=== PATIENT | female | born 1975 | race Caucasian/White ===

== ENCOUNTER → 2016-10-05 | Outpatient (REF) | payer BC ==
[~2016-10-05] MED LIST: ACIP20TA5 PO; CELE-19 PO; ETOD400T PO; FENO160T10 PO; FISH5CAP PO; FLON1SPR; LEVO112T25 PO; PREG50CA PO; TYLE500T78 PO
[2016-10-05 19:51] LABS: VITAMIN B12 LEVEL 564 PG/ML
[2016-10-05 19:52] LABS: FOLATE 17.6 NG/ML
[2016-10-05 19:57] LABS: MEAN CORPUSCULAR HEMOGLOBIN 31.2 pg (27.0-33.0); MEAN CORPUSCULAR HGB CONC 33.7 g/dl (32.0-36.5); MEAN CORPUSCULAR VOLUME 92.7 fl (80.0-96.0); RED CELL DISTRIBUTION WIDTH 13.9 % (11.5-14.5); WHITE BLOOD COUNT 10.4 K/mm3 (4.0-10.0)
[2016-10-05 20:11] LABS: ALBUMIN 3.7 GM/DL (3.2-5.2); ALBUMIN/GLOBULIN RATIO 1.03 (1.00-1.93); ALKALINE PHOSPHATASE 83 U/L (45-117); ALT/SGPT 31 U/L (12-78); ANION GAP 6 MEQ/L (8-16); AST/SGOT 19 U/L (15-37); BILIRUBIN,TOTAL 0.4 MG/DL (0.2-1.0); BLOOD UREA NITROGEN 14 MG/DL (7-18); CALCIUM LEVEL 9.7 MG/DL (8.5-10.1); CARBON DIOXIDE LEVEL 31 MEQ/L (21-32); CHLORIDE LEVEL 101 MEQ/L (98-107); CHOLESTEROL LEVEL 256 MG/DL (<200); CREATININE FOR GFR 1.07 MG/DL (0.55-1.02); GLOMERULAR FILTRATION RATE 59.9 (>58); GLUCOSE, FASTING 103 MG/DL (70-105); POTASSIUM SERUM 4.7 MEQ/L (3.5-5.1); SODIUM LEVEL 138 MEQ/L (136-145); TOTAL PROTEIN 7.3 GM/DL (6.4-8.2); TRIGLYCERIDES LEVEL 409 MG/DL (<150)
== END ==
LOC: M SFHCADAM 16:43
PROVIDERS: ATTEND Nurse Practitioner Family
DX: E03.9 Hypothyroidism, unspecified (principal); N18.3 Chronic kidney disease, stage 3 (moderate); E78.2 Mixed hyperlipidemia; E88.81 Metabolic syndrome and other insulin resistance; K21.9 Gastro-esophageal reflux disease without esophagitis

== ENCOUNTER → 2016-10-17 | Outpatient (CLI) | payer BC ==
--- NOTE | 2016-10-17 16:11 | REP ---
Clinical: Dyspnea. Acute bronchitis . Comparison: 12/02/2009. Technique: PA and lateral. Findings: The mediastinum and cardiac silhouette are normal. The lung fragoso are clear and without acute consolidation, effusion, or pneumothorax. The skeletal structures are intact and normal. Impression: 1. No acute cardiopulmonary process. Signed by Leandro Martínez MD 10/17/2016 04:03 P
[2016-10-17 19:37] LABS: BASO # 0.1 K/mm3 (0.0-0.2); BASO % 0.8 % (0.0-1.0); EOS # 0.3 K/mm3 (0.0-0.50); EOS % 2.5 % (0.0-3.0); LARGE UNSTAINED CELL # 0.3 K/mm3 (0.0-0.4); LARGE UNSTAINED CELL % 2.2 % (0.0-4.0); LYMPH # 4.9 K/mm3 (1.5-4.5); LYMPH % 38.6 % (24.0-44.0); MEAN CORPUSCULAR HEMOGLOBIN 31.1 pg (27.0-33.0); MEAN CORPUSCULAR HGB CONC 32.9 g/dl (32.0-36.5); MEAN CORPUSCULAR VOLUME 94.7 fl (80.0-96.0); MONO # 0.6 K/mm3 (0.0-0.8); MONO % 4.8 % (0.0-5.0); NEUTROPHILS # 6.1 K/mm3 (1.8-7.7); NEUTROPHILS % 51.1 % (36.0-66.0); PLATELET COUNT, AUTOMATED 282 k/mm3 (150-450); RED CELL DISTRIBUTION WIDTH 13.9 % (11.5-14.5)
== END ==
LOC: M ADAMS 15:46
PROVIDERS: ATTEND Physician Assistant Medical
DX: J20.9 Acute bronchitis, unspecified (principal)

== ENCOUNTER → 2016-11-22 | Outpatient (REF) | payer BC ==
[2016-11-22 20:29] LABS: FREE T4 1.09 NG/DL (0.76-1.46)
== END ==
LOC: M SFHCADAM 11:44
PROVIDERS: ATTEND Physician Assistant
DX: E03.9 Hypothyroidism, unspecified (principal)

== ENCOUNTER 2016-12-06 11:16 | Emergency (ER) | payer BC ==
[~2016-12-06] VITALS: Ht 175.3 cm; Wt 125.6 kg
[~2016-12-06 11:16] MED LIST changes: +MOTR200T44 PO; +MULTTAB24 PO; +RABE1TAB PO
[2016-12-06] MEDS ORDERED: KETOROLAC 60 MG/2 ML VIAL (J1885) IM ONE (13:15)
[2016-12-06] MEDS ORDERED: METHOCARBAMOL 500 MG TAB PO ONE (13:15)
[2016-12-06] MEDS ORDERED: PERC5TAB6 PO (13:22)
[2016-12-06] MEDS ORDERED: ROBA500T PO (13:22)
[2016-12-06 13:40] VITALS: BP 137/70
== END 2016-12-06 13:44 | disposition home or self-care (01) ==
LOC: M ED 13:02
DX: M54.41 Lumbago with sciatica, right side (principal); S39.012A Strain of muscle, fascia and tendon of lower back, initial encounter; X50.3XXA Overexertion from repetitive movements, initial encounter; Y92.019 Unspecified place in single-family (private) house as the place of occurrence of the external cause; Y93.E5 Activity, floor mopping and cleaning; Y99.8 Other external cause status; E11.9 Type 2 diabetes mellitus without complications; F17.200 Nicotine dependence, unspecified, uncomplicated; Z90.79 Acquired absence of other genital organ(s); Z79.899 Other long term (current) drug therapy; Z88.1 Allergy status to other antibiotic agents; Z88.8 Allergy status to other drugs, medicaments and biological substances
CPT/HCPCS: 96372; 99282; J1885

== ENCOUNTER → 2016-12-08 | Outpatient (REF) | payer BC ==
[~2016-12-08] MED LIST changes: +PERC5TAB6 PO; +ROBA500T PO
[2016-12-08 19:11] LABS: ALBUMIN 3.3 GM/DL (3.2-5.2); ALBUMIN/GLOBULIN RATIO 0.87 (1.00-1.93); ALKALINE PHOSPHATASE 102 U/L (45-117); ALT/SGPT 54 U/L (12-78); ANION GAP 4 MEQ/L (8-16); AST/SGOT 32 U/L (15-37); BILIRUBIN,TOTAL 0.5 MG/DL (0.2-1.0); BLOOD UREA NITROGEN 16 MG/DL (7-18); CALCIUM LEVEL 8.5 MG/DL (8.5-10.1); CARBON DIOXIDE LEVEL 30 MEQ/L (21-32); CHLORIDE LEVEL 98 MEQ/L (98-107); CREATININE FOR GFR 1.01 MG/DL (0.55-1.02); GLOMERULAR FILTRATION RATE > 60.0 (>58); GLUCOSE, FASTING 314 MG/DL (70-105); POTASSIUM SERUM 4.6 MEQ/L (3.5-5.1); SODIUM LEVEL 132 MEQ/L (136-145); TOTAL PROTEIN 7.1 GM/DL (6.4-8.2)
== END ==
LOC: M SFHCADAM 13:56
PROVIDERS: ATTEND Physician Assistant
DX: N18.3 Chronic kidney disease, stage 3 (moderate) (principal)

== ENCOUNTER → 2017-01-05 | Outpatient (REF) | payer BC | LOC: M SFHCPLAZ 09:40 | PROVIDERS: ATTEND Family Medicine | DX: D23.62 Other benign neoplasm of skin of left upper limb, including shoulder (principal) ==

== ENCOUNTER → 2017-02-06 | Outpatient (REF) | payer BC ==
[~2017-02-06] MED LIST changes: +ACIP1TAB PO; -ACIP20TA5 PO; -CELE-19 PO; +CELE1CAP4 PO; +PERC5TAB12 PO; -PERC5TAB6 PO
[2017-02-06 20:42] LABS: ALBUMIN 3.5 GM/DL (3.2-5.2); ALKALINE PHOSPHATASE 134 U/L (45-117); ALT/SGPT 47 U/L (12-78); ANION GAP 6 MEQ/L (8-16); AST/SGOT 18 U/L (15-37); BILIRUBIN,TOTAL 0.3 MG/DL (0.2-1.0); BLOOD UREA NITROGEN 19 MG/DL (7-18); CARBON DIOXIDE LEVEL 28 MEQ/L (21-32); CHLORIDE LEVEL 98 MEQ/L (98-107); CHOLESTEROL LEVEL 269 MG/DL (<200); CREATININE FOR GFR 0.96 MG/DL (0.55-1.02); FREE T4 1.29 NG/DL (0.76-1.46); GLOMERULAR FILTRATION RATE > 60.0 (>58); POTASSIUM SERUM 4.6 MEQ/L (3.5-5.1); SODIUM LEVEL 132 MEQ/L (136-145); TOTAL PROTEIN 7.4 GM/DL (6.4-8.2); TRIGLYCERIDES LEVEL 1737 MG/DL (<150)
[2017-02-06 20:44] LABS: GLUCOSE, FASTING 416 MG/DL (70-105)
== END ==
LOC: M SFHCADAM 15:16
PROVIDERS: ATTEND Physician Assistant
DX: E78.2 Mixed hyperlipidemia (principal); E11.9 Type 2 diabetes mellitus without complications; R61 Generalized hyperhidrosis

== ENCOUNTER → 2017-02-06 | Outpatient (CLI) | payer BC ==
--- NOTE | 2017-02-06 23:31 | ECWPNPC ---
PATIENT NAME: ENRICO WINTERS : 1975 GENDER: FEMALE VISIT DATE: 02/06/2017 DISCHARGE DATE: 02/06/17 1433 VISIT LOCKED DATE TIME: PHYSICIAN: TAMY LYNN RESOURCE: TAMY LYNN REASON FOR APPOINTMENT 1. BACK PAIN HISTORY OF PRESENT ILLNESS HISTORY OF PRESENT ILLNESS: HERE FOR F/U AND MANAGEMENT OF CHRONIC LOW BACK AND RIGHT LEG PAIN.LAST VISIT HERE WAS ONE YEAR AGO.RIGHT LEG PAIN BEGAN AFTER A TRIP TO GYM IN .SHE WAS DOING GOOD WITHOUT NEED FOR PAIN MEDICATION UNTIL AFTER A TRIP TO GYM AND POSSIBLY OVERDOING.PAIN WAS BEARABLE USING OXYCODONE 5/325 2 TAB 3-4 X DAY PRESCRIBED BY ORTHO THAT BEGAN IN NOVEMBER.REPORTED IMPROVED SLEEP AND ABILITY TO TOLERATE ACTIVITIES.STATES THEY CUT HER OXYCODONE IN HALF A WEEK AGO FOR NO REASON PER PATIENT.THEY TOLD HER SHE NEEDED SURGERY AND PATIENT IS TRYING TO AVOID SURGERY AT ALL COST.RATING PAIN VAS 8/10.PAIN IS SO INTENSE THAT SHE HAS FALLEN DUE TO RIGHT LEG GIVING OUT.TODAY SHE IS CRYING INTERMITTENTLY DURING VISIT.ACCOMPANIED IN EXAM ROOM WITH HER FRIEND WHO STATES SHE HAS KNOWN HER MANY YEARS AND HAS NEVER SEEN HER IN SO MUCH PAIN.SHE IS UNABLE TO SLEEP DUE TO PAIN.DENIES RECENT FEVER,ILLNESS OR WEIGHT LOSS.DENIES BOWEL OR BLADDER INCONTINENCE. PAIN THE PATIENT DESCRIBES THE PAIN... FALL RISK SCREENING: SCREENING :NO FALLS IN THE PAST YEAR CURRENT MEDICATIONS TAKING WOMENS DAILY FORMULA - TABLET ORALLY TAKING LEVOTHYROXINE SODIUM 137 MCG TABLET 1 TABLET ON AN EMPTY STOMACH IN THE MORNING ORALLY ONCE A DAY TAKING FLONASE 50 MCG/ACT SUSPENSION 1 PUFF IN EACH NOSTRIL NASALLY ONCE A DAY NEEDED TAKING CLOBETASOL PROPIONATE 0.05 % CREAM 1 APPLICATION TO AFFECTED AREA EXTERNALLY TWICE A DAY TO RASH ON ELBOWS FOR 3 WEEKS OFF FOR 1 WEEK TAKING PHYSICAL THERAPY EVALUATE AND TREAT PHYSICAL THERAPY DIRECTED DX: RIGHT SCIATICA 1-3X/WEEK TAKING PERCOCET 5-325 MG TABLET 1 TABLET NEEDED ORALLY EVERY 6 HRS, NOTES: MMD 4PER DAY TAKING IBUPROFEN 800MG TABLET TAKE 1 TABLET THREE TIMES A DAY TAKING TIZANIDINE HCL 4 MG TABLET 1 TABLET NEEDED ORALLY THREE TIMES A DAY TAKING CHANTIX STARTING MONTH BETHANY 0.5 MG X 11 & 1 MG X 42 TABLET DIRECTED ORALLY DIRECTED TAKING CHANTIX CONTINUING MONTH BETHANY 1 MG TABLET 1 TABLET ORALLY TWICE A DAY TAKING RABEPRAZOLE SODIUM 20 MG TABLET DELAYED RELEASE 1 TABLET ORALLY DAILY NOT-TAKING CYCLOBENZAPRINE HCL 10 MG TABLET 1 TABLET NEEDED ORALLY THREE TIMES A DAY NOT-TAKING DOVONEX 0.005 % CREAM 1 APPLICATION TO AFFECTED AREA EXTERNALLY TWICE A DAY NOT-TAKING SKELAXIN 800 MG TABLET 1 TABLET ORALLY THREE TIMES A DAY NEEDED NOT-TAKING TRAMADOL HCL 50 MG TABLET 1 TABLET NEEDED ORALLY EVERY 6 HRS NEEDED FOR PAIN MEDICATION LIST REVIEWED AND RECONCILED WITH THE PATIENT PAST MEDICAL HISTORY HYPERLIPIDEMIA ESOPHAGEAL REFLUX - EGD 02/01 DR HERNANDEZ DEPRESSION TYPE 2 DM LUMBAR DISC DISEASE/POST LAMINECTOMY SYNDROME - PREVIOUSLY MANAGED BY PAIN CLINIC MYOFASCIAL PAIN SYNDROME - PREVIOUSLY MANAGED BY PAIN CLINIC HIDRADENITIS - EVAL BY DR HEBERT IN PAST METABOLIC SYNDROME (WAS ON METFORMIN IN PAST, PT D/C DUE TO LOW BS) GOITER- HYPOTHYROID HYPERLIPIDEMIA ANEMIA OBESITY SMOKER 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 CONSTITUTIONAL: ANY CHANGE IN YOUR MEDICAL CONDITION? NO . CHILLS NO . FEVER NO . INFECTION: DO YOU HAVE NEW INFECTIONS? NO . DO YOU HAVE HISTORY OF MRSA? NO . MUSCULOSKELETAL: ANY NEW PATTERNS OF PAIN OR NUMBNESS? YES, SCIATIC PAIN ON THE RIGHT . GASTROENTEROLOGY: ANY NEW CHANGE IN BOWEL CONTROL? NO . GENITOURINARY: ANY NEW CHANGE IN BLADDER CONTROL? NO . IS THERE A CHANCE YOU COULD BE ? NO . HEMATOLOGY/LYMPH: DO YOU TAKE ANY BLOOD THINNERS? (FOR EXAMPLE- COUMADIN, PLAVIX, AGGRENOX, PLATEL, PRADAXA, OR XARELTO) NO . WHEN WAS YOUR LAST DOSE? DATE: TIME: . NEUROLOGY: HAVE YOU FALLEN IN THE PAST 6 MONTHS? YES, MUSCLE SPASMS CAUSE LOSS OF BALANCE . ANY NEW EXTREMITY NUMBNESS OR WEAKNESS? NO . CARDIOLOGY: DO YOU HAVE A PACEMAKER OR DEFIBRILLATOR? NO . RESPIRATORY: HAVE YOU BEEN SICK IN THE PAST WEEK? NO . FEVER NO . FLU LIKE SYMPTOMS? NO . COUGH NO . INTEGUMENTARY: DO YOU HAVE ANY RASHES OR OPEN SORES? YES . ALLERGIC/IMMUNO: ARE YOU ALLERGIC TO SHELLFISH OR IV DYE? NO . ANY NEW ALLERGIES? NO . PSYCHIATRIC: DO YOU HAVE THOUGHTS OF HURTING YOURSELF OR SOMEONE ELSE? NO . ARE YOU ABUSED, NEGLECTED, OR IN AN UNSAFE ENVIRONMENT? NO . ENDOCRINOLOGY: ARE YOU DIABETIC? YES . OTHER: DO YOU NEED ANY PRESCRIPTIONS? YES . IF YES, PLEASE LIST: OXYCODONE . ANY NEW PROBLEMS WITH YOUR MEDICATIONS?. WHEN DID YOU LAST EAT? ____ . WHEN DID YOU LAST DRINK? ____ . WHAT DID YOU LAST DRINK? ____ . NAME OF PERSON DRIVING YOU HOME? ____ . DO YOU HAVE ANY OTHER QUESTIONS OR CONCERNS YES . VITAL SIGNS WT 257.2 LBS, HT 69 IN, BMI 37.98 INDEX, BP 136/70 MM HG, HR 91 /MIN, RR 20 /MIN, TEMP 98.0 F, OXYGEN SAT % 94%, NA INITIALS SC 13:27, REVIEWED BY: SARAH. EXAMINATION GENERAL EXAMINATION: GENERAL APPEARANCE:UNCOMFORTABLE, TEARFUL. PSYCHGOOD EYE CONTACT, DEPRESSED. NECK:TRACHEA MIDLINE. NO CERVICAL OR SUPRACLAVICULAR LYMPHADENOPATHY NOTED. LUNGS:LUNG PATINO ARE CLEAR TO AUSCULTATION BILATERALLY. GOOD MOVEMENT OF AIR. HEART:S1, S2 IN A REGULAR RATE AND RHYTHM. NO SIGNIFICANT MURMURS, RUBS OR GALLOPS NOTED. LUMBAR SPINE/LOWER BACK: INSPECTION:WELL HEALED SURGICAL INCISION MIDLINE. PALPATION:VERTEBRAL SPINE TENDERNESS, PARASPINAL TENDERNESS, NO SI JOINT TENDERNESS BILATERAL R>L. MOTOR SYSTEM:5/5 BLE. SENSORY EXAM:NORMAL BILATERAL LE. GAIT:SLOW TO RISE FROM SEATED POSITION.WALK IS ANTALGIC. DIAGNOSTIC DATA-MRI L/S [id number]. ASSESSMENTS SACROILIAC INFLAMMATION - M46.1 (PRIMARY) POST LAMINECTOMY SYNDROME - M96.1 CHRONIC PRESCRIPTION OPIATE USE - Z79.891 TREATMENT SACROILIAC INFLAMMATION STOP PERCOCET TABLET, 5-325 MG, 1 TABLET NEEDED, ORALLY, EVERY 6 HRS, NOTES: MMD 4PER DAY START OXYCODONE-ACETAMINOPHEN TABLET, 10-325 MG, 1, ORALLY, EVERY 6 HRS PRN MDD4, 30 DAY(S), 120, REFILLS 0 START SOMA TABLET, 350 MG, 1 TABLET NEEDED, ORALLY, BID MDD2, 30 DAY(S), 60, REFILLS 0 START AMITRIPTYLINE HCL TABLET, 50 MG, 2, ORALLY, BEFORE BEDTIME, 30 DAY(S), 60, REFILLS 1 PREVENTIVE MEDICINE PAIN CLINIC TEACHING: MEDICATIONS TEACHING DONE FOR OXYCODONE/ACETAMINOPHEN, SOMA AND AMITRIPTYLINE. PATIENT VERBALIZES UNDERSTANDING. ADDITIONAL TEACHING MATERIAL GIVEN FOR AMITRIPTYLINE SINCE THIS IS A NEW MEDICATION FOR HER.. PROCEDURE CODES FA211 ESTABILISHED PATIENT [facility] CHARGE DISPOSITION & COMMUNICATION FOLLOW UP 4 WEEKS ELECTRONICALLY SIGNED BY KENYA RAYMOND ON 02/06/2017 AT 03:31 PM EDT DISCLAIMER : THIS IS A VISIT SUMMARY EXTRACTED FROM THE [employer] CHART. IT IS NOT A COPY OF THE [employer] PROGRESS NOTE. CALEB
== END ==
LOC: M PAIN 13:20
PROVIDERS: ATTEND Nurse Practitioner Family
DX: M96.1 Postlaminectomy syndrome, not elsewhere classified (principal); M46.1 Sacroiliitis, not elsewhere classified; E78.2 Mixed hyperlipidemia; K21.9 Gastro-esophageal reflux disease without esophagitis; F32.9 Major depressive disorder, single episode, unspecified; E11.9 Type 2 diabetes mellitus without complications; E03.9 Hypothyroidism, unspecified; E66.9 Obesity, unspecified; Z68.37 Body mass index [BMI] 37.0-37.9, adult; G47.30 Sleep apnea, unspecified; R21 Rash and other nonspecific skin eruption; Z88.8 Allergy status to other drugs, medicaments and biological substances; Z88.3 Allergy status to other anti-infective agents; Z79.1 Long term (current) use of non-steroidal anti-inflammatories (NSAID); Z79.899 Other long term (current) drug therapy

== ENCOUNTER → 2017-03-29 | Outpatient (REF) | payer BC ==
[2017-03-29 14:35] LABS: ALBUMIN 3.4 GM/DL (3.2-5.2); ALBUMIN/GLOBULIN RATIO 0.89 (1.00-1.93); ALKALINE PHOSPHATASE 98 U/L (45-117); ALT/SGPT 29 U/L (12-78); ANION GAP 8 MEQ/L (8-16); AST/SGOT 15 U/L (15-37); BILIRUBIN,TOTAL 0.3 MG/DL (0.2-1.0); BLOOD UREA NITROGEN 16 MG/DL (7-18); CALCIUM LEVEL 9.3 MG/DL (8.5-10.1); CARBON DIOXIDE LEVEL 27 MEQ/L (21-32); CHLORIDE LEVEL 102 MEQ/L (98-107); CHOLESTEROL LEVEL 240 MG/DL (<200); CREATININE FOR GFR 0.87 MG/DL (0.55-1.02); GLOMERULAR FILTRATION RATE > 60.0 (>58); GLUCOSE, FASTING 92 MG/DL (70-105); POTASSIUM SERUM 4.9 MEQ/L (3.5-5.1); SODIUM LEVEL 137 MEQ/L (136-145); TOTAL PROTEIN 7.2 GM/DL (6.4-8.2); TRIGLYCERIDES LEVEL 340 MG/DL (<150)
== END ==
LOC: M SFHCADAM 11:44
PROVIDERS: ATTEND Physician Assistant
DX: E11.65 Type 2 diabetes mellitus with hyperglycemia (principal); E78.1 Pure hyperglyceridemia

== ENCOUNTER → 2017-04-05 | Outpatient (CLI) | payer BC ==
--- NOTE | 2017-04-17 01:51 | ECWPNPC ---
PATIENT NAME: ENRICO WINTERS : 1975 GENDER: FEMALE VISIT DATE: 04/05/2017 DISCHARGE DATE: 04/05/17 1351 VISIT LOCKED DATE TIME: PHYSICIAN: TAMY LYNN RESOURCE: TAMY LYNN REASON FOR APPOINTMENT 1. MEDS HISTORY OF PRESENT ILLNESS HISTORY OF PRESENT ILLNESS: HERE FOR F/U AND MANAGEMENT OF PERSISTENT RIGHT LOW BACK PAIN.PAIN IS MUCH BETTR.RATING PAIN VAS 1/10.PAIN IS INTERMITTENT AND MAINLY IN BUTTOCK BLESSING,RIGHT SIDE.UAING PAIN MEDICATION SPARINGLY FOR SEVERE PAIN WITH GOOD EFFECT.DOING HOME EXCERSISE PROGRAM. PAIN THE PATIENT DESCRIBES THE PAIN... FALL RISK SCREENING: SCREENING :NO FALLS IN THE PAST YEAR CURRENT MEDICATIONS TAKING WOMENS DAILY FORMULA - TABLET ORALLY TAKING LEVOTHYROXINE SODIUM 137 MCG TABLET 1 TABLET ON AN EMPTY STOMACH IN THE MORNING ORALLY ONCE A DAY TAKING FLONASE 50 MCG/ACT SUSPENSION 1 PUFF IN EACH NOSTRIL NASALLY ONCE A DAY NEEDED TAKING CLOBETASOL PROPIONATE 0.05 % CREAM 1 APPLICATION TO AFFECTED AREA EXTERNALLY TWICE A DAY TO RASH ON ELBOWS FOR 3 WEEKS OFF FOR 1 WEEK TAKING PHYSICAL THERAPY EVALUATE AND TREAT PHYSICAL THERAPY DIRECTED DX: RIGHT SCIATICA 1-3X/WEEK TAKING IBUPROFEN 800MG TABLET TAKE 1 TABLET THREE TIMES A DAY TAKING RABEPRAZOLE SODIUM 20 MG TABLET DELAYED RELEASE 1 TABLET ORALLY DAILY TAKING AMITRIPTYLINE HCL 50 MG TABLET 2 ORALLY BEFORE BEDTIME TAKING PEN NEEDLES 31G X 6 MM MISCELLANEOUS DIRECTED SUBCUTANEOUSLY DAILY DX: E11.65 TAKING GLUCOMETER DIRECTED ORALLY DX E11.65 TWICE A DAY TAKING ONE TOUCH ULTRA BLUE STRIPS DIRECTED DX E11.65 TWICE A DAY AND NEEDED TAKING LANCETS - MISCELLANEOUS DIRECTED DX: E11.65 DAILY TAKING OXYCODONE-ACETAMINOPHEN 10-325 MG TABLET 1 ORALLY EVERY 6 HRS PRN MDD4 TAKING ASPIRIN ADULT LOW DOSE 81 MG TABLET DELAYED RELEASE 1 TABLET ORALLY ONCE A DAY TAKING METFORMIN HCL 1000 MG TABLET 1 TABLET WITH MEALS ORALLY TWICE A DAY TAKING LANTUS SOLOSTAR 100 UNIT/ML SOLUTION PEN-INJECTOR 92 UNITS SUBCUTANEOUS AT BEDTIME DX: E11.65 NOT-TAKING METFORMIN HCL 500 MG TABLET 2 TABLET WITH MEALS ORALLY TWICE A DAY NOT-TAKING SOMA 350 MG TABLET 1 TABLET NEEDED ORALLY BID MDD2 NOT-TAKING CHANTIX STARTING MONTH BETHANY 0.5 MG X 11 & 1 MG X 42 TABLET DIRECTED ORALLY DIRECTED NOT-TAKING CHANTIX CONTINUING MONTH BETHANY 1 MG TABLET 1 TABLET ORALLY TWICE A DAY MEDICATION LIST REVIEWED AND RECONCILED WITH THE PATIENT PAST MEDICAL HISTORY HYPERLIPIDEMIA ESOPHAGEAL REFLUX - EGD 02/[address] HERNANDEZ DEPRESSION TYPE 2 DM LUMBAR DISC DISEASE/POST LAMINECTOMY SYNDROME - PREVIOUSLY MANAGED BY PAIN CLINIC MYOFASCIAL PAIN SYNDROME - PREVIOUSLY MANAGED BY PAIN CLINIC HIDRADENITIS - EVAL BY DR HEBERT IN PAST METABOLIC SYNDROME (WAS ON METFORMIN IN PAST, PT D/C DUE TO LOW BS) GOITER- HYPOTHYROID HYPERLIPIDEMIA ANEMIA OBESITY SMOKER 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 CONSTITUTIONAL: ANY CHANGE IN YOUR MEDICAL CONDITION? YES, NOW DIABETIC . CHILLS NO . FEVER NO . INFECTION: DO YOU HAVE NEW INFECTIONS? NO . DO YOU HAVE HISTORY OF MRSA? NO . MUSCULOSKELETAL: ANY NEW PATTERNS OF PAIN OR NUMBNESS? YES, GETTING BETTER, JUST STAYING IN THE BUTT AND NOT GOLING DOWN THE LEG . GASTROENTEROLOGY: ANY NEW CHANGE IN BOWEL CONTROL? NO . GENITOURINARY: ANY NEW CHANGE IN BLADDER CONTROL? NO . IS THERE A CHANCE YOU COULD BE ? NO . HEMATOLOGY/LYMPH: DO YOU TAKE ANY BLOOD THINNERS? (FOR EXAMPLE- COUMADIN, PLAVIX, AGGRENOX, PLATEL, PRADAXA, OR XARELTO) NO . WHEN WAS YOUR LAST DOSE? DATE: TIME: . NEUROLOGY: HAVE YOU FALLEN IN THE PAST 6 MONTHS? NO . ANY NEW EXTREMITY NUMBNESS OR WEAKNESS? NO . CARDIOLOGY: DO YOU HAVE A PACEMAKER OR DEFIBRILLATOR? NO . RESPIRATORY: HAVE YOU BEEN SICK IN THE PAST WEEK? NO . FEVER NO . FLU LIKE SYMPTOMS? NO . COUGH NO . INTEGUMENTARY: DO YOU HAVE ANY RASHES OR OPEN SORES? NO . ALLERGIC/IMMUNO: ARE YOU ALLERGIC TO SHELLFISH OR IV DYE? NO . ANY NEW ALLERGIES? NO . PSYCHIATRIC: DO YOU HAVE THOUGHTS OF HURTING YOURSELF OR SOMEONE ELSE? NO . ARE YOU ABUSED, NEGLECTED, OR IN AN UNSAFE ENVIRONMENT? NO . ENDOCRINOLOGY: ARE YOU DIABETIC? YES . OTHER: DO YOU NEED ANY PRESCRIPTIONS? YES . IF YES, PLEASE LIST: OXYCODONE . ANY NEW PROBLEMS WITH YOUR MEDICATIONS? NO . WHEN DID YOU LAST EAT? ____ . WHEN DID YOU LAST DRINK? ____ . WHAT DID YOU LAST DRINK? ____ . NAME OF PERSON DRIVING YOU HOME? ____ . DO YOU HAVE ANY OTHER QUESTIONS OR CONCERNS NO . VITAL SIGNS WT 258 LBS, HT 69 IN, BMI 38.10 INDEX, BP 123/80 MM HG, HR 87 /MIN, RR 20 /MIN, TEMP 97 F, REVIEWED BY: NL. EXAMINATION GENERAL EXAMINATION: GENERAL APPEARANCE:COMFORTABLE. LUNGS:LUNG PATINO ARE CLEAR TO AUSCULTATION BILATERALLY. GOOD MOVEMENT OF AIR. HEART:S1, S2 IN A REGULAR RATE AND RHYTHM. NO SIGNIFICANT MURMURS, RUBS OR GALLOPS NOTED. LUMBAR SPINE/LOWER BACK: INSPECTION:WELL HEALED SURGICAL INCISION MIDLINE. PALPATION:VERTEBRAL SPINE TENDERNESS, PARASPINAL TENDERNESS/MILD, . MOTOR SYSTEM:5/5 BLE. SENSORY EXAM:NORMAL BILATERAL LE. DIAGNOSTIC DATA-MRI L/S [id number]. ASSESSMENTS SACROILIAC INFLAMMATION - M46.1 (PRIMARY) POST LAMINECTOMY SYNDROME - M96.1 CHRONIC PRESCRIPTION OPIATE USE - Z79.891 TREATMENT SACROILIAC INFLAMMATION DECREASE OXYCODONE-ACETAMINOPHEN TABLET, 5-325 MG, 1, ORALLY, EVERY 6 HRS PRN MDD4, 30 DAY(S), 120, REFILLS 0 NOTES: ISTOP REGISTRY REVIEWED AND DEMNOSTRATES COMPLLIANCE. BRINGS IN MEDICATIONS WHICH IS APPROPRIATE FOR WHAT WAS DISPENSED. , RISKS AND BENEFITS OF NARCOTIC/OPIOD MEDICATIONS WERE REVIEWED WITH PATIENT - THIS INCLUDES BUT IS NOT LIMITED TO RISK OF DEPENDANCE/DEVELOPMENT OF ADDICTION, MOOD DISTURBANCE AND DEPRESSION, OSTEOPOROSIS, HORMONAL AND LABIDAL CHANGES, RESPIRATORY DEPRESSION AND . PATIENT IS ADVISED NOT TO DRIVE WHILE ON THESE MEDICATIONS. PROCEDURE CODES FA211 ESTABILISHED PATIENT [facility] CHARGE DISPOSITION & COMMUNICATION FOLLOW UP 6 WEEKS ELECTRONICALLY SIGNED BY KENYA RAYMOND ON 04/16/2017 AT 06:17 PM EDT DISCLAIMER : THIS IS A VISIT SUMMARY EXTRACTED FROM THE [employer] CHART. IT IS NOT A COPY OF THE [employer] PROGRESS NOTE. CALEB
== END ==
LOC: M PAIN 13:00
PROVIDERS: ATTEND Nurse Practitioner Family
DX: M96.1 Postlaminectomy syndrome, not elsewhere classified (principal); M46.1 Sacroiliitis, not elsewhere classified; E78.2 Mixed hyperlipidemia; K21.9 Gastro-esophageal reflux disease without esophagitis; E88.81 Metabolic syndrome and other insulin resistance; E03.9 Hypothyroidism, unspecified; N18.3 Chronic kidney disease, stage 3 (moderate); L40.9 Psoriasis, unspecified; G47.33 Obstructive sleep apnea (adult) (pediatric); E66.01 Morbid (severe) obesity due to excess calories; Z68.38 Body mass index [BMI] 38.0-38.9, adult; F17.210 Nicotine dependence, cigarettes, uncomplicated; E11.65 Type 2 diabetes mellitus with hyperglycemia; E78.1 Pure hyperglyceridemia; Z88.8 Allergy status to other drugs, medicaments and biological substances; Z79.1 Long term (current) use of non-steroidal anti-inflammatories (NSAID); Z79.891 Long term (current) use of opiate analgesic; Z79.82 Long term (current) use of aspirin; Z79.4 Long term (current) use of insulin; Z79.899 Other long term (current) drug therapy

== ENCOUNTER → 2017-05-08 | Outpatient (REF) | payer BC ==
[2017-05-08 20:15] LABS: MEAN CORPUSCULAR HEMOGLOBIN 30.4 pg (27.0-33.0); MEAN CORPUSCULAR HGB CONC 32.6 g/dl (32.0-36.5); MEAN CORPUSCULAR VOLUME 93.3 fl (80.0-96.0); PLATELET COUNT, AUTOMATED 366 10^3/uL (150-450); RED CELL DISTRIBUTION WIDTH 15.2 % (11.5-14.5)
[2017-05-08 20:20] LABS: ALBUMIN 3.4 GM/DL (3.2-5.2); ALBUMIN/GLOBULIN RATIO 0.92 (1.00-1.93); ALKALINE PHOSPHATASE 99 U/L (45-117); ALT/SGPT 28 U/L (12-78); ANION GAP 6 MEQ/L (8-16); AST/SGOT 16 U/L (15-37); BILIRUBIN,TOTAL 0.2 MG/DL (0.2-1.0); BLOOD UREA NITROGEN 15 MG/DL (7-18); CALCIUM LEVEL 8.5 MG/DL (8.5-10.1); CARBON DIOXIDE LEVEL 27 MEQ/L (21-32); CHLORIDE LEVEL 105 MEQ/L (98-107); CREATININE FOR GFR 0.92 MG/DL (0.55-1.02); GLOMERULAR FILTRATION RATE > 60.0 (>58); GLUCOSE, FASTING 114 MG/DL (70-105); POTASSIUM SERUM 4.5 MEQ/L (3.5-5.1); SODIUM LEVEL 138 MEQ/L (136-145); TOTAL PROTEIN 7.1 GM/DL (6.4-8.2)
[2017-05-08 20:25] LABS: WHITE BLOOD COUNT 11.4 10^3/uL (4.0-10.0)
[2017-05-08 20:26] LABS: ADD MANUAL DIFFER YES; DIFF SLIDE NUMBER 313; POSITIVE DIFF POS FLAG; POSITIVE MORPH POS FLAG
[2017-05-08 21:17] LABS: EOSINOPHILS 6 % (0-5)
== END ==
LOC: M SFHCADAM 15:28
PROVIDERS: ATTEND Physician Assistant
DX: R35.0 Frequency of micturition (principal); R10.84 Generalized abdominal pain

== ENCOUNTER → 2017-07-24 | Outpatient (REF) | payer BC ==
[2017-07-24 19:55] LABS: ESTIMATED AVERAGE GLUCOSE 123 MG/DL (60-110); HEMOGLOBIN A1c 5.9 %
[2017-07-24 20:03] LABS: ALBUMIN 3.8 GM/DL (3.2-5.2); ALBUMIN/GLOBULIN RATIO 1.03 (1.00-1.93); ALKALINE PHOSPHATASE 84 U/L (45-117); ALT/SGPT 20 U/L (12-78); ANION GAP 6 MEQ/L (8-16); AST/SGOT 12 U/L (7-37); BILIRUBIN,TOTAL 0.3 MG/DL (0.2-1.0); BLOOD UREA NITROGEN 25 MG/DL (7-18); CARBON DIOXIDE LEVEL 29 MEQ/L (21-32); CHLORIDE LEVEL 104 MEQ/L (98-107); CREATININE FOR GFR 0.96 MG/DL (0.55-1.02); GLOMERULAR FILTRATION RATE > 60.0 (>58); GLUCOSE, FASTING 64 MG/DL (70-105); POTASSIUM SERUM 4.7 MEQ/L (3.5-5.1); SODIUM LEVEL 139 MEQ/L (136-145); TOTAL PROTEIN 7.5 GM/DL (6.4-8.2)
== END ==
LOC: M SFHCADAM 13:51
DX: E11.65 Type 2 diabetes mellitus with hyperglycemia (principal); N18.3 Chronic kidney disease, stage 3 (moderate)
CPT/HCPCS: 80053

== ENCOUNTER → 2017-08-10 | Outpatient (CLI) | payer BC | LOC: M PAIN 13:45 | DX: M46.1 Sacroiliitis, not elsewhere classified (principal); M47.897 Other spondylosis, lumbosacral region; E78.00 Pure hypercholesterolemia, unspecified; K21.9 Gastro-esophageal reflux disease without esophagitis; F32.9 Major depressive disorder, single episode, unspecified; E11.9 Type 2 diabetes mellitus without complications; E88.81 Metabolic syndrome and other insulin resistance; E03.9 Hypothyroidism, unspecified; E78.5 Hyperlipidemia, unspecified; E66.9 Obesity, unspecified; Z68.37 Body mass index [BMI] 37.0-37.9, adult; F17.210 Nicotine dependence, cigarettes, uncomplicated; Z79.82 Long term (current) use of aspirin; Z79.84 Long term (current) use of oral hypoglycemic drugs; Z79.1 Long term (current) use of non-steroidal anti-inflammatories (NSAID); Z79.899 Other long term (current) drug therapy; Z88.8 Allergy status to other drugs, medicaments and biological substances | CPT/HCPCS: G0463 ==

== ENCOUNTER → 2017-10-24 | Outpatient (CLI) | payer BC | LOC: M PAIN 13:45 | DX: G89.29 Other chronic pain (principal); M46.1 Sacroiliitis, not elsewhere classified; E78.5 Hyperlipidemia, unspecified; K21.9 Gastro-esophageal reflux disease without esophagitis; F32.9 Major depressive disorder, single episode, unspecified; E11.9 Type 2 diabetes mellitus without complications; D64.9 Anemia, unspecified; E66.9 Obesity, unspecified; F17.210 Nicotine dependence, cigarettes, uncomplicated; L73.2 Hidradenitis suppurativa; E03.9 Hypothyroidism, unspecified; E04.9 Nontoxic goiter, unspecified; E88.81 Metabolic syndrome and other insulin resistance; Z79.82 Long term (current) use of aspirin; Z79.84 Long term (current) use of oral hypoglycemic drugs; Z79.891 Long term (current) use of opiate analgesic; Z79.899 Other long term (current) drug therapy; Z88.8 Allergy status to other drugs, medicaments and biological substances; Z88.1 Allergy status to other antibiotic agents; Z68.36 Body mass index [BMI] 36.0-36.9, adult | CPT/HCPCS: G0463 ==

== ENCOUNTER → 2017-11-23 | Outpatient (REF) | payer BC ==
[2017-11-23 19:42] LABS: ESTIMATED AVERAGE GLUCOSE 123 MG/DL (60-110); HEMOGLOBIN A1c 5.9 %
[2017-11-23 19:47] LABS: ALBUMIN 3.5 GM/DL (3.2-5.2); ALKALINE PHOSPHATASE 83 U/L (45-117); ALT/SGPT 15 U/L (12-78); ANION GAP 7 MEQ/L (8-16); APPEARANCE, URINE HAZY (CLEAR); AST/SGOT 9 U/L (7-37); BACTERIA, URINE AUTO 1+ (NEGATIVE); BILIRUBIN, URINE AUTO NEGATIVE (NEGATIVE); BILIRUBIN,TOTAL 0.3 MG/DL (0.2-1.0); BLOOD UREA NITROGEN 12 MG/DL (7-18); BLOOD, URINE BLOOD NEGATIVE (NEGATIVE); CALCIUM LEVEL 8.6 MG/DL (8.5-10.1); CARBON DIOXIDE LEVEL 27 MEQ/L (21-32); CHLORIDE LEVEL 106 MEQ/L (98-107); CHOLESTEROL LEVEL 124 MG/DL (<200); CHOLESTEROL RISK RATIO 4.275 (<5); COLOR, URINE YELLOW (YELLOW); CREATININE FOR GFR 0.92 MG/DL (0.55-1.30); FREE T4 1.46 NG/DL (0.76-1.46); GLOMERULAR FILTRATION RATE > 60.0 (>58); GLUCOSE, FASTING 77 MG/DL (70-100); GLUCOSE, URINE (UA) AUTO 3+ mg/dL (NEGATIVE); HDL CHOLESTEROL 29 MG/DL (>40); KETONE, URINE AUTO NEGATIVE (NEGATIVE); LEUKOCYTE ESTERASE, URINE AUTO NEGATIVE (NEGATIVE); MUCUS, URINE SMALL (NEGATIVE); NITRITE, URINE AUTO NEGATIVE (NEGATIVE); NON-HDL-C 95 MG/DL; PROTEIN, URINE AUTO 2+ mg/dL (NEGATIVE); RBC, URINE AUTO 1 /HPF (0-3); SODIUM LEVEL 140 MEQ/L (136-145); SPECIFIC GRAVITY URINE AUTO 1.021 (1.002-1.035); SQUAMOUS EPITHELIAL CELL UR AU 2 /HPF (0-6); TRIGLYCERIDES LEVEL 215 MG/DL (<150); WBC, URINE AUTO 0 /HPF (0-3); YEAST LIKE CELL URINE AUTO SMALL
[2017-11-23 20:21] LABS: MAU/CREAT RATIO 655.3 MCG/MG (0.0-30.0)
== END ==
LOC: M SFHCADAM 14:14
DX: E78.2 Mixed hyperlipidemia (principal); E03.9 Hypothyroidism, unspecified; E11.9 Type 2 diabetes mellitus without complications; M54.6 Pain in thoracic spine; N18.3 Chronic kidney disease, stage 3 (moderate)
CPT/HCPCS: 84443

== ENCOUNTER 2017-12-20 21:17 | Emergency (ER) | payer BC ==
[2017-12-20] MEDS: LIDOCAINE 2% W/EPIN INJ 20ML **PRES FREE INJ (22:24)
[2017-12-20] MEDS: OXYCODONE/APAP 5MG/325MG(BULK FOR ED) 1 TABLET PO (23:11)
== END 2017-12-20 23:16 | disposition home or self-care (01) ==
LOC: M ED 21:17
DX: L02.411 Cutaneous abscess of right axilla (principal); E11.9 Type 2 diabetes mellitus without complications; E78.5 Hyperlipidemia, unspecified; K21.9 Gastro-esophageal reflux disease without esophagitis; G47.33 Obstructive sleep apnea (adult) (pediatric); F17.200 Nicotine dependence, unspecified, uncomplicated; Z88.1 Allergy status to other antibiotic agents; Z88.8 Allergy status to other drugs, medicaments and biological substances; Z79.899 Other long term (current) drug therapy; Z79.84 Long term (current) use of oral hypoglycemic drugs; Z79.82 Long term (current) use of aspirin
CPT/HCPCS: 87077

== ENCOUNTER → 2017-12-26 | Outpatient (CLI) | payer BC | LOC: M PAIN 09:45 | DX: M46.1 Sacroiliitis, not elsewhere classified (principal); M47.817 Spondylosis without myelopathy or radiculopathy, lumbosacral region; G89.29 Other chronic pain; E78.5 Hyperlipidemia, unspecified; F32.9 Major depressive disorder, single episode, unspecified; E11.9 Type 2 diabetes mellitus without complications; E88.81 Metabolic syndrome and other insulin resistance; E03.9 Hypothyroidism, unspecified; F17.210 Nicotine dependence, cigarettes, uncomplicated; E66.01 Morbid (severe) obesity due to excess calories; Z68.35 Body mass index [BMI] 35.0-35.9, adult; Z79.84 Long term (current) use of oral hypoglycemic drugs; Z79.82 Long term (current) use of aspirin; Z79.891 Long term (current) use of opiate analgesic; Z79.899 Other long term (current) drug therapy; Z88.8 Allergy status to other drugs, medicaments and biological substances | CPT/HCPCS: G0463 ==

== ENCOUNTER → 2018-03-01 | Outpatient (CLI) | payer BC | LOC: M PAIN 10:45 | DX: M46.1 Sacroiliitis, not elsewhere classified (principal); M47.817 Spondylosis without myelopathy or radiculopathy, lumbosacral region; E78.5 Hyperlipidemia, unspecified; K21.9 Gastro-esophageal reflux disease without esophagitis; F32.9 Major depressive disorder, single episode, unspecified; E11.9 Type 2 diabetes mellitus without complications; M79.1 Myalgia; E04.1 Nontoxic single thyroid nodule; D64.9 Anemia, unspecified; E66.9 Obesity, unspecified; Z68.34 Body mass index [BMI] 34.0-34.9, adult; F17.210 Nicotine dependence, cigarettes, uncomplicated; Z79.82 Long term (current) use of aspirin; Z79.84 Long term (current) use of oral hypoglycemic drugs; Z79.891 Long term (current) use of opiate analgesic; Z88.1 Allergy status to other antibiotic agents; Z88.8 Allergy status to other drugs, medicaments and biological substances | CPT/HCPCS: G0463 ==

== ENCOUNTER → 2018-03-06 | Outpatient (REF) | payer BC ==
[2018-03-06 15:39] LABS: ANION GAP 6 MEQ/L (8-16); BLOOD UREA NITROGEN 11 MG/DL (7-18); CARBON DIOXIDE LEVEL 28 MEQ/L (21-32); CHLORIDE LEVEL 106 MEQ/L (98-107); GLOMERULAR FILTRATION RATE > 60.0 (>58); GLUCOSE, FASTING 98 MG/DL (70-100); POTASSIUM SERUM 4.8 MEQ/L (3.5-5.1); SODIUM LEVEL 140 MEQ/L (136-145)
[2018-03-06 15:47] LABS: ESTIMATED AVERAGE GLUCOSE 117 MG/DL (60-110); HEMOGLOBIN A1c 5.7 %
== END ==
LOC: M SFHCADAM 11:37
DX: E11.9 Type 2 diabetes mellitus without complications (principal); N18.3 Chronic kidney disease, stage 3 (moderate)
CPT/HCPCS: 83036

== ENCOUNTER → 2018-05-01 | Outpatient (CLI) | payer BC | LOC: M PAIN 10:30 | DX: M47.817 Spondylosis without myelopathy or radiculopathy, lumbosacral region (principal); E78.5 Hyperlipidemia, unspecified; K21.9 Gastro-esophageal reflux disease without esophagitis; F32.9 Major depressive disorder, single episode, unspecified; E11.9 Type 2 diabetes mellitus without complications; M96.1 Postlaminectomy syndrome, not elsewhere classified; M79.18 Myalgia, other site; L73.2 Hidradenitis suppurativa; E88.81 Metabolic syndrome and other insulin resistance; E03.9 Hypothyroidism, unspecified; F17.210 Nicotine dependence, cigarettes, uncomplicated; D64.9 Anemia, unspecified; E66.9 Obesity, unspecified; Z68.33 Body mass index [BMI] 33.0-33.9, adult; Z79.82 Long term (current) use of aspirin; Z79.84 Long term (current) use of oral hypoglycemic drugs; Z79.899 Other long term (current) drug therapy; Z88.8 Allergy status to other drugs, medicaments and biological substances; Z88.1 Allergy status to other antibiotic agents | CPT/HCPCS: G0463 ==

== ENCOUNTER → 2018-11-19 | Outpatient (REF) | payer BC ==
[~2018-11-19] MED LIST changes: +ASPI81TA85 PO; +ATOR40TA75 PO; +CLIN150C14 PO; +FISH120012 PO; +JARD1TAB3 PO; +METF10004 PO
[2018-11-19 15:12] LABS: HEMATOCRIT 53.2 % (36.0-47.0); HEMOGLOBIN 17.5 g/dl (12.0-15.5); MEAN CORPUSCULAR HEMOGLOBIN 31.6 pg (27.0-33.0); MEAN CORPUSCULAR HGB CONC 32.9 g/dl (32.0-36.5); PLATELET COUNT, AUTOMATED 341 10^3/uL (150-450); RED BLOOD COUNT 5.54 10^6/uL (4.00-5.40); WHITE BLOOD COUNT 13.1 10^3/uL (4.0-10.0)
[2018-11-19 15:44] LABS: ALBUMIN 3.5 GM/DL (3.2-5.2); ALT/SGPT 17 U/L (12-78); BILIRUBIN,TOTAL 0.4 MG/DL (0.2-1.0); BLOOD UREA NITROGEN 9 MG/DL (7-18); CALCIUM LEVEL 8.9 MG/DL (8.5-10.1); CARBON DIOXIDE LEVEL 29 MEQ/L (21-32); CHLORIDE LEVEL 104 MEQ/L (98-107); CHOLESTEROL LEVEL 120 MG/DL (<200); CHOLESTEROL RISK RATIO 3.243 (<5); GLOMERULAR FILTRATION RATE > 60.0 (>58); GLUCOSE, FASTING 65 MG/DL (70-100); HDL CHOLESTEROL 37 MG/DL (>40); LDL CHOLESTEROL 61 MG/DL (<100); NON-HDL-C 83 MG/DL; POTASSIUM SERUM 4.7 MEQ/L (3.5-5.1); SODIUM LEVEL 138 MEQ/L (136-145); TOTAL PROTEIN 7.1 GM/DL (6.4-8.2); TRIGLYCERIDES LEVEL 111 MG/DL (<150)
[2018-11-19 15:52] LABS: HEMOGLOBIN A1c 5.4 %
[2018-11-19 16:59] LABS: CREATININE, URINE 53.7 MG/DL; MAU/CREAT RATIO 839.8 MCG/MG (0.0-30.0)
== END ==
LOC: M SFHCADAM 13:19
PROVIDERS: ATTEND Physician Assistant
DX: E11.29 Type 2 diabetes mellitus with other diabetic kidney complication (principal); E78.2 Mixed hyperlipidemia; E03.9 Hypothyroidism, unspecified; D36.9 Benign neoplasm, unspecified site

== ENCOUNTER → 2018-11-21 | Outpatient (CLI) | payer BC ==
--- NOTE | 2018-12-07 23:43 | ECWPNPC ---
PATIENT NAME: ENRICO WINTERS : 1975 GENDER: FEMALE VISIT DATE: 11/21/2018 DISCHARGE DATE: 11/21/18 1208 VISIT LOCKED DATE TIME: PHYSICIAN: TAMY LYNN RESOURCE: TAMY LYNN REASON FOR APPOINTMENT 1. BACK HISTORY OF PRESENT ILLNESS HISTORY OF PRESENT ILLNESS: HERE FOR F/U OF CHRONIC LOW BACK PAIN.RATING PAIN VAS 6/10.DESCRIBES PAIN ACHING AND SORE.HAS EMBARKED ON A WEIGHT REDUCTION PROGRAM AND HAS LOST 50#.SHE IS ACTIVE AND HAS HAD SOME INCREASES IN LOW BACK PAIN. PAIN THE PATIENT DESCRIBES THE PAIN... FALL RISK SCREENING: SCREENING :NO FALLS REPORTED IN THE LAST YEAR CURRENT MEDICATIONS TAKING GLUCOMETER DIRECTED ORALLY DX E11.65 TWICE A DAY TAKING LANCETS - MISCELLANEOUS DIRECTED DX: E11.65 DAILY TAKING ONE TOUCH ULTRA BLUE STRIPS DIRECTED DX E11.65 TWICE A DAY AND NEEDED TAKING CLOBETASOL PROPIONATE 0.05 % CREAM 1 APPLICATION TO AFFECTED AREA EXTERNALLY TWICE A DAY TO RASH ON ELBOWS FOR 3 WEEKS OFF FOR 1 WEEK TAKING ONE TOUCH ULTRA BLUE MISC STRIPS DIRECTED DX E11.65 TWICE A DAY AND NEEDED TAKING FISH OIL 1200 MG CAPSULE 1 CAPSULE ORALLY ONCE A DAY TAKING FLONASE 50 MCG/ACT SUSPENSION 1 PUFF IN EACH NOSTRIL NASALLY ONCE A DAY NEEDED TAKING ASPIRIN ADULT LOW DOSE 81 MG TABLET DELAYED RELEASE 1 TABLET ORALLY ONCE A DAY TAKING ONETOUCH ULTRA TEST NA STRIP USE DIRECTED TWICE A DAY AND NEEDED TAKING ATORVASTATIN CALCIUM 40MG TABLET TAKE 1 TABLET DAILY TAKING JARDIANCE 25MG TABLET TAKE 1 TABLET DAILY TAKING METFORMIN HCL 1000 MG TABLET TAKE 1 TABLET TWICE A DAY WITH MEALS TAKING OXYBUTYNIN CHLORIDE 5 MG TABLET 1 TABLET ORALLY TWICE A DAY TAKING OXYCODONE-ACETAMINOPHEN 5-325 MG TABLET 1 ORALLY EVERY 6 HRS PRN MDD4 TAKING RABEPRAZOLE SODIUM 20 MG TABLET DELAYED RELEASE 1 TABLET ORALLY DAILY TAKING LEVOTHYROXINE SODIUM 137 MCG TABLET TAKE 1 TABLET DAILY IN THE MORNING ON AN EMPTY STOMACH MEDICATION LIST REVIEWED AND RECONCILED WITH THE PATIENT PAST MEDICAL HISTORY HYPERLIPIDEMIA ASCVD RISK SCORE 17% 03/2017 ESOPHAGEAL REFLUX - EGD 02/[address] HERNANDEZ DEPRESSION TYPE 2 DM LUMBAR DISC DISEASE/POST LAMINECTOMY SYNDROME - PREVIOUSLY MANAGED BY PAIN CLINIC MYOFASCIAL PAIN SYNDROME - PREVIOUSLY MANAGED BY PAIN CLINIC HIDRADENITIS - EVAL BY DR HEBERT IN PAST METABOLIC SYNDROME (WAS ON METFORMIN IN PAST, PT D/C DUE TO LOW BS) GOITER- HYPOTHYROID HYPERLIPIDEMIA ANEMIA OBESITY SMOKER PROBABLE ANKUR EXCESSIVE SWEATING ALLERGIES DOXYCYCLINE CALCIUM: HIVES, TOLERATES MINOCYCLINE - ALLERGY SILVADENE: BURNING/ITCHING - ALLERGY BYDUREON: SEVERE GI UPSET - SIDE EFFECTS SURGICAL HISTORY CERVICAL CRYO/LASER LUMBAR DECOMPRESSION - MICRODISCECTOMY AND FORAMINOTOMY L5-S1, DR LOVE December, COLONOSCOPY, ADENOMATOUS POLYP, REPEAT 3 YRS - REINDL 04-02 EGD, MILD CHRONIC INFLAMMATION, PAST GRANULAR CELL TUMOR - REINDL 9-,- HYSTERECTOMY VAGINAL -12 REMOVAL OF BENIGN ESOPHAGEAL TUMOR - [place] 05/02 FAMILY HISTORY NO FAMILY HISTORY DOCUMENTED. SOCIAL HISTORY GENERAL: TOBACCO USE ARE YOU A:CURRENT SMOKER ARE YOU INTERESTED IN QUITTING?NOT READY TO QUIT COUNSELED THE PATIENT ON SMOKING EFFECTS, EDUCATION [id number]/30/2019 HOW MANY CIGARETTES A DAY DO YOU SMOKE?31 OR MORE HOW SOON AFTER YOU WAKE UP DO YOU SMOKE YOUR FIRST CIGARETTE?WITHIN 5 MIN HOW OFTEN DO YOU SMOKE CIGARETTES?EVERY DAY PATIENT COUNSELED ON THE DANGERS OF TOBACCO USE AND URGED TO QUIT:11/21/2018 ADDITIONAL FINDINGS: TOBACCO USERCHAIN SMOKER SHE WAS SMOKING 2 -3 PPD. SHE NOW SMOKES ABOUT 1 1/2 - 2 PPD SMOKING CESSATION INFORMATION GIVEN11/19/2018 VAPORYES SHE HAS BEEN USING A VAPOR PEN IN HOPES OF CUTTING DOWN HER CIGARETTE USE SO SHE CAN QUITE. DIET: REGULAR. LANGUAGE MAORI. BMI CARE GOAL FOLLOW-UP ABOVE NORMAL BMI FOLLOW-UPDIETARY NEEDS EDUCATION RECREATIONAL DRUG USE DRUG USE?NO LEARNING BARRIERS / SPECIAL NEEDS CHANGE FROM LAST VISIT?NO BARRIERS TO LEARNING?NO HEARING IMPAIRED?NO VISION IMPAIRED?NO COGNITIVELY IMPAIRED?NO READINESS TO LEARN?YES LEARNING PREFERENCES?NO LEARNING CAPABILITIES PRESENT?YES EMOTIONAL BARRIERS?NO SPECIAL DEVICES?NO JUDICIAL LAW CLERK NEEDED?NO PAIN CLINIC PFS, CLERGY, PUBLIC HEALTH REFERRALS PFS REFERRAL NEEDED?NO CLERGY REFERRAL NEEDED?NO PUBLIC HEALTH REFERRAL NEEDED?NO WAS THE PROVIDER NOTIFIED OF ANY PERTINENT INFO?YES HAS THE PATIENT BEEN EDUCATED REGARDING HIS/HER PLAN OF CARE?YES HAS THE PATIENT BEEN EDUCATED REGARDING PAIN, THE RISK FOR PAIN, THE IMPORTANCE OF EFFECTIVE PAIN MANAGEMENT, AND THE PAIN ASSESSMENT PROCESS?YES LATEX QUESTIONNAIRE LATEX ALLERGY : HAVE YOU EVER DEVELOPED ANY TYPE OF REACTION AFTER HANDLING LATEX PRODUCTS SUCH RUBBER GLOVES, CONDOMS, DIAPHRAGMS, BALLOONS, SOCKS, OR UNDERWEAR?NO LATEX ALLERGY : HAVE YOU EVER DEVELOPED ANY TYPE OF REACTION DURING OR AFTER DENTAL APPOINTMENT, VAGINAL/RECTAL EXAMINATION, SURGICAL PROCEDURE, OR ANY OTHER EXPOSURE?NO LATEX RISK : HAVE YOU EVER HAD ANY DIFFICULTY BREATHING OR HIVES AFTER EATING OR HANDLING ANY FRUITS, OR VEGETABLES; SUCH KIWI, BANANAS, STONE FRUITS, OR CHESTNUTSNO LATEX RISK : DO YOU HAVE A PREVIOUS PERSONAL HISTORY OF MORE THAN NINE SURGERIES, SPINA BIFIDA, OR REPEATED CATHERTIZATIONS? NO LATEX RISK : ARE YOU FREQUENTLY EXPOSED TO LATEX PRODUCTS IN YOUR OCCUPATION?NO DATE ASKED : 11/21/2018 CAFFEINE CAFFEINE USE?YES HOW OFTEN AND HOW MUCH? 2 POTS OF COFFEE DAILY ADVANCE DIRECTIVE ADVANCE DIRECTIVE DISCUSSED WITH PATIENT:YES NO ADVANCED DIRECTIVES, PT DECLINES INFORMATION AT THIS TIME PENTECOSTAL [id number] NONE MARITAL STATUS: . ALCOHOL SCREENING DID YOU HAVE A DRINK CONTAINING ALCOHOL IN THE PAST YEAR?YES HOW OFTEN DID YOU HAVE SIX OR MORE DRINKS ON ONE OCCASION IN THE PAST YEAR?NEVER (0 POINTS) HOW MANY DRINKS DID YOU HAVE ON A TYPICAL DAY WHEN YOU WERE DRINKING IN THE PAST YEAR?1 OR 2 (0 POINTS) HOW OFTEN DID YOU HAVE A DRINK CONTAINING ALCOHOL IN THE PAST YEAR?MONTHLY OR LESS (1 POINT) POINTS1 INTERPRETATIONNEGATIVE SEXUAL HX HAD SEX IN THE LAST 12 MONTHS (VAGINAL, ORAL, OR ANAL)?YES WITHMEN ONLY USE PROTECTION?NO LMP:HYSTER HAVE YOU EVER HAD AN STD?NO REVIEWED, UPDATED, ADVISED RISKS OF CONTINUED SMOKING, OFFERED CESSATION AIDS/DECLINEDREVIEWED WITH PT 03/01/18 1115 LASREVIEWED WITH PATIENT 05/01/18 1059 JS. HOSPITALIZATION/MAJOR DIAGNOSTIC PROCEDURE BACK SURGERY December, REVIEW OF SYSTEMS REVIEWED BY: PROVIDER: TAMY ZAMBRANO . CONSTITUTIONAL: ANY CHANGE IN YOUR MEDICAL CONDITION? NO . CHILLS NO . FEVER NO . INFECTION: DO YOU HAVE NEW INFECTIONS? YES, PT STATES THAT SHE HAS A OPEN SORE ON LABIA, PT STATES THAT SHE IS HAVING A VIRAL FLARE AT THIS TIME . DO YOU HAVE HISTORY OF MRSA? NO . MUSCULOSKELETAL: ANY NEW PATTERNS OF PAIN OR NUMBNESS? YES, PT STATES THAT SHE HAS HAD INCREASED ACHE PAIN, POSSIBLY DUE TO INCREASE IN ACTIVITY, WALKING . GASTROENTEROLOGY: ANY NEW CHANGE IN BOWEL CONTROL? NO . GENITOURINARY: ANY NEW CHANGE IN BLADDER CONTROL? NO . IS THERE A CHANCE YOU COULD BE ? NO . HEMATOLOGY/LYMPH: DO YOU TAKE ANY BLOOD THINNERS? (FOR EXAMPLE- COUMADIN, PLAVIX, AGGRENOX, PLATEL, PRADAXA, OR XARELTO) NO . WHEN WAS YOUR LAST DOSE? DATE: TIME: . NEUROLOGY: HAVE YOU FALLEN IN THE PAST 12 MONTHS? NO . ANY NEW EXTREMITY NUMBNESS OR WEAKNESS? NO . CARDIOLOGY: DO YOU HAVE A PACEMAKER OR DEFIBRILLATOR? NO . RESPIRATORY: HAVE YOU BEEN SICK IN THE PAST WEEK? NO . FEVER NO . FLU LIKE SYMPTOMS? NO . COUGH NO . INTEGUMENTARY: DO YOU HAVE ANY RASHES OR OPEN SORES? YES, VIRAL FLARE, OPEN SORE ON LABIA . ALLERGIC/IMMUNO: ARE YOU ALLERGIC TO IV DYE? NO . ANY NEW ALLERGIES? NO . PSYCHIATRIC: DO YOU HAVE THOUGHTS OF HURTING YOURSELF OR SOMEONE ELSE? NO . ARE YOU ABUSED, NEGLECTED, OR IN AN UNSAFE ENVIRONMENT? NO . ENDOCRINOLOGY: ARE YOU DIABETIC? YES, MANAGED WITH PO MEDS AND DIET . OTHER: DO YOU NEED ANY PRESCRIPTIONS? YES, OXYCODONE . IF YES, PLEASE LIST: ____ . ANY NEW PROBLEMS WITH YOUR MEDICATIONS? NO . WHEN DID YOU LAST EAT? ____ . WHEN DID YOU LAST DRINK? ____ . WHAT DID YOU LAST DRINK? ____ . NAME OF PERSON DRIVING YOU HOME? ____ . DO YOU HAVE ANY OTHER QUESTIONS OR CONCERNS NO . VITAL SIGNS WT 227.6 LBS, HT 69 IN, BMI 33.61 INDEX, BP 117/79 MM HG, HR 91 /MIN, RR 16 /MIN, TEMP 97.1 F, OXYGEN SAT % 97%, SAFE IN ENV? (Y/N) Y, NA INITIALS SD 11:24, REVIEWED BY: NICHELLE. EXAMINATION GENERAL EXAMINATION: GENERAL APPEARANCE:COMFORTABLE . LUNGS:LUNG PATINO ARE CLEAR TO AUSCULTATION BILATERALLY. GOOD MOVEMENT OF AIR . HEART:S1, S2 IN A REGULAR RATE AND RHYTHM. NO SIGNIFICANT MURMURS, RUBS OR GALLOPS NOTED . MUSCULOSKELETAL:MUSCLE STRENGTH TESTING 5/5 BILATERAL . LUMBAR SACRAL SPINEPOINT TENDERNESS BILAT. L4/5-L5/S1. ASSESSMENTS SPONDYLOSIS OF LUMBOSACRAL REGION, UNSPECIFIED SPINAL OSTEOARTHRITIS COMPLICATION STATUS - M47.817 (PRIMARY) TREATMENT SPONDYLOSIS OF LUMBOSACRAL REGION, UNSPECIFIED SPINAL OSTEOARTHRITIS COMPLICATION STATUS REFILL OXYCODONE-ACETAMINOPHEN TABLET, 5-325 MG, 1, ORALLY, EVERY 6 HRS PRN MDD4, 30 DAY(S), 120, REFILLS 0 NOTES: PT 2XWK X6 WK MUSCLE STRENGTHENING/ROJM LUMBAR.PATIENT WILL BE LOWERING PERCOCET USE OVER THE NEXT 2 MOS, [employer]RY REVIEWED AND DEMONSTRATES COMPLLIANCE. (REF #[id number] ) BRINGS IN MEDICATIONS WHICH IS APPROPRIATE FOR WHAT WAS DISPENSED. RECENT URINE TOXICOLOGY REVIEWED. NO UNAUTHORIZED MEDICATIONS. NO ILLICIT SUBSTANCES AND PRESCRIBED MEDICATIONS WERE PRESENT. URINE TOX TODAY, RISKS AND BENEFITS OF NARCOTIC/OPIOD MEDICATIONS WERE REVIEWED WITH PATIENT - THIS INCLUDES BUT IS NOT LIMITED TO RISK OF DEPENDANCE/DEVELOPMENT OF ADDICTION, MOOD DISTURBANCE AND DEPRESSION, OSTEOPOROSIS, HORMONAL AND LABIDAL CHANGES, RESPIRATORY DEPRESSION AND . PATIENT IS ADVISED NOT TO DRIVE OR DRINK ALCOHOL WHILE ON THESE MEDICATIONS. PROCEDURE CODES FA211 ESTABILISHED PATIENT [facility] FACILITY CHARGE DISPOSITION & COMMUNICATION FOLLOW UP 2 MONTHS ELECTRONICALLY SIGNED BY KENYA YEH ON 12/07/2018 AT 12:35 PM EDT DISCLAIMER : THIS IS A VISIT SUMMARY EXTRACTED FROM THE [employer] CHART. IT IS NOT A COPY OF THE [employer] PROGRESS NOTE. CALEB
== END ==
LOC: M PAIN 11:15
PROVIDERS: ATTEND Nurse Practitioner Family
DX: M47.817 Spondylosis without myelopathy or radiculopathy, lumbosacral region (principal); G89.29 Other chronic pain; E78.5 Hyperlipidemia, unspecified; K21.9 Gastro-esophageal reflux disease without esophagitis; Z86.59 Personal history of other mental and behavioral disorders; E11.9 Type 2 diabetes mellitus without complications; E03.9 Hypothyroidism, unspecified; D64.9 Anemia, unspecified; F17.210 Nicotine dependence, cigarettes, uncomplicated; Z88.1 Allergy status to other antibiotic agents; Z88.8 Allergy status to other drugs, medicaments and biological substances; Z79.82 Long term (current) use of aspirin; Z79.84 Long term (current) use of oral hypoglycemic drugs; Z79.891 Long term (current) use of opiate analgesic; Z79.899 Other long term (current) drug therapy

== ENCOUNTER → 2019-02-10 | Outpatient (CLI) | payer BC ==
--- NOTE | 2019-02-21 23:47 | ECWPNPC ---
PATIENT NAME: ENRICO WINTERS : 1975 GENDER: FEMALE VISIT DATE: 02/10/2019 DISCHARGE DATE: 02/10/19 1600 VISIT LOCKED DATE TIME: PHYSICIAN: TAMY LYNN RESOURCE: TAMY LYNN REASON FOR APPOINTMENT 1. BACK HISTORY OF PRESENT ILLNESS HISTORY OF PRESENT ILLNESS: HERE FOR F/U OF CHRONIC LOW BACK PAIN.RATING PAIN VAS 6/10.DESCRIBES PAIN ACHING AND SORE.SHE IS ACTIVE AND HAS HAD SOME INCREASES IN LOW BACK PAIN.REPORTING WARM SENSATION IN GROIN AREA WHEN HYPEREXTENDING BACK OVER THE PAST MONTH. PAIN THE PATIENT DESCRIBES THE PAIN... THE PATIENT DESCRIBES THE PAIN... FALL RISK SCREENING: SCREENING :NO FALLS REPORTED IN THE LAST YEAR CURRENT MEDICATIONS TAKING GLUCOMETER DIRECTED ORALLY DX E11.65 TWICE A DAY TAKING LANCETS - MISCELLANEOUS DIRECTED DX: E11.65 DAILY TAKING ONE TOUCH ULTRA BLUE STRIPS DIRECTED DX E11.65 TWICE A DAY AND NEEDED TAKING CLOBETASOL PROPIONATE 0.05 % CREAM 1 APPLICATION TO AFFECTED AREA EXTERNALLY TWICE A DAY TO RASH ON ELBOWS FOR 3 WEEKS OFF FOR 1 WEEK TAKING ONE TOUCH ULTRA BLUE MISC STRIPS DIRECTED DX E11.65 TWICE A DAY AND NEEDED TAKING FISH OIL 1200 MG CAPSULE 1 CAPSULE ORALLY ONCE A DAY TAKING FLONASE 50 MCG/ACT SUSPENSION 1 PUFF IN EACH NOSTRIL NASALLY ONCE A DAY NEEDED TAKING ASPIRIN ADULT LOW DOSE 81 MG TABLET DELAYED RELEASE 1 TABLET ORALLY ONCE A DAY TAKING ONETOUCH ULTRA TEST NA STRIP USE DIRECTED TWICE A DAY AND NEEDED TAKING JARDIANCE 25MG TABLET TAKE 1 TABLET DAILY TAKING METFORMIN HCL 1000 MG TABLET TAKE 1 TABLET TWICE A DAY WITH MEALS TAKING OXYBUTYNIN CHLORIDE 5 MG TABLET 1 TABLET ORALLY TWICE A DAY TAKING RABEPRAZOLE SODIUM 20 MG TABLET DELAYED RELEASE 1 TABLET ORALLY DAILY TAKING LEVOTHYROXINE SODIUM 137 MCG TABLET TAKE 1 TABLET DAILY IN THE MORNING ON AN EMPTY STOMACH TAKING ATORVASTATIN CALCIUM 40 MG TABLET TAKE 1 TABLET DAILY TAKING OXYCODONE-ACETAMINOPHEN 5-325 MG TABLET 1 ORALLY EVERY 6 HRS PRN MDD4 MEDICATION LIST REVIEWED AND RECONCILED WITH THE PATIENT PAST MEDICAL HISTORY HYPERLIPIDEMIA ASCVD RISK SCORE 17% 03/2017 ESOPHAGEAL REFLUX - EGD 02/01 RENEE HERNANDEZ DEPRESSION TYPE 2 DM LUMBAR DISC DISEASE/POST LAMINECTOMY SYNDROME - PREVIOUSLY MANAGED BY PAIN CLINIC MYOFASCIAL PAIN SYNDROME - PREVIOUSLY MANAGED BY PAIN CLINIC HIDRADENITIS - EVAL BY DR HEBERT IN PAST METABOLIC SYNDROME (WAS ON METFORMIN IN PAST, PT D/C DUE TO LOW BS) GOITER- HYPOTHYROID HYPERLIPIDEMIA ANEMIA OBESITY SMOKER PROBABLE ANKUR EXCESSIVE SWEATING ALLERGIES DOXYCYCLINE CALCIUM: HIVES, TOLERATES MINOCYCLINE - ALLERGY SILVADENE: BURNING/ITCHING - ALLERGY BYDUREON: SEVERE GI UPSET - SIDE EFFECTS SURGICAL HISTORY CERVICAL CRYO/LASER LUMBAR DECOMPRESSION - MICRODISCECTOMY AND FORAMINOTOMY L5-S1, DR LOVE December, COLONOSCOPY, ADENOMATOUS POLYP, REPEAT 3 YRS - REINDL - EGD, MILD CHRONIC INFLAMMATION, PAST GRANULAR CELL TUMOR - REINDL 9-,- HYSTERECTOMY VAGINAL -12 REMOVAL OF BENIGN ESOPHAGEAL TUMOR - [place] 05/02 FAMILY HISTORY FATHER: , DIAGNOSED WITH CANCER MOTHER: ALIVE, DIABETES, HYPERTENSION 1 BROTHER(S) - HEALTHY. 1 SON(S) , 1 DAUGHTER(S) - HEALTHY. FATHER - COLON CANCER. SOCIAL HISTORY GENERAL: TOBACCO USE ARE YOU A:CURRENT SMOKER ARE YOU INTERESTED IN QUITTING?NOT READY TO QUIT COUNSELED THE PATIENT ON SMOKING EFFECTS, EDUCATION [id number]/22/2019 HOW MANY CIGARETTES A DAY DO YOU SMOKE?31 OR MORE HOW SOON AFTER YOU WAKE UP DO YOU SMOKE YOUR FIRST CIGARETTE?WITHIN 5 MIN HOW OFTEN DO YOU SMOKE CIGARETTES?EVERY DAY PATIENT COUNSELED ON THE DANGERS OF TOBACCO USE AND URGED TO QUIT:02/10/2019 ADDITIONAL FINDINGS: TOBACCO USERCHAIN SMOKER SHE WAS SMOKING 2 -3 PPD. SHE NOW SMOKES ABOUT 1 1/2 - 2 PPD SMOKING CESSATION INFORMATION GIVEN11/19/2018 VAPORYES SHE HAS BEEN USING A VAPOR PEN IN HOPES OF CUTTING DOWN HER CIGARETTE USE SO SHE CAN QUITE. DIET: REGULAR. LANGUAGE [place]AST [place]. 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 NEEDED?NO PAIN CLINIC PFS, CLERGY, PUBLIC HEALTH REFERRALS PFS REFERRAL NEEDED?NO CLERGY REFERRAL NEEDED?NO PUBLIC HEALTH REFERRAL NEEDED?NO WAS THE PROVIDER NOTIFIED OF ANY PERTINENT INFO?YES HAS THE PATIENT BEEN EDUCATED REGARDING HIS/HER PLAN OF CARE?YES HAS THE PATIENT BEEN EDUCATED REGARDING PAIN, THE RISK FOR PAIN, THE IMPORTANCE OF EFFECTIVE PAIN MANAGEMENT, AND THE PAIN ASSESSMENT PROCESS?YES LATEX QUESTIONNAIRE LATEX ALLERGY : HAVE YOU EVER DEVELOPED ANY TYPE OF REACTION AFTER HANDLING LATEX PRODUCTS SUCH RUBBER GLOVES, CONDOMS, DIAPHRAGMS, BALLOONS, SOCKS, OR UNDERWEAR?NO LATEX ALLERGY : HAVE YOU EVER DEVELOPED ANY TYPE OF REACTION DURING OR AFTER DENTAL APPOINTMENT, VAGINAL/RECTAL EXAMINATION, SURGICAL PROCEDURE, OR ANY OTHER EXPOSURE?NO LATEX RISK : HAVE YOU EVER HAD ANY DIFFICULTY BREATHING OR HIVES AFTER EATING OR HANDLING ANY FRUITS, OR VEGETABLES; SUCH KIWI, BANANAS, STONE FRUITS, OR CHESTNUTSNO LATEX RISK : DO YOU HAVE A PREVIOUS PERSONAL HISTORY OF MORE THAN NINE SURGERIES, SPINA BIFIDA, OR REPEATED CATHERIZATIONS? NO LATEX RISK : ARE YOU FREQUENTLY EXPOSED TO LATEX PRODUCTS IN YOUR OCCUPATION?NO DATE ASKED : 11/21/2018 CAFFEINE CAFFEINE USE?YES HOW OFTEN AND HOW MUCH? 2 POTS OF COFFEE DAILY ADVANCE DIRECTIVE ADVANCE DIRECTIVE DISCUSSED WITH PATIENT:YES NO ADVANCED DIRECTIVES, PT DECLINES HCP INFORMATION AT THIS TIME ORIENTAL ORTHODOX [id number] NONE MARITAL STATUS: . ALCOHOL SCREENING DID YOU HAVE A DRINK CONTAINING ALCOHOL IN THE PAST YEAR?YES HOW OFTEN DID YOU HAVE SIX OR MORE DRINKS ON ONE OCCASION IN THE PAST YEAR?NEVER (0 POINTS) HOW MANY DRINKS DID YOU HAVE ON A TYPICAL DAY WHEN YOU WERE DRINKING IN THE PAST YEAR?1 OR 2 (0 POINTS) HOW OFTEN DID YOU HAVE A DRINK CONTAINING ALCOHOL IN THE PAST YEAR?MONTHLY OR LESS (1 POINT) POINTS1 INTERPRETATIONNEGATIVE SEXUAL HX HAD SEX IN THE LAST 12 MONTHS (VAGINAL, ORAL, OR ANAL)?YES WITHMEN ONLY USE PROTECTION?NO LMP:HYSTER HAVE YOU EVER HAD AN STD?NO REVIEWED, UPDATED, ADVISED RISKS OF CONTINUED SMOKING, OFFERED CESSATION AIDS/DECLINEDREVIEWED WITH PT 03/01/18 1115 LASREVIEWED WITH PATIENT 05/01/18 1059 JSREVIEWED WITH PATIENT 02/10/19 1519 JS. HOSPITALIZATION/MAJOR DIAGNOSTIC PROCEDURE BACK SURGERY December, REVIEW OF SYSTEMS REVIEWED BY: PROVIDER: TAMY ZAMBRANO . CONSTITUTIONAL: ANY CHANGE IN YOUR MEDICAL CONDITION? NO . CHILLS NO . FEVER NO . INFECTION: DO YOU HAVE NEW INFECTIONS? YES, A LOT OF BOILS RECENTLY FROM HS FLARE-UP . DO YOU HAVE HISTORY OF MRSA? NO . MUSCULOSKELETAL: ANY NEW PATTERNS OF PAIN OR NUMBNESS? YES, STATES TOP OF LEFT HIP HAS BEEN ACHING A LOT RECENTLY. ALSO STATES BURNING FROM LOW BACK TO PERINEAL AREA AFTER BENDING DOWN TO PRE SALES TECHNICAL ENGINEER HER DOG AND LEANING BACK SLIGHTLY TO HOLD THE DOG . GASTROENTEROLOGY: ANY NEW CHANGE IN BOWEL CONTROL? NO . GENITOURINARY: ANY NEW CHANGE IN BLADDER CONTROL? YES, PATIENT WAS HAVING ISSUES HOLDING HER BLADDER, HAD TO WEAR A BRIEF BUT HAS THIS HAS RECENTLY IMPROVED SINCE SHE HAS LOST SOME WEIGHT, ONLY HAS TO WEAR A PAD DURING THE DAY NOW . IS THERE A CHANCE YOU COULD BE ? NO . HEMATOLOGY/LYMPH: DO YOU TAKE ANY BLOOD THINNERS? (FOR EXAMPLE- COUMADIN, PLAVIX, AGGRENOX, PLATEL, PRADAXA, OR XARELTO) NO . WHEN WAS YOUR LAST DOSE? DATE: TIME: . NEUROLOGY: HAVE YOU FALLEN IN THE PAST 12 MONTHS? NO . ANY NEW EXTREMITY NUMBNESS OR WEAKNESS? YES, STATES LEFT LEG WEAKNESS ASSOCIATED WITH PAIN IN THE TOP OF HER LEFT HIP . CARDIOLOGY: DO YOU HAVE A PACEMAKER OR DEFIBRILLATOR? NO . RESPIRATORY: HAVE YOU BEEN SICK IN THE PAST WEEK? NO . FEVER NO . FLU LIKE SYMPTOMS? NO . COUGH NO . INTEGUMENTARY: DO YOU HAVE ANY RASHES OR OPEN SORES? YES, STATES 3 BOILS TO PERINEAL AREA CURRENTLY FROM HS FLARE-UP . ALLERGIC/IMMUNO: ARE YOU ALLERGIC TO IV DYE? NO . ANY NEW ALLERGIES? NO . PSYCHIATRIC: DO YOU HAVE THOUGHTS OF HURTING YOURSELF OR SOMEONE ELSE? NO . ARE YOU ABUSED, NEGLECTED, OR IN AN UNSAFE ENVIRONMENT? NO . ENDOCRINOLOGY: ARE YOU DIABETIC? YES . OTHER: DO YOU NEED ANY PRESCRIPTIONS? NO . IF YES, PLEASE LIST: ____ . ANY NEW PROBLEMS WITH YOUR MEDICATIONS? NO . WHEN DID YOU LAST EAT? ____ . WHEN DID YOU LAST DRINK? ____ . WHAT DID YOU LAST DRINK? ____ . NAME OF PERSON DRIVING YOU HOME? ____ . DO YOU HAVE ANY OTHER QUESTIONS OR CONCERNS NO . VITAL SIGNS WT 221.2 LBS, HT 69 IN, BMI 32.66 INDEX, BP 120/74 MM HG, HR 77 /MIN, RR 16 /MIN, TEMP 97.0 F, OXYGEN SAT % 97%, SAFE IN ENV? (Y/N) YES, NA INITIALS AW 1512, REVIEWED BY: BISI. EXAMINATION GENERAL EXAMINATION: GENERALCOMFORTABLE . LUNGS:LUNG PATINO ARE CLEAR TO AUSCULTATION BILATERALLY. GOOD MOVEMENT OF AIR . HEART:S1, S2 IN A REGULAR RATE AND RHYTHM. NO SIGNIFICANT MURMURS, RUBS OR GALLOPS NOTED . MUSCULOSKELETAL:MUSCLE STRENGTH TESTING 5/5 BILATERAL . LUMBAR SACRAL SPINEPOINT TENDERNESS BILAT. L4/5-L5/S1. ASSESSMENTS SPONDYLOSIS OF LUMBOSACRAL REGION, UNSPECIFIED SPINAL OSTEOARTHRITIS COMPLICATION STATUS - M47.817 (PRIMARY) TREATMENT SPONDYLOSIS OF LUMBOSACRAL REGION, UNSPECIFIED SPINAL OSTEOARTHRITIS COMPLICATION STATUS REFILL OXYCODONE-ACETAMINOPHEN TABLET, 5-325 MG, 1, ORALLY, EVERY 6 HRS PRN MDD4, 30 DAY(S), 120, REFILLS 0 [facility] MRI LS SPINE W/O AND WITH [id number] NOTES: DUE TO NEW ONSET OF GROIN RADICULAR SYMPTOMS A MRI IS ORDERED TODAY W AND WOUT CONTRAST DUE TO PATIENTS HX OF LUMBAR SURGERY IN THE PAST. PROCEDURE CODES FA211 ESTABILISHED PATIENT [facility] FACILITY CHARGE DISPOSITION & COMMUNICATION FOLLOW UP 6 WEEKS (REASON: MRI L/S SPINE) ELECTRONICALLY SIGNED BY KENYA YEH ON 02/21/2019 AT 03:44 PM EDT DISCLAIMER : THIS IS A VISIT SUMMARY EXTRACTED FROM THE [employer] CHART. IT IS NOT A COPY OF THE [employer] PROGRESS NOTE. CALEB
== END ==
LOC: M PAIN 14:15
PROVIDERS: ATTEND Nurse Practitioner Family
DX: M47.817 Spondylosis without myelopathy or radiculopathy, lumbosacral region (principal); E78.5 Hyperlipidemia, unspecified; K21.9 Gastro-esophageal reflux disease without esophagitis; F32.9 Major depressive disorder, single episode, unspecified; E11.9 Type 2 diabetes mellitus without complications; M96.1 Postlaminectomy syndrome, not elsewhere classified; M79.18 Myalgia, other site; E03.9 Hypothyroidism, unspecified; E04.1 Nontoxic single thyroid nodule; E66.9 Obesity, unspecified; D64.9 Anemia, unspecified; L73.2 Hidradenitis suppurativa; E88.81 Metabolic syndrome and other insulin resistance; F17.210 Nicotine dependence, cigarettes, uncomplicated; Z79.82 Long term (current) use of aspirin; Z79.84 Long term (current) use of oral hypoglycemic drugs; Z79.899 Other long term (current) drug therapy; Z79.891 Long term (current) use of opiate analgesic; Z88.1 Allergy status to other antibiotic agents; Z88.8 Allergy status to other drugs, medicaments and biological substances; Z68.32 Body mass index [BMI] 32.0-32.9, adult

== ENCOUNTER → 2019-03-26 | Outpatient (REF) | payer BC ==
[2019-03-26 20:17] LABS: CREATININE FOR GFR 0.82 MG/DL (0.55-1.30); GLOMERULAR FILTRATION RATE > 60.0 (>58)
[2019-03-26 20:26] LABS: INR 1.02; PROTHROMBIN TIME 13.1 SECONDS (11.8-14.0)
== END ==
LOC: M LABDRWAD 19:31
PROVIDERS: ATTEND Nurse Practitioner Family
DX: G89.29 Other chronic pain (principal); M47.897 Other spondylosis, lumbosacral region

== ENCOUNTER → 2019-04-22 | Outpatient (REF) | payer BC ==
[2019-04-22 20:23] LABS: MONO REFLEX EBV COMP NEGATIVE (NEGATIVE)
[2019-04-22 20:27] LABS: HEMATOCRIT 55.3 % (36.0-47.0); HEMOGLOBIN 18.2 g/dl (12.0-15.5); MEAN CORPUSCULAR HEMOGLOBIN 32.9 pg (27.0-33.0); MEAN CORPUSCULAR HGB CONC 32.9 g/dl (32.0-36.5); MEAN CORPUSCULAR VOLUME 99.8 fl (80.0-96.0); PLATELET COUNT, AUTOMATED 308 10^3/uL (150-450); RED BLOOD COUNT 5.54 10^6/uL (4.00-5.40); WHITE BLOOD COUNT 10.6 10^3/uL (4.0-10.0)
[2019-04-22 21:15] LABS: ATYPICAL LYMPH 8 % (0-5); BASOPHILS 1 % (0-1); EOSINOPHILS 4 % (0-3); LYMPHOCYTES 35 % (16-44); MONOCYTES 4 % (0-5); NEUTROPHILS 47 % (28-66); PLATELET ESTIMATE NORMAL (NORMAL)
[2019-04-25 00:07] LABS: EBV VIRAL CAPSID AG IgG >600.0 U/mL (0.0-17.9); EBV VIRAL CAPSID AG IgM <36.0 U/mL (0.0-35.9)
== END ==
LOC: M LABDRWAD 19:43
PROVIDERS: ATTEND Physician Assistant Medical
DX: R59.9 Enlarged lymph nodes, unspecified (principal)

== ENCOUNTER → 2019-05-01 | Outpatient (CLI) | payer BC ==
--- NOTE | 2019-05-20 02:31 | ECWPNPC ---
PATIENT NAME: ENRICO WINTERS : 1975 GENDER: FEMALE VISIT DATE: 05/01/2019 DISCHARGE DATE: 05/01/19 1204 VISIT LOCKED DATE TIME: PHYSICIAN: TAMY LYNN RESOURCE: TAMY LYNN REASON FOR APPOINTMENT 1. REVIEW MRI HISTORY OF PRESENT ILLNESS HISTORY OF PRESENT ILLNESS: HERE FOR F/U OF CHRONIC LOW BACK PAIN.RATING PAIN VAS 8/10.DESCRIBES PAIN ACHING AND SORE.SHE IS ACTIVE AND HAS HAD SOME INCREASES IN LOW BACK PAIN.CHIEF AREA OF PAIN IS ACROSS LOW BACK R>L.REVIEWED MRI L/S SPINE DONE ON 04/08/19.REPORTING RIGHT LEG GAVE OUT THIS AM AND THIS HASNT HAPPENED SINCE PRIOR TO 2009 LUMBAR SURGERY.DENIES BOWEL OR BLADDER INCONTINENCE. PAIN THE PATIENT DESCRIBES THE PAIN... THE PATIENT DESCRIBES THE PAIN... THE PATIENT DESCRIBES THE PAIN... FALL RISK SCREENING: SCREENING :NO FALLS REPORTED IN THE LAST YEAR CURRENT MEDICATIONS TAKING GLUCOMETER DIRECTED ORALLY DX E11.65 TWICE A DAY TAKING LANCETS - MISCELLANEOUS DIRECTED DX: E11.65 DAILY TAKING ONE TOUCH ULTRA BLUE STRIPS DIRECTED DX E11.65 TWICE A DAY AND NEEDED TAKING ONE TOUCH ULTRA BLUE MISC STRIPS DIRECTED DX E11.65 TWICE A DAY AND NEEDED TAKING FLONASE 50 MCG/ACT SUSPENSION 1 PUFF IN EACH NOSTRIL NASALLY ONCE A DAY NEEDED TAKING ONETOUCH ULTRA TEST NA STRIP USE DIRECTED TWICE A DAY AND NEEDED TAKING RABEPRAZOLE SODIUM 20 MG TABLET DELAYED RELEASE 1 TABLET ORALLY DAILY TAKING LEVOTHYROXINE SODIUM 137 MCG TABLET TAKE 1 TABLET DAILY IN THE MORNING ON AN EMPTY STOMACH TAKING ATORVASTATIN CALCIUM 40 MG TABLET TAKE 1 TABLET DAILY TAKING JARDIANCE 25 MG TABLET TAKE 1 TABLET DAILY TAKING OXYCODONE-ACETAMINOPHEN 5-325 MG TABLET 1 ORALLY EVERY 6 HRS PRN MDD4 TAKING OXYBUTYNIN CHLORIDE 5 MG TABLET 1 TABLET ORALLY TWICE A DAY TAKING METFORMIN HCL 1000 MG TABLET TAKE 1 TABLET TWICE A DAY WITH MEALS NOT-TAKING CLOBETASOL PROPIONATE 0.05 % CREAM 1 APPLICATION TO AFFECTED AREA EXTERNALLY TWICE A DAY TO RASH ON ELBOWS FOR 3 WEEKS OFF FOR 1 WEEK NOT-TAKING FISH OIL 1200 MG CAPSULE 1 CAPSULE ORALLY ONCE A DAY NOT-TAKING ASPIRIN ADULT LOW DOSE 81 MG TABLET DELAYED RELEASE 1 TABLET ORALLY ONCE A DAY MEDICATION LIST REVIEWED AND RECONCILED WITH THE PATIENT PAST MEDICAL HISTORY HYPERLIPIDEMIA ASCVD RISK SCORE 17% 03/2017 ESOPHAGEAL REFLUX - EGD 02/[address] HERNANDEZ DEPRESSION TYPE 2 DM LUMBAR DISC DISEASE/POST LAMINECTOMY SYNDROME - PREVIOUSLY MANAGED BY PAIN CLINIC MYOFASCIAL PAIN SYNDROME - PREVIOUSLY MANAGED BY PAIN CLINIC HIDRADENITIS - EVAL BY DR HEBERT IN PAST METABOLIC SYNDROME (WAS ON METFORMIN IN PAST, PT D/C DUE TO LOW BS) GOITER- HYPOTHYROID HYPERLIPIDEMIA ANEMIA OBESITY SMOKER PROBABLE ANKUR EXCESSIVE SWEATING ALLERGIES DOXYCYCLINE CALCIUM: HIVES, TOLERATES MINOCYCLINE - ALLERGY SILVADENE: BURNING/ITCHING - ALLERGY BYDUREON: SEVERE GI UPSET - SIDE EFFECTS SURGICAL HISTORY CERVICAL CRYO/LASER LUMBAR DECOMPRESSION - MICRODISCECTOMY AND FORAMINOTOMY L5-S1, DR LOVE December, COLONOSCOPY, ADENOMATOUS POLYP, REPEAT 3 YRS - REINDL 04-02 EGD, MILD CHRONIC INFLAMMATION, PAST GRANULAR CELL TUMOR - REINDL 04-02,02-01 HYSTERECTOMY VAGINAL -12 REMOVAL OF BENIGN ESOPHAGEAL TUMOR - [place] 05/02 FAMILY HISTORY FATHER: , DIAGNOSED WITH OTHER MALIGNANT NEOPLASM OF UNSPECIFIED SITE MOTHER: ALIVE, DIABETES, HYPERTENSION 1 BROTHER(S) - HEALTHY. 1 SON(S) , 1 DAUGHTER(S) - HEALTHY. FATHER - COLON CANCER. SOCIAL HISTORY GENERAL: TOBACCO USE ARE YOU A:CURRENT SMOKER ARE YOU INTERESTED IN QUITTING?NOT READY TO QUIT COUNSELED THE PATIENT ON SMOKING EFFECTS, EDUCATION [id number]/10/2019 HOW MANY CIGARETTES A DAY DO YOU SMOKE?31 OR MORE HOW SOON AFTER YOU WAKE UP DO YOU SMOKE YOUR FIRST CIGARETTE?WITHIN 5 MIN HOW OFTEN DO YOU SMOKE CIGARETTES?EVERY DAY PATIENT COUNSELED ON THE DANGERS OF TOBACCO USE AND URGED TO QUIT:02/10/2019 ADDITIONAL FINDINGS: TOBACCO USERCHAIN SMOKER SHE WAS SMOKING 2 -3 PPD. SHE NOW SMOKES ABOUT 1 1/2 - 2 PPD SMOKING CESSATION INFORMATION GIVEN11/19/2018 VAPORYES SHE HAS BEEN USING A VAPOR PEN IN HOPES OF CUTTING DOWN HER CIGARETTE USE SO SHE CAN QUITE. DIET: REGULAR. LANGUAGE THAI. BMI CARE GOAL FOLLOW-UP ABOVE NORMAL BMI FOLLOW-UPDIETARY NEEDS EDUCATION RECREATIONAL DRUG USE DRUG USE?NO LEARNING BARRIERS / SPECIAL NEEDS CHANGE FROM LAST VISIT?NO BARRIERS TO LEARNING?NO HEARING IMPAIRED?NO VISION IMPAIRED?NO COGNITIVELY IMPAIRED?NO READINESS TO LEARN?YES LEARNING PREFERENCES?NO LEARNING CAPABILITIES PRESENT?YES EMOTIONAL BARRIERS?NO SPECIAL DEVICES?NO ACCESS CLERK NEEDED?NO PAIN CLINIC PFS, CLERGY, PUBLIC HEALTH REFERRALS PFS REFERRAL NEEDED?NO CLERGY REFERRAL NEEDED?NO PUBLIC HEALTH REFERRAL NEEDED?NO WAS THE PROVIDER NOTIFIED OF ANY PERTINENT INFO?YES HAS THE PATIENT BEEN EDUCATED REGARDING HIS/HER PLAN OF CARE?YES HAS THE PATIENT BEEN EDUCATED REGARDING PAIN, THE RISK FOR PAIN, THE IMPORTANCE OF EFFECTIVE PAIN MANAGEMENT, AND THE PAIN ASSESSMENT PROCESS?YES LATEX QUESTIONNAIRE LATEX ALLERGY : HAVE YOU EVER DEVELOPED ANY TYPE OF REACTION AFTER HANDLING LATEX PRODUCTS SUCH RUBBER GLOVES, CONDOMS, DIAPHRAGMS, BALLOONS, SOCKS, OR UNDERWEAR?NO LATEX ALLERGY : HAVE YOU EVER DEVELOPED ANY TYPE OF REACTION DURING OR AFTER DENTAL APPOINTMENT, VAGINAL/RECTAL EXAMINATION, SURGICAL PROCEDURE, OR ANY OTHER EXPOSURE?NO DATE ASKED : 11/21/2018 LATEX RISK : HAVE YOU EVER HAD ANY DIFFICULTY BREATHING OR HIVES AFTER EATING OR HANDLING ANY FRUITS, OR VEGETABLES; SUCH KIWI, BANANAS, STONE FRUITS, OR CHESTNUTSNO LATEX RISK : DO YOU HAVE A PREVIOUS PERSONAL HISTORY OF MORE THAN NINE SURGERIES, SPINA BIFIDA, OR REPEATED CATHERIZATIONS? NO LATEX RISK : ARE YOU FREQUENTLY EXPOSED TO LATEX PRODUCTS IN YOUR OCCUPATION?NO CAFFEINE CAFFEINE USE?YES HOW OFTEN AND HOW MUCH? 2 POTS OF COFFEE DAILY ADVANCE DIRECTIVE ADVANCE DIRECTIVE DISCUSSED WITH PATIENT:YES NO ADVANCED DIRECTIVES, PT DECLINES HCP INFORMATION AT THIS TIME MUSLIM [id number] NONE MARITAL STATUS: . ALCOHOL SCREENING DID YOU HAVE A DRINK CONTAINING ALCOHOL IN THE PAST YEAR?YES HOW OFTEN DID YOU HAVE SIX OR MORE DRINKS ON ONE OCCASION IN THE PAST YEAR?NEVER (0 POINTS) HOW MANY DRINKS DID YOU HAVE ON A TYPICAL DAY WHEN YOU WERE DRINKING IN THE PAST YEAR?1 OR 2 (0 POINTS) HOW OFTEN DID YOU HAVE A DRINK CONTAINING ALCOHOL IN THE PAST YEAR?MONTHLY OR LESS (1 POINT) POINTS1 INTERPRETATIONNEGATIVE SEXUAL HX HAD SEX IN THE LAST 12 MONTHS (VAGINAL, ORAL, OR ANAL)?YES WITHMEN ONLY USE PROTECTION?NO LMP:HYSTER HAVE YOU EVER HAD AN STD?NO REVIEWED, UPDATED, ADVISED RISKS OF CONTINUED SMOKING, OFFERED CESSATION AIDS/DECLINEDREVIEWED WITH PT 03/01/18 1115 LASREVIEWED WITH PATIENT 05/01/18 1059 JSREVIEWED WITH PATIENT 02/10/19 1519 JSREVIEWED WITH PATIENT 05/01/19 NLJ. HOSPITALIZATION/MAJOR DIAGNOSTIC PROCEDURE BACK SURGERY December, REVIEW OF SYSTEMS REVIEWED BY: PROVIDER: TAMY ZAMBRANO . CONSTITUTIONAL: ANY CHANGE IN YOUR MEDICAL CONDITION? NO . CHILLS NO . FEVER NO . INFECTION: DO YOU HAVE NEW INFECTIONS? NO . DO YOU HAVE HISTORY OF MRSA? NO . MUSCULOSKELETAL: ANY NEW PATTERNS OF PAIN OR NUMBNESS? YES- STATES THAT LOW BACK PAIN AND BILATERAL HIP PAIN IS WORSE, SATTES SHE HAS HAD NEW SENSATIONS OF NUMBNESS THAT GO FROM HER LOWER BACK TO BUTTOCKS AND DOWN INTO CAROLA AREA . GASTROENTEROLOGY: ANY NEW CHANGE IN BOWEL CONTROL? NO . GENITOURINARY: ANY NEW CHANGE IN BLADDER CONTROL? NO . IS THERE A CHANCE YOU COULD BE ? NO . HEMATOLOGY/LYMPH: DO YOU TAKE ANY BLOOD THINNERS? (FOR EXAMPLE- COUMADIN, PLAVIX, AGGRENOX, PLATEL, PRADAXA, OR XARELTO) NO . WHEN WAS YOUR LAST DOSE? DATE: TIME: . NEUROLOGY: HAVE YOU FALLEN IN THE PAST 12 MONTHS? YES- STATES SHE SLIPPED AND FELL IN BATHROOM THIS MORING, STATES SHE HAS A BRUISE ON HER BUTTOCKS AND LEFT HIP AND CENTER OF LOWER BACK IS PAINFUL, HAS NOT HAD ANY MEDICAL CARE YET . ANY NEW EXTREMITY NUMBNESS OR WEAKNESS? NO . CARDIOLOGY: DO YOU HAVE A PACEMAKER OR DEFIBRILLATOR? NO . RESPIRATORY: HAVE YOU BEEN SICK IN THE PAST WEEK? YES- STATES SHE HAD A SWOLLEN LYMPH NODE ON LEFT SIDE OF HER NECK, STATES NO LONGER SWOLLEN . FEVER NO . FLU LIKE SYMPTOMS? NO . COUGH NO . INTEGUMENTARY: DO YOU HAVE ANY RASHES OR OPEN SORES? NO . ALLERGIC/IMMUNO: ARE YOU ALLERGIC TO IV DYE? NO . ANY NEW ALLERGIES? NO . PSYCHIATRIC: DO YOU HAVE THOUGHTS OF HURTING YOURSELF OR SOMEONE ELSE? NO . ARE YOU ABUSED, NEGLECTED, OR IN AN UNSAFE ENVIRONMENT? NO . ENDOCRINOLOGY: ARE YOU DIABETIC? YES . OTHER: DO YOU NEED ANY PRESCRIPTIONS? NO . IF YES, PLEASE LIST: ____ . ANY NEW PROBLEMS WITH YOUR MEDICATIONS? YES- STATES THAT THE OXYCODONE IS NO LONGER WORKING FOR HER PAIN . WHEN DID YOU LAST EAT? ____ . WHEN DID YOU LAST DRINK? ____ . WHAT DID YOU LAST DRINK? ____ . NAME OF PERSON DRIVING YOU HOME? ____ . DO YOU HAVE ANY OTHER QUESTIONS OR CONCERNS YES- STATES SHE IS HAVING INCREASED PAIN . VITAL SIGNS WT 224.4 LBS, HT 69 IN, BMI 33.13 INDEX, BP 115/72 MM HG, HR 79 /MIN, RR 16 /MIN, TEMP 98.0 F, OXYGEN SAT % 98%, SAFE IN ENV? (Y/N) YES, NA INITIALS AW 1119, REVIEWED BY: AMBER. EXAMINATION GENERAL EXAMINATION: GENERAL AWAKE,ALERT ,PLEASANT . PSYCH AFFECT NORMAL . LUNGS: LUNG PATINO ARE CLEAR TO AUSCULTATION BILATERALLY. GOOD MOVEMENT OF AIR . HEART: S1, S2 IN A REGULAR RATE AND RHYTHM. NO SIGNIFICANT MURMURS, RUBS OR GALLOPS NOTED . MUSCULOSKELETAL:MILD WEAKNESS NOTED OVER RIGHT LEG. LUMBAR SACRAL SPINE PALPATION: + FOR PAIN OVER L/S SPINE. + FOR PAIN OVER L/S PARASPINALS. NEUROLOGIC EXAM: NORMAL SENSATION LIGHT TOUCH BILAT. LOWER EXTREMITIES. DIAGNOSTIC TESTS REVIEWED MRI L/S SPINE -04/08/19. ASSESSMENTS SPONDYLOSIS OF LUMBOSACRAL REGION, UNSPECIFIED SPINAL OSTEOARTHRITIS COMPLICATION STATUS - M47.817 (PRIMARY) INTERVERTEBRAL LUMBAR DISC DISORDER WITH MYELOPATHY, LUMBAR REGION - M51.06 TREATMENT SPONDYLOSIS OF LUMBOSACRAL REGION, UNSPECIFIED SPINAL OSTEOARTHRITIS COMPLICATION STATUS INCREASE OXYCODONE-ACETAMINOPHEN TABLET, 7.5-325 MG, 1, ORALLY, EVERY 6 HRS PRN MDD4, 30 DAY(S), 120, REFILLS 0 NOTES: ISTOP REGISTRY REVIEWED AND DEMONSTRATES COMPLLIANCE. BRINGS IN MEDICATIONS WHICH IS APPROPRIATE FOR WHAT WAS DISPENSED. RECENT URINE TOXICOLOGY REVIEWED. NO UNAUTHORIZED MEDICATIONS. NO ILLICIT SUBSTANCES AND PRESCRIBED MEDICATIONS WERE PRESENT. , RISKS OF NARCOTIC/OPIOD MEDICATIONS INCLUDES BUT IS NOT LIMITED TO RISK OF DEPENDANCE/DEVELOPMENT OF ADDICTION, MOOD DISTURBANCE AND DEPRESSION, OSTEOPOROSIS, HORMONAL AND LABIDAL CHANGES, RESPIRATORY DEPRESSION AND . PATIENT IS ADVISED NOT TO DRIVE OR DRINK ALCOHOL WHILE ON THESE MEDICATIONS. INTERVERTEBRAL LUMBAR DISC DISORDER WITH MYELOPATHY, LUMBAR REGION [facility]:ABNORMAL MRI/NEW ONSET OF L5/S1 RADICULOPATHY-GROIN PARATHESIAS-S/P LUMBAR SURGERY 2010 OTHERS NOTES: L5/S1 LESI. PROCEDURE CODES FA211 ESTABILISHED PATIENT [facility] CHARGE DISPOSITION & COMMUNICATION FOLLOW UP POST (REASON: L5/S1 LESI) ELECTRONICALLY SIGNED BY KENYA YEH ON 05/19/2019 AT 08:52 AM EDT DISCLAIMER : THIS IS A VISIT SUMMARY EXTRACTED FROM THE [employer] CHART. IT IS NOT A COPY OF THE [employer] PROGRESS NOTE. CALEB
== END ==
LOC: M PAIN 10:45
PROVIDERS: ATTEND Nurse Practitioner Family
DX: M47.817 Spondylosis without myelopathy or radiculopathy, lumbosacral region (principal); M51.06 Intervertebral disc disorders with myelopathy, lumbar region; G89.29 Other chronic pain; E78.5 Hyperlipidemia, unspecified; K21.9 Gastro-esophageal reflux disease without esophagitis; Z86.59 Personal history of other mental and behavioral disorders; E11.9 Type 2 diabetes mellitus without complications; E03.9 Hypothyroidism, unspecified; F17.210 Nicotine dependence, cigarettes, uncomplicated; Z88.1 Allergy status to other antibiotic agents; Z88.8 Allergy status to other drugs, medicaments and biological substances; Z79.84 Long term (current) use of oral hypoglycemic drugs; Z79.891 Long term (current) use of opiate analgesic; Z79.899 Other long term (current) drug therapy

== ENCOUNTER → 2019-05-26 | Outpatient (CLI) | payer BC ==
--- NOTE | 2019-06-10 04:41 | ECWPNPC ---
PATIENT NAME: ENRICO WINTERS : 1975 GENDER: FEMALE VISIT DATE: 05/26/2019 DISCHARGE DATE: 05/26/19 1430 VISIT LOCKED DATE TIME: PHYSICIAN: NANCI NUNEZ MD RESOURCE: NANCI NUNEZ MD REASON FOR APPOINTMENT 1. CHANGED TO FOLLOWUP HISTORY OF PRESENT ILLNESS HISTORY OF PRESENT ILLNESS: PAIN THE PATIENT DESCRIBES THE PAIN... THE PATIENT DESCRIBES THE PAIN... 44 YEAR OLD FEMALE PATIENT WITH A HISTORY OF CHRONIC BACK PAIN. THE PATIENT DESCRIBES THE PAIN ACHING, SORE, TENDER, SHARP, STABBING, SHOOTING, AND CONTINUOUS WITH A PAIN SCORE OF 6-9/10 DEPENDING ON PHYSICAL ACTIVITY. THE PATIENT STATES HER PAIN BEGINS IN HER BACK AND RADIATES DOWN TOWARD HER SIDES. THE PATIENT SAYS SHE HAS BEEN SUFFERING FROM HER PAIN FOR MANY YEARS AND HAS HAD A BACK SURGERY DONE IN 2009, YET THE PAIN STILL PERSISTS. THE PATIENT SAYS SHE HAS CONCERNS OF INFECTION WITH THE PROCEDURE, DUE TO HER HIDRADENITIS SUPPURATIVA (HS) CONDITION. PATIENT DENIES UNEXPLAINABLE WEIGHT LOSS, FEVER, CHILLS, NEW CHANGES ON HER URINARY OR BOWEL CONTROL. FALL RISK SCREENING: SCREENING :NO FALLS REPORTED IN THE LAST YEAR :NO FALLS REPORTED IN THE LAST YEAR SCREENING :NO FALLS REPORTED IN THE LAST YEAR :NO FALLS REPORTED IN THE LAST YEAR CURRENT MEDICATIONS TAKING GLUCOMETER DIRECTED ORALLY DX E11.65 TWICE A DAY TAKING LANCETS - MISCELLANEOUS DIRECTED DX: E11.65 DAILY TAKING ONE TOUCH ULTRA BLUE STRIPS DIRECTED DX E11.65 TWICE A DAY AND NEEDED TAKING ONE TOUCH ULTRA BLUE MISC STRIPS DIRECTED DX E11.65 TWICE A DAY AND NEEDED TAKING FLONASE 50 MCG/ACT SUSPENSION 1 PUFF IN EACH NOSTRIL NASALLY ONCE A DAY NEEDED TAKING ONETOUCH ULTRA TEST NA STRIP USE DIRECTED TWICE A DAY AND NEEDED TAKING LEVOTHYROXINE SODIUM 137 MCG TABLET TAKE 1 TABLET DAILY IN THE MORNING ON AN EMPTY STOMACH TAKING ATORVASTATIN CALCIUM 40 MG TABLET TAKE 1 TABLET DAILY TAKING JARDIANCE 25 MG TABLET TAKE 1 TABLET DAILY TAKING OXYBUTYNIN CHLORIDE 5 MG TABLET 1 TABLET ORALLY TWICE A DAY TAKING METFORMIN HCL 1000 MG TABLET TAKE 1 TABLET TWICE A DAY WITH MEALS TAKING OXYCODONE-ACETAMINOPHEN 7.5-325 MG TABLET 1 ORALLY EVERY 6 HRS PRN MDD4 TAKING RABEPRAZOLE SODIUM 20 MG TABLET DELAYED RELEASE 1 TABLET ORALLY DAILY NOT-TAKING CLOBETASOL PROPIONATE 0.05 % CREAM 1 APPLICATION TO AFFECTED AREA EXTERNALLY TWICE A DAY TO RASH ON ELBOWS FOR 3 WEEKS OFF FOR 1 WEEK NOT-TAKING FISH OIL 1200 MG CAPSULE 1 CAPSULE ORALLY ONCE A DAY NOT-TAKING ASPIRIN ADULT LOW DOSE 81 MG TABLET DELAYED RELEASE 1 TABLET ORALLY ONCE A DAY MEDICATION LIST REVIEWED AND RECONCILED WITH THE PATIENT PAST MEDICAL HISTORY HYPERLIPIDEMIA ASCVD RISK SCORE 17% 03/2017 ESOPHAGEAL REFLUX - EGD 02/[address] HERNANDEZ DEPRESSION TYPE 2 DM LUMBAR DISC DISEASE/POST LAMINECTOMY SYNDROME - PREVIOUSLY MANAGED BY PAIN CLINIC MYOFASCIAL PAIN SYNDROME - PREVIOUSLY MANAGED BY PAIN CLINIC HIDRADENITIS - EVAL BY DR HEBERT IN PAST METABOLIC SYNDROME (WAS ON METFORMIN IN PAST, PT D/C DUE TO LOW BS) GOITER- HYPOTHYROID HYPERLIPIDEMIA ANEMIA OBESITY SMOKER PROBABLE ANKUR EXCESSIVE SWEATING ALLERGIES DOXYCYCLINE CALCIUM: HIVES, TOLERATES MINOCYCLINE - ALLERGY SILVADENE: BURNING/ITCHING - ALLERGY BYDUREON: SEVERE GI UPSET - SIDE EFFECTS SURGICAL HISTORY CERVICAL CRYO/LASER LUMBAR DECOMPRESSION - MICRODISCECTOMY AND FORAMINOTOMY L5-S1, DR LOVE December, COLONOSCOPY, ADENOMATOUS POLYP, REPEAT 3 YRS - REINDL 04-02 EGD, MILD CHRONIC INFLAMMATION, PAST GRANULAR CELL TUMOR - REINDL -,02-01 HYSTERECTOMY VAGINAL -12 REMOVAL OF BENIGN ESOPHAGEAL TUMOR - [place] 05/02 FAMILY HISTORY FATHER: , DIAGNOSED WITH OTHER MALIGNANT NEOPLASM OF UNSPECIFIED SITE MOTHER: ALIVE, DIABETES, HYPERTENSION 1 BROTHER(S) - HEALTHY. 1 SON(S) , 1 DAUGHTER(S) - HEALTHY. FATHER - COLON CANCER. SOCIAL HISTORY GENERAL: TOBACCO USE ARE YOU A:CURRENT SMOKER HOW OFTEN DO YOU SMOKE CIGARETTES?EVERY DAY HOW SOON AFTER YOU WAKE UP DO YOU SMOKE YOUR FIRST CIGARETTE?WITHIN 5 MIN HOW MANY CIGARETTES A DAY DO YOU SMOKE?31 OR MORE ARE YOU INTERESTED IN QUITTING?NOT READY TO QUIT ADDITIONAL FINDINGS: TOBACCO USERCHAIN SMOKER SHE WAS SMOKING 2 -3 PPD. SHE NOW SMOKES ABOUT 1 1/2 - 2 PPD PATIENT COUNSELED ON THE DANGERS OF TOBACCO USE AND URGED TO QUIT:02/10/2019 COUNSELED THE PATIENT ON SMOKING EFFECTS, EDUCATION [id number]/10/2019 VAPORYES SHE HAS BEEN USING A VAPOR PEN IN HOPES OF CUTTING DOWN HER CIGARETTE USE SO SHE CAN QUITE. SMOKING CESSATION INFORMATION GIVEN11/19/2018 DIET: REGULAR. LANGUAGE COLOMBIAN. BMI CARE GOAL FOLLOW-UP ABOVE NORMAL BMI FOLLOW-UPDIETARY NEEDS EDUCATION RECREATIONAL DRUG USE DRUG USE?NO LEARNING BARRIERS / SPECIAL NEEDS CHANGE FROM LAST VISIT?NO BARRIERS TO LEARNING?NO HEARING IMPAIRED?NO VISION IMPAIRED?NO COGNITIVELY IMPAIRED?NO READINESS TO LEARN?YES LEARNING PREFERENCES?NO LEARNING CAPABILITIES PRESENT?YES EMOTIONAL BARRIERS?NO SPECIAL DEVICES?NO TUBE BUILDER NEEDED?NO PAIN CLINIC PFS, CLERGY, PUBLIC HEALTH REFERRALS PFS REFERRAL NEEDED?NO CLERGY REFERRAL NEEDED?NO PUBLIC HEALTH REFERRAL NEEDED?NO WAS THE PROVIDER NOTIFIED OF ANY PERTINENT INFO?YES HAS THE PATIENT BEEN EDUCATED REGARDING HIS/HER PLAN OF CARE?YES HAS THE PATIENT BEEN EDUCATED REGARDING PAIN, THE RISK FOR PAIN, THE IMPORTANCE OF EFFECTIVE PAIN MANAGEMENT, AND THE PAIN ASSESSMENT PROCESS?YES LATEX QUESTIONNAIRE LATEX ALLERGY : HAVE YOU EVER DEVELOPED ANY TYPE OF REACTION AFTER HANDLING LATEX PRODUCTS SUCH RUBBER GLOVES, CONDOMS, DIAPHRAGMS, BALLOONS, SOCKS, OR UNDERWEAR?NO LATEX ALLERGY : HAVE YOU EVER DEVELOPED ANY TYPE OF REACTION DURING OR AFTER DENTAL APPOINTMENT, VAGINAL/RECTAL EXAMINATION, SURGICAL PROCEDURE, OR ANY OTHER EXPOSURE?NO DATE ASKED : 11/21/2018 LATEX RISK : HAVE YOU EVER HAD ANY DIFFICULTY BREATHING OR HIVES AFTER EATING OR HANDLING ANY FRUITS, OR VEGETABLES; SUCH KIWI, BANANAS, STONE FRUITS, OR CHESTNUTSNO LATEX RISK : DO YOU HAVE A PREVIOUS PERSONAL HISTORY OF MORE THAN NINE SURGERIES, SPINA BIFIDA, OR REPEATED CATHERIZATIONS? NO LATEX RISK : ARE YOU FREQUENTLY EXPOSED TO LATEX PRODUCTS IN YOUR OCCUPATION?NO CAFFEINE CAFFEINE USE?YES HOW OFTEN AND HOW MUCH? 2 POTS OF COFFEE DAILY ADVANCE DIRECTIVE ADVANCE DIRECTIVE DISCUSSED WITH PATIENT:YES NO ADVANCED DIRECTIVES, PT DECLINES HCP INFORMATION AT THIS TIME CHURCH [id number] NONE MARITAL STATUS: . ALCOHOL SCREENING DID YOU HAVE A DRINK CONTAINING ALCOHOL IN THE PAST YEAR?YES HOW OFTEN DID YOU HAVE SIX OR MORE DRINKS ON ONE OCCASION IN THE PAST YEAR?NEVER (0 POINTS) HOW MANY DRINKS DID YOU HAVE ON A TYPICAL DAY WHEN YOU WERE DRINKING IN THE PAST YEAR?1 OR 2 (0 POINTS) HOW OFTEN DID YOU HAVE A DRINK CONTAINING ALCOHOL IN THE PAST YEAR?MONTHLY OR LESS (1 POINT) POINTS1 INTERPRETATIONNEGATIVE SEXUAL HX HAD SEX IN THE LAST 12 MONTHS (VAGINAL, ORAL, OR ANAL)?YES WITHMEN ONLY USE PROTECTION?NO LMP:HYSTER HAVE YOU EVER HAD AN STD?NO REVIEWED, UPDATED, ADVISED RISKS OF CONTINUED SMOKING, OFFERED CESSATION AIDS/DECLINEDREVIEWED WITH PT 03/01/18 1115 LASREVIEWED WITH PATIENT 05/01/18 1059 JSREVIEWED WITH PATIENT 02/10/19 1519 JSREVIEWED WITH PATIENT 05/01/19 NLJREVIEWED WITH PATIENT 05/26/19 LAS. HOSPITALIZATION/MAJOR DIAGNOSTIC PROCEDURE BACK SURGERY December, REVIEW OF SYSTEMS REVIEWED BY: PROVIDER: NANCI NUNEZ MD . CONSTITUTIONAL: ANY CHANGE IN YOUR MEDICAL CONDITION? NO . CHILLS NO . FEVER NO . INFECTION: DO YOU HAVE NEW INFECTIONS? NO PT REPORTS FOUR "BOILS" HAS A HISTORY OF HS HYDRODINITIS SUPRATIVA . DO YOU HAVE HISTORY OF MRSA? NO . MUSCULOSKELETAL: ANY NEW PATTERNS OF PAIN OR NUMBNESS? PT REPORTS INCREASED INTENSITY OF PAIN IN HER BACK, WITH NEW NUMBNESS SENSATIONS, HAS A SENSATION LIKE SHE IS WETTING HER PANTS, BUT SHE ISN'T . GASTROENTEROLOGY: ANY NEW CHANGE IN BOWEL CONTROL? NO . GENITOURINARY: ANY NEW CHANGE IN BLADDER CONTROL? NO . IS THERE A CHANCE YOU COULD BE ? NO . HEMATOLOGY/LYMPH: DO YOU TAKE ANY BLOOD THINNERS? (FOR EXAMPLE- COUMADIN, PLAVIX, AGGRENOX, PLATEL, PRADAXA, OR XARELTO) NO . WHEN WAS YOUR LAST DOSE? DATE: TIME: , DATE: TIME: . NEUROLOGY: HAVE YOU FALLEN IN THE PAST 12 MONTHS? NO . ANY NEW EXTREMITY NUMBNESS OR WEAKNESS? YES PT REPORTS NEW SENSATIONS REPORTED ABOVE, ALSO NEW NUMBNESS IN HER RIGHT HAND . CARDIOLOGY: DO YOU HAVE A PACEMAKER OR DEFIBRILLATOR? NO . RESPIRATORY: HAVE YOU BEEN SICK IN THE PAST WEEK? NO . FEVER NO . FLU LIKE SYMPTOMS? NO . COUGH NO . INTEGUMENTARY: DO YOU HAVE ANY RASHES OR OPEN SORES? PT HAS HISTORY OF HS, HAS CHRONIC "BOILS", HAS FOUR AT THIS TIME . ALLERGIC/IMMUNO: ARE YOU ALLERGIC TO IV DYE? NO . ANY NEW ALLERGIES? NO . PSYCHIATRIC: DO YOU HAVE THOUGHTS OF HURTING YOURSELF OR SOMEONE ELSE? NO . ARE YOU ABUSED, NEGLECTED, OR IN AN UNSAFE ENVIRONMENT? NO . ENDOCRINOLOGY: ARE YOU DIABETIC? YES . OTHER: DO YOU NEED ANY PRESCRIPTIONS? NO . IF YES, PLEASE LIST: ____ . ANY NEW PROBLEMS WITH YOUR MEDICATIONS? NO . WHEN DID YOU LAST EAT? ____ . WHEN DID YOU LAST DRINK? ____ . WHAT DID YOU LAST DRINK? ____ . NAME OF PERSON DRIVING YOU HOME? ____ . DO YOU HAVE ANY OTHER QUESTIONS OR CONCERNS SENDING FOR CLEARANCE FROM PRIMARY TO CLEAR PT FOR PROCEDURES . VITAL SIGNS WT 226.0 LBS, HT 69 IN, BMI 33.37 INDEX, BP 122/71 MM HG, HR 82 /MIN, RR 16 /MIN, TEMP 96.0 F, OXYGEN SAT % 98%, NA INITIALS AW 1147, REVIEWED BY: KG. EXAMINATION GENERAL EXAMINATION: PATIENT IS ALERT O X 3 AND COOPERATIVE. SURGERY SCAR IS VISIBLE. TENDERNESS OVER THE PARASPINAL MUSCLE GROUP OF THE LOW BACK ON BOTH SIDES. PRESENCE OF BANDS OF TISSUE AND TRIGGER POINTS WITH RESTRICTION OF MOVEMENT OF THE LOW BACK. PAIN INCREASES OVER THE LUMBAR FACET JOINTS WITH EXTENSION AND LATERAL ROTATION OF THE BACK. MRI OF THE LUMBAR SPINE DONE ON 04/08/2019 SHOWS FACET ARTHROPATHY CHANGES ON BOTH SIDES WITH EVIDENCE OF PREVIOUS SURGERY. ASSESSMENTS MYALGIA, OTHER SITE - M79.18 (PRIMARY) LOW BACK PAIN - M54.5 OTHER CHRONIC PAIN - G89.29 SPONDYLOSIS WITHOUT MYELOPATHY OR RADICULOPATHY, LUMBAR REGION - M47.816 TREATMENT MYALGIA, OTHER SITE CLINICAL NOTES: WE DISCUSSED SEVERAL ISSUES WITH MS. WINTERS'S PAIN MANAGEMENT CASE. DUE TO THE TRIGGER POINTS, BANDS OF TISSUE, AND RESTRICTION OF MOVEMENT, I WOULD LIKE TO MOVE FORWARD WITH A TRIGGER POINT INJECTION AT THIS TIME. WE DISCUSSED THE BENEFITS, RISKS, AND ALTERNATIVES OF THE INJECTION AND THE PATIENT WOULD LIKE TO PROCEED. I AM LOOKING FOR LONG LASTING PAIN RELIEF FROM THIS INJECTION FOR THE PATIENT. BEFORE MOVING FORWARD THE TRIGGER POINT INJECTION, I WILL REQUEST A CLEARANCE FROM THE PATIENT'S PRIMARY CARE PROVIDER DUE TO THE PATIENT'S CONCERN OF INFECTION FROM THE STEROID INJECTION AND HER HIDRADENITIS SUPPURATIVA (HS) CONDITION. THE PATIENT WILL FOLLOW UP IN SEVERAL WEEKS AFTER HER INJECTION. INSTRUCTIONS WERE GIVEN, QUESTIONS WERE ANSWERED, PATIENT REPORTS UNDERSTANDING AND AGREES WITH THE PLAN. I, TERESO MARTINEZ, DOCUMENTED THE ABOVE INFORMATION ACTING A SCRIBE FOR DR. NUNEZ. I HAVE REVIEWED THE ABOVE DOCUMENT, WRITTEN BY TERESO WOLFE AND I VERIFY THAT IT IS ACCURATE. . PREVENTIVE MEDICINE PAIN CLINIC TEACHING: PROCEDURE TEACHING PRE PROCEDURE REVIEWED WITH PT AND INSTRUCTIONS PRINTED AND GIVEN TO PT. PROCEDURE CODES G8427 CURRENT MEDS W/DOSAGES DOCUMENTED G8730 PAIN ASSESS POS TOOL F/U PLAN DOC FA211 ESTABILISHED PATIENT [facility] CHARGE DISPOSITION & COMMUNICATION FOLLOW UP REASON: RQSTING CLEARANCE THEN TPI ELECTRONICALLY SIGNED BY NANCI NUNEZ MD, ON 06/09/2019 AT 05:31 PM EST DISCLAIMER : THIS IS A VISIT SUMMARY EXTRACTED FROM THE [facility] CHART. IT IS NOT A COPY OF THE [facility] PROGRESS NOTE. CALEB
== END ==
LOC: M PAIN 11:45
PROVIDERS: ATTEND Anesthesiology
DX: M79.18 Myalgia, other site (principal); M54.5 Low back pain; G89.29 Other chronic pain; M47.816 Spondylosis without myelopathy or radiculopathy, lumbar region; E78.5 Hyperlipidemia, unspecified; K21.9 Gastro-esophageal reflux disease without esophagitis; Z86.59 Personal history of other mental and behavioral disorders; E11.9 Type 2 diabetes mellitus without complications; F17.210 Nicotine dependence, cigarettes, uncomplicated; Z88.1 Allergy status to other antibiotic agents; Z88.8 Allergy status to other drugs, medicaments and biological substances; Z79.84 Long term (current) use of oral hypoglycemic drugs; Z79.891 Long term (current) use of opiate analgesic; Z79.899 Other long term (current) drug therapy

== ENCOUNTER → 2019-05-29 | Outpatient (REF) | payer BC ==
[2019-05-29 19:45] LABS: HEMOGLOBIN A1c 5.6 %
[2019-05-29 19:47] LABS: ALBUMIN 3.5 GM/DL (3.2-5.2); ALT/SGPT 15 U/L (12-78); BILIRUBIN,TOTAL 0.5 MG/DL (0.2-1.0); BLOOD UREA NITROGEN 9 MG/DL (7-18); CARBON DIOXIDE LEVEL 29 MEQ/L (21-32); CHLORIDE LEVEL 104 MEQ/L (98-107); FREE T4 1.24 NG/DL (0.76-1.46); GLOMERULAR FILTRATION RATE > 60.0 (>58); GLUCOSE, FASTING 71 MG/DL (70-100); POTASSIUM SERUM 4.6 MEQ/L (3.5-5.1); SODIUM LEVEL 136 MEQ/L (136-145); TOTAL PROTEIN 7.1 GM/DL (6.4-8.2)
== END ==
LOC: M SFHCADAM 16:30
PROVIDERS: ATTEND Physician Assistant
DX: E78.1 Pure hyperglyceridemia (principal); E11.21 Type 2 diabetes mellitus with diabetic nephropathy

== ENCOUNTER → 2019-08-13 | Outpatient (CLI) | payer BC ==
[~2019-08-13] MED LIST changes: +BUPIVACAINE HCL 0.25% 30 ML VIAL As Ordered ONE; +TRIAMCINOLONE ACETONIDE SUSP 40 MG/ML VIAL (J3301) As Ordered ONE
--- NOTE | 2019-08-27 02:20 | ECWPNPC ---
PATIENT NAME: ENRICO WINTERS : 1975 GENDER: FEMALE VISIT DATE: 08/13/2019 DISCHARGE DATE: 08/13/19 1616 VISIT LOCKED DATE TIME: PHYSICIAN: NANCI NUNEZ MD RESOURCE: NANCI NUNEZ MD REASON FOR APPOINTMENT 1. TPI HISTORY OF PRESENT ILLNESS HISTORY OF PRESENT ILLNESS: PAIN THE PATIENT DESCRIBES THE PAIN... FALL RISK SCREENING: SCREENING :NO FALLS REPORTED IN THE LAST YEAR CURRENT MEDICATIONS TAKING LISINOPRIL 2.5 MG TABLET 1 TABLET ORALLY ONCE A DAY, NOTES: 08/13/2019 0900 TAKING GLUCOMETER DIRECTED ORALLY DX E11.65 TWICE A DAY TAKING LANCETS - MISCELLANEOUS DIRECTED DX: E11.65 DAILY TAKING ONE TOUCH ULTRA BLUE STRIPS DIRECTED DX E11.65 TWICE A DAY AND NEEDED TAKING ONE TOUCH ULTRA BLUE MISC STRIPS DIRECTED DX E11.65 TWICE A DAY AND NEEDED TAKING FLONASE 50 MCG/ACT SUSPENSION 1 PUFF IN EACH NOSTRIL NASALLY ONCE A DAY NEEDED, NOTES: NONE RECENT TAKING ONETOUCH ULTRA TEST NA STRIP USE DIRECTED TWICE A DAY AND NEEDED TAKING LEVOTHYROXINE SODIUM 137 MCG TABLET TAKE 1 TABLET DAILY IN THE MORNING ON AN EMPTY STOMACH , NOTES: 08/13/2019 0900 TAKING OXYBUTYNIN CHLORIDE 5 MG TABLET 1 TABLET ORALLY ONCE A DAY, NOTES: 08/13/2019 09 TAKING RABEPRAZOLE SODIUM 20 MG TABLET DELAYED RELEASE 1 TABLET ORALLY DAILY, NOTES: 08/13/2019 09 TAKING JARDIANCE 25 MG TABLET TAKE 1 TABLET DAILY , NOTES: 08/13/2019 09 TAKING METFORMIN HCL 1000 MG TABLET TAKE 1 TABLET TWICE A DAY WITH MEALS , NOTES: 08/13/2019 09 TAKING ATORVASTATIN CALCIUM 40 MG TABLET TAKE 1 TABLET DAILY , NOTES: 08/13/2019 0900 TAKING OXYCODONE-ACETAMINOPHEN 7.5-325 MG TABLET 1 ORALLY EVERY 6 HRS PRN MDD4, NOTES: 08/13/2019 1300 NOT-TAKING CLOBETASOL PROPIONATE 0.05 % CREAM 1 APPLICATION TO AFFECTED AREA EXTERNALLY TWICE A DAY TO RASH ON ELBOWS FOR 3 WEEKS OFF FOR 1 WEEK NOT-TAKING FISH OIL 1200 MG CAPSULE 1 CAPSULE ORALLY ONCE A DAY NOT-TAKING ASPIRIN ADULT LOW DOSE 81 MG TABLET DELAYED RELEASE 1 TABLET ORALLY ONCE A DAY MEDICATION LIST REVIEWED AND RECONCILED WITH THE PATIENT PAST MEDICAL HISTORY HYPERLIPIDEMIA ASCVD RISK SCORE 17% 03/2017 ESOPHAGEAL REFLUX - EGD 02/[address] HERNANDEZ DEPRESSION TYPE 2 DM LUMBAR DISC DISEASE/POST LAMINECTOMY SYNDROME - PREVIOUSLY MANAGED BY PAIN CLINIC MYOFASCIAL PAIN SYNDROME - PREVIOUSLY MANAGED BY PAIN CLINIC HIDRADENITIS - EVAL BY DR HEBERT IN PAST METABOLIC SYNDROME (WAS ON METFORMIN IN PAST, PT D/C DUE TO LOW BS) GOITER- HYPOTHYROID HYPERLIPIDEMIA ANEMIA OBESITY SMOKER PROBABLE ANKUR EXCESSIVE SWEATING ALLERGIES DOXYCYCLINE CALCIUM: HIVES, TOLERATES MINOCYCLINE - ALLERGY SILVADENE: BURNING/ITCHING - ALLERGY BYDUREON: SEVERE GI UPSET - SIDE EFFECTS SURGICAL HISTORY CERVICAL CRYO/LASER LUMBAR DECOMPRESSION - MICRODISCECTOMY AND FORAMINOTOMY L5-S1, DR LOVE December, COLONOSCOPY, ADENOMATOUS POLYP, REPEAT 3 YRS - REINDL 04-02 EGD, MILD CHRONIC INFLAMMATION, PAST GRANULAR CELL TUMOR - REINDL 04-02,02-01 HYSTERECTOMY VAGINAL -12 REMOVAL OF BENIGN ESOPHAGEAL TUMOR - [place] 05/02 FAMILY HISTORY FATHER: , DIAGNOSED WITH OTHER MALIGNANT NEOPLASM OF UNSPECIFIED SITE MOTHER: ALIVE, DIABETES, HYPERTENSION 1 BROTHER(S) - HEALTHY. 1 SON(S) , 1 DAUGHTER(S) - HEALTHY. FATHER - COLON CANCER. SOCIAL HISTORY GENERAL: TOBACCO USE ARE YOU A:CURRENT SMOKER ARE YOU INTERESTED IN QUITTING?NOT READY TO QUIT COUNSELED THE PATIENT ON SMOKING EFFECTS, EDUCATION [id number]/10/2019 HOW MANY CIGARETTES A DAY DO YOU SMOKE?31 OR MORE HOW SOON AFTER YOU WAKE UP DO YOU SMOKE YOUR FIRST CIGARETTE?WITHIN 5 MIN HOW OFTEN DO YOU SMOKE CIGARETTES?EVERY DAY PATIENT COUNSELED ON THE DANGERS OF TOBACCO USE AND URGED TO QUIT:02/10/2019 ADDITIONAL FINDINGS: TOBACCO USERCHAIN SMOKER SHE WAS SMOKING 2 -3 PPD. SHE NOW SMOKES ABOUT 1 1/2 - 2 PPD SMOKING CESSATION INFORMATION GIVEN11/19/2018 VAPORYES SHE HAS BEEN USING A VAPOR PEN IN HOPES OF CUTTING DOWN HER CIGARETTE USE SO SHE CAN QUITE. DIET: REGULAR. LANGUAGE TAJIK. BMI CARE GOAL FOLLOW-UP ABOVE NORMAL BMI FOLLOW-UPDIETARY NEEDS EDUCATION RECREATIONAL DRUG USE DRUG USE?NO LEARNING BARRIERS / SPECIAL NEEDS CHANGE FROM LAST VISIT?NO BARRIERS TO LEARNING?NO HEARING IMPAIRED?NO VISION IMPAIRED?NO COGNITIVELY IMPAIRED?NO READINESS TO LEARN?YES LEARNING PREFERENCES?NO LEARNING CAPABILITIES PRESENT?YES EMOTIONAL BARRIERS?NO SPECIAL DEVICES?NO IN HOUSE COUNSEL NEEDED?NO PAIN CLINIC PFS, CLERGY, PUBLIC HEALTH REFERRALS PFS REFERRAL NEEDED?NO CLERGY REFERRAL NEEDED?NO PUBLIC HEALTH REFERRAL NEEDED?NO WAS THE PROVIDER NOTIFIED OF ANY PERTINENT INFO?YES HAS THE PATIENT BEEN EDUCATED REGARDING HIS/HER PLAN OF CARE?YES HAS THE PATIENT BEEN EDUCATED REGARDING PAIN, THE RISK FOR PAIN, THE IMPORTANCE OF EFFECTIVE PAIN MANAGEMENT, AND THE PAIN ASSESSMENT PROCESS?YES LATEX QUESTIONNAIRE LATEX ALLERGY : HAVE YOU EVER DEVELOPED ANY TYPE OF REACTION AFTER HANDLING LATEX PRODUCTS SUCH RUBBER GLOVES, CONDOMS, DIAPHRAGMS, BALLOONS, SOCKS, OR UNDERWEAR?NO LATEX ALLERGY : HAVE YOU EVER DEVELOPED ANY TYPE OF REACTION DURING OR AFTER DENTAL APPOINTMENT, VAGINAL/RECTAL EXAMINATION, SURGICAL PROCEDURE, OR ANY OTHER EXPOSURE?NO DATE ASKED : 11/21/2018 LATEX RISK : HAVE YOU EVER HAD ANY DIFFICULTY BREATHING OR HIVES AFTER EATING OR HANDLING ANY FRUITS, OR VEGETABLES; SUCH KIWI, BANANAS, STONE FRUITS, OR CHESTNUTSNO LATEX RISK : DO YOU HAVE A PREVIOUS PERSONAL HISTORY OF MORE THAN NINE SURGERIES, SPINA BIFIDA, OR REPEATED CATHERIZATIONS? NO LATEX RISK : ARE YOU FREQUENTLY EXPOSED TO LATEX PRODUCTS IN YOUR OCCUPATION?NO CAFFEINE CAFFEINE USE?YES HOW OFTEN AND HOW MUCH? 2 POTS OF COFFEE DAILY ADVANCE DIRECTIVE ADVANCE DIRECTIVE DISCUSSED WITH PATIENT:YES NO ADVANCED DIRECTIVES, PT DECLINES HCP INFORMATION OR ASSISTANCE AT THIS TIME QUAKER [id number] NONE MARITAL STATUS: . ALCOHOL SCREENING DID YOU HAVE A DRINK CONTAINING ALCOHOL IN THE PAST YEAR?YES HOW OFTEN DID YOU HAVE SIX OR MORE DRINKS ON ONE OCCASION IN THE PAST YEAR?NEVER (0 POINTS) HOW MANY DRINKS DID YOU HAVE ON A TYPICAL DAY WHEN YOU WERE DRINKING IN THE PAST YEAR?1 OR 2 (0 POINTS) HOW OFTEN DID YOU HAVE A DRINK CONTAINING ALCOHOL IN THE PAST YEAR?MONTHLY OR LESS (1 POINT) POINTS1 INTERPRETATIONNEGATIVE SEXUAL HX HAD SEX IN THE LAST 12 MONTHS (VAGINAL, ORAL, OR ANAL)?YES WITHMEN ONLY USE PROTECTION?NO LMP:HYSTER HAVE YOU EVER HAD AN STD?NO REVIEWED, UPDATED, ADVISED RISKS OF CONTINUED SMOKING, OFFERED CESSATION AIDS/DECLINEDREVIEWED WITH PT 03/01/18 1115 LASREVIEWED WITH PATIENT 05/01/18 1059 JSREVIEWED WITH PATIENT 02/10/19 1519 JSREVIEWED WITH PATIENT 05/01/19 NLJREVIEWED WITH PATIENT 08/13/2019 LASREVIEWED WITH PATIENT 05/26/19 LAS. HOSPITALIZATION/MAJOR DIAGNOSTIC PROCEDURE BACK SURGERY December, REVIEW OF SYSTEMS REVIEWED BY: PROVIDER: . CONSTITUTIONAL: ANY CHANGE IN YOUR MEDICAL CONDITION? NO . CHILLS NO . FEVER NO . INFECTION: DO YOU HAVE NEW INFECTIONS? YES PT HAS A HISTOY OR HIDRADENITIS, HAS MULTIPLE INFECTED BOILS A RESULT OF THIS. DR. NUNEZ NOTIFIED. . DO YOU HAVE HISTORY OF MRSA? NO . MUSCULOSKELETAL: ANY NEW PATTERNS OF PAIN OR NUMBNESS? NO . GASTROENTEROLOGY: ANY NEW CHANGE IN BOWEL CONTROL? NO . GENITOURINARY: ANY NEW CHANGE IN BLADDER CONTROL? NO . IS THERE A CHANCE YOU COULD BE ? NO . HEMATOLOGY/LYMPH: DO YOU TAKE ANY BLOOD THINNERS? (FOR EXAMPLE- COUMADIN, PLAVIX, AGGRENOX, PLATEL, PRADAXA, OR XARELTO) NO . WHEN WAS YOUR LAST DOSE? DATE: TIME: . NEUROLOGY: HAVE YOU FALLEN IN THE PAST 12 MONTHS? YES IN MAY, PT REPORTS SHE SLIPPED COMING OUT OF THE SHOWER, LOST HER BALANCE AND FELL. DENIES INJURY, NO ED OR MD VISIT. . ANY NEW EXTREMITY NUMBNESS OR WEAKNESS? PT REPORTS GENERALIZED INCREASED WEAKNESS. . CARDIOLOGY: DO YOU HAVE A PACEMAKER OR DEFIBRILLATOR? NO . RESPIRATORY: HAVE YOU BEEN SICK IN THE PAST WEEK? NO . FEVER YES PT REPORTS SHE OCCASIONALLY HAS FEVERS, WHICH GOES ALONG WITH THE HIDRADENITIS PER PATIENT . FLU LIKE SYMPTOMS? NO . COUGH NO . INTEGUMENTARY: DO YOU HAVE ANY RASHES OR OPEN SORES? NO . ALLERGIC/IMMUNO: ARE YOU ALLERGIC TO IV DYE? NO . ANY NEW ALLERGIES? NO . PSYCHIATRIC: DO YOU HAVE THOUGHTS OF HURTING YOURSELF OR SOMEONE ELSE? NO . ARE YOU ABUSED, NEGLECTED, OR IN AN UNSAFE ENVIRONMENT? NO . ENDOCRINOLOGY: ARE YOU DIABETIC? NO . OTHER: DO YOU NEED ANY PRESCRIPTIONS? NO . IF YES, PLEASE LIST: ____ . ANY NEW PROBLEMS WITH YOUR MEDICATIONS? NO . WHEN DID YOU LAST EAT? ____08/12/2019 2100 . WHEN DID YOU LAST DRINK? ____08/13/2019 1230 . WHAT DID YOU LAST DRINK? ____WATER . NAME OF PERSON DRIVING YOU HOME? ____SEBLE KUMAR . DO YOU HAVE ANY OTHER QUESTIONS OR CONCERNS NO . VITAL SIGNS WT 229.4 LBS, HT 69 IN, BMI 33.87 INDEX, BP 114/63 MM HG, HR 75 /MIN, RR 18 /MIN, TEMP 98.4 F, OXYGEN SAT % 98% RA, SAFE IN ENV? (Y/N) YES, REVIEWED BY: LASA. LORY CMA. ASSESSMENTS MYALGIA, OTHER SITE - M79.18 (PRIMARY) PROCEDURES PN TRIGGER POINT INJECTION WITH STEROIDS PRE PROCEDURE DIAGNOSIS 1. MYALGIA 2. PAIN AT BILATERAL LUMBAR AREA. POST PROCEDURE DIAGNOSIS 1. MYALGIA 2. PAIN AT BILATERAL LUMBAR AREA. PROCEDURE TRIGGER POINT INJECTION AT RIGHT AND LEFT LOW BACK AREA. SURGEON DR. NANCI NUNEZ IRONWORKER HELPER SHOP NONE ANESTHESIA LOCAL PRE PROCEDURE NOTE THE PATIENT HAS A HISTORY OF CHRONIC PAIN AT THE RIGHT AND LEFT LOW BACK AREA. I EVALUATED THE PATIENT AND REVIEWED THE CHART. THERE IS EVIDENCE OF BANDS OF TISSUE WITH RESTRICTION OF MOVEMENT AND PRESENCE OF TRIGGER POINT AT THE AFFECTED AREA. I WENT OVER THE RISKS, ALTERNATIVES, AND BENEFITS ASSOCIATED WITH THIS PROCEDURE. THE PATIENT WOULD LIKE TO PROCEED AND GIVES CONSENT TO PERFORM THE PROCEDURE. THE PATIENT DENIES UNEXPLAINABLE WEIGHT LOSS, FEVER, CHILLS, OR NEW CHANGES IN URINARY OR BOWEL CONTROL DESCRIPTION OF PROCEDURE THE PATIENT WAS BROUGHT TO THE PROCEDURE ROOM AND PLACED IN THE SITTING POSITION. THE AREA WAS CLEANED WITH ALCOHOL. THE PROCEDURE WAS DONE USING ASEPTIC STERILE TECHNIQUE. I CHECKED LATERALITY AND THE LEVEL WHERE THE PROCEDURE WAS GOING TO BE PERFORMED WITH THE PATIENT AND THE SUPPORTING STAFF AT THE MOMENT OF THE TIME OUT IN THE PROCEDURE ROOM. USING A 25-GAUGE NEEDLE, TRIGGER POINTS WERE INJECTED AT THE RIGHT AND LEFT LOW BACK AREA WITH A TOTAL OF 40 ML OF BUPIVACAINE 0.25% AND KENALOG 40 MG. THERE WAS NO EVIDENCE OF BLOOD, PARESTHESIA OR CEREBROSPINAL FLUID DURING THE PROCEDURE. THE PATIENT WAS SENT TO THE RECOVERY ROOM. THE PATIENT WAS MOVING THE EXTREMITIES AND DOING WELL. THERE WAS NO COMPLICATION DURING THE PROCEDURE POST PROCEDURE NOTE THE PATIENT WILL BE SEEN IN A FOLLOW UP IN THE NEXT FEW WEEKS. I AM LOOKING FOR LONG LASTING PAIN RELIEF WITH THIS INJECTION. INSTRUCTIONS WERE GIVEN, QUESTIONS WERE ANSWERED, AND THE PATIENT EXPRESSED UNDERSTANDING AND AGREES WITH THE PLAN. I, TERESO MARTINEZ, DOCUMENTED THE ABOVE INFORMATION ACTING A SCRIBE FOR DR. NUNEZ. I HAVE REVIEWED THE ABOVE DOCUMENT, WRITTEN BY TERESO MARTINEZ SCRIBFelipe AND I VERIFY THAT IT IS ACCURATE. PROCEDURE CODES 18705 INJ TRIGGER POINT / MUSCL DISPOSITION & COMMUNICATION FOLLOW UP 3 WEEKS ELECTRONICALLY SIGNED BY NANCI NUNEZ MD, MD ON 08/26/2019 AT 11:53 AM EST DISCLAIMER : THIS IS A VISIT SUMMARY EXTRACTED FROM THE [employer] CHART. IT IS NOT A COPY OF THE [employer] PROGRESS NOTE. CALEB
== END ==
LOC: M PAIN 14:30
PROVIDERS: ATTEND Anesthesiology
DX: M79.18 Myalgia, other site (principal); E78.5 Hyperlipidemia, unspecified; K21.9 Gastro-esophageal reflux disease without esophagitis; Z86.59 Personal history of other mental and behavioral disorders; E11.9 Type 2 diabetes mellitus without complications; F17.210 Nicotine dependence, cigarettes, uncomplicated; Z88.1 Allergy status to other antibiotic agents; Z88.8 Allergy status to other drugs, medicaments and biological substances; Z79.84 Long term (current) use of oral hypoglycemic drugs; Z79.891 Long term (current) use of opiate analgesic; Z79.899 Other long term (current) drug therapy
CPT/HCPCS: 20552; J3301

== ENCOUNTER → 2019-09-02 | Outpatient (CLI) | payer BC ==
[~2019-09-02] MED LIST changes: -BUPIVACAINE HCL 0.25% 30 ML VIAL As Ordered ONE; -TRIAMCINOLONE ACETONIDE SUSP 40 MG/ML VIAL (J3301) As Ordered ONE
--- NOTE | 2019-09-16 01:49 | ECWPNPC ---
PATIENT NAME: ENRICO WINTERS : 1975 GENDER: FEMALE VISIT DATE: 09/02/2019 DISCHARGE DATE: 09/02/19 1509 VISIT LOCKED DATE TIME: PHYSICIAN: TAMY LYNN RESOURCE: TAMY LYNN REASON FOR APPOINTMENT 1. POST TPI/INCREASED PAIN HISTORY OF PRESENT ILLNESS HISTORY OF PRESENT ILLNESS: HERE FOR POST PROCEDURE FOLLOW-UP. HAD TRIGGER POINT INJECTIONS, BILATERAL LUMBAR SPINE 08/13/2019. REPORTS DOING VERY WELL POST PROCEDURE. SHE IS NOTICING BIT MORE RIGHT LOW BACK PAIN THAT TRAVELS DOWN HER RIGHT LEG AND INTO HER TOE. REVIEWED MRI OF THE LS SPINE. DISCUSSED TREATMENT OPTIONS. TRYING TO CUT BACK ON USING HYDROCODONE AND FINDS IT MORE EFFECTIVE WHEN SHE USES IT LESS FREQUENTLY. RATING PAIN LEVEL A 7-12/10 VAS. DESCRIBES PAIN CONTINUOUS, SHARP, ACHING. PAIN THE PATIENT DESCRIBES THE PAIN... FALL RISK SCREENING: SCREENING :NO FALLS REPORTED IN THE LAST YEAR CURRENT MEDICATIONS TAKING GLUCOMETER DIRECTED ORALLY DX E11.65 TWICE A DAY TAKING LANCETS - MISCELLANEOUS DIRECTED DX: E11.65 DAILY TAKING ONE TOUCH ULTRA BLUE STRIPS DIRECTED DX E11.65 TWICE A DAY AND NEEDED TAKING ONE TOUCH ULTRA BLUE MISC STRIPS DIRECTED DX E11.65 TWICE A DAY AND NEEDED TAKING FLONASE 50 MCG/ACT SUSPENSION 1 PUFF IN EACH NOSTRIL NASALLY ONCE A DAY NEEDED TAKING ONETOUCH ULTRA TEST NA STRIP USE DIRECTED TWICE A DAY AND NEEDED TAKING LEVOTHYROXINE SODIUM 137 MCG TABLET TAKE 1 TABLET DAILY IN THE MORNING ON AN EMPTY STOMACH TAKING OXYBUTYNIN CHLORIDE 5 MG TABLET 1 TABLET ORALLY ONCE A DAY TAKING RABEPRAZOLE SODIUM 20 MG TABLET DELAYED RELEASE 1 TABLET ORALLY DAILY TAKING JARDIANCE 25 MG TABLET TAKE 1 TABLET DAILY TAKING METFORMIN HCL 1000 MG TABLET TAKE 1 TABLET TWICE A DAY WITH MEALS TAKING ATORVASTATIN CALCIUM 40 MG TABLET TAKE 1 TABLET DAILY TAKING OXYCODONE-ACETAMINOPHEN 7.5-325 MG TABLET 1 ORALLY EVERY 6 HRS PRN MDD4 TAKING LISINOPRIL 2.5 MG TABLET 1 TABLET ORALLY ONCE A DAY TAKING HAIR SKIN & NAILS GUMMIES 1250-7.5-7.5 MCG-MG-UNT TABLET CHEWABLE DIRECTED ORALLY NOT-TAKING CLOBETASOL PROPIONATE 0.05 % CREAM 1 APPLICATION TO AFFECTED AREA EXTERNALLY TWICE A DAY TO RASH ON ELBOWS FOR 3 WEEKS OFF FOR 1 WEEK NOT-TAKING FISH OIL 1200 MG CAPSULE 1 CAPSULE ORALLY ONCE A DAY NOT-TAKING ASPIRIN ADULT LOW DOSE 81 MG TABLET DELAYED RELEASE 1 TABLET ORALLY ONCE A DAY MEDICATION LIST REVIEWED AND RECONCILED WITH THE PATIENT PAST MEDICAL HISTORY HYPERLIPIDEMIA ASCVD RISK SCORE 17% 03/2017 ESOPHAGEAL REFLUX - EGD 02/[address] HERNANDEZ DEPRESSION TYPE 2 DM LUMBAR DISC DISEASE/POST LAMINECTOMY SYNDROME - PREVIOUSLY MANAGED BY PAIN CLINIC MYOFASCIAL PAIN SYNDROME - PREVIOUSLY MANAGED BY PAIN CLINIC HIDRADENITIS - EVAL BY DR HEBERT IN PAST METABOLIC SYNDROME (WAS ON METFORMIN IN PAST, PT D/C DUE TO LOW BS) GOITER- HYPOTHYROID HYPERLIPIDEMIA ANEMIA OBESITY SMOKER PROBABLE ANKUR EXCESSIVE SWEATING ALLERGIES DOXYCYCLINE CALCIUM: HIVES, TOLERATES MINOCYCLINE - ALLERGY SILVADENE: BURNING/ITCHING - ALLERGY BYDUREON: SEVERE GI UPSET - SIDE EFFECTS SURGICAL HISTORY CERVICAL CRYO/LASER LUMBAR DECOMPRESSION - MICRODISCECTOMY AND FORAMINOTOMY L5-S1, DR LOVE December, COLONOSCOPY, ADENOMATOUS POLYP, REPEAT 3 YRS - MARY 04-02 EGD, MILD CHRONIC INFLAMMATION, PAST GRANULAR CELL TUMOR - REINDL 04-02,02-01 HYSTERECTOMY VAGINAL - REMOVAL OF BENIGN ESOPHAGEAL TUMOR - [place] 05/02 FAMILY HISTORY FATHER: , DIAGNOSED WITH OTHER MALIGNANT NEOPLASM OF UNSPECIFIED SITE MOTHER: ALIVE, DIABETES, HYPERTENSION 1 BROTHER(S) - HEALTHY. 1 SON(S) , 1 DAUGHTER(S) - HEALTHY. FATHER - COLON CANCER. SOCIAL HISTORY GENERAL: TOBACCO USE ARE YOU A:CURRENT SMOKER ARE YOU INTERESTED IN QUITTING?NOT READY TO QUIT COUNSELED THE PATIENT ON SMOKING EFFECTS, EDUCATION [id number]/11/2020 HOW MANY CIGARETTES A DAY DO YOU SMOKE?31 OR MORE HOW SOON AFTER YOU WAKE UP DO YOU SMOKE YOUR FIRST CIGARETTE?WITHIN 5 MIN HOW OFTEN DO YOU SMOKE CIGARETTES?EVERY DAY PATIENT COUNSELED ON THE DANGERS OF TOBACCO USE AND URGED TO QUIT:02/10/2019 ADDITIONAL FINDINGS: TOBACCO USERCHAIN SMOKER SHE WAS SMOKING 2 -3 PPD. SHE NOW SMOKES ABOUT 1 1/2 - 2 PPD SMOKING CESSATION INFORMATION [id number]/19/2018 VAPORYES SHE HAS BEEN USING A VAPOR PEN IN HOPES OF CUTTING DOWN HER CIGARETTE USE SO SHE CAN QUITE. DIET: REGULAR. LANGUAGE YAKUT. BMI CARE GOAL FOLLOW-UP ABOVE NORMAL BMI FOLLOW-UPDIETARY NEEDS EDUCATION RECREATIONAL DRUG USE DRUG USE?NO LEARNING BARRIERS / SPECIAL NEEDS CHANGE FROM LAST VISIT?NO BARRIERS TO LEARNING?NO HEARING IMPAIRED?NO VISION IMPAIRED?NO COGNITIVELY IMPAIRED?NO READINESS TO LEARN?YES LEARNING PREFERENCES?NO LEARNING CAPABILITIES PRESENT?YES EMOTIONAL BARRIERS?NO SPECIAL DEVICES?NO ASSEMBLER 1ST SHIFT NEEDED?NO PAIN CLINIC PFS, CLERGY, PUBLIC HEALTH REFERRALS PFS REFERRAL NEEDED?NO CLERGY REFERRAL NEEDED?NO PUBLIC HEALTH REFERRAL NEEDED?NO WAS THE PROVIDER NOTIFIED OF ANY PERTINENT INFO?YES HAS THE PATIENT BEEN EDUCATED REGARDING HIS/HER PLAN OF CARE?YES HAS THE PATIENT BEEN EDUCATED REGARDING PAIN, THE RISK FOR PAIN, THE IMPORTANCE OF EFFECTIVE PAIN MANAGEMENT, AND THE PAIN ASSESSMENT PROCESS?YES LATEX QUESTIONNAIRE LATEX ALLERGY : HAVE YOU EVER DEVELOPED ANY TYPE OF REACTION AFTER HANDLING LATEX PRODUCTS SUCH RUBBER GLOVES, CONDOMS, DIAPHRAGMS, BALLOONS, SOCKS, OR UNDERWEAR?NO LATEX ALLERGY : HAVE YOU EVER DEVELOPED ANY TYPE OF REACTION DURING OR AFTER DENTAL APPOINTMENT, VAGINAL/RECTAL EXAMINATION, SURGICAL PROCEDURE, OR ANY OTHER EXPOSURE?NO DATE ASKED : 11/21/2018 LATEX RISK : HAVE YOU EVER HAD ANY DIFFICULTY BREATHING OR HIVES AFTER EATING OR HANDLING ANY FRUITS, OR VEGETABLES; SUCH KIWI, BANANAS, STONE FRUITS, OR CHESTNUTSNO LATEX RISK : DO YOU HAVE A PREVIOUS PERSONAL HISTORY OF MORE THAN NINE SURGERIES, SPINA BIFIDA, OR REPEATED CATHERIZATIONS? NO LATEX RISK : ARE YOU FREQUENTLY EXPOSED TO LATEX PRODUCTS IN YOUR OCCUPATION?NO CAFFEINE CAFFEINE USE?YES HOW OFTEN AND HOW MUCH? 2 POTS OF COFFEE DAILY ADVANCE DIRECTIVE ADVANCE DIRECTIVE DISCUSSED WITH PATIENT:YES NO ADVANCED DIRECTIVES, PT DECLINES HCP INFORMATION OR ASSISTANCE AT THIS TIME JAIN [id number] NONE MARITAL STATUS: . ALCOHOL SCREENING DID YOU HAVE A DRINK CONTAINING ALCOHOL IN THE PAST YEAR?YES HOW OFTEN DID YOU HAVE SIX OR MORE DRINKS ON ONE OCCASION IN THE PAST YEAR?NEVER (0 POINTS) HOW MANY DRINKS DID YOU HAVE ON A TYPICAL DAY WHEN YOU WERE DRINKING IN THE PAST YEAR?1 OR 2 (0 POINTS) HOW OFTEN DID YOU HAVE A DRINK CONTAINING ALCOHOL IN THE PAST YEAR?MONTHLY OR LESS (1 POINT) POINTS1 INTERPRETATIONNEGATIVE SEXUAL HX HAD SEX IN THE LAST 12 MONTHS (VAGINAL, ORAL, OR ANAL)?YES WITHMEN ONLY USE PROTECTION?NO LMP:HYSTER HAVE YOU EVER HAD AN STD?NO REVIEWED, UPDATED, ADVISED RISKS OF CONTINUED SMOKING, OFFERED CESSATION AIDS/DECLINEDREVIEWED WITH PT 03/01/18 1115 LASREVIEWED WITH PATIENT 05/01/18 1059 JSREVIEWED WITH PATIENT 02/10/19 1519 JSREVIEWED WITH PATIENT 05/01/19 NLJREVIEWED WITH PATIENT 08/13/2019 LASREVIEWED WITH PATIENT 05/26/19 LAS. HOSPITALIZATION/MAJOR DIAGNOSTIC PROCEDURE BACK SURGERY December, REVIEW OF SYSTEMS REVIEWED BY: PROVIDER: TAMY ZAMBRANO . CONSTITUTIONAL: ANY CHANGE IN YOUR MEDICAL CONDITION? NO . CHILLS NO . FEVER NO . INFECTION: DO YOU HAVE NEW INFECTIONS? YES, HYDRADNOITIS . DO YOU HAVE HISTORY OF MRSA? NO . MUSCULOSKELETAL: ANY NEW PATTERNS OF PAIN OR NUMBNESS? YES, RIGHT BUTTOCK PAIN AND RIGHT TOE IS NUMB . GASTROENTEROLOGY: ANY NEW CHANGE IN BOWEL CONTROL? NO . GENITOURINARY: ANY NEW CHANGE IN BLADDER CONTROL? NO . IS THERE A CHANCE YOU COULD BE ? NO . HEMATOLOGY/LYMPH: DO YOU TAKE ANY BLOOD THINNERS? (FOR EXAMPLE- COUMADIN, PLAVIX, AGGRENOX, PLATEL, PRADAXA, OR XARELTO) NO . WHEN WAS YOUR LAST DOSE? DATE: TIME: . NEUROLOGY: HAVE YOU FALLEN IN THE PAST 12 MONTHS? YES, PRIOR TO LAST VISIT . ANY NEW EXTREMITY NUMBNESS OR WEAKNESS? NO . CARDIOLOGY: DO YOU HAVE A PACEMAKER OR DEFIBRILLATOR? NO . RESPIRATORY: HAVE YOU BEEN SICK IN THE PAST WEEK? NO . FEVER NO . FLU LIKE SYMPTOMS? NO . COUGH NO . INTEGUMENTARY: DO YOU HAVE ANY RASHES OR OPEN SORES? YES, OPEN BOILS FROM HYDRADNOITIS . ALLERGIC/IMMUNO: ARE YOU ALLERGIC TO IV DYE? NO . ANY NEW ALLERGIES? NO . PSYCHIATRIC: DO YOU HAVE THOUGHTS OF HURTING YOURSELF OR SOMEONE ELSE? NO . ARE YOU ABUSED, NEGLECTED, OR IN AN UNSAFE ENVIRONMENT? NO . ENDOCRINOLOGY: ARE YOU DIABETIC? YES . OTHER: DO YOU NEED ANY PRESCRIPTIONS? NO . IF YES, PLEASE LIST: ____ . ANY NEW PROBLEMS WITH YOUR MEDICATIONS? NO . WHEN DID YOU LAST EAT? ____ . WHEN DID YOU LAST DRINK? ____ . WHAT DID YOU LAST DRINK? ____ . NAME OF PERSON DRIVING YOU HOME? ____ . DO YOU HAVE ANY OTHER QUESTIONS OR CONCERNS NO . VITAL SIGNS WT 225 LBS, HT 69 IN, BMI 33.22 INDEX, BP 124/76 MM HG, HR 82 /MIN, RR 18 /MIN, TEMP 97.6 F, OXYGEN SAT % 97, SAFE IN ENV? (Y/N) YES, REVIEWED BY: EM. EXAMINATION GENERAL EXAMINATION: GENERAL AWAKE,ALERT ,PLEASANT . PSYCH AFFECT NORMAL . LUNGS: LUNG PATINO ARE CLEAR TO AUSCULTATION BILATERALLY. GOOD MOVEMENT OF AIR . HEART: S1, S2 IN A REGULAR RATE AND RHYTHM. NO SIGNIFICANT MURMURS, RUBS OR GALLOPS NOTED . MUSCULOSKELETAL:MILD WEAKNESS NOTED OVER RIGHT LEG. LUMBAR: PALPATION: + FOR PAIN OVER L/S SPINE. + FOR PAIN OVER L/S PARASPINALS. NEUROLOGIC EXAM: NORMAL SENSATION LIGHT TOUCH BILAT. LOWER EXTREMITIES. DIAGNOSTIC TESTS REVIEWED MRI L/S SPINE -04/08/19. ASSESSMENTS POST LAMINECTOMY SYNDROME - M96.1 (PRIMARY) TREATMENT POST LAMINECTOMY SYNDROME REFILL OXYCODONE-ACETAMINOPHEN TABLET, 7.5-325 MG, 1, ORALLY, EVERY 6 HRS PRN MDD4, 30 DAY(S), 120, REFILLS 0 NOTES: CAUDAL EPIDURAL STEROID INJECTION,LUMBAR EPIDURAL STEROID INJECTION MATERIAL WAS PUBLISHED TO [facility], [employer] REGISTRY REVIEWED AND DEMONSTRATES COMPLLIANCE. (REF # ) BRINGS IN MEDICATIONS WHICH IS APPROPRIATE FOR WHAT WAS DISPENSED. RECENT URINE TOXICOLOGY REVIEWED. NO UNAUTHORIZED MEDICATIONS. NO ILLICIT SUBSTANCES AND PRESCRIBED MEDICATIONS WERE PRESENT. , RISKS OF NARCOTIC/OPIOD MEDICATIONS INCLUDES BUT IS NOT LIMITED TO RISK OF DEPENDANCE/DEVELOPMENT OF ADDICTION, MOOD DISTURBANCE AND DEPRESSION, OSTEOPOROSIS, HORMONAL AND LABIDAL CHANGES, RESPIRATORY DEPRESSION AND . PATIENT IS ADVISED NOT TO DRIVE OR DRINK ALCOHOL WHILE ON THESE MEDICATIONS. PROCEDURE CODES [id number] ESTABILISHED PATIENT [facility] CHARGE DISPOSITION & COMMUNICATION FOLLOW UP POST (REASON: CAUDAL EPIDURAL STEROID INJECTION) ELECTRONICALLY SIGNED BY KENYA YEH ON 09/15/2019 AT 04:33 PM EST DISCLAIMER : THIS IS A VISIT SUMMARY EXTRACTED FROM THE [employer] CHART. IT IS NOT A COPY OF THE [employer] PROGRESS NOTE. CALEB
== END ==
LOC: M PAIN 14:00
PROVIDERS: ATTEND Nurse Practitioner Family
DX: M96.1 Postlaminectomy syndrome, not elsewhere classified (principal); E78.5 Hyperlipidemia, unspecified; K21.9 Gastro-esophageal reflux disease without esophagitis; Z86.59 Personal history of other mental and behavioral disorders; E11.9 Type 2 diabetes mellitus without complications; E03.9 Hypothyroidism, unspecified; F17.210 Nicotine dependence, cigarettes, uncomplicated; Z88.1 Allergy status to other antibiotic agents; Z88.8 Allergy status to other drugs, medicaments and biological substances; Z79.84 Long term (current) use of oral hypoglycemic drugs; Z79.891 Long term (current) use of opiate analgesic; Z79.899 Other long term (current) drug therapy

== ENCOUNTER → 2020-03-04 | Outpatient (POV) | payer BC ==
[~2020-03-04] MED LIST changes: -ASPI81TA85 PO; +ASPI81TA86 PO; +ISOVUE-M 300 61% 15ML VIAL As Ordered ONE; +ISOVUE-M 300 61% 15ML VIAL ONE; +LIDOCAINE 1% SDV 30ML VIAL As Ordered ONE; +LIDOCAINE 1% SDV 30ML VIAL ONE; +diazePAM 5 MG TAB As Ordered ONE; +diazePAM 5 MG TAB ONE; +methylPREDNISolone SUSP 40MG/ML 1ML VIAL (DEPO MEDROL) As Ordered ONE; +methylPREDNISolone SUSP 40MG/ML 1ML VIAL (DEPO MEDROL) ONE; +oxyCODONE 5MG TAB As Ordered ONE; +oxyCODONE 5MG TAB ONE
--- NOTE | 2020-04-14 10:57 | REP ---
C-ARM VIEWS OF THE SACRUM AND COCCYX: HISTORY: Pain. FINDINGS: Multiple C-arm views of the sacrococcygeal region performed during caudal epidural injection performed by Dr. Badillo. The needle overlies the sacrum and coccyx and a small amount of contrast is injected. 11 seconds of fluoroscopy time is utilized. MTDD
== END ==
LOC: M PAIN 14:00
PROVIDERS: ATTEND Anesthesiology
DX: M96.1 Postlaminectomy syndrome, not elsewhere classified (principal)

== ENCOUNTER → 2020-05-19 | Outpatient (REF) | payer BC ==
[~2020-05-19] MED LIST changes: -ISOVUE-M 300 61% 15ML VIAL As Ordered ONE; -ISOVUE-M 300 61% 15ML VIAL ONE; -LIDOCAINE 1% SDV 30ML VIAL As Ordered ONE; -LIDOCAINE 1% SDV 30ML VIAL ONE; -diazePAM 5 MG TAB As Ordered ONE; -diazePAM 5 MG TAB ONE; -methylPREDNISolone SUSP 40MG/ML 1ML VIAL (DEPO MEDROL) As Ordered ONE; -methylPREDNISolone SUSP 40MG/ML 1ML VIAL (DEPO MEDROL) ONE; -oxyCODONE 5MG TAB As Ordered ONE; -oxyCODONE 5MG TAB ONE
[2020-05-19 12:43] LABS: HEMATOCRIT 55.9 % (36.0-47.0); MEAN CORPUSCULAR HEMOGLOBIN 31.2 pg (27.0-33.0); MEAN CORPUSCULAR VOLUME 97.4 fl (80.0-96.0); PLATELET COUNT, AUTOMATED 296 10^3/uL (150-450); RED BLOOD COUNT 5.74 10^6/uL (4.00-5.40); WHITE BLOOD COUNT 10.5 10^3/uL (4.0-10.0)
[2020-05-19 12:46] LABS: HEMOGLOBIN 17.9 g/dl (12.0-15.5)
[2020-05-19 13:07] LABS: ALBUMIN 3.5 GM/DL (3.2-5.2); ALT/SGPT 15 U/L (12-78); BILIRUBIN,TOTAL 0.4 MG/DL (0.2-1.0); BLOOD UREA NITROGEN 8 MG/DL (7-18); CALCIUM LEVEL 9.3 MG/DL (8.5-10.1); CARBON DIOXIDE LEVEL 30 MEQ/L (21-32); CHLORIDE LEVEL 103 MEQ/L (98-107); CHOLESTEROL LEVEL 137 MG/DL (<200); CHOLESTEROL RISK RATIO 4.029 (<5); CREATININE FOR GFR 0.82 MG/DL (0.55-1.30); GLOMERULAR FILTRATION RATE > 60.0 (>58); GLUCOSE, FASTING 89 MG/DL (70-100); HDL CHOLESTEROL 34 MG/DL (>40); LDL CHOLESTEROL 65 MG/DL (<100); NON-HDL-C 103 MG/DL; POTASSIUM SERUM 4.9 MEQ/L (3.5-5.1); SODIUM LEVEL 136 MEQ/L (136-145); TOTAL PROTEIN 6.8 GM/DL (6.4-8.2); TRIGLYCERIDES LEVEL 188 MG/DL (<150)
[2020-05-19 13:08] LABS: CREATININE, URINE 47.3 MG/DL; MAU/CREAT RATIO 374.2 MCG/MG (0.0-30.0)
== END ==
LOC: M SFHCADAM 11:03
PROVIDERS: ATTEND Physician Assistant
DX: E11.21 Type 2 diabetes mellitus with diabetic nephropathy (principal); E78.1 Pure hyperglyceridemia

== ENCOUNTER → 2020-05-20 | Outpatient (REF) | payer BC ==
[2020-05-20 17:25] LABS: HEMOGLOBIN A1c 5.6 %
== END ==
LOC: M SFHCADAM 12:06
PROVIDERS: ATTEND Physician Assistant
DX: E11.29 Type 2 diabetes mellitus with other diabetic kidney complication (principal)

== ENCOUNTER → 2020-06-03 | Outpatient (CLI) | payer BC ==
--- NOTE | 2020-06-07 11:53 | ECHO ---
DATE OF PROCEDURE: 06/03/2020 Age: 45 Gender: Female Height: 170 cm Weight: 96 kg REFERRING PHYSICIAN: FARZANA Lovell INDICATION: Exertional dyspnea. MEASUREMENTS: 2D Measurements: Intraventricular septum 0.92 cm Posterior wall 1.00 cm Left ventricle diastole 5.3 cm Aortic root 3.2 cm Left atrium 3.9 cm Left atrial volume index 16 Inferior vena cava 2.4 cm with more than 50% respiratory variation Doppler Measurements: No aortic stenosis No aortic regurgitation No mitral regurgitation No mitral stenosis Trace tricuspid regurgitation No pulmonic regurgitation Aortic valve velocity 120 cm/s LVOT velocity 98.5 cm/s Mitral E velocity 95.3 cm/s Mitral A velocity 89.8 cm/s Mitral deceleration time 155 msec MITRAL ANNULAR TISSUE DOPPLER E prime septal 8.8 cm/s, E prime lateral 10.1 cm/s DESCRIPTION: Rhythm was sinus. Image quality was fair. No pericardial effusion. CONCLUSIONS: 1. Normal echocardiogram Doppler. 2. Normal right ventricle size and systolic function. Pulmonary artery systolic pressure could not be estimated on this study. Normal right atrial size. 3. Normal left ventricle internal dimensions and wall thickness. Normal regional left ventricular (LV) wall motion and wall thickening. Normal left ventricular (LV) systolic function. Left ventricular ejection fraction (LVEF) 65% by visual estimate. Normal left ventricular (LV) diastolic function. MTDD
== END ==
LOC: M CARPUL 11:32
PROVIDERS: ATTEND Physician Assistant
DX: R06.00 Dyspnea, unspecified (principal)

== ENCOUNTER → 2020-06-11 | Outpatient (CLI) | payer BC ==
--- NOTE | 2020-06-16 01:10 | ECWPNPC ---
PATIENT NAME: ENRICO WINTERS : 1975 GENDER: FEMALE VISIT DATE: 06/11/2020 DISCHARGE DATE: 06/11/20 1209 VISIT LOCKED DATE TIME: PHYSICIAN: TAMY LYNN PHYSICIAN PAGER NO: ACTIVE RESOURCE: TAMY LYNN REASON FOR APPOINTMENT 1. MED MANAGEMENT HISTORY OF PRESENT ILLNESS DEPRESSION SCREENING: PHQ-2 (2015 EDITION) LITTLE INTEREST OR PLEASURE IN DOING THINGS?NOT AT ALL FEELING DOWN, DEPRESSED, OR HOPELESS?NOT AT ALL TOTAL SCORE0 GENERAL: HERE FOR POST PROCEDURE FOLLOW-UP/MEDICATION MANAGEMENT FOR CHRONIC LOW BACK PAIN. CURRENTLY BEING WORKED UP FOR ABNORMAL BLOOD EVALUATION BY DR. HARRIS. FINDS CURRENT CHRONIC PAIN MEDICATION HELPFUL AT REDUCING PAIN AND KEEPING HER FUNCTIONAL. WILL BE SEEING PULMONARY TO RULE OUT SLEEP APNEA. HAD ONE DAY IMPROVEMENT AFTER CAUDAL EPIDURAL STEROID INJECTION DONE IN FEBRUARY. DISCUSSED POSSIBILITY OF DOING LUMBAR FACET THERAPEUTIC BLOCK ONCE SHE IS MEDICALLY STABLE. -. FALL RISK SCREENING: SCREENING :TWO OR MORE FALLS WITHOUT INJURY IN THE PAST YEAR PAIN SCREENING: PATIENT HAS A COMPLAINT OF ACUTE OR CHRONIC PAIN :YES LOCATION OF PAIN:LOW BACK, LEFT HIP, RIGHT HIP INTENSITY OF PAIN (SCALE OF 1 TO 10):9 WHAT DOES YOUR PAIN FEEL LIKE:ACHING, CONTINOUS, SHARP, SHOOTING DURATION:CONTINOUS, CONSTANT PAIN IS INCREASED BY:ACTIVITIES, PROLONGED STANDING PAIN IS DECREASED BY:USE OF PAIN MEDICATIONS, OTHERS HEAT NURSING NOTE: -. PAIN CENTER INTAKE QUESTIONS: DO YOU HAVE A HISTORY OF MRSA? :NO DO YOU TAKE A BLOOD THINNERS? :NO DO YOU HAVE ANY BLEEDING DISORDERS? :NO ANY NEW NUMBNESS OR WEAKNESS IN YOUR LEGS OR ARMS? :NO ANY PACEMAKER,DEFIBRILLATOR, OR DORSAL COLUMN STIMULATOR? :NO DO YOU HAVE ANY RASHES OR OPEN SORES? :YES CHRONIC BOILS RELATED TO HYDRODENITIS SUPERATIVA ARE YOU ALLERGIC TO IV DYE? :NO ARE YOU DIABETIC? :YES ANY NEW PROBLEMS WITH YOUR MEDICATIONS? :NO HAVE YOU RECEIVED A VACCINE IN THE PAST 30 DAYS? :YES IF SO WHAT VACCINE AND WHEN? FLU VACCINE 3 WKS AGO DO YOU PLAN TO RECEIVE A VACCINE IN THE NEXT 21 DAYS? :NO DO YOU NEED ANY PRESCRIPTION? :NO DO YOU TAKE ANY IMMUNOSUPPRESSIVE MEDICATIONS? :NO IS THERE A CHANCE YOU COULD BE ? :NO ARE YOU BREAST FEEDING? :NO CURRENT MEDICATIONS TAKING GLUCOMETER DIRECTED ORALLY DX E11.65 TWICE A DAY TAKING LANCETS - MISCELLANEOUS DIRECTED DX: E11.65 DAILY TAKING ONE TOUCH ULTRA BLUE STRIPS DIRECTED DX E11.65 TWICE A DAY AND NEEDED TAKING ONE TOUCH ULTRA BLUE MISC STRIPS DIRECTED DX E11.65 TWICE A DAY AND NEEDED TAKING FLONASE 50 MCG/ACT SUSPENSION 1 PUFF IN EACH NOSTRIL NASALLY ONCE A DAY NEEDED TAKING ONETOUCH ULTRA TEST NA STRIP USE DIRECTED TWICE A DAY AND NEEDED TAKING METFORMIN HCL 1000 MG TABLET TAKE 1 TABLET TWICE A DAY WITH MEALS TAKING OXYBUTYNIN CHLORIDE 5 MG TABLET 1 TABLET ORALLY TWICE A DAY TAKING LEVOTHYROXINE SODIUM 137 MCG TABLET TAKE 1 TABLET DAILY IN THE MORNING ON AN EMPTY STOMACH TAKING RABEPRAZOLE SODIUM 20 MG TABLET DELAYED RELEASE 1 TABLET ORALLY DAILY TAKING ATORVASTATIN CALCIUM 40 MG TABLET TAKE 1 TABLET DAILY TAKING LISINOPRIL 2.5 MG TABLET 1 TABLET ORALLY ONCE A DAY TAKING JARDIANCE 25 MG TABLET TAKE 1 TABLET DAILY ORALLY ONCE A DAY TAKING OXYCODONE-ACETAMINOPHEN 10-325 MG TABLET 1 ORALLY EVERY 6 HRS PRN MDD4 NOT-TAKING HAIR SKIN & NAILS GUMMIES 1250-7.5-7.5 MCG-MG-UNT TABLET CHEWABLE DIRECTED ORALLY NOT-TAKING CLOBETASOL PROPIONATE 0.05 % CREAM 1 APPLICATION TO AFFECTED AREA EXTERNALLY TWICE A DAY TO RASH ON ELBOWS FOR 3 WEEKS OFF FOR 1 WEEK NOT-TAKING FISH OIL 1200 MG CAPSULE 1 CAPSULE ORALLY ONCE A DAY NOT-TAKING ASPIRIN ADULT LOW DOSE 81 MG TABLET DELAYED RELEASE 1 TABLET ORALLY ONCE A DAY MEDICATION LIST REVIEWED AND RECONCILED WITH THE PATIENT PAST MEDICAL HISTORY HYPERLIPIDEMIA ASCVD RISK SCORE 17% 03/2017 ESOPHAGEAL REFLUX - EGD 02/01 DR HERNANDEZ DEPRESSION TYPE 2 DM, ELEVATED YOGESH 2019 LUMBAR DISC DISEASE/POST LAMINECTOMY SYNDROME - PREVIOUSLY MANAGED BY PAIN CLINIC MYOFASCIAL PAIN SYNDROME - PREVIOUSLY MANAGED BY PAIN CLINIC HIDRADENITIS - EVAL BY DR HEBERT IN PAST METABOLIC SYNDROME (WAS ON METFORMIN IN PAST, PT D/C DUE TO LOW BS) GOITER- HYPOTHYROID HYPERLIPIDEMIA ANEMIA OBESITY SMOKER PROBABLE ANKUR-- REFUSED W/U 2012; REFERRED AGAIN 05/11 EXCESSIVE SWEATING ALLERGIES DOXYCYCLINE CALCIUM: HIVES, TOLERATES MINOCYCLINE - ALLERGY SILVADENE: BURNING/ITCHING - ALLERGY BYDUREON: SEVERE GI UPSET - SIDE EFFECTS SURGICAL HISTORY CERVICAL CRYO/LASER LUMBAR DECOMPRESSION - MICRODISCECTOMY AND FORAMINOTOMY L5-S1, DR LOVE December, COLONOSCOPY, ADENOMATOUS POLYP, REPEAT 3 YRS - REINDL - EGD, MILD CHRONIC INFLAMMATION, PAST GRANULAR CELL TUMOR - REINDL 9-,7- HYSTERECTOMY VAGINAL 4-12 REMOVAL OF BENIGN ESOPHAGEAL TUMOR - [place] 05/02 FAMILY HISTORY FATHER: , DIAGNOSED WITH OTHER MALIGNANT NEOPLASM OF UNSPECIFIED SITE MOTHER: ALIVE, HYPERTENSION, DIABETES 1 BROTHER(S) - HEALTHY. 1 SON(S) , 1 DAUGHTER(S) - HEALTHY. FATHER - COLON CANCER. SOCIAL HISTORY GENERAL: TOBACCO USE ARE YOU A:CURRENT SMOKER ARE YOU INTERESTED IN QUITTING?NOT READY TO QUIT COUNSELED THE PATIENT ON SMOKING EFFECTS, EDUCATION [id number]/20/2020 HOW MANY CIGARETTES A DAY DO YOU SMOKE?31 OR MORE HOW SOON AFTER YOU WAKE UP DO YOU SMOKE YOUR FIRST CIGARETTE?WITHIN 5 MIN HOW OFTEN DO YOU SMOKE CIGARETTES?EVERY DAY PATIENT COUNSELED ON THE DANGERS OF TOBACCO USE AND URGED TO QUIT:02/10/2019 ADDITIONAL FINDINGS: TOBACCO USERCHAIN SMOKER SHE WAS SMOKING 2 -3 PPD. SHE NOW SMOKES ABOUT 1 1/2 - 2 PPD SMOKING CESSATION INFORMATION GIVEN11/19/2018 VAPORYES SHE HAS BEEN USING A VAPOR PEN IN HOPES OF CUTTING DOWN HER CIGARETTE USE SO SHE CAN QUITE. LATEX QUESTIONNAIRE LATEX ALLERGY : HAVE YOU EVER DEVELOPED ANY TYPE OF REACTION AFTER HANDLING LATEX PRODUCTS SUCH RUBBER GLOVES, CONDOMS, DIAPHRAGMS, BALLOONS, SOCKS, OR UNDERWEAR?NO LATEX ALLERGY : HAVE YOU EVER DEVELOPED ANY TYPE OF REACTION DURING OR AFTER DENTAL APPOINTMENT, VAGINAL/RECTAL EXAMINATION, SURGICAL PROCEDURE, OR ANY OTHER EXPOSURE?NO LATEX RISK : HAVE YOU EVER HAD ANY DIFFICULTY BREATHING OR HIVES AFTER EATING OR HANDLING ANY FRUITS, OR VEGETABLES; SUCH KIWI, BANANAS, STONE FRUITS, OR CHESTNUTSNO LATEX RISK : DO YOU HAVE A PREVIOUS PERSONAL HISTORY OF MORE THAN NINE SURGERIES, SPINA BIFIDA, OR REPEATED CATHERIZATIONS? NO LATEX RISK : ARE YOU FREQUENTLY EXPOSED TO LATEX PRODUCTS IN YOUR OCCUPATION?NO DATE ASKED : 06/11/2020 BMI CARE GOAL FOLLOW-UP ABOVE NORMAL BMI FOLLOW-UPDIETARY NEEDS EDUCATION ALCOHOL SCREENING DID YOU HAVE A DRINK CONTAINING ALCOHOL IN THE PAST YEAR?YES HOW OFTEN DID YOU HAVE SIX OR MORE DRINKS ON ONE OCCASION IN THE PAST YEAR?NEVER (0 POINTS) HOW MANY DRINKS DID YOU HAVE ON A TYPICAL DAY WHEN YOU WERE DRINKING IN THE PAST YEAR?1 OR 2 (0 POINTS) HOW OFTEN DID YOU HAVE A DRINK CONTAINING ALCOHOL IN THE PAST YEAR?MONTHLY OR LESS (1 POINT) POINTS1 INTERPRETATIONNEGATIVE RECREATIONAL DRUG USE DRUG USE?NO CAFFEINE CAFFEINE USE?YES HOW OFTEN AND HOW MUCH? 2 POTS OF COFFEE DAILY SEXUAL HX HAD SEX IN THE LAST 12 MONTHS (VAGINAL, ORAL, OR ANAL)?YES WITHMEN ONLY USE PROTECTION?NO LMP:HYSTER HAVE YOU EVER HAD AN STD?NO CHRISTIANITY [id number] NONE LANGUAGE FIJIAN. LEARNING BARRIERS / SPECIAL NEEDS CHANGE FROM LAST VISIT?NO BARRIERS TO LEARNING?NO HEARING IMPAIRED?NO VISION IMPAIRED?NO COGNITIVELY IMPAIRED?NO READINESS TO LEARN?YES LEARNING PREFERENCES?NO LEARNING CAPABILITIES PRESENT?YES EMOTIONAL BARRIERS?NO SPECIAL DEVICES?NO JET MECHANIC NEEDED?NO DIET: REGULAR. MARITAL STATUS: . PAIN CLINIC PFS, CLERGY, PUBLIC HEALTH REFERRALS PFS REFERRAL NEEDED?NO CLERGY REFERRAL NEEDED?NO PUBLIC HEALTH REFERRAL NEEDED?NO WAS THE PROVIDER NOTIFIED OF ANY PERTINENT INFO?YES HAS THE PATIENT BEEN EDUCATED REGARDING HIS/HER PLAN OF CARE?YES HAS THE PATIENT BEEN EDUCATED REGARDING PAIN, THE RISK FOR PAIN, THE IMPORTANCE OF EFFECTIVE PAIN MANAGEMENT, AND THE PAIN ASSESSMENT PROCESS?YES ADVANCE DIRECTIVE ADVANCE DIRECTIVE DISCUSSED WITH PATIENT:YES NO ADVANCED DIRECTIVES, PT DECLINES HCP INFORMATION OR ASSISTANCE AT THIS TIME REVIEWED, UPDATED, ADVISED RISKS OF CONTINUED SMOKING, OFFERED CESSATION AIDS/DECLINEDREVIEWED WITH PT 03/01/18 1115 LASREVIEWED WITH PATIENT 05/01/18 1059 JSREVIEWED WITH PATIENT 02/10/19 1519 JSREVIEWED WITH PATIENT 05/01/19 NLJREVIEWED WITH PATIENT 08/13/2019 LASREVIEWED WITH PATIENT 05/26/19 LAS. HOSPITALIZATION/MAJOR DIAGNOSTIC PROCEDURE BACK SURGERY December, REVIEW OF SYSTEMS CONSTITUTIONAL: ANY RECENT FEVER NO . CHILLS NO . WEIGHT CHANGE OF UNKNOWN REASONS NO . GASTROENTEROLOGY: NEW UNEXPLAINABLE CHANGES IN BOWEL CONTROL NO . CONSTIPATION NO . GENITOURINARY: ANY NEW CHANGE IN BLADDER CONTROL? NO . NEUROLOGY: NEW ONSET DIZZINESS OR NEUROLOGICAL CHANGES NOT MENTIONED NO . NEW NUMBNESS OR PAIN PATTERNS NOT MENTIONED AND PERTINENT TO TODAY'S VISIT NO . CARDIOLOGY: NEW CHEST PRESSURE NO . NEW CHEST PAIN NO . RESPIRATORY: UNEXPLAINABLE COUGH NO . NEW SHORTNESS OF BREATH NO . VITAL SIGNS WT 224.8 LBS, HT 69 IN, BMI 33.19 INDEX, BP 104/76 MM HG, HR 71 /MIN, RR 18 /MIN, TEMP 97.1 F, OXYGEN SAT % 98%, SAFE IN ENV? (Y/N) YES, NA INITIALS AW 1115, REVIEWED BY: VICKEY RN @1130. EXAMINATION GENERAL EXAMINATION: GENERAL AWAKE,ALERT ,PLEAASANT . PSYCH AFFECT NORMAL . LUNGS: LUNG PATINO ARE CLEAR TO AUSCULTATION BILATERALLY. GOOD MOVEMENT OF AIR . HEART: S1, S2 IN A REGULAR RATE AND RHYTHM. NO SIGNIFICANT MURMURS, RUBS OR GALLOPS NOTED . ASSESSMENTS POST LAMINECTOMY SYNDROME - M96.1 (PRIMARY) OTHER CHRONIC PAIN - G89.29 TREATMENT POST LAMINECTOMY SYNDROME CONTINUE OXYCODONE-ACETAMINOPHEN TABLET, 10-325 MG, 1, ORALLY, EVERY 6 HRS PRN MDD4 PAIN PROCEDURE LOGDATE OF [id number]/17/20PROCEDURE:CAUDAL EPIDURALAMOUNT OF PRE SEDATEVALIUM 10MG/OXYCODONE 10MGRESULT:NO IMPROVEMENT. VERY PAINFUL PROCEDURE PER PATIENT NOTES: 06/11/20 1205 PATIENT VERBALIZED UNDERSTANDING OF CONTINUING WITH CURRENT TREATMENT PLAN AND FOLLOWING UP WITH UPHOLSTERY DEPARTMENT SUPERVISOR IN TWO MONTHS, PATIENT DID NOT HAVE ANY QUESTIONS OR CONCERNS. JAYDON MCGINNIS RN BSN , [employer] REGISTRY REVIEWED AND DEMONSTRATES COMPLLIANCE. BRINGS IN MEDICATIONS WHICH IS APPROPRIATE FOR WHAT WAS DISPENSED. RECENT URINE TOXICOLOGY REVIEWED. NO UNAUTHORIZED MEDICATIONS. NO ILLICIT SUBSTANCES AND PRESCRIBED MEDICATIONS WERE PRESENT. OTHER CHRONIC PAIN PAIN PROCEDURE LOGDATE OF [id number]/17/20PROCEDURE:CAUDAL EPIDURALAMOUNT OF PRE SEDATEVALIUM 10MG/OXYCODONE 10MGRESULT:NO IMPROVEMENT. VERY PAINFUL PROCEDURE PER PATIENT PROCEDURE CODES FA211 ESTABILISHED PATIENT [facility] FACILITY CHARGE DISPOSITION & COMMUNICATION FOLLOW UP 2 MONTHS (REASON: LOW BACK PAIN/MEDICATION MANAGEMENT/URINE TOX/CONSIDER LUMBAR FACET BLOCK) ELECTRONICALLY SIGNED BY KENYA YEH ON 06/15/2020 AT 11:00 AM EST DISCLAIMER : THIS IS A VISIT SUMMARY EXTRACTED FROM THE [employer] CHART. IT IS NOT A COPY OF THE [employer] PROGRESS NOTE. CALEB
== END ==
LOC: M PAIN 11:15
PROVIDERS: ATTEND Nurse Practitioner Family
DX: M96.1 Postlaminectomy syndrome, not elsewhere classified (principal); E11.9 Type 2 diabetes mellitus without complications; K21.9 Gastro-esophageal reflux disease without esophagitis; F17.210 Nicotine dependence, cigarettes, uncomplicated; Z86.59 Personal history of other mental and behavioral disorders; Z88.1 Allergy status to other antibiotic agents; Z88.8 Allergy status to other drugs, medicaments and biological substances; Z79.84 Long term (current) use of oral hypoglycemic drugs; Z79.891 Long term (current) use of opiate analgesic; Z79.899 Other long term (current) drug therapy

== ENCOUNTER → 2020-08-16 | Outpatient (CLI) | payer BC ==
[~2020-08-16] MED LIST changes: -CLIN150C14 PO; +CLIN150C15 PO; -RABE1TAB PO; +RABE1TAB4 PO
--- NOTE | 2020-08-18 | ECWPNPC ---
PATIENT NAME: ENRICO WINTERS : 1975 GENDER: FEMALE VISIT DATE: 08/16/2020 DISCHARGE DATE: 08/16/20 1419 VISIT LOCKED DATE TIME: PHYSICIAN: TAMY LYNN PHYSICIAN PAGER NO: ACTIVE RESOURCE: TAMY LYNN REASON FOR APPOINTMENT 1. LOW BACK PAIN/MEDICATION MANAGEMENT/URINE TOX/CONSIDER LUMBAR FACET BLOCK HISTORY OF PRESENT ILLNESS GENERAL: HERE FOR FOLLOW-UP OF CHRONIC LOW BACK PAIN. DOING FAIRLY WELL. RECENT EPISODE OF COVID 19. ALSO HAS 2 BOILS THAT HAVE ERUPTED RECENTLY WITH LOW-GRADE FEVER. SHE WOULD LIKE TO PURSUE INJECTIONS AND WE DISCUSSED LUMBAR FACET BLOCKS TODAY BUT WITH HER HISTORY I FEEL IT WOULD BE BEST TO WAIT 3 MONTHS AND RECONSIDER. FINDS HER MEDICATION HELPFUL AT REDUCING PAIN AND KEEPING HER FUNCTIONAL. OVERALL DOES FEEL BETTER THAN SHE DID WHEN WE SAW HER LAST IN MAY. -. FALL RISK SCREENING: SCREENING :ONE FALL WITHOUT INJURY IN THE PAST YEAR PAIN SCREENING: PATIENT HAS A COMPLAINT OF ACUTE OR CHRONIC PAIN :YES LOCATION OF PAIN:LOW BACK, RIGHT HIP INTENSITY OF PAIN (SCALE OF 1 TO 10):7 WHAT DOES YOUR PAIN FEEL LIKE:ACHING, BURNING, SHARP, STABBING, THROBBING, SHOOTING DURATION:CONTINOUS, CONSTANT PAIN IS INCREASED BY:ACTIVITIES PAIN IS DECREASED BY:USE OF PAIN MEDICATIONS, SITTING TREATMENT/MEDICATIONS USED TO MANAGE PAIN:OPIOIDS LEVEL OF RELIEF FROM PAIN TREATMENTS IN THE PAST:50% PAIN HAS INTERFERED WITH THE FOLLOWING:BATHING/DRESSING, WALKING ABILITY, HOUSEWORK, SLEEP, TRANSPORTATION, TOILETING NURSING NOTE: -. PAIN CENTER INTAKE QUESTIONS: DO YOU HAVE A HISTORY OF MRSA? :NO DO YOU TAKE A BLOOD THINNERS? :NO DO YOU HAVE ANY BLEEDING DISORDERS? :NO ANY NEW NUMBNESS OR WEAKNESS IN YOUR LEGS OR ARMS? :NO ANY PACEMAKER,DEFIBRILLATOR, OR DORSAL COLUMN STIMULATOR? :NO DO YOU HAVE ANY RASHES OR OPEN SORES? :YES BOIL TO RIGHT RIBCAGE AREA AND BOILS TO RIGHT THIGH ARE YOU ALLERGIC TO IV DYE? :NO ARE YOU DIABETIC? :YES ANY NEW PROBLEMS WITH YOUR MEDICATIONS? :NO HAVE YOU RECEIVED A VACCINE IN THE PAST 30 DAYS? :NO DO YOU PLAN TO RECEIVE A VACCINE IN THE NEXT 21 DAYS? :NO DO YOU NEED ANY PRESCRIPTION? :NO DO YOU TAKE ANY IMMUNOSUPPRESSIVE MEDICATIONS? :NO IS THERE A CHANCE YOU COULD BE ? :NO ARE YOU BREAST FEEDING? :NO CURRENT MEDICATIONS TAKING GLUCOMETER DIRECTED ORALLY DX E11.65 TWICE A DAY TAKING LANCETS - MISCELLANEOUS DIRECTED DX: E11.65 DAILY TAKING ONE TOUCH ULTRA BLUE STRIPS DIRECTED DX E11.65 TWICE A DAY AND NEEDED TAKING ONE TOUCH ULTRA BLUE MISC STRIPS DIRECTED DX E11.65 TWICE A DAY AND NEEDED TAKING FLONASE 50 MCG/ACT SUSPENSION 1 PUFF IN EACH NOSTRIL NASALLY ONCE A DAY NEEDED TAKING ONETOUCH ULTRA TEST NA STRIP USE DIRECTED TWICE A DAY AND NEEDED TAKING METFORMIN HCL 1000 MG TABLET TAKE 1 TABLET TWICE A DAY WITH MEALS TAKING OXYBUTYNIN CHLORIDE 5 MG TABLET 1 TABLET ORALLY TWICE A DAY TAKING LEVOTHYROXINE SODIUM 137 MCG TABLET TAKE 1 TABLET DAILY IN THE MORNING ON AN EMPTY STOMACH TAKING RABEPRAZOLE SODIUM 20 MG TABLET DELAYED RELEASE 1 TABLET ORALLY DAILY TAKING ATORVASTATIN CALCIUM 40 MG TABLET TAKE 1 TABLET DAILY TAKING LISINOPRIL 2.5 MG TABLET 1 TABLET ORALLY ONCE A DAY TAKING JARDIANCE 25 MG TABLET TAKE 1 TABLET DAILY ORALLY ONCE A DAY TAKING OXYCODONE-ACETAMINOPHEN 10-325 MG TABLET 1 ORALLY EVERY 6 HRS PRN MDD4 NOT-TAKING HAIR SKIN & NAILS GUMMIES 1250-7.5-7.5 MCG-MG-UNT TABLET CHEWABLE DIRECTED ORALLY NOT-TAKING CLOBETASOL PROPIONATE 0.05 % CREAM 1 APPLICATION TO AFFECTED AREA EXTERNALLY TWICE A DAY TO RASH ON ELBOWS FOR 3 WEEKS OFF FOR 1 WEEK NOT-TAKING FISH OIL 1200 MG CAPSULE 1 CAPSULE ORALLY ONCE A DAY NOT-TAKING ASPIRIN ADULT LOW DOSE 81 MG TABLET DELAYED RELEASE 1 TABLET ORALLY ONCE A DAY MEDICATION LIST REVIEWED AND RECONCILED WITH THE PATIENT PAST MEDICAL HISTORY HYPERLIPIDEMIA ASCVD RISK SCORE 17% 03/2017 ESOPHAGEAL REFLUX - EGD 02/[address] HERNANDEZ DEPRESSION TYPE 2 DM, ELEVATED YOGESH 2018, 2019 LUMBAR DISC DISEASE/POST LAMINECTOMY SYNDROME - PREVIOUSLY MANAGED BY PAIN CLINIC MYOFASCIAL PAIN SYNDROME - PREVIOUSLY MANAGED BY PAIN CLINIC HIDRADENITIS - EVAL BY DR HEBERT IN PAST METABOLIC SYNDROME (WAS ON METFORMIN IN PAST, PT D/C DUE TO LOW BS) GOITER- HYPOTHYROID HYPERLIPIDEMIA ANEMIA OBESITY SMOKER PROBABLE ANKUR-- REFUSED W/U 2012; REFERRED AGAIN 05/11 EXCESSIVE SWEATING ALLERGIES DOXYCYCLINE CALCIUM: HIVES, TOLERATES MINOCYCLINE - ALLERGY SILVADENE: BURNING/ITCHING - ALLERGY BYDUREON: SEVERE GI UPSET - SIDE EFFECTS SOCIAL HISTORY GENERAL: TOBACCO USE ARE YOU A:CURRENT SMOKER HOW OFTEN DO YOU SMOKE CIGARETTES?EVERY DAY HOW SOON AFTER YOU WAKE UP DO YOU SMOKE YOUR FIRST CIGARETTE?WITHIN 5 MIN HOW MANY CIGARETTES A DAY DO YOU SMOKE?31 OR MORE ARE YOU INTERESTED IN QUITTING?NOT READY TO QUIT ADDITIONAL FINDINGS: TOBACCO USERCHAIN SMOKER SHE WAS SMOKING 2 -3 PPD. SHE NOW SMOKES ABOUT 1 1/2 - 2 PPD PATIENT COUNSELED ON THE DANGERS OF TOBACCO USE AND URGED TO QUIT:02/10/2019 COUNSELED THE PATIENT ON SMOKING EFFECTS, EDUCATION [id number]/20/2020 VAPORYES SHE HAS BEEN USING A VAPOR PEN IN HOPES OF CUTTING DOWN HER CIGARETTE USE SO SHE CAN QUITE. SMOKING CESSATION INFORMATION GIVEN11/19/2018 LATEX QUESTIONNAIRE LATEX ALLERGY : HAVE YOU EVER DEVELOPED ANY TYPE OF REACTION AFTER HANDLING LATEX PRODUCTS SUCH RUBBER GLOVES, CONDOMS, DIAPHRAGMS, BALLOONS, SOCKS, OR UNDERWEAR?NO LATEX ALLERGY : HAVE YOU EVER DEVELOPED ANY TYPE OF REACTION DURING OR AFTER DENTAL APPOINTMENT, VAGINAL/RECTAL EXAMINATION, SURGICAL PROCEDURE, OR ANY OTHER EXPOSURE?NO DATE ASKED : 06/11/2020 LATEX RISK : HAVE YOU EVER HAD ANY DIFFICULTY BREATHING OR HIVES AFTER EATING OR HANDLING ANY FRUITS, OR VEGETABLES; SUCH KIWI, BANANAS, STONE FRUITS, OR CHESTNUTSNO LATEX RISK : DO YOU HAVE A PREVIOUS PERSONAL HISTORY OF MORE THAN NINE SURGERIES, SPINA BIFIDA, OR REPEATED CATHERIZATIONS? NO LATEX RISK : ARE YOU FREQUENTLY EXPOSED TO LATEX PRODUCTS IN YOUR OCCUPATION?NO BMI CARE GOAL FOLLOW-UP ABOVE NORMAL BMI FOLLOW-UPDIETARY NEEDS EDUCATION ALCOHOL SCREENING DID YOU HAVE A DRINK CONTAINING ALCOHOL IN THE PAST YEAR?NO POINTS0 INTERPRETATIONNEGATIVE RECREATIONAL DRUG USE DRUG USE?NO CAFFEINE CAFFEINE USE?YES HOW OFTEN AND HOW MUCH? 2 POTS OF COFFEE DAILY SEXUAL HX HAD SEX IN THE LAST 12 MONTHS (VAGINAL, ORAL, OR ANAL)?YES WITHMEN ONLY USE PROTECTION?NO LMP:HYSTER HAVE YOU EVER HAD AN STD?NO RELIGIOUS [id number] NONE LANGUAGE KHMER. LEARNING BARRIERS / SPECIAL NEEDS CHANGE FROM LAST VISIT?NO BARRIERS TO LEARNING?NO HEARING IMPAIRED?NO VISION IMPAIRED?NO COGNITIVELY IMPAIRED?NO READINESS TO LEARN?YES LEARNING PREFERENCES?NO LEARNING CAPABILITIES PRESENT?YES EMOTIONAL BARRIERS?NO SPECIAL DEVICES?NO MANUFACTURING WEAVER NEEDED?NO DIET: REGULAR. MARITAL STATUS: . - PFS REFERRAL NEEDED?NO CLERGY REFERRAL NEEDED?NO PUBLIC HEALTH REFERRAL NEEDED?NO WAS THE PROVIDER NOTIFIED OF ANY PERTINENT INFO?YES HAS THE PATIENT BEEN EDUCATED REGARDING HIS/HER PLAN OF CARE?YES HAS THE PATIENT BEEN EDUCATED REGARDING PAIN, THE RISK FOR PAIN, THE IMPORTANCE OF EFFECTIVE PAIN MANAGEMENT, AND THE PAIN ASSESSMENT PROCESS?YES ADVANCE DIRECTIVE ADVANCE DIRECTIVE DISCUSSED WITH PATIENT:YES NO ADVANCED DIRECTIVES, PT DECLINES HCP INFORMATION OR ASSISTANCE AT THIS TIME REVIEWED, UPDATED, ADVISED RISKS OF CONTINUED SMOKING, OFFERED CESSATION AIDS/DECLINEDREVIEWED WITH PT 03/01/18 1115 LASREVIEWED WITH PATIENT 05/01/18 1059 JSREVIEWED WITH PATIENT 02/10/19 1519 JSREVIEWED WITH PATIENT 05/01/19 NLJREVIEWED WITH PATIENT 08/13/2019 LASREVIEWED WITH PATIENT 05/26/19 LAS. REVIEW OF SYSTEMS CONSTITUTIONAL: ANY RECENT FEVER NO . CHILLS NO . WEIGHT CHANGE OF UNKNOWN REASONS NO . GASTROENTEROLOGY: NEW UNEXPLAINABLE CHANGES IN BOWEL CONTROL NO . CONSTIPATION NO . GENITOURINARY: ANY NEW CHANGE IN BLADDER CONTROL? NO . NEUROLOGY: NEW ONSET DIZZINESS OR NEUROLOGICAL CHANGES NOT MENTIONED NO . NEW NUMBNESS OR PAIN PATTERNS NOT MENTIONED AND PERTINENT TO TODAY'S VISIT NO . CARDIOLOGY: NEW CHEST PRESSURE NO . NEW CHEST PAIN NO . RESPIRATORY: UNEXPLAINABLE COUGH NO . NEW SHORTNESS OF BREATH NO . VITAL SIGNS WT 220 LBS, HT 69 IN, BMI 32.48 INDEX, BP 124/70 MM HG, HR 71 /MIN, RR 16 /MIN, TEMP 99.3 F, OXYGEN SAT % 100, SAFE IN ENV? (Y/N) Y, REVIEWED BY: EM. EXAMINATION GENERAL EXAMINATION: GENERAL AWAKE,ALERT ,PLEAASANT . PSYCH AFFECT NORMAL . LUNGS: LUNG PATINO ARE CLEAR TO AUSCULTATION BILATERALLY. GOOD MOVEMENT OF AIR . HEART: S1, S2 IN A REGULAR RATE AND RHYTHM. NO SIGNIFICANT MURMURS, RUBS OR GALLOPS NOTED . ASSESSMENTS POST LAMINECTOMY SYNDROME - M96.1 (PRIMARY) CHRONIC PRESCRIPTION OPIATE USE - Z79.891 TREATMENT POST LAMINECTOMY SYNDROME REFILL OXYCODONE-ACETAMINOPHEN TABLET, 10-325 MG, 1, ORALLY, EVERY 6 HRS PRN MDD4, 30 DAYS, 120, REFILLS 0 NOTES: ISTOP REGISTRY REVIEWED AND DEMONSTRATES COMPLLIANCE. BRINGS IN MEDICATIONS WHICH IS APPROPRIATE FOR WHAT WAS DISPENSED. RECENT URINE TOXICOLOGY REVIEWED. NO UNAUTHORIZED MEDICATIONS. NO ILLICIT SUBSTANCES AND PRESCRIBED MEDICATIONS WERE PRESENT. URINE TOXICOLOGY TODAY , RISKS OF NARCOTIC/OPIOD MEDICATIONS INCLUDES BUT IS NOT LIMITED TO RISK OF DEPENDANCE/DEVELOPMENT OF ADDICTION, MOOD DISTURBANCE AND DEPRESSION, OSTEOPOROSIS, HORMONAL AND LABIDAL CHANGES, RESPIRATORY DEPRESSION AND . PATIENT IS ADVISED NOT TO DRIVE OR DRINK ALCOHOL WHILE ON THESE MEDICATIONS. PROCEDURE CODES FA211 ESTABILISHED PATIENT [facility] CHARGE DISPOSITION & COMMUNICATION FOLLOW UP 3 MONTHS (REASON: MEDICATION MANAGEMENT/REVIEW YOU TOX/CONSIDER INJECTIONS) ELECTRONICALLY SIGNED BY KENYA YEH ON 08/17/2020 AT 02:17 PM EST DISCLAIMER : THIS IS A VISIT SUMMARY EXTRACTED FROM THE [employer] CHART. IT IS NOT A COPY OF THE [employer] PROGRESS NOTE. CALEB
== END ==
LOC: M PAIN 13:30
PROVIDERS: ATTEND Nurse Practitioner Family
DX: M96.1 Postlaminectomy syndrome, not elsewhere classified (principal); E11.9 Type 2 diabetes mellitus without complications; K21.9 Gastro-esophageal reflux disease without esophagitis; F17.210 Nicotine dependence, cigarettes, uncomplicated; Z86.59 Personal history of other mental and behavioral disorders; Z88.1 Allergy status to other antibiotic agents; Z88.8 Allergy status to other drugs, medicaments and biological substances; Z79.84 Long term (current) use of oral hypoglycemic drugs; Z79.891 Long term (current) use of opiate analgesic; Z79.899 Other long term (current) drug therapy

== ENCOUNTER → 2020-08-25 | Outpatient (CLI) | payer BC, SELFPAY ==
--- NOTE | 2020-08-30 15:42 | SLEEPHOME ---
DIAGNOSTIC HOME SLEEP STUDY DATE: 08/25/2020 ORDERED BY: BRANNON Hughes Diagnostic home sleep testing was performed due to concern for the obstructive sleep apnea syndrome in this patient with a history of excessive somnolence and nonrestorative sleep who has significant comorbidities of diabetes and hypertension. 9 hours and 59 minutes of data were reviewed. There were 8 hours and 3 minutes marked as time in bed. During the interval marked time in bed, there were only 8 obstructive respiratory events identified of 10 seconds in duration or greater for a respiratory event index 1. The events were not associated with particular position. Baseline pulse rate 70 beats per minute. Pulse rate range 61 to 106. Baseline saturation was 93% and one desaturation to 86% was seen around the period of movement. IMPRESSION: Normal diagnostic home sleep test. No clear evidence for the obstructive sleep apnea syndrome was demonstrated.
== END ==
LOC: M SLEEP HO 13:37
PROVIDERS: ATTEND Nurse Practitioner Family
DX: R06.83 Snoring (principal)

== ENCOUNTER → 2020-11-08 | Outpatient (CLI) | payer BC ==
--- NOTE | 2020-11-23 05:52 | ECWPNPC ---
PATIENT NAME: ENRICO WINTERS : 1975 GENDER: FEMALE VISIT DATE: 11/08/2020 DISCHARGE DATE: 11/08/20 1438 VISIT LOCKED DATE TIME: PHYSICIAN: TAMY LYNN PHYSICIAN PAGER NO: ACTIVE RESOURCE: TAMY LYNN REASON FOR APPOINTMENT 1. MEDICATION MANAGEMENT/REVIEW YOU TOX/CONSIDER INJECTIONS HISTORY OF PRESENT ILLNESS GENERAL: HERE FOR FOLLOW-UP OF CHRONIC LOW BACK PAIN. PAIN HAS INCREASED OVER THE PAST FEW MONTHS. REVIEWED MRI OF THE LS-SPINE. DISCUSSED TREATMENT OPTIONS TO INCLUDE LUMBAR THERAPEUTIC FACET BLOCK. FINDS CURRENT CHRONIC PAIN MEDICATION HELPFUL AT REDUCING PAIN. DENIES ADVERSE SIDE EFFECTS. BRINGS IN HER MEDICATION WHICH IS APPROPRIATE FOR WHAT WAS DISPENSED. -. FALL RISK SCREENING: SCREENING : 2 FALLS REPORTED IN THE LAST YEAR WITHOUT INJURY. PAIN SCREENING: PATIENT HAS A COMPLAINT OF ACUTE OR CHRONIC PAIN :YES LOCATION OF PAIN:LOW BACK INTENSITY OF PAIN (SCALE OF 1 TO 10):9 WHAT DOES YOUR PAIN FEEL LIKE:ACHING, BURNING, SHARP, STABBING, THROBBING, SHOOTING DURATION:CONTINOUS, CONSTANT PAIN IS INCREASED BY:ACTIVITIES PAIN IS DECREASED BY: SLEEPING NURSING NOTE: -. PAIN CENTER INTAKE QUESTIONS: DO YOU HAVE A HISTORY OF MRSA? :NO DO YOU TAKE A BLOOD THINNERS? :NO DO YOU HAVE ANY BLEEDING DISORDERS? :NO ANY NEW NUMBNESS OR WEAKNESS IN YOUR LEGS OR ARMS? :YES TINGLING IN RIGHT FOOT ANY PACEMAKER,DEFIBRILLATOR, OR DORSAL COLUMN STIMULATOR? :NO DO YOU HAVE ANY RASHES OR OPEN SORES? :YES BOIL TO RIGHT RIBCAGE AREA AND BOILS TO RIGHT THIGH ARE YOU ALLERGIC TO IV DYE? :NO ARE YOU DIABETIC? :YES ANY NEW PROBLEMS WITH YOUR MEDICATIONS? :NO HAVE YOU RECEIVED A VACCINE IN THE PAST 30 DAYS? :NO DO YOU PLAN TO RECEIVE A VACCINE IN THE NEXT 21 DAYS? :NO DO YOU NEED ANY PRESCRIPTION? :NO DO YOU TAKE ANY IMMUNOSUPPRESSIVE MEDICATIONS? :NO IS THERE A CHANCE YOU COULD BE ? :NO ARE YOU BREAST FEEDING? :NO CURRENT MEDICATIONS TAKING GLUCOMETER DIRECTED ORALLY DX E11.65 TWICE A DAY TAKING LANCETS - MISCELLANEOUS DIRECTED DX: E11.65 DAILY TAKING ONE TOUCH ULTRA BLUE STRIPS DIRECTED DX E11.65 TWICE A DAY AND NEEDED TAKING ONE TOUCH ULTRA BLUE MISC STRIPS DIRECTED DX E11.65 TWICE A DAY AND NEEDED TAKING FLONASE 50 MCG/ACT SUSPENSION 1 PUFF IN EACH NOSTRIL NASALLY ONCE A DAY NEEDED TAKING [employer] ULTRA TEST NA STRIP USE DIRECTED TWICE A DAY AND NEEDED TAKING ATORVASTATIN CALCIUM 40 MG TABLET TAKE 1 TABLET DAILY TAKING LISINOPRIL 2.5 MG TABLET 1 TABLET ORALLY ONCE A DAY TAKING OXYBUTYNIN CHLORIDE 5 MG TABLET TAKE 1 TABLET TWICE A DAY TAKING METFORMIN HCL 1000 MG TABLET TAKE 1 TABLET TWICE A DAY WITH MEALS TAKING OXYCODONE-ACETAMINOPHEN 10-325 MG TABLET 1 ORALLY EVERY 6 HRS PRN MDD4 TAKING JARDIANCE 25 MG TABLET TAKE 1 TABLET DAILY ORALLY ONCE A DAY TAKING LEVOTHYROXINE SODIUM 137 MCG TABLET TAKE 1 TABLET DAILY IN THE MORNING ON AN EMPTY STOMACH TAKING RABEPRAZOLE SODIUM 20 MG TABLET DELAYED RELEASE 1 TABLET ORALLY DAILY NOT-TAKING HAIR SKIN & NAILS GUMMIES 1250-7.5-7.5 MCG-MG-UNT TABLET CHEWABLE DIRECTED ORALLY NOT-TAKING CLOBETASOL PROPIONATE 0.05 % CREAM 1 APPLICATION TO AFFECTED AREA EXTERNALLY TWICE A DAY TO RASH ON ELBOWS FOR 3 WEEKS OFF FOR 1 WEEK NOT-TAKING FISH OIL 1200 MG CAPSULE 1 CAPSULE ORALLY ONCE A DAY NOT-TAKING ASPIRIN ADULT LOW DOSE 81 MG TABLET DELAYED RELEASE 1 TABLET ORALLY ONCE A DAY MEDICATION LIST REVIEWED AND RECONCILED WITH THE PATIENT PAST MEDICAL HISTORY HYPERLIPIDEMIA ASCVD RISK SCORE 17% 03/2017 ESOPHAGEAL REFLUX - EGD 02/01 DR HERNANDEZ DEPRESSION TYPE 2 DM, ELEVATED YOGESH 2019 LUMBAR DISC DISEASE/POST LAMINECTOMY SYNDROME - PREVIOUSLY MANAGED BY PAIN CLINIC MYOFASCIAL PAIN SYNDROME - PREVIOUSLY MANAGED BY PAIN CLINIC HIDRADENITIS - EVAL BY DR HEBERT IN PAST METABOLIC SYNDROME (WAS ON METFORMIN IN PAST, PT D/C DUE TO LOW BS) GOITER- HYPOTHYROID HYPERLIPIDEMIA ANEMIA OBESITY SMOKER PROBABLE ANKUR-- REFUSED W/U 2012; REFERRED AGAIN 05/11 EXCESSIVE SWEATING ALLERGIES DOXYCYCLINE CALCIUM: HIVES, TOLERATES MINOCYCLINE - ALLERGY SILVADENE: BURNING/ITCHING - ALLERGY BYDUREON: SEVERE GI UPSET - SIDE EFFECTS SOCIAL HISTORY GENERAL: TOBACCO USE ARE YOU A:CURRENT SMOKER ARE YOU INTERESTED IN QUITTING?NOT READY TO QUIT COUNSELED THE PATIENT ON SMOKING EFFECTS, EDUCATION [id number]/20/2020 HOW MANY CIGARETTES A DAY DO YOU SMOKE?31 OR MORE HOW SOON AFTER YOU WAKE UP DO YOU SMOKE YOUR FIRST CIGARETTE?WITHIN 5 MIN HOW OFTEN DO YOU SMOKE CIGARETTES?EVERY DAY PATIENT COUNSELED ON THE DANGERS OF TOBACCO USE AND URGED TO QUIT:02/10/2019 ADDITIONAL FINDINGS: TOBACCO USERCHAIN SMOKER SHE WAS SMOKING 2 -3 PPD. SHE NOW SMOKES ABOUT 1 1/2 - 2 PPD SMOKING CESSATION INFORMATION GIVEN11/19/2018 VAPORYES SHE HAS BEEN USING A VAPOR PEN IN HOPES OF CUTTING DOWN HER CIGARETTE USE SO SHE CAN QUITE. LATEX QUESTIONNAIRE LATEX ALLERGY : HAVE YOU EVER DEVELOPED ANY TYPE OF REACTION AFTER HANDLING LATEX PRODUCTS SUCH RUBBER GLOVES, CONDOMS, DIAPHRAGMS, BALLOONS, SOCKS, OR UNDERWEAR?NO LATEX ALLERGY : HAVE YOU EVER DEVELOPED ANY TYPE OF REACTION DURING OR AFTER DENTAL APPOINTMENT, VAGINAL/RECTAL EXAMINATION, SURGICAL PROCEDURE, OR ANY OTHER EXPOSURE?NO DATE ASKED : 06/11/2020 LATEX RISK : HAVE YOU EVER HAD ANY DIFFICULTY BREATHING OR HIVES AFTER EATING OR HANDLING ANY FRUITS, OR VEGETABLES; SUCH KIWI, BANANAS, STONE FRUITS, OR CHESTNUTSNO LATEX RISK : DO YOU HAVE A PREVIOUS PERSONAL HISTORY OF MORE THAN NINE SURGERIES, SPINA BIFIDA, OR REPEATED CATHERIZATIONS? NO LATEX RISK : ARE YOU FREQUENTLY EXPOSED TO LATEX PRODUCTS IN YOUR OCCUPATION?NO BMI CARE GOAL FOLLOW-UP ABOVE NORMAL BMI FOLLOW-UPDIETARY NEEDS EDUCATION ALCOHOL SCREENING DID YOU HAVE A DRINK CONTAINING ALCOHOL IN THE PAST YEAR?NO POINTS0 INTERPRETATIONNEGATIVE RECREATIONAL DRUG USE DRUG USE?NO CAFFEINE CAFFEINE USE?YES HOW OFTEN AND HOW MUCH? 2 POTS OF COFFEE DAILY SEXUAL HX HAD SEX IN THE LAST 12 MONTHS (VAGINAL, ORAL, OR ANAL)?YES WITHMEN ONLY USE PROTECTION?NO LMP:HYSTER HAVE YOU EVER HAD AN STD?NO TAOIST [id number] NONE LANGUAGE YEMENI. LEARNING BARRIERS / SPECIAL NEEDS CHANGE FROM LAST VISIT?NO BARRIERS TO LEARNING?NO HEARING IMPAIRED?NO VISION IMPAIRED?NO COGNITIVELY IMPAIRED?NO READINESS TO LEARN?YES LEARNING PREFERENCES?NO LEARNING CAPABILITIES PRESENT?YES EMOTIONAL BARRIERS?NO SPECIAL DEVICES?NO SUPERVISOR TREE TRIMMING NEEDED?NO DIET: REGULAR. MARITAL STATUS: . - PFS REFERRAL NEEDED?NO CLERGY REFERRAL NEEDED?NO PUBLIC HEALTH REFERRAL NEEDED?NO WAS THE PROVIDER NOTIFIED OF ANY PERTINENT INFO?YES HAS THE PATIENT BEEN EDUCATED REGARDING HIS/HER PLAN OF CARE?YES HAS THE PATIENT BEEN EDUCATED REGARDING PAIN, THE RISK FOR PAIN, THE IMPORTANCE OF EFFECTIVE PAIN MANAGEMENT, AND THE PAIN ASSESSMENT PROCESS?YES ADVANCE DIRECTIVE ADVANCE DIRECTIVE DISCUSSED WITH PATIENT:YES NO ADVANCED DIRECTIVES, PT DECLINES HCP INFORMATION OR ASSISTANCE AT THIS TIME REVIEWED, UPDATED, ADVISED RISKS OF CONTINUED SMOKING, OFFERED CESSATION AIDS/DECLINEDREVIEWED WITH PT 03/01/18 1115 LASREVIEWED WITH PATIENT 05/01/18 1059 JSREVIEWED WITH PATIENT 02/10/19 1519 JSREVIEWED WITH PATIENT 05/01/19 NLJREVIEWED WITH PATIENT 08/13/2019 LASREVIEWED WITH PATIENT 05/26/19 LAS. REVIEW OF SYSTEMS CONSTITUTIONAL: ANY RECENT FEVER NO . CHILLS NO . WEIGHT CHANGE OF UNKNOWN REASONS NO . GASTROENTEROLOGY: NEW UNEXPLAINABLE CHANGES IN BOWEL CONTROL NO . CONSTIPATION NO . GENITOURINARY: ANY NEW CHANGE IN BLADDER CONTROL? NO . NEUROLOGY: NEW ONSET DIZZINESS OR NEUROLOGICAL CHANGES NOT MENTIONED NO . NEW NUMBNESS OR PAIN PATTERNS NOT MENTIONED AND PERTINENT TO TODAY'S VISIT NO . CARDIOLOGY: NEW CHEST PRESSURE NO . PATIENT DENIES NO . RESPIRATORY: UNEXPLAINABLE COUGH NO . NEW SHORTNESS OF BREATH NO . VITAL SIGNS WT 221.2 LBS, HT 69 IN, BMI 32.66 INDEX, BP 124/73 MM HG, HR 89 /MIN, RR 16 /MIN, TEMP 95.1 F, OXYGEN SAT % 97%, SAFE IN ENV? (Y/N) Y, NA INITIALS AW 1343, REVIEWED BY: EM. EXAMINATION GENERAL EXAMINATION: GENERAL AWAKE,ALERT ,PLEAASANT . PSYCH AFFECT NORMAL . LUNGS: LUNG PATINO ARE CLEAR TO AUSCULTATION BILATERALLY. GOOD MOVEMENT OF AIR . HEART: S1, S2 IN A REGULAR RATE AND RHYTHM. NO SIGNIFICANT MURMURS, RUBS OR GALLOPS NOTED . LUMBAR:PALPATION:TENDER OVER BILAT. L4/5-L5/S1 LUMBAR FACETS WITH FACET LOADING.. DIAGNOSTIC TESTS REVIEWED MRI L/S SPINE-2019. 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 PROCEDURE CODES FA211 ESTABILISHED PATIENT [facility] CHARGE DISPOSITION & COMMUNICATION FOLLOW UP POST (REASON: BILATERAL THERAPEUTIC LUMBAR FACET BLOCK L4-5,L5-S1) ELECTRONICALLY SIGNED BY KENYA YEH ON 11/22/2020 AT 02:19 PM EDT DISCLAIMER : THIS IS A VISIT SUMMARY EXTRACTED FROM THE [employer] CHART. IT IS NOT A COPY OF THE [employer] PROGRESS NOTE. CALEB
== END ==
LOC: M PAIN 14:00
PROVIDERS: ATTEND Nurse Practitioner Family
DX: M43.07 Spondylolysis, lumbosacral region (principal); M96.1 Postlaminectomy syndrome, not elsewhere classified; E11.9 Type 2 diabetes mellitus without complications; K21.9 Gastro-esophageal reflux disease without esophagitis; F17.210 Nicotine dependence, cigarettes, uncomplicated; Z86.59 Personal history of other mental and behavioral disorders; Z88.1 Allergy status to other antibiotic agents; Z88.8 Allergy status to other drugs, medicaments and biological substances; Z79.84 Long term (current) use of oral hypoglycemic drugs; Z79.891 Long term (current) use of opiate analgesic; Z79.899 Other long term (current) drug therapy

== ENCOUNTER → 2020-11-12 | Outpatient (CLI) | payer BC | LOC: M LABSMTC 13:36 | PROVIDERS: ATTEND Anesthesiology | DX: Z11.52 Encounter for screening for COVID-19 (principal) ==

== ENCOUNTER → 2020-11-23 | Outpatient (REF) | payer BC ==
[2020-11-23 18:18] LABS: HEMATOCRIT 57.2 % (36.0-47.0); HEMOGLOBIN 18.5 g/dl (12.0-15.5); MEAN CORPUSCULAR HEMOGLOBIN 32.2 pg (27.0-33.0); MEAN CORPUSCULAR HGB CONC 32.3 g/dl (32.0-36.5); MEAN CORPUSCULAR VOLUME 99.5 fl (80.0-96.0); PLATELET COUNT, AUTOMATED 319 10^3/uL (150-450); RED BLOOD COUNT 5.75 10^6/uL (4.00-5.40); WHITE BLOOD COUNT 12.4 10^3/uL (4.0-10.0)
[2020-11-23 18:31] LABS: BLOOD UREA NITROGEN 15 MG/DL (7-18); CALCIUM LEVEL 9.3 MG/DL (8.5-10.1); CARBON DIOXIDE LEVEL 30 MEQ/L (21-32); CHLORIDE LEVEL 105 MEQ/L (98-107); CREATININE FOR GFR 0.88 MG/DL (0.55-1.30); GLOMERULAR FILTRATION RATE > 60.0 (>58); GLUCOSE, FASTING 84 MG/DL (70-100); SODIUM LEVEL 138 MEQ/L (136-145)
[2020-11-23 18:34] LABS: HEMOGLOBIN A1c 5.3 %
== END ==
LOC: M SFHCADAM 11:54
PROVIDERS: ATTEND Physician Assistant
DX: D75.1 Secondary polycythemia (principal); E11.29 Type 2 diabetes mellitus with other diabetic kidney complication

== ENCOUNTER → 2020-11-25 | Outpatient (CLI) | payer BC | LOC: M LABSMTC 13:35 | PROVIDERS: ATTEND Anesthesiology | DX: Z11.52 Encounter for screening for COVID-19 (principal) ==

== ENCOUNTER → 2020-11-25 | Outpatient (REF) | payer BC ==
[2020-11-25 16:24] LABS: HEMATOCRIT 54.7 % (36.0-47.0); MEAN CORPUSCULAR HEMOGLOBIN 32.9 pg (27.0-33.0); MEAN CORPUSCULAR HGB CONC 33.3 g/dl (32.0-36.5); MEAN CORPUSCULAR VOLUME 98.9 fl (80.0-96.0); PLATELET COUNT, AUTOMATED 317 10^3/uL (150-450); RED BLOOD COUNT 5.53 10^6/uL (4.00-5.40); WHITE BLOOD COUNT 12.9 10^3/uL (4.0-10.0)
[2020-11-25 16:30] LABS: HEMOGLOBIN 18.2 g/dl (12.0-15.5)
== END ==
LOC: M SFHCADAM 13:05
PROVIDERS: ATTEND Physician Assistant
DX: D75.1 Secondary polycythemia (principal); D75.89 Other specified diseases of blood and blood-forming organs

== ENCOUNTER → 2020-12-07 | Outpatient (CLI) | payer BC ==
--- NOTE | 2020-12-09 00:44 | ECWPNPC ---
PATIENT NAME: ENRICO WINTERS : 1975 GENDER: FEMALE VISIT DATE: 12/07/2020 DISCHARGE DATE: 12/07/20 1502 VISIT LOCKED DATE TIME: PHYSICIAN: NANCI NUNEZ MD PHYSICIAN PAGER NO: ACTIVE RESOURCE: NANCI NUNEZ MD REASON FOR APPOINTMENT 1. F/U PER DR Villar HISTORY OF PRESENT ILLNESS GENERAL: 45-YEAR-OLD FEMALE PATIENT WITH A HISTORY OF CHRONIC LOW BACK PAIN. THE PATIENT DESCRIBES THE PAIN ACHING, BURNING AND SHARP WITH A PAIN SCORE RANGING FROM 8-10/10. SHE HAS A HISTORY OF A BACK SURGERY. SHE HAS TRIED MEDICATIONS UNFORTUNATELY THEY HAVE NOT WORKED FOR HER. THEY HAVE BEEN UNCOMFORTABLE. THE PATIENT HAS AN INCREASE IN RED AND WHITE BLOOD CELL COUNT. SHE IS GOING TO BEEN SEEN BY HEMATOLOGY NEXT MONTH. SHE WOULD LIKE TO SEE THEM SOONER BECAUSE THE PAIN IS SEVERE. SHE IS LOOKING FOR HELP. FALL RISK SCREENING: SCREENING :3 FALLS REPORTED IN THE LAST YEAR WITHOUT INJURY. PAIN SCREENING: PATIENT HAS A COMPLAINT OF ACUTE OR CHRONIC PAIN :YES LOCATION OF PAIN:LOW BACK INTENSITY OF PAIN (SCALE OF 1 TO 10):9 WHAT DOES YOUR PAIN FEEL LIKE:ACHING, BURNING, SHARP, STABBING, THROBBING, SHOOTING DURATION:CONTINOUS PAIN IS INCREASED BY:ACTIVITIES PAIN IS DECREASED BY:USE OF PAIN MEDICATIONS NURSING NOTE: -. PAIN CENTER INTAKE QUESTIONS: DO YOU HAVE A HISTORY OF MRSA? :NO DO YOU TAKE A BLOOD THINNERS? :NO DO YOU HAVE ANY BLEEDING DISORDERS? :NO ANY NEW NUMBNESS OR WEAKNESS IN YOUR LEGS OR ARMS? :NO ANY PACEMAKER,DEFIBRILLATOR, OR DORSAL COLUMN STIMULATOR? :NO DO YOU HAVE ANY RASHES OR OPEN SORES? :YES OPEN SORE TO CREASE OF RIGHT LEG AND BUTTOCK ARE YOU ALLERGIC TO IV DYE? :NO ARE YOU DIABETIC? :YES ANY NEW PROBLEMS WITH YOUR MEDICATIONS? :NO HAVE YOU RECEIVED A VACCINE IN THE PAST 30 DAYS? :NO DO YOU PLAN TO RECEIVE A VACCINE IN THE NEXT 21 DAYS? :NO DO YOU NEED ANY PRESCRIPTION? :NO DO YOU TAKE ANY IMMUNOSUPPRESSIVE MEDICATIONS? :NO DO YOU HAVE ANY KIDNEY OR LIVER DISEASE? :NO IS THERE A CHANCE YOU COULD BE ? :NO ARE YOU BREAST FEEDING? :NO CURRENT MEDICATIONS TAKING GLUCOMETER DIRECTED ORALLY DX E11.65 TWICE A DAY TAKING LANCETS - MISCELLANEOUS DIRECTED DX: E11.65 DAILY TAKING ONE TOUCH ULTRA BLUE STRIPS DIRECTED DX E11.65 TWICE A DAY AND NEEDED TAKING ONE TOUCH ULTRA BLUE MISC STRIPS DIRECTED DX E11.65 TWICE A DAY AND NEEDED TAKING FLONASE 50 MCG/ACT SUSPENSION 1 PUFF IN EACH NOSTRIL NASALLY ONCE A DAY NEEDED TAKING ONETOUCH ULTRA TEST NA STRIP USE DIRECTED TWICE A DAY AND NEEDED TAKING OXYBUTYNIN CHLORIDE 5 MG TABLET TAKE 1 TABLET TWICE A DAY TAKING LEVOTHYROXINE SODIUM 137 MCG TABLET TAKE 1 TABLET DAILY IN THE MORNING ON AN EMPTY STOMACH TAKING RABEPRAZOLE SODIUM 20 MG TABLET DELAYED RELEASE 1 TABLET ORALLY DAILY TAKING OXYCODONE-ACETAMINOPHEN 10-325 MG TABLET 1 ORALLY EVERY 6 HRS PRN MDD4 TAKING METFORMIN HCL 1000 MG TABLET TAKE 1 TABLET TWICE A DAY WITH MEALS TAKING JARDIANCE 25 MG TABLET TAKE 1 TABLET DAILY ORALLY ONCE A DAY TAKING ATORVASTATIN CALCIUM 40 MG TABLET TAKE 1 TABLET DAILY TAKING LISINOPRIL 2.5 MG TABLET 1 TABLET ORALLY ONCE A DAY NOT-TAKING ASPIRIN ADULT LOW DOSE 81 MG TABLET DELAYED RELEASE 1 TABLET ORALLY ONCE A DAY MEDICATION LIST REVIEWED AND RECONCILED WITH THE PATIENT PAST MEDICAL HISTORY HYPERLIPIDEMIA ASCVD RISK SCORE 17% 03/2017 ESOPHAGEAL REFLUX - EGD 02/[address] HERNANDEZ DEPRESSION TYPE 2 DM, ELEVATED YOGESH 2019 LUMBAR DISC DISEASE/POST LAMINECTOMY SYNDROME - PREVIOUSLY MANAGED BY PAIN CLINIC MYOFASCIAL PAIN SYNDROME - PREVIOUSLY MANAGED BY PAIN CLINIC HIDRADENITIS - EVAL BY DR HEBERT IN PAST METABOLIC SYNDROME (WAS ON METFORMIN IN PAST, PT D/C DUE TO LOW BS) GOITER- HYPOTHYROID HYPERLIPIDEMIA ANEMIA OBESITY SMOKER PROBABLE ANKUR-- REFUSED W/U 2012; REFERRED AGAIN 05/11 - NEGATIVE SLEEP STUDY 2020 EXCESSIVE SWEATING COVID 06/2020 ALLERGIES DOXYCYCLINE CALCIUM: HIVES, TOLERATES MINOCYCLINE - ALLERGY SILVADENE: BURNING/ITCHING - ALLERGY BYDUREON: SEVERE GI UPSET - SIDE EFFECTS SOCIAL HISTORY GENERAL: TOBACCO USE ARE YOU A:CURRENT SMOKER HOW OFTEN DO YOU SMOKE CIGARETTES?EVERY DAY HOW SOON AFTER YOU WAKE UP DO YOU SMOKE YOUR FIRST CIGARETTE?WITHIN 5 MIN HOW MANY CIGARETTES A DAY DO YOU SMOKE?31 OR MORE ARE YOU INTERESTED IN QUITTING?NOT READY TO QUIT ADDITIONAL FINDINGS: TOBACCO USERCHAIN SMOKER SHE WAS SMOKING 2 -3 PPD. SHE NOW SMOKES ABOUT 1 1/2 - 2 PPD PATIENT COUNSELED ON THE DANGERS OF TOBACCO USE AND URGED TO QUIT:11/29/2020 COUNSELED THE PATIENT ON SMOKING EFFECTS, EDUCATION [id number]/10/2021 VAPORYES SHE HAS BEEN USING A VAPOR PEN IN HOPES OF CUTTING DOWN HER CIGARETTE USE SO SHE CAN QUITE. SMOKING CESSATION INFORMATION GIVEN11/29/2020 LATEX QUESTIONNAIRE LATEX ALLERGY : HAVE YOU EVER DEVELOPED ANY TYPE OF REACTION AFTER HANDLING LATEX PRODUCTS SUCH RUBBER GLOVES, CONDOMS, DIAPHRAGMS, BALLOONS, SOCKS, OR UNDERWEAR?NO LATEX ALLERGY : HAVE YOU EVER DEVELOPED ANY TYPE OF REACTION DURING OR AFTER DENTAL APPOINTMENT, VAGINAL/RECTAL EXAMINATION, SURGICAL PROCEDURE, OR ANY OTHER EXPOSURE?NO DATE ASKED : 11/23/2020 LATEX RISK : HAVE YOU EVER HAD ANY DIFFICULTY BREATHING OR HIVES AFTER EATING OR HANDLING ANY FRUITS, OR VEGETABLES; SUCH KIWI, BANANAS, STONE FRUITS, OR CHESTNUTSNO LATEX RISK : DO YOU HAVE A PREVIOUS PERSONAL HISTORY OF MORE THAN NINE SURGERIES, SPINA BIFIDA, OR REPEATED CATHERIZATIONS? NO LATEX RISK : ARE YOU FREQUENTLY EXPOSED TO LATEX PRODUCTS IN YOUR OCCUPATION?NO ALCOHOL USE: NO. BMI CARE GOAL FOLLOW-UP ABOVE NORMAL BMI FOLLOW-UPDIETARY NEEDS EDUCATION ALCOHOL SCREENING DID YOU HAVE A DRINK CONTAINING ALCOHOL IN THE PAST YEAR?NO POINTS0 INTERPRETATIONNEGATIVE RECREATIONAL DRUG USE DRUG USE?NO CAFFEINE CAFFEINE USE?YES HOW OFTEN AND HOW MUCH? 2 POTS OF COFFEE DAILY SEXUAL HX HAD SEX IN THE LAST 12 MONTHS (VAGINAL, ORAL, OR ANAL)?YES WITHMEN ONLY USE PROTECTION?NO LMP:HYSTER HAVE YOU EVER HAD AN STD?NO RASTAFARIAN [id number] NONE LANGUAGE MALAGASY. LEARNING BARRIERS / SPECIAL NEEDS CHANGE FROM LAST VISIT?NO BARRIERS TO LEARNING?NO HEARING IMPAIRED?NO VISION IMPAIRED?NO COGNITIVELY IMPAIRED?NO READINESS TO LEARN?YES LEARNING PREFERENCES?NO LEARNING CAPABILITIES PRESENT?YES EMOTIONAL BARRIERS?NO SPECIAL DEVICES?NO TURBO ELECTRIC OPERATOR NEEDED?NO DIET: REGULAR. MARITAL STATUS: . - PFS REFERRAL NEEDED?NO CLERGY REFERRAL NEEDED?NO PUBLIC HEALTH REFERRAL NEEDED?NO WAS THE PROVIDER NOTIFIED OF ANY PERTINENT INFO?YES HAS THE PATIENT BEEN EDUCATED REGARDING HIS/HER PLAN OF CARE?YES HAS THE PATIENT BEEN EDUCATED REGARDING PAIN, THE RISK FOR PAIN, THE IMPORTANCE OF EFFECTIVE PAIN MANAGEMENT, AND THE PAIN ASSESSMENT PROCESS?YES ADVANCE DIRECTIVE ADVANCE DIRECTIVE DISCUSSED WITH PATIENT:YES NO ADVANCED DIRECTIVES, PT DECLINES HCP INFORMATION OR ASSISTANCE AT THIS TIME REVIEWED, UPDATED, ADVISED RISKS OF CONTINUED SMOKING, OFFERED CESSATION AIDS/DECLINEDREVIEWED WITH PT 03/01/18 1115 LASREVIEWED WITH PATIENT 05/01/18 1059 JSREVIEWED WITH PATIENT 02/10/19 1519 JSREVIEWED WITH PATIENT 05/01/19 NLJREVIEWED WITH PATIENT 08/13/2019 LASREVIEWED WITH PATIENT 05/26/19 LAS. REVIEW OF SYSTEMS CONSTITUTIONAL: ANY RECENT FEVER OCCATIONAL INCREASE IN FEVER . CHILLS NO . WEIGHT CHANGE OF UNKNOWN REASONS NO . GASTROENTEROLOGY: NEW UNEXPLAINABLE CHANGES IN BOWEL CONTROL NO . CONSTIPATION NO . GENITOURINARY: ANY NEW CHANGE IN BLADDER CONTROL? NO . NEUROLOGY: NEW ONSET DIZZINESS OR NEUROLOGICAL CHANGES NOT MENTIONED NO . NEW NUMBNESS OR PAIN PATTERNS NOT MENTIONED AND PERTINENT TO TODAY'S VISIT NO . CARDIOLOGY: NEW CHEST PRESSURE NO . PATIENT DENIES NO . RESPIRATORY: UNEXPLAINABLE COUGH NO . NEW SHORTNESS OF BREATH NO . VITAL SIGNS WT 219.0 LBS, HT 69 IN, BMI 32.34 INDEX, BP 110/65 MM HG, HR 88 /MIN, RR 18 /MIN, TEMP 97.8 F, OXYGEN SAT % 96%, NA INITIALS AW 1354, REVIEWED BY: EM. EXAMINATION GENERAL: THE PATIENT IS ALERT, ORIENTED TIMES THREE AND COOPERATIVE. LUNGS ARE CLEAR TO AUSCULTATION. HEART SHOWS REGULAR RHYTHM, NO MURMURS AND NO GALLOPS. TENDERNESS IN THE PARASPINAL MUSCLE GROUP IN THE AREA OF THE FACET JOINTS IN THE BACK. MRI DATED 04/08/2019 SHOWS A RETROLISTHESIS OF L5-S1, A RIGHT LAMINECTOMY. ASSESSMENTS LUMBAR POST-LAMINECTOMY SYNDROME - M96.1 (PRIMARY) LUMBAR SPONDYLOSIS - M47.816 LUMBAR FACET ARTHROPATHY - M47.816 TREATMENT LUMBAR POST-LAMINECTOMY SYNDROME CLINICAL NOTES: I DISCUSSED ALTERNATIVES WITH MS. WINTERS. WE ARE GOING TO CONSIDER DOING A BILATERAL L4-L5, L5-S1 THERAPEUTIC LUMBAR FACET BLOCK WITH IV SEDATION DUE TO THE ANXIETY AND PAIN ASSOCIATED WITH THE PROCEDURE. THEY HAVE BEEN VERY PAINFUL FOR THE PATEINT IN THE PAST. SHE WILL BE SEEN FIRST BY HEMATOLOGY. THE APPOINTMENT IS NEXT MONTH. I WILL CALL THEM TO SEE IF WE CAN MOVE THIS UP SOONER SO WE CAN SEE THE PATIENT SOONER. WE WILL LET THE PATIENT KNOW WHAT WE ACHIEVE. THE PATEINT REPORTS UNDERSTANDING AND AGREES WITH THE PLAN. IJOSEO, DOCUMENTED THE ABOVE INFORMATION ACTING A SCRIBE FOR DR. NUNEZ. I HAVE REVIEWED THE ABOVE DOCUMENT, WRITTEN BY JOSE LINCOLN, LOOM STARTER, AND I VERIFY THAT IT IS ACCURATE. PROCEDURE CODES FA211 ESTABILISHED PATIENT [facility] CHARGE 56500 OFFICE/OUTPATIENT VISIT EST DISPOSITION & COMMUNICATION FOLLOW UP REQUEST AUTH FOR BILATERAL THERAPEUTIC LUMBAR FACET BLOCK L4-L5, L5-S1 WITH IV SEDATION, DO NOT BOOK!!!!! (REASON: REQUEST AUTH FOR BILATERAL THERAPEUTIC LUMBAR FACET BLOCK L4-L5, L5-S1 WITH IV SEDATION, DO NOT BOOK!!!!!) ELECTRONICALLY SIGNED BY NANCI NUNEZ MD, MD ON 12/08/2020 AT 05:07 PM EDT DISCLAIMER : THIS IS A VISIT SUMMARY EXTRACTED FROM THE [employer] CHART. IT IS NOT A COPY OF THE [employer] PROGRESS NOTE. MTDD
== END ==
LOC: M PAIN 13:40
PROVIDERS: ATTEND Anesthesiology
DX: M96.1 Postlaminectomy syndrome, not elsewhere classified (principal); M47.816 Spondylosis without myelopathy or radiculopathy, lumbar region; E11.9 Type 2 diabetes mellitus without complications; K21.9 Gastro-esophageal reflux disease without esophagitis; F17.210 Nicotine dependence, cigarettes, uncomplicated; Z86.59 Personal history of other mental and behavioral disorders; Z88.1 Allergy status to other antibiotic agents; Z88.8 Allergy status to other drugs, medicaments and biological substances; Z79.84 Long term (current) use of oral hypoglycemic drugs; Z79.891 Long term (current) use of opiate analgesic; Z79.899 Other long term (current) drug therapy

== ENCOUNTER → 2021-01-10 | Outpatient (CLI) | payer BC ==
[~2021-01-10] MED LIST changes: +ETOD-173 PO; -ETOD400T PO; +LISI2.5T2 PO; +OXYB5TAB10
--- NOTE | 2021-01-10 19:27 | REP ---
INDICATION: SPRAIN OF RIBS, INITIAL ENCOUNTER. COMPARISON: Comparison chest x-ray is from October 17, 2016. Comparison chest CT study is dated November 30, 2011.. TECHNIQUE: Helical scanning is acquired. 3 mm axial images are generated. Coronal and sagittal MPR and coronal MIP images are generated. FINDINGS: Digital preliminary smoked meat preparer radiograph is unremarkable. There is no evidence of hilar or mediastinal mass. There is vascular calcification in the distribution of the right and left coronary arteries. No pleural or pericardial effusion is seen. Normal right adrenal gland is seen. There is a 1.7 cm benign adrenal adenoma on the left adrenal gland inferiorly which is unchanged from the November 30, 2011 prior study.. The visualized upper abdominal structures are unremarkable. On lung window settings, there is a slightly spiculated irregularly shaped noncalcified 1.8 cm nodule in the left upper lobe seen on page 36-113 in series 201 of today's study. This is a new finding and must be considered suspicious morphologically. No other significant pulmonary nodule is seen. There is a pleural plaque along the left heart border in the left upper lobe on seen on page 44 of 113 in series 201. This however is unchanged from the 11/07 prior study. No other significant pulmonary nodule is seen. There are small air cyst in the right upper lobe perihilar region. There is a tiny 3 mm noncalcified pulmonary nodule in the left upper lobe on page 31. This is not visible on the prior study. IMPRESSION: 1.8 cm suspicious noncalcified pulmonary nodule left upper lobe. Rule out primary lung malignancy. Consider PET-CT and or histologic sampling. There is a tiny 3 mm left upper lobe nodule more peripherally. No other acute abnormality. There is coronary artery vascular calcification. <Electronically signed by Alverto Hinojosa > 01/10/21 192
== END ==
LOC: M RAD 17:09
PROVIDERS: ATTEND Internal Medicine Medical Oncology
DX: J44.9 Chronic obstructive pulmonary disease, unspecified (principal)

== ENCOUNTER → 2021-02-07 | Outpatient (CLI) | payer BC ==
[~2021-02-07] MED LIST changes: +LEVO137T14 PO
--- NOTE | 2021-02-08 08:56 | REP ---
INDICATION: DIAGNOSING ABNORMAL FINDINGS OF LUNG FIELD R91.8. COMPARISON: Comparison chest CT study January 10, 2021.. TECHNIQUE: 1 hour and 17 minutes following the intravenous injection of a 9.91 mCi dose of F-18 FDG, three-dimensional PET scintigraphy is acquired from the skull base to the proximal thighs. Triplanar noncontrast CT scanning is acquired through the same anatomic range for attenuation correction, and image registration with scan parameters optimized to minimize radiation exposure to the patient. PET scintigraphy and CT datasets were fused and displayed on a workstation with multiplanar and projection display capability. FINDINGS: Head and neck soft tissues are unremarkable. In the abdomen and pelvis normal hepatic, splenic, gastrointestinal, and genitourinary FDG accumulation is seen. No abnormal hypermetabolic uptake is seen in the abdomen or pelvis. No abnormal skeletal uptake is seen. Recently identified 18 mm pulmonary nodule in the left upper lobe is hypermetabolic. Its maximum standard uptake value is 11.38. There is no abnormal hilar or mediastinal hypermetabolic maria del carmen uptake. No abnormal adrenal uptake is appreciated. There is a small nodule in the left adrenal gland inferiorly which does not show associated uptake consistent with a small adrenal adenoma. This has a mean Hounsfield unit density of -2.1 Hounsfield units. It measures 1.6 cm. IMPRESSION: Hypermetabolic nodule in the left upper lobe suspicious for malignancy. No other abnormal hypermetabolic uptake is seen. <Electronically signed by Alverto Hinojosa > 02/08/21 0801
== END ==
LOC: M PLARAD 14:04
PROVIDERS: ATTEND Internal Medicine Medical Oncology
DX: R91.8 Other nonspecific abnormal finding of lung field (principal)
CPT/HCPCS: 78815; A9552

== ENCOUNTER → 2021-03-16 | Outpatient (CLI) | payer BC ==
[~2021-03-16] MED LIST changes: +CEPH750C PO; -CLIN150C15 PO; +CLIN150C17 PO; -LISI2.5T2 PO; +LISI2.5T9 PO; -OXYB5TAB10; +OXYB5TAB10 PO; +OXYC10TA3 PO
== END ==
LOC: M PAIN 11:00
PROVIDERS: ATTEND Anesthesiology
DX: M96.1 Postlaminectomy syndrome, not elsewhere classified (principal); M47.816 Spondylosis without myelopathy or radiculopathy, lumbar region; E11.9 Type 2 diabetes mellitus without complications; K21.9 Gastro-esophageal reflux disease without esophagitis; F17.210 Nicotine dependence, cigarettes, uncomplicated; Z86.59 Personal history of other mental and behavioral disorders; Z88.1 Allergy status to other antibiotic agents; Z88.8 Allergy status to other drugs, medicaments and biological substances; Z79.84 Long term (current) use of oral hypoglycemic drugs; Z79.891 Long term (current) use of opiate analgesic; Z79.899 Other long term (current) drug therapy

== ENCOUNTER 2021-03-22 10:44 | Inpatient (IN) | payer BC ==
[~2021-03-22] VITALS: Ht 175.3 cm; Wt 103.5 kg
[~2021-03-22 10:44] MED LIST changes: +LIDOCAINE 1% MDV 20ML VIAL As Ordered ONE; -OXYC10TA3 PO
[2021-03-22] MEDS ORDERED: LIDOCAINE 1% MDV 20ML VIAL As Ordered ONE ×3 (10:59→15:44)
[2021-03-22] MEDS ORDERED: OXYC10TA3 PO (11:07)
[2021-03-22] MEDS ORDERED: HOME MED LIST COMPLETE! XX SCH (11:15)
--- NOTE | 2021-03-22 12:35 | REP ---
INDICATION: POST L LUNG BIOPSY 1 VIEW PA EXPIRATION. COMPARISON: X-ray 10/17/2016, CT images today. TECHNIQUE: Single expiratory view chest. Status post left lung biopsy. FINDINGS: There is a small left apical pneumothorax. There are mild dependent atelectatic changes. IMPRESSION: Small left pneumothorax status post left lung biopsy. Follow-up radiograph will be obtained in 2 hours. <Electronically signed by Miles Rolon > 03/22/21 1778
--- NOTE | 2021-03-22 14:41 | REP ---
INDICATION: POST PNEUMO. COMPARISON: 03/22/2021, 12:25 p.m.. TECHNIQUE: PA expiratory view chest. FINDINGS: The small left pneumothorax has mildly increased in size and now extends more inferiorly along the lateral inferior pleural space. There are no other new findings. IMPRESSION: Mildly increased size of left pneumothorax. Continued follow-up will be performed. <Electronically signed by Miles Rolon > 03/22/21 [id number]
[2021-03-22] MEDS ORDERED: flumazeniL 0.5 MG/5 ML VIAL As Ordered ONE (15:00)
[2021-03-22] MEDS ORDERED: MIDAZOLAM INJ 2MG/2ML VIAL (J2250 PER 1MG) As Ordered ONE ×2 (15:00→15:17)
[2021-03-22] MEDS ORDERED: KETOROLAC 30 MG/ML 1ML VIAL As Ordered ONE (15:32)
[2021-03-22] MEDS ORDERED: MORPHINE 10 MG/ML 1ML VIAL (J2270) As Ordered ONE (15:47)
[2021-03-22] MEDS ORDERED: KETOROLAC 30 MG/ML 1ML VIAL IV ONE (16:00)
[2021-03-22] MEDS ORDERED: MIDAZOLAM INJ 2MG/2ML VIAL (J2250 PER 1MG) IV STA (16:00)
[2021-03-22] MEDS ORDERED: LIDOCAINE 1% MDV 20ML VIAL IM ONE (16:00)
[2021-03-22] MEDS ORDERED: MORPHINE 10 MG/ML 1ML VIAL (J2270) IV ONE (16:00)
[2021-03-22] MEDS ORDERED: ONDANSETRON 4MG/2ML VIAL IV PRN (16:05)
[2021-03-22] MEDS ORDERED: LEVALBUTEROL 1.25 MG/0.5 ML CONCENTRATE NEB NEB PRN (16:05)
[2021-03-22] MEDS ORDERED: PERCOCET 5MG/325MG TAB PO PRN ×2 (16:05)
[2021-03-22] MEDS ORDERED: NORCO, ANEXSIA 5/325MG TABLET (HYDROcodone/ACETAMINOPHEN) PO PRN (16:05)
[2021-03-22] MEDS ORDERED: ACETAMINOPHEN TAB 650MG DOSE (2X325MG) PO PRN (16:05)
[2021-03-22] MEDS ORDERED: BISACODYL 10 MG SUPP PR PRN (16:05)
--- NOTE | 2021-03-22 16:12 | REP ---
INDICATION: CHEST TUBE PLACEMENT. COMPARISON: 03/22/2021 2:28 p.m. TECHNIQUE: Single portable AP view of the chest was performed. FINDINGS: There has been placement of a left chest tube. There is a very tiny left apical pneumothorax, with significant improvement since the prior exam. A small amount of air is seen in the soft tissues of the left chest wall. No lung consolidation is seen. The heart and mediastinum are unremarkable. IMPRESSION: Placement of left chest tube. The left pneumothorax has almost completely resolved. <Electronically signed by Miles Rolon > 03/22/21 [id number]
[2021-03-22] MEDS ORDERED: EPIDURAL/PCA KEYS XX PRN (16:20)
[2021-03-22] MEDS ORDERED: diphenhydrAMINE 50MG/ML VIAL (J1200) IV PRN (16:20)
[2021-03-22] MEDS ORDERED: NALOXONE INJ 0.4MG/1ML VIAL (J2310 PER 1MG) IV PRN (16:20)
--- NOTE | 2021-03-22 16:29 | REP ---
INDICATION: LT UPPER LOBE LUNG LESION. COMPARISON: None. TECHNIQUE: The procedure was performed under the direct supervision of Dr. Rolon. The patient has a history of a hypermetabolic nodule in the left upper lobe seen on a previous PET scan dated 02/07/2021. The risks and benefits of the procedure were explained to the patient and informed consent was obtained. The left upper lobe lung nodule was localized using CT guidance. The skin was prepped and draped in a sterile fashion. 7 mL of 1% lidocaine was used as a local anesthetic. Using CT guidance a 19/20 gauge coaxial needle biopsy system was inserted and advanced into the nodule. Five core biopsy samples were obtained and sent to the lab. Post biopsy images demonstrate a small left pneumothorax. Images obtained 5 minutes later show a slight increase in the size of the pneumothorax. At this time the patient stated her pain level was 1/10. Grow to saturations were 98% on room air. The patient was placed on 2 L of O2 via nasal cannula. Chest x-ray performed immediately after the procedure shows a small left pneumothorax. Chest x-ray performed 2 hours later demonstrates an increase of in the size of the pneumothorax. Dr. Villavicencio was consulted. The came to the department and inserted a chest tube in the patient. The patient was then admitted under Dr. Villavicencio's care. Estimated blood loss: Less than 1 mL. FINDINGS: None IMPRESSION: CT-guided left upper lobe lung biopsy. Patient did developed a left pneumothorax. Dr. Villavicencio placed a chest tube and admitted the patient under his care. <Electronically signed by Kyle Angle > 03/22/21 [id number] <Electronically signed by Miles Rolon > 03/22/21 [id number]
[2021-03-22 16:53] VITALS: BP 131/72
[2021-03-22 17:09] LABS: BASO # 0.1 10^3/uL (0.0-0.2); BASO % 0.6 % (0.0-1.0); EOS # 0.1 10^3/uL (0.0-0.5); EOS % 0.8 % (0.0-3.0); LYMPH # 2.5 10^3/uL (1.5-5.0); LYMPH % 20.3 % (24.0-44.0); MEAN CORPUSCULAR HEMOGLOBIN 32.2 pg (27.0-33.0); MEAN CORPUSCULAR HGB CONC 33.2 g/dl (32.0-36.5); MONO # 0.5 10^3/uL (0.0-0.8); MONO % 4.2 % (2.0-8.0); NEUTROPHILS # 8.8 10^3/uL (1.5-8.5); NEUTROPHILS % 72.5 % (36.0-66.0); PLATELET COUNT, AUTOMATED 291 10^3/uL (150-450); RED BLOOD COUNT 5.93 10^6/uL (4.00-5.40); WHITE BLOOD COUNT 12.1 10^3/uL (4.0-10.0)
[2021-03-22] MEDS ORDERED: DEXTROSE 50% 50 ML SYRINGE IV PRN (17:10)
[2021-03-22] MEDS ORDERED: GLUCAGON INJ 1MG VIAL SC PRN (17:10)
[2021-03-22] MEDS ORDERED: GLUCOSE 4GM CHEW TABLET PO PRN (17:10)
[2021-03-22 17:19] LABS: HEMATOCRIT 57.5 % (36.0-47.0)
[2021-03-22 17:20] LABS: HEMOGLOBIN 19.1 g/dl (12.0-15.5)
[2021-03-22 17:38] LABS: ALBUMIN 3.9 GM/DL (3.2-5.2); ALT/SGPT 20 U/L (12-78); BILIRUBIN,TOTAL 0.6 MG/DL (0.2-1.0); BLOOD UREA NITROGEN 13 MG/DL (7-18); CALCIUM LEVEL 9.5 MG/DL (8.5-10.1); CARBON DIOXIDE LEVEL 29 MEQ/L (21-32); CHLORIDE LEVEL 107 MEQ/L (98-107); CHOLESTEROL LEVEL 152 MG/DL (< 200); CPK CREATINE PHOSPHOKINASE 97 U/L (26-192); CREATININE FOR GFR 0.89 MG/DL (0.55-1.30); GLOMERULAR FILTRATION RATE > 60.0 (>58); GLUCOSE, FASTING 99 MG/DL (70-100); LDH LACTATE DEHYDROGENASE 174 U/L (84-246); PHOSPHORUS LEVEL 3.5 MG/DL (2.5-4.9); POTASSIUM SERUM 4.7 MEQ/L (3.5-5.1); SODIUM LEVEL 139 MEQ/L (136-145); TOTAL PROTEIN 7.7 GM/DL (6.4-8.2); TRIGLYCERIDES LEVEL 158 MG/DL (<150)
[2021-03-22] MEDS: MORPHINE 1MG/ML IN 0.9% NACL 100ML IV BAG IV PRN (17:41)
--- NOTE | 2021-03-22 17:47 | RO ---
OPERATIVE NOTE DATE OF OPERATION: 03/22/2021 PREOPERATIVE DIAGNOSIS: Left pneumothorax after lung biopsy. POSTOPERATIVE DIAGNOSIS: Left pneumothorax after lung biopsy. PROCEDURE: Insertion of left anterior-superior chest tube. SURGEON: Dr. Cristian Villavicencio DESCRIPTION OF PROCEDURE: Patient is a somewhat obese white female, and I could not with definitive certainty feel the 2nd rib to place it in the 1st intercostal space. I therefore went down to a rib that could feel, which is probably the 3rd rib. Skin, muscle, subcutaneous tissue, and pleura were infiltrated with 1% lidocaine. This was done under moderate sedation eventually achieved with 4 mg of Versed. A tunnel was created in the chest, and a #20 chest tube was placed without difficulty. Chest tube was secured to the chest wall with a #2 Tevdek suture. Patient tolerated the procedure well. After hooking the chest tube up to the Pleur-evac at -20 cm of water. Chest x-ray is pending.
[2021-03-22] MEDS: KCL 20MEQ IN D5/NS 1000ML 1,000 ML IV SCH (17:50)
[2021-03-22] MEDS: HumaLOG INSULIN (NovoLOG) PER UNIT SC SCH ×2 (17:52→21:00)
[2021-03-22] MEDS: NS 1,000 ML IV SCH (17:52)
[2021-03-22] MEDS: ceFAZolin SOD 1 GM in D5W MINI-BAG PLUS 50 ML IV SCH (18:47)
[2021-03-22 20:00] VITALS: BP 107/54
[2021-03-22] MEDS: LEVALBUTEROL 1.25 MG/0.5 ML CONCENTRATE NEB NEB SCH (20:01)
[2021-03-22] MEDS ORDERED: metFORMIN (GLUCOPHAGE) 1000 MG TABLET PO SCH (21:00)
[2021-03-22] MEDS: DOCUSATE SODIUM 100MG CAPSULE PO SCH (21:24)
[2021-03-22] MEDS: HEPARIN SOD (PORCINE) 5000UNITS/ML 1ML VIAL/SYRINGE SC SCH (21:25)
[2021-03-22] MEDS: KETOROLAC 30 MG/ML 1ML VIAL IV SCH (21:25)
[2021-03-23] VITALS: BP 92/54
[2021-03-23] MEDS: ceFAZolin SOD 1 GM in D5W MINI-BAG PLUS 50 ML IV SCH ×3 (00:19→17:31)
[2021-03-23] MEDS: LEVALBUTEROL 1.25 MG/0.5 ML CONCENTRATE NEB NEB SCH ×4 (02:00→20:29)
[2021-03-23 04:00] VITALS: BP 101/58
[2021-03-23] MEDS: KCL 20MEQ IN D5/NS 1000ML 1,000 ML IV SCH ×2 (05:25→17:25)
[2021-03-23] MEDS: KETOROLAC 30 MG/ML 1ML VIAL IV SCH ×4 (05:26→21:20)
[2021-03-23 05:33] LABS: BASO # 0.1 10^3/uL (0.0-0.2); BASO % 0.7 % (0.0-1.0); EOS # 0.1 10^3/uL (0.0-0.5); EOS % 1.3 % (0.0-3.0); HEMATOCRIT 48.5 % (36.0-47.0); LYMPH % 36.4 % (24.0-44.0); MEAN CORPUSCULAR HEMOGLOBIN 31.6 pg (27.0-33.0); MEAN CORPUSCULAR HGB CONC 32.6 g/dl (32.0-36.5); MONO # 0.7 10^3/uL (0.0-0.8); MONO % 8.1 % (2.0-8.0); NEUTROPHILS # 4.4 10^3/uL (1.5-8.5); NEUTROPHILS % 53.1 % (36.0-66.0); PLATELET COUNT, AUTOMATED 240 10^3/uL (150-450); WHITE BLOOD COUNT 8.3 10^3/uL (4.0-10.0)
[2021-03-23 05:39] LABS: HEMOGLOBIN 15.8 g/dl (12.0-15.5)
[2021-03-23 06:04] LABS: BLOOD UREA NITROGEN 19 MG/DL (7-18); CALCIUM LEVEL 8.3 MG/DL (8.5-10.1); CARBON DIOXIDE LEVEL 25 MEQ/L (21-32); CHLORIDE LEVEL 110 MEQ/L (98-107); CREATININE FOR GFR 0.81 MG/DL (0.55-1.30); GLOMERULAR FILTRATION RATE > 60.0 (>58); GLUCOSE, FASTING 99 MG/DL (70-100); POTASSIUM SERUM 4.8 MEQ/L (3.5-5.1); SODIUM LEVEL 138 MEQ/L (136-145)
[2021-03-23] MEDS: HumaLOG INSULIN (NovoLOG) PER UNIT SC SCH ×4 (07:30→20:56)
[2021-03-23 08:00] VITALS: BP 98/62
[2021-03-23] MEDS: MOM 30ML SUSPENSION UDC PO SCH (08:02)
[2021-03-23] MEDS: DOCUSATE SODIUM 100MG CAPSULE PO SCH ×2 (08:03→21:19)
[2021-03-23] MEDS: ATORVASTATIN 20 MG TAB PO SCH (08:03)
[2021-03-23] MEDS: PANTOPRAZOLE 40MG TAB (PROTONIX) PO SCH (08:03)
[2021-03-23] MEDS: HEPARIN SOD (PORCINE) 5000UNITS/ML 1ML VIAL/SYRINGE SC SCH ×2 (08:04→21:20)
[2021-03-23] MEDS: oxyBUTYnin 5 MG TAB PO SCH (08:18)
[2021-03-23] MEDS: LISINOPRIL *2.5 MG* TAB PO SCH (08:19)
[2021-03-23] MEDS: LEVOTHYROXINE 137MCG TABLET (0.137MG) PO SCH (09:06)
--- NOTE | 2021-03-23 09:16 | REP ---
INDICATION: pneumothoxa. COMPARISON: Comparison chest x-ray March 22, 2021. TECHNIQUE: Two views.. FINDINGS: A left sided chest tube is seen in place coursing from anterior to posterior along the superolateral pleural surface unchanged. There is some extra thoracic soft tissue emphysema although this has decreased. There is a hazy opacity in the right base and I suspect a right middle lobe infiltrate.a this is a new finding. Lung fragoso are otherwise clear. There is no visible pneumothorax or hydrothorax on either side. Heart is not felt to be enlarged. IMPRESSION: New right middle lobe infiltrate suggestive of pneumonia. Left chest tube in place. No visible pneumothorax. <Electronically signed by Alverto Hinojosa > 03/23/21 0902
--- NOTE | 2021-03-23 09:29 | IPNPDOC ---
Date Seen The patient was seen on 03/23/21. Progress Note SUBJECTIVE: Patient is a 46-year-old female with a PHX of left-sided pneumothorax after lung biopsy on 03/22/2021. Dr. Villavicencio inserted left anterior superior chest tube. Patient was admitted to hospitalist service to manage diabetes and other medical problems. Patient was seen at sitting up at bedside today not complaining of any pain. She has no acute complaints. OBJECTIVE PHYSICAL EXAMINATION: VITAL SIGNS: Please see below. GENERAL: In no acute distress HEENT: Head normocephalic atraumatic, moist mucous membranes CARDIOVASCULAR: Regular rate and rhythm; no murmurs noted RESPIRATORY: Good air entry bilaterally; no air leaks noted ABDOMINAL: normoactive bowel sounds, soft nondistended, nontender to palpation EXTREMITIES: No pitting edema bilaterally lower extremities LABORATORY DATA, IMAGING STUDIES, MICROBIOLOGY: Please see below. CT guide needle placement 03/22: "CT-guided left upper lobe lung biopsy. Patient did developed a left pneumothorax. Dr. Villavicencio placed a chest tube and admitted the patient under his care." Chest biopsy CXR 03/22: "Small left pneumothorax status post left lung biopsy. Follow-up radiograph will be obtained in 2 hours." Chest biopsy CXR 03/22: "Mildly increased size of left pneumothorax. Continued follow-up will be performed" CXR 03/22: "Placement of left chest tube. The left pneumothorax has almost completely resolved." DVT prophylaxis ordered?: Yes; Heparin 5000 units q12h ASSESSMENT AND PLAN: This is a 46-year-old occasion female with left-sided pneumothorax. PROBLEMS: Post biopsy pneumothorax - chest tube placed on 03/22/2021 - no air leaks noted this morning - f/u with cardiothoracic surgery - their assistance appreciated in the care of the patient - c/w Tylenol, ketorolac, morphine, percocet as needed for pain control Left upper lobe hypermetabolic nodule - left upper lobe nodule seen on a previous PET scan dated 02/07/2021 - 03/22/2021 CT scan guided biopsy performed - pending fine needle aspiration Chronic back pain - c/w home med: percocet Hyperlipidemia - c/w atorvastatin Hypothyroidism - c/w levothyroxine CKD stage III - currently at baseline - c/w NS @ 15ml/hr Diabetes mellitus 2 - c/w insulin sliding scale while inpatient - hold home Metformin and Jardiance HTN - c/w Lisinopril GERD - c/w pantoprazole - hold home Rabeprazole Hydradenitis suppurativa VTE prophylaxis - Heparin 5000 units q12h DISPOSITION: Pending clinical improvement VS, I&O, 24H, Fishbone Vital Signs/I&O Vital Signs Date Time Temp Pulse Resp B/P (MAP) Pulse Ox O2 Delivery O2 Flow Rate FiO2 03/23/21 04:00 18 Nasal Cannula 2.0 03/23/21 04:00 98.3 66 101/58 (72) 98 I&O- Last 24 Hours up to 6 AM 03/23/21 06:00 Intake Total 1125 ml Output Total 0 ml Balance 1125 ml Laboratory Data 24H LABS Laboratory Tests 2 03/22/21 16:55: Immature Granulocyte % (Auto) 1.6, Neutrophils (%) (Auto) 72.5H, Lymphocytes (%) (Auto) 20.3L, Monocytes (%) (Auto) 4.2, Eosinophils (%) (Auto) 0.8, Basophils (%) (Auto) 0.6, Neutrophils # (Auto) 8.8H, Lymphocytes # (Auto) 2.5, Monocytes # (Auto) 0.5, Eosinophils # (Auto) 0.1, Basophils # (Auto) 0.1, Nucleated Red Blood Cells % (auto) 0.0, Anion Gap 3L, Glomerular Filtration Rate > 60.0, Calcium Level 9.5, Phosphorus Level 3.5, Total Bilirubin 0.6, Aspartate Amino Transf (AST/SGOT) 10, Alanine Aminotransferase (ALT/SGPT) 20, Alkaline Phosphatase 69, Lactate Dehydrogenase 174, Total Creatine Kinase 97, Total Protein 7.7, Albumin 3.9, Albumin/Globulin Ratio 1.0L, Triglycerides Level 158H, Cholesterol Level 152 03/22/21 20:03: Bedside Glucose (Misc Panel) 119H 03/23/21 05:18: Immature Granulocyte % (Auto) 0.4, Neutrophils (%) (Auto) 53.1, Lymphocytes (%) (Auto) 36.4, Monocytes (%) (Auto) 8.1H, Eosinophils (%) (Auto) 1.3, Basophils (%) (Auto) 0.7, Neutrophils # (Auto) 4.4, Lymphocytes # (Auto) 3.0, Monocytes # (Auto) 0.7, Eosinophils # (Auto) 0.1, Basophils # (Auto) 0.1, Nucleated Red Blood Cells % (auto) 0.0, Anion Gap 3L, Glomerular Filtration Rate > 60.0, Calcium Level 8.3L CBC/BMP Laboratory Tests 03/22/21 16:55 03/23/21 05:18 GME ATTESTATION GME ATTESTATION My faculty preceptor for this patient encounter was physically present during the encounter and was fully available. All aspects of the patient interview, examination, medical decision making process, and medical care plan development were reviewed and approved by the faculty preceptor. The faculty preceptor is aware and concurs with the plan as stated in the body of this note and will attest to such by his/her cosignature. ATTENDING NOTE Attending Attestation: I saw and evaluated the patient. I agree with the finding and the plan of care as documented in the residents note. Adriana Garcia DO Mar 23, 2021 07:47 CIERA MELVIN MD Mar 24, 2021 06:32
--- NOTE | 2021-03-23 09:39 | HPE ---
HISTORY AND PHYSICAL DATE OF ADMISSION: 03/22/2021 Patient seen at the urgent request of interventional radiology for pneumothorax after lung biopsy on the left. HISTORY OF PRESENT ILLNESS: Patient is now a 46-year-old white female who is an inveterate smoker, where a screening CT exam was undertaken. It showed a newly appearing left upper lobe lesion, and a PET scan showed it to be hypermetabolic. She has a chronic cough with sputum production. She has chronic back pain but did not complain of chest pain proper to her seizure. She now complains of intense chest pain from the pneumothorax. There have been no fever, chills, or sweats. There is no dysphagia, and there is no weight loss. Her CT on 01/10/2021 showed a spiculated lesion in the left upper lobe. This was a proper CT and not a screening CT. The indication for the CT was sprained ribs. The ordering physician was a Dr. Bustillos. The last CT she had was in 2011, and the indication for that was not listed. There was no lesion in 2012. MEDICAL HISTORY: 1. Hypothyroidism. 2. Hydradenitis suppurativa affecting her entire body, according to the patient. 3. Esophageal reflux disease. 4. Chronic back pain. 5. Type 2 diabetes. 6. Depression. 7. Erythrocytosis, being followed by oncology. PAST SURGICAL HISTORY: 1. Hysterectomy. 2. Excision of some type of throat tumor, which is benign. HOME MEDICATIONS: - atorvastatin 40 mg daily - Jardiance 25 mg daily for diabetes - Synthroid 137 mg daily - lisinopril 2.5 mg daily - metformin 1000 mg twice a day - oxybutynin 5 mg daily - Percocet 10/325 every 6 hours as needed for pain - rabeprazole 20 mg daily HABITS: Used to smoke one and one-half to two packs per day, now down to one pack per day. They are reservation cigarettes. Alcohol very occasionally. Denies recreational drug use. TRAVEL HISTORY: Has not been to the critical access hospital or [facility], and no foreign travel. EXPOSURES: No exposure to tuberculosis but has a dog, Chihuahua/Dachshund mix at home. No cats or birds. 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 No asbestos exposure. REVIEW OF SYSTEMS: CONSTITUTIONAL: See history of present illness (HPI). Without fever, ch ills, or sweats. EYES: Without diplopia, without prior jaundice, without amaurosis fugax. NOSE: Without epistaxis. MOUTH: Has lower teeth and edentulous on the top. RESPIRATORY: See HPI. CARDIAC: Without prior myocardial infarctions or intermittent claudications, palpitations, or tachycardias. GASTROINTESTINAL: Without nausea, vomiting, diarrhea, constipation, melena, hematochezia, or hematemesis. GENITOURINARY: Without dysuria, hematuria, or prior renal stones. ENDOCRINE: With diabetes and hypothyroidism. NEUROLOGIC: Without paresthesias, paralyses, or prior seizures. PSYCHIATRIC: Without pathological anxieties, depressions, or psychoses. FAMILY HISTORY: Father of malignant neoplasm of unknown site. Mother has hypertension. PHYSICAL EXAMINATION: Well-developed, well-nourished, obese white female in acute distress from pain in her left chest. VITAL SIGNS: Temperature 98.2, pulse 65 with a regular rate and rhythm with respiratory rate of 16-18 without the use of accessory muscles but breathing in a shallow fashion. She is 99% saturated on 2 liters nasal cannula. Blood pressure is 106/72. EYES: Pupils equal, round, and reactive to light. Extraocular movements intact. Sclerae anicteric. NOSE: Without deformity. MOUTH: Shows her mucous membranes to be pink and moist. Lips and commissures without lesions. There is no thrush. She is edentulous on the upper jaw. NECK: Supple. There is no jugular venous distention. No subcutaneous emphysema. Trachea is midline. LUNGS: Show decreased breath sounds on the left side with a percussion note that is full to the diaphragm. I hear no wheezes, rhonchi, or rales. CARDIAC: Without murmurs, clicks, gallops, or rubs. I cannot feel her point of maximal impulse (PMI). S1, S2 are normal. ABDOMEN: Soft, nontender. Bowel sounds are positive. There is no hepatomegaly. No costovertebral angle (CVA) tenderness. EXTREMITIES: Show no pretibial edema, no calf tenderness, no differential swelling of the upper extremities. SKIN: Warm, dry, and perfused without cyanosis or mottling, including that of the nailbeds and knees. NEUROLOGIC: Shows II-XII intact. Normal gross motor, gross sensation intact. Gait is not tested. Psychiatric shows her to be awake, alert, and oriented times three with appropriate mood and affect and conversational. INVESTIGATIONS: Her chemistries and hematologies are still pending today. Her last hematology on 02/18/2021 showed a white count of 11.7 with a hemoglobin and hematocrit of 18.6 and 56.1. Platelet count was 276. Differential at that time showed 56% neutrophils, 34% lymphocytes, and 6% monocytes. There were no immature forms or toxic granulations. Her chemistries also on 02/18/2021 showed a potassium of 5.2 with the remainder of her electrolytes normal with a BUN and creatinine of 12 and 0.86. IMPRESSION: 1. Pneumothorax after lung biopsy. 2. Left upper lobe hypermetabolic lesion, probably malignant. 3. Tobacco abuse. 4. Hydradenitis suppurativa. 5. Diabetes. 6. Erythrocytosis. 7. Gastroesophageal reflux disease. PLAN AND DISCUSSION: I will place a chest tube in her immediately. She has a very low pain tolerance, as she is acclimated to narcotic medications. I will therefore place her on a patient-controlled analgesia (SHEETER HELPER) pump for her chest tube pain. Hopefully we will be able to remove the chest tube in the next couple days. I will put it at 20 cm of suction. I will consult the medical hospitalist to manage her diabetes and other medical problems.
[2021-03-23 12:00] VITALS: BP 98/57
--- NOTE | 2021-03-23 13:19 | IPNPDOC ---
Text Note Date of Service The patient was seen on 03/22/21. NOTE Subjective: Patient seen and examined at bedside. No new medical complaints. Objective: Vital Signs: reviewed and within normal limits General: NAD, lying comfortably in bed HEENT: NC/AT, EOMI Neck: supple, no masses Chest: lungs CTA right side, diminished breath sounds left, chest tube in place Heart: +S1S2, RRR Abd: soft, NT, ND, +BS Ext: no edema Skin: no rashes MSK: full ROM at large joints Neuro: no gross focal deficits Psych: AAOx3 A/P: 46 yo female for left pneumothorax after left lung biopsy for suspicious spiculated lesion in the left upper lobe found on CT imaging. #post biopsy pneumothorax - chest tube placed - follow as per CTS - assistance appreciated #DM2 - will utilize insulin sliding scale therapy while inpatient - patient states she has had good control of her blood sugars - recent A1C 5.9 per patient #Obesity. - complicates care #Chronic prescription opiate use. #HLD - continue statin therapy #Ongoing hidradenitis supurativa. #Hypothyroidism. 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 #Chronic pain. #Tobacco use disorder #CKDIII - grossly at baseline #Psoriasis. #anxiety/depression #DVT prophylaxis VS,Fishbone, I+O VS, Fishbone, I+O Laboratory Tests 03/22/21 16:55 03/23/21 05:18 Vital Signs Date Time Temp Pulse Resp B/P (MAP) Pulse Ox O2 Delivery O2 Flow Rate FiO2 03/23/21 04:00 18 Nasal Cannula 2.0 03/23/21 04:00 98.3 66 101/58 (72) 98 I&O- Last 24 Hours up to 6 AM 03/23/21 06:00 Intake Total 1125 ml Output Total 0 ml Balance 1125 ml CIERA MELVIN MD Mar 23, 2021 07:02
[2021-03-23 16:00] VITALS: BP 92/57
[2021-03-23] MEDS: NS 1,000 ML IV SCH (16:20)
[2021-03-23] MEDS: MORPHINE 1MG/ML IN 0.9% NACL 100ML IV BAG IV PRN (17:24)
[2021-03-23 20:00] VITALS: BP 101/58
[2021-03-24 00:22] VITALS: BP 122/56
[2021-03-24] MEDS ORDERED: CALCIUM CARBONATE 500 MG CHEW U/D PO ONE (00:30)
[2021-03-24] MEDS: ceFAZolin SOD 1 GM in D5W MINI-BAG PLUS 50 ML IV SCH ×3 (00:38→16:15)
[2021-03-24] MEDS: LEVALBUTEROL 1.25 MG/0.5 ML CONCENTRATE NEB NEB SCH ×4 (01:10→20:18)
[2021-03-24] MEDS: KETOROLAC 30 MG/ML 1ML VIAL IV SCH ×4 (03:46→22:15)
[2021-03-24 04:39] VITALS: BP 114/64
[2021-03-24 05:44] LABS: BASO # 0.1 10^3/uL (0.0-0.2); BASO % 0.7 % (0.0-1.0); EOS # 0.1 10^3/uL (0.0-0.5); EOS % 1.6 % (0.0-3.0); HEMATOCRIT 44.2 % (36.0-47.0); HEMOGLOBIN 14.1 g/dl (12.0-15.5); LYMPH # 3.4 10^3/uL (1.5-5.0); LYMPH % 44.1 % (24.0-44.0); MEAN CORPUSCULAR HGB CONC 31.9 g/dl (32.0-36.5); MEAN CORPUSCULAR VOLUME 100.2 fl (80.0-96.0); MONO # 0.6 10^3/uL (0.0-0.8); MONO % 7.2 % (2.0-8.0); NEUTROPHILS # 3.5 10^3/uL (1.5-8.5); NEUTROPHILS % 46.3 % (36.0-66.0); PLATELET COUNT, AUTOMATED 246 10^3/uL (150-450); RED BLOOD COUNT 4.41 10^6/uL (4.00-5.40); WHITE BLOOD COUNT 7.6 10^3/uL (4.0-10.0)
[2021-03-24] MEDS: LEVOTHYROXINE 137MCG TABLET (0.137MG) PO SCH (05:51)
--- NOTE | 2021-03-24 05:59 | IPN ---
PROGRESS NOTE DATE: 03/23/2021 SUBJECTIVE: Naz has had a stable first hospital day. She is breathing well and pain is now being fairly well controlled with a [employer] pump. There is no air leak. Her chest x-ray shows her lungs clear and expands to the chest wall. OBJECTIVE: Her vital signs show T-max of 98.3 with heart ranging between 61 and 69 with sinus rhythm. Respiratory rate 18 to 22 without the use of accessory muscles with 99% saturating on 1 liter nasal cannula. Her blood pressures range between 92/54 to 101/58. Intake and output for the past 24 hours has been recorded as 510 in and nothing out. She weighs 100.3 kg today and 95.9 kg yesterday. PHYSICAL EXAMINATION: On physical examination, her lungs show normal fascicular sounds without wheezes, rhonchi or rales. Breath sounds are equal on either side and percussion is full at the diaphragm. Cardiac examination is without murmurs, clicks, gallops or rubs. I cannot feel her PMI. S1, S2 are wale. Abdomen is soft and nontender. Bowel sounds are positive. There is no hepatomegaly. No costovertebral angle (CVA) tenderness. Extremities show no pretibial edema. No calf tenderness or differential swelling of the upper extremities. Skin is warm, dry and perfuse without cyanosis or mottling including nailbeds and knees. Neck is supple. There is no jugular venous distention (JVD). No subcutaneous emphysema. Trachea is midline. Mouth shows mucous membranes to be pink and moist. Lips and commissures: No lesions or thrush. Eyes show pupils equal and reactive. Extraocular motions are intact. Sclerae nonicteric. Neuro: CN II-XII intact with gross motor intact. Gait is not tested. Psychiatric: Alert, awake and oriented times 3 with appropriate mood and affect and conversational. LABORATORY DATA: White count today is 8.3 down from 12.1 yesterday. Hemoglobin and hematocrit 15.8 and 48.5 respectively. Platelet count is 240 and differentials show 68% neutrophils, 36% lymphocytes and 8% monocytes. No immature forms or toxic granulations. Her electrolytes are normal with a BUN and creatinine of 19 and 0.84 and a glucose of 99, calcium 8.3. She remains on a sliding scale per medical service. Her chest x-ray as noted above shows her lungs fully expanded to the chest wall. There is a vague opacity in the right lower hemithorax. The left lung is fully expanded to the chest wall. IMPRESSION: 1. Iatrogenic left pneumothorax after lung biopsy. 2. Left upper lobe hypermetabolic lesion, probably malignant, pathology pending. 3. Tobacco abuse. 4. Hidradenitis suppurativa. 5. Diabetes. 6. Erythrocytosis. 7. Gastroesophageal reflux disease. PLAN/DISCUSSION: I will take her chest tube off suction tonight. If all goes well, I will review the x-ray in the morning and if the lung remains fully expanded to the chest wall, I will remove the chest tube and take a chest x-ray 6 hours later and discharge her.
[2021-03-24 06:09] LABS: BLOOD UREA NITROGEN 19 MG/DL (7-18); CALCIUM LEVEL 8.2 MG/DL (8.5-10.1); CARBON DIOXIDE LEVEL 29 MEQ/L (21-32); CHLORIDE LEVEL 110 MEQ/L (98-107); CREATININE FOR GFR 0.82 MG/DL (0.55-1.30); GLOMERULAR FILTRATION RATE > 60.0 (>58); GLUCOSE, FASTING 103 MG/DL (70-100); POTASSIUM SERUM 5.1 MEQ/L (3.5-5.1); SODIUM LEVEL 140 MEQ/L (136-145)
[2021-03-24] MEDS: KCL 20MEQ IN D5/NS 1000ML 1,000 ML IV SCH ×2 (06:38→20:40)
[2021-03-24] MEDS: HumaLOG INSULIN (NovoLOG) PER UNIT SC SCH ×4 (07:30→20:38)
--- NOTE | 2021-03-24 07:56 | REP ---
INDICATION: pneumothoxa. COMPARISON: Comparison chest x-ray March 23, 2021. TECHNIQUE: Two views.. FINDINGS: Left chest tube remains in place superiorly and laterally. There is no visible pneumothorax. The left lung remains clear. There is an infiltrate in the right middle lobe again noted. This is unchanged from yesterday's radiograph. Pleural angles are sharp. Cardiomediastinal silhouette is unchanged. The IMPRESSION: Left chest tube remains in place. Right middle lobe infiltrate again seen. <Electronically signed by Alverto Hinojosa > 03/24/21 0756
[2021-03-24] MEDS: HEPARIN SOD (PORCINE) 5000UNITS/ML 1ML VIAL/SYRINGE SC SCH ×2 (09:00→20:37)
[2021-03-24] MEDS: MOM 30ML SUSPENSION UDC PO SCH (09:19)
[2021-03-24] MEDS: LISINOPRIL *2.5 MG* TAB PO SCH (09:19)
[2021-03-24] MEDS: PANTOPRAZOLE 40MG TAB (PROTONIX) PO SCH (09:20)
[2021-03-24] MEDS: ATORVASTATIN 20 MG TAB PO SCH (09:20)
[2021-03-24] MEDS: DOCUSATE SODIUM 100MG CAPSULE PO SCH ×2 (09:20→20:37)
[2021-03-24] MEDS: oxyBUTYnin 5 MG TAB PO SCH (09:20)
--- NOTE | 2021-03-24 10:21 | IPNPDOC ---
Date Seen The patient was seen on 03/24/21. Progress Note SUBJECTIVE: Patient is a 46-year-old female with iatrogenic left pneumothorax after lung biopsy on 03/22/2021. Dr. Villavicencio inserted left anterior superior chest tube on 03/22/2021. Patient was admitted to hospitalist service to manage diabetes and other medical problems. Patient was seen at sitting up comfortably at bedside today with no acute complaints. Patient states that the pain today is significantly better. She is aware that she is going for another CT guided biopsy later today. Denies fever, chills, new cough, shortness of breath overnight. OBJECTIVE PHYSICAL EXAMINATION: VITAL SIGNS: Please see below. GENERAL: Sitting up comfortably; in no acute distress HEENT: Head normocephalic atraumatic,; moist mucous membranes CARDIOVASCULAR: Regular rate and rhythm; no murmurs noted RESPIRATORY: Good air entry bilaterally; no wheezing, rales, rhonchi; no air leaks noted ABDOMINAL: Normoactive bowel sounds; soft nondistended, nontender to palpation EXTREMITIES: No pitting edema bilateral lower extremities LABORATORY DATA, IMAGING STUDIES, MICROBIOLOGY: Please see below. CT guide needle placement 03/22: "CT-guided left upper lobe lung biopsy. Patient did developed a left pneumothorax. Dr. Villavicencio placed a chest tube and admitted the patient under his care." Chest biopsy CXR 03/22: "Small left pneumothorax status post left lung biopsy. Follow-up radiograph will be obtained in 2 hours." Chest biopsy CXR 03/22: "Mildly increased size of left pneumothorax. Continued follow-up will be performed" CXR 03/22: "Placement of left chest tube. The left pneumothorax has almost completely resolved." CXR 03/23: "New right middle lobe infiltrate suggestive of pneumonia. Left chest tube in place. No visible pneumothorax." CXR 03/24: "Left chest tube remains in place. Right middle lobe infiltrate again seen." Chest Biopsy 03/24: "No pneumothorax. Left chest tube remains in place." DVT prophylaxis ordered?: Yes; Heparin 5000 units q12h ASSESSMENT AND PLAN: This is a 46-year-old female with iatrogenic left pneumothorax after lung biopsy. PROBLEMS: Post biopsy pneumothorax - chest tube placed on 03/22/2021 - no air leaks noted this morning - f/u with cardiothoracic surgery - their assistance appreciated in the care of the patient - c/w Tylenol, ketorolac, morphine, percocet as needed for pain control Left upper lobe hypermetabolic nodule - left upper lobe nodule seen on a previous PET scan dated 02/07/2021 - 03/22/2021 CT scan guided biopsy performed - FNA 03/22: No malignancy identified on this specimen. If malignancy is of concern, re-biopsy is recommended if clinically indicated. - 03/24/[address] scan guided biopsy Chronic back pain - c/w home med: percocet Hyperlipidemia - c/w atorvastatin Hypothyroidism - c/w levothyroxine CKD stage III - currently at baseline - c/w NS @ 15ml/hr Diabetes mellitus 2 - c/w insulin sliding scale while inpatient - hold home Metformin and Jardiance HTN - c/w Lisinopril GERD - c/w pantoprazole - hold home Rabeprazole Hydradenitis suppurativa VTE prophylaxis - Heparin 5000 units q12h DISPOSITION: Pending clinical improvement VS, I&O, 24H, Fishbone Vital Signs/I&O Vital Signs Date Time Temp Pulse Resp B/P (MAP) Pulse Ox O2 Delivery O2 Flow Rate FiO2 03/24/21 04:39 98.7 60 18 114/64 (81) 94 Nasal Cannula 2.0 I&O- Last 24 Hours up to 6 AM 03/24/21 06:00 Intake Total 1340 ml Output Total 0 ml Balance 1340 ml Laboratory Data 24H LABS Laboratory Tests 2 03/23/21 11:51: Bedside Glucose (Misc Panel) 120H 03/23/21 17:13: Bedside Glucose (Misc Panel) 102 03/23/21 20:22: Bedside Glucose (Misc Panel) 111H 03/24/21 05:27: Immature Granulocyte % (Auto) 0.1, Neutrophils (%) (Auto) 46.3, Lymphocytes (%) (Auto) 44.1H, Monocytes (%) (Auto) 7.2, Eosinophils (%) (Auto) 1.6, Basophils (%) (Auto) 0.7, Neutrophils # (Auto) 3.5, Lymphocytes # (Auto) 3.4, Monocytes # (Auto) 0.6, Eosinophils # (Auto) 0.1, Basophils # (Auto) 0.1, Nucleated Red Blood Cells % (auto) 0.0, Anion Gap 1L, Glomerular Filtration Rate > 60.0, Calcium Level 8.2L CBC/BMP Laboratory Tests 03/24/21 05:27 GME ATTESTATION GME ATTESTATION My faculty preceptor for this patient encounter was physically present during the encounter and was fully available. All aspects of the patient interview, examination, medical decision making process, and medical care plan development were reviewed and approved by the faculty preceptor. The faculty preceptor is aware and concurs with the plan as stated in the body of this note and will attest to such by his/her cosignature. ATTENDING NOTE Attending Attestation: I saw and evaluated the patient. I agree with the finding and the plan of care as documented in the residents note. Adriana Garcia DO Mar 24, 2021 10:21 CIERA MELVIN MD Mar 25, 2021 08:27
--- NOTE | 2021-03-24 10:52 | IPN ---
PROGRESS NOTE DATE: 03/24/2021 SUBJECTIVE: This is Ms. hCilds's first hospital day. She is doing well and her pain is being well-controlled at the chest tube insertion site. She is not complaining of shortness of breath nor is she complaining of a cough. There are no fevers, chills or sweats. Her vital signs shows a T-max of 99.5 with a heart rate that ranges between 60 and 76 and sinus rhythm, respiratory rate of 18 to 21 without the use of accessory muscles, who is 90 to 94% saturated on 2 liters nasal cannula and her blood pressure is ranging between 114/64 to 122/56. Her intake and output over the past 24 hours has been recorded as 1905 in and nothing out for a positivity of 1905 ml. She has put out nothing from the chest tube and there is no air leak. She was 100.2 kilos today compared to 95.9 kilos on admission. OBJECTIVE: Her lungs show normal vesicular sounds on either side with a percussion note that is full to the diaphragm. No wheezes, rhonchi or rales. Cardiac exam is without murmurs, clicks, gallops or rubs. I cannot feel her PMI. S1 and S2 are normal. Abdomen is soft, nontender. Bowel sounds are positive. There is no hepatomegaly. No CVA tenderness. Extremities show no pretibial edema. No calf tenderness. No differential swelling of the upper extremities. Skin is warm, dry and perfused without cyanosis or mottling including that of nailbeds and knees. Neck is supple. There is no jugular venous distention, no subcutaneous emphysema. Trachea is midline. Mouth shows the mucous membranes to be pink and moist. Lips and commissures without lesions or thrush. Eyes shows pupils equal and reactive. Extraocular muscles intact. Sclera nonicteric. Cranial nerves II-XII intact. Normal gross motor and normal gross sensation. Gait is not tested. Psychiatric: She is awake, alert and oriented x3 with appropriate mood and affect and conversational. LABORATORY DATA: Her white count today is 7.6 with a hemoglobin and hematocrit of 14.1 and 44.2 respectively. Platelet count is 246,000 and stable. There is no differential. Her chemistries show normal electrolytes with a BUN and creatinine of 19 and 0.82. Calcium is 8.2 with a glucose of 103. Her chest x-ray shows her lung fully expanded to the chest wall. There are no infiltrates. Costophrenic angle is sharp. I have reviewed her pathology and the results do not show a malignancy. I also reviewed her biopsy CT scan and it looks as though it was as tangential skinning of the lesion. IMPRESSION: 1. Pneumothorax after lung biopsy. 2. Left upper lobe hypermetabolic lesion, probably malignant. 3. History of tobacco abuse. 4. Hydradenitis suppurativa. 5. Diabetes. 6. Erythrocytosis. 7. Gastroesophageal reflux disease. PLAN/DISCUSSION: As she now has a chest tube and her lung is protected from falling, I have recommended that we take her back down to [facility] and undertake a needle biopsy once again with the chest tube on suction. I have discussed this with her and she is willing to proceed. I have spoken with [facility] and they will do her sometime later this morning around 11:30. I will keep her chest tube on suction then.
[2021-03-24] MEDS ORDERED: LIDOCAINE 1% MDV 20ML VIAL As Ordered ONE (11:06)
--- NOTE | 2021-03-24 13:06 | REP ---
INDICATION: POST LEFT LUNG BIOPSY, 1 VIEW, PA EXPIRATION. COMPARISON: 03/24/2021 7:26 a.m. TECHNIQUE: AP view chest performed following CT-guided left lung biopsy. FINDINGS: Left chest tube remains in place. No pneumothorax is visualized. There are mild bibasilar atelectatic changes. The heart and mediastinum are unchanged. IMPRESSION: No pneumothorax. Left chest tube remains in place. <Electronically signed by Miles Rolon > 03/24/21 1305
[2021-03-24 13:17] VITALS: BP 124/69
[2021-03-24 16:00] VITALS: BP 126/66
[2021-03-24] MEDS: MORPHINE 1MG/ML IN 0.9% NACL 100ML IV BAG IV PRN (17:17)
[2021-03-24 20:00] VITALS: BP 108/56
[2021-03-25] VITALS: BP 94/50
[2021-03-25] MEDS: LEVALBUTEROL 1.25 MG/0.5 ML CONCENTRATE NEB NEB SCH ×4 (00:59→22:14)
[2021-03-25] MEDS: ceFAZolin SOD 1 GM in D5W MINI-BAG PLUS 50 ML IV SCH ×3 (01:51→18:08)
[2021-03-25 04:00] VITALS: BP 103/60
[2021-03-25 05:12] LABS: BASO # 0.1 10^3/uL (0.0-0.2); BASO % 0.6 % (0.0-1.0); EOS # 0.2 10^3/uL (0.0-0.5); HEMATOCRIT 44.7 % (36.0-47.0); HEMOGLOBIN 14.3 g/dl (12.0-15.5); LYMPH # 2.8 10^3/uL (1.5-5.0); LYMPH % 35.8 % (24.0-44.0); MEAN CORPUSCULAR HEMOGLOBIN 32.2 pg (27.0-33.0); MEAN CORPUSCULAR VOLUME 100.7 fl (80.0-96.0); MONO # 0.7 10^3/uL (0.0-0.8); MONO % 8.4 % (2.0-8.0); NEUTROPHILS # 4.2 10^3/uL (1.5-8.5); NEUTROPHILS % 53.1 % (36.0-66.0); PLATELET COUNT, AUTOMATED 245 10^3/uL (150-450); RED BLOOD COUNT 4.44 10^6/uL (4.00-5.40); WHITE BLOOD COUNT 7.9 10^3/uL (4.0-10.0)
[2021-03-25] MEDS: KETOROLAC 30 MG/ML 1ML VIAL IV SCH ×4 (05:17→22:14)
[2021-03-25] MEDS: LEVOTHYROXINE 137MCG TABLET (0.137MG) PO SCH (05:18)
[2021-03-25 05:34] LABS: BLOOD UREA NITROGEN 18 MG/DL (7-18); CALCIUM LEVEL 7.9 MG/DL (8.5-10.1); CARBON DIOXIDE LEVEL 27 MEQ/L (21-32); CHLORIDE LEVEL 113 MEQ/L (98-107); CREATININE FOR GFR 0.86 MG/DL (0.55-1.30); GLOMERULAR FILTRATION RATE > 60.0 (>58); GLUCOSE, FASTING 94 MG/DL (70-100); POTASSIUM SERUM 4.9 MEQ/L (3.5-5.1); SODIUM LEVEL 141 MEQ/L (136-145)
[2021-03-25] MEDS: HumaLOG INSULIN (NovoLOG) PER UNIT SC SCH ×4 (07:30→21:00)
--- NOTE | 2021-03-25 08:05 | REP ---
INDICATION: pneumothoxa COMPARISON: 03/24/2021 TECHNIQUE: PA and lateral. FINDINGS: The mediastinum and cardiac silhouette are normal. Left apical chest tube in stable position without obvious pneumothorax. Lung fragoso are relatively clear/unchanged. No new focal consolidation or effusion.. The skeletal structures are intact and normal. IMPRESSION: Left-sided chest tube stable. No residual pneumothorax. <Electronically signed by Leandro Martínez > 03/25/21 0801
[2021-03-25 08:13] VITALS: BP 97/57
[2021-03-25] MEDS: LISINOPRIL *2.5 MG* TAB PO SCH (08:15)
[2021-03-25] MEDS: PANTOPRAZOLE 40MG TAB (PROTONIX) PO SCH (08:15)
[2021-03-25] MEDS: oxyBUTYnin 5 MG TAB PO SCH (08:15)
[2021-03-25] MEDS: ATORVASTATIN 20 MG TAB PO SCH (08:16)
[2021-03-25] MEDS: HEPARIN SOD (PORCINE) 5000UNITS/ML 1ML VIAL/SYRINGE SC SCH ×2 (08:17→20:13)
[2021-03-25] MEDS: DOCUSATE SODIUM 100MG CAPSULE PO SCH ×2 (08:17→20:13)
[2021-03-25] MEDS: MOM 30ML SUSPENSION UDC PO SCH (08:17)
[2021-03-25] MEDS: KCL 20MEQ IN D5/NS 1000ML 1,000 ML IV SCH (11:31)
--- NOTE | 2021-03-25 11:35 | IPN ---
PROGRESS NOTE DATE: 03/25/2021 SUBJECTIVE: Ms. Childs had a repeat biopsy today. I have called pathology and they now have diagnostic tissue. We are awaiting for markers. Her pain is being well-controlled at the chest tube insertion site and there is no air leak. I have therefore taken her off suction. Her vital signs shows a T-max of 98.8 with a heart rate that ranges between 55 and 67 and is in sinus rhythm, respiratory of 18 to 20 without the use of accessory muscles, who is 95 to 98% saturated on room air and her blood pressure is ranging between 94/50 to 103/60. Her intake and output over the past 24 hours has been recorded as 1625 in and nothing out. She has put out nothing out the chest tube additionally. Her weight today is 102.5 kilos compared to 100.2 kilos yesterday. OBJECTIVE: Her lungs show normal vesicular sounds without wheezes, rales or rhonchi. Percussion note is full to the diaphragm. Cardiac exam is without murmurs, clicks, gallops or rubs. I cannot feel her PMI. S1 and S2 are normal. Abdomen is soft, nontender. Bowel sounds are positive. There is no hepatomegaly. No CVA tenderness. Extremities show no pretibial edema. No calf tenderness. No differential swelling of the upper extremities. Skin is warm, dry and perfused without cyanosis or mottling including that of nailbeds and knees. Neck is supple. There is no jugular venous distention, no subcutaneous emphysema. Trachea is midline. Mouth shows the mucous membranes to be pink and moist. Lips and commissures without lesions or thrush. Eyes shows pupils equal and reactive. Extraocular muscles intact. Sclera nonicteric. Neurological: Cranial nerves II-XII intact. Normal gross motor and normal gross sensation. Gait is not tested. Psychiatric: She is awake, alert and oriented x3 with appropriate mood and affect and conversational. LABORATORY DATA: Her white count today is 7.9 with a hemoglobin and hematocrit of 14.3 and 44.7 and a platelet count of 245,000 and stable. Differential shows 53% neutrophils, 35% lymphocytes and 8% monocytes. There are no immature forms or toxic granulations. Her electrolytes are essentially normal with a BUN and creatinine of 18 and 0.86, glucose of 94 and a calcium of 7.9. Her chest x-ray shows her lung fully expanded to the chest wall. Costophrenic angles are sharp. The infiltrative process that I might have seen yesterday is now resolved on the right lower lobe. IMPRESSION: 1. Pneumothorax status post lung biopsy. 2. Left upper lobe hypermetabolic lesion, now biopsy proven malignant, final pathology pending. 3. History of tobacco abuse. 4. Hydradenitis suppurativa. 5. Diabetes. 6. Erythrocytosis. 7. Gastroesophageal reflux disease. PLAN/DISCUSSION: As noted above, I have discontinued her suction. If the lung remains applied to the chest wall tomorrow I will remove her chest tube and send her home six hours later after a chest x-ray. We will have to wait for the final pathology. I have re-reviewed her CT scan. She looks as though she has a fairly plump left hilum which may be maria del carmen spread. She will need a referral to Pulmonology for possible EBUS and bronchoscopy.
[2021-03-25 12:18] VITALS: BP 103/61
--- NOTE | 2021-03-25 13:40 | IPNPDOC ---
Date Seen The patient was seen on 03/25/21. Progress Note SUBJECTIVE: Patient is a 46-year-old female with iatrogenic left pneumothorax after lung biopsy on 03/22/2021. Dr. Villavicencio inserted left anterior superior chest tube on 03/22/2021. Patient was admitted to hospitalist service to manage diabetes and other medical problems. Patient was seen at sitting up comfortably at bedside today with no acute complaints. She states that Dr. Villavicencio has turned off her suctioning and that the plan is rto have her chest tube pulled out tomorrow morning and then a repeat chest x-ray and possible discharge tomorrow. Denies fever, chills, new cough, shortness of breath overnight. OBJECTIVE PHYSICAL EXAMINATION: VITAL SIGNS: Please see below. GENERAL: Sitting up comfortably in bed; no acute distress HEENT: Head normocephalic atraumatic; moist mucous membranes CARDIOVASCULAR: Regular rate and rhythm; no murmurs noted RESPIRATORY: Good air entry bilaterally; no wheezing, rales or rhonchi; no air leaks noted ABDOMINAL: NABS; soft, nondistended, nontender to palpation EXTREMITIES: No pitting edema bilaterally lower extremities LABORATORY DATA, IMAGING STUDIES, MICROBIOLOGY: Please see below. CT guide needle placement 03/22: "CT-guided left upper lobe lung biopsy. Patient did developed a left pneumothorax. Dr. Villavicencio placed a chest tube and admitted the patient under his care." Chest biopsy CXR 03/22: "Small left pneumothorax status post left lung biopsy. Follow-up radiograph will be obtained in 2 hours." Chest biopsy CXR 03/22: "Mildly increased size of left pneumothorax. Continued follow-up will be performed" CXR 03/22: "Placement of left chest tube. The left pneumothorax has almost completely resolved." CXR 03/23: "New right middle lobe infiltrate suggestive of pneumonia. Left chest tube in place. No visible pneumothorax." CXR 03/24: "Left chest tube remains in place. Right middle lobe infiltrate again seen." Chest Biopsy 03/24: "No pneumothorax. Left chest tube remains in place." CXR 03/25: "Left-sided chest tube stable. No residual pneumothorax." DVT prophylaxis ordered?: Yes; Heparin 5000 units q12h ASSESSMENT AND PLAN: This is a 46-year-old female with iatrogenic left pneumothorax after lung biopsy. PROBLEMS: Post biopsy pneumothorax - chest tube placed on 03/22/2021 - no air leaks noted this afternoon after Dr. Villavicencio turned off her suctioning - f/u with cardiothoracic surgery - their assistance appreciated in the care of the patient; as per Dr. Villavicencio, if the lung remains applied to the chest wall tomorrow he will remove her chest tube and send her home six hours later after a chest x-ray - c/w Tylenol, ketorolac, morphine, percocet as needed for pain control Left upper lobe hypermetabolic nodule - left upper lobe nodule seen on a previous PET scan dated 02/07/2021 - 03/22/2021 CT scan guided biopsy performed - FNA 03/22: No malignancy identified on this specimen. If malignancy is of concern, re-biopsy is recommended if clinically indicated. - 03/24/2021: repeat CT scan guided biopsy Chronic back pain - c/w home med: percocet Hyperlipidemia - c/w atorvastatin Hypothyroidism - c/w levothyroxine CKD stage III - currently at baseline - c/w NS @ 15ml/hr Diabetes mellitus 2 - c/w insulin sliding scale while inpatient - hold home Metformin and Jardiance HTN - c/w Lisinopril GERD - c/w pantoprazole - hold home Rabeprazole Hydradenitis suppurativa VTE prophylaxis - Heparin 5000 units q12h DISPOSITION: Pending clinical improvement VS, I&O, 24H, Claudiobone Vital Signs/I&O Vital Signs Date Time Temp Pulse Resp B/P (MAP) Pulse Ox O2 Delivery O2 Flow Rate FiO2 03/25/21 12:18 98.8 62 18 103/61 (75) 99 Room Air 03/24/21 04:39 2.0 I&O- Last 24 Hours up to 6 AM 03/25/21 06:00 Intake Total 2275 ml Output Total 20 ml Balance 2255 ml Laboratory Data 24H LABS Laboratory Tests 2 03/24/21 17:49: Bedside Glucose (Misc Panel) 97 03/24/21 20:29: Bedside Glucose (Misc Panel) 105 03/25/21 04:59: Immature Granulocyte % (Auto) 0.1, Neutrophils (%) (Auto) 53.1, Lymphocytes (%) (Auto) 35.8, Monocytes (%) (Auto) 8.4H, Eosinophils (%) (Auto) 2.0, Basophils (%) (Auto) 0.6, Neutrophils # (Auto) 4.2, Lymphocytes # (Auto) 2.8, Monocytes # (Auto) 0.7, Eosinophils # (Auto) 0.2, Basophils # (Auto) 0.1, Nucleated Red Blood Cells % (auto) 0.0, Anion Gap 1L, Glomerular Filtration Rate > 60.0, Calcium Level 7.9L 03/25/21 11:30: Bedside Glucose (Misc Panel) 92 CBC/BMP Laboratory Tests 03/25/21 04:59 GME ATTESTATION GME ATTESTATION My faculty preceptor for this patient encounter was physically present during the encounter and was fully available. All aspects of the patient interview, examination, medical decision making process, and medical care plan development were reviewed and approved by the faculty preceptor. The faculty preceptor is aware and concurs with the plan as stated in the body of this note and will attest to such by his/her cosignature. ATTENDING NOTE Attending Attestation: I saw and evaluated the patient. I agree with the finding and the plan of care as documented in the residents note. Adriana Garcia DO Mar 25, 2021 13:40 CIERA MELVIN MD Mar 26, 2021 06:41
[2021-03-25] MEDS: MORPHINE 1MG/ML IN 0.9% NACL 100ML IV BAG IV PRN (13:49)
[2021-03-25 16:49] VITALS: BP 103/64
--- NOTE | 2021-03-25 17:02 | REP ---
INDICATION: left upper lobe lesion. Keep pt on suction during procedure. COMPARISON: None. TECHNIQUE: The procedure was performed under the direct supervision of Dr. Rolon. Patient has a history of a hypermetabolic nodule in the left upper lobe seen on a previous PET scan dated 02/07/2021. The patient had a left upper lobe lung biopsy on 03/22/2021. However the tissue samples were not adequate for diagnosis. The patient is referred for re-biopsy. The risk and benefits of the procedure were explained to the patient and informed consent was obtained. The left upper lobe lung nodule was localized using CT guidance. The skin was prepped and draped in a sterile fashion. 10 mL of 1% lidocaine was used as a local anesthetic. Using CT guidance a 19/20 gauge coaxial needle biopsy system was inserted and advanced into the nodule. Seven core biopsy samples were obtained and sent to the lab for analysis. Estimated blood loss: Less than 1 mL The patient tolerated the procedure well and there were no immediate complications. After the appropriate amount to monitor convalescence the patient was discharged from the department. FINDINGS: None IMPRESSION: CT-guided left upper lobe lung biopsy. <Electronically signed by Kyle Angel > 03/25/21 [id number] <Electronically signed by Miles Rolon > 03/25/21 [id number]
[2021-03-25 20:00] VITALS: BP 99/58
[2021-03-26] VITALS: BP 97/59
[2021-03-26] MEDS: KCL 20MEQ IN D5/NS 1000ML 1,000 ML IV SCH (00:15)
[2021-03-26] MEDS: ceFAZolin SOD 1 GM in D5W MINI-BAG PLUS 50 ML IV SCH ×2 (00:15→09:35)
[2021-03-26] MEDS: LEVALBUTEROL 1.25 MG/0.5 ML CONCENTRATE NEB NEB SCH ×3 (02:00→13:32)
[2021-03-26 04:00] VITALS: BP 112/60
[2021-03-26] MEDS: KETOROLAC 30 MG/ML 1ML VIAL IV SCH ×3 (05:00→15:46)
[2021-03-26] MEDS: LEVOTHYROXINE 137MCG TABLET (0.137MG) PO SCH (05:00)
[2021-03-26 06:20] LABS: BASO % 0.4 % (0.0-1.0); EOS # 0.2 10^3/uL (0.0-0.5); EOS % 2.4 % (0.0-3.0); HEMATOCRIT 43.5 % (36.0-47.0); HEMOGLOBIN 13.9 g/dl (12.0-15.5); LYMPH # 2.1 10^3/uL (1.5-5.0); LYMPH % 28.5 % (24.0-44.0); MEAN CORPUSCULAR HEMOGLOBIN 32.1 pg (27.0-33.0); MEAN CORPUSCULAR VOLUME 100.5 fl (80.0-96.0); MONO # 0.7 10^3/uL (0.0-0.8); MONO % 8.9 % (2.0-8.0); NEUTROPHILS # 4.5 10^3/uL (1.5-8.5); NEUTROPHILS % 59.5 % (36.0-66.0); PLATELET COUNT, AUTOMATED 226 10^3/uL (150-450); RED BLOOD COUNT 4.33 10^6/uL (4.00-5.40); WHITE BLOOD COUNT 7.5 10^3/uL (4.0-10.0)
[2021-03-26 06:34] LABS: BLOOD UREA NITROGEN 14 MG/DL (7-18); CALCIUM LEVEL 8.2 MG/DL (8.5-10.1); CARBON DIOXIDE LEVEL 26 MEQ/L (21-32); CHLORIDE LEVEL 114 MEQ/L (98-107); GLOMERULAR FILTRATION RATE > 60.0 (>58); GLUCOSE, FASTING 98 MG/DL (70-100); POTASSIUM SERUM 4.8 MEQ/L (3.5-5.1); SODIUM LEVEL 141 MEQ/L (136-145)
[2021-03-26] MEDS: HumaLOG INSULIN (NovoLOG) PER UNIT SC SCH ×2 (07:30→11:54)
[2021-03-26 07:36] VITALS: BP 121/61
[2021-03-26 09:35] VITALS: BP 121/61
[2021-03-26] MEDS: PANTOPRAZOLE 40MG TAB (PROTONIX) PO SCH (09:35)
[2021-03-26] MEDS: DOCUSATE SODIUM 100MG CAPSULE PO SCH (09:35)
[2021-03-26] MEDS: ATORVASTATIN 20 MG TAB PO SCH (09:35)
[2021-03-26] MEDS: MOM 30ML SUSPENSION UDC PO SCH (09:35)
[2021-03-26] MEDS: LISINOPRIL *2.5 MG* TAB PO SCH (09:35)
[2021-03-26] MEDS: oxyBUTYnin 5 MG TAB PO SCH (09:35)
[2021-03-26] MEDS: HEPARIN SOD (PORCINE) 5000UNITS/ML 1ML VIAL/SYRINGE SC SCH (09:36)
--- NOTE | 2021-03-26 10:19 | REP ---
INDICATION: Pneumothorax. COMPARISON: PA and lateral chest, 03/25/2021 TECHNIQUE: Upright PA and lateral chest images were obtained. FINDINGS: There is a small bore thoracostomy tube on the left unchanged in position. There is a small amount of subcutaneous emphysema on the left. No residual pneumothorax is identified. There is airspace disease in the right lung base consistent with atelectasis. The heart borders and mediastinum are normal. The upper abdominal bowel gas pattern is normal. There are no significant bony abnormalities of the chest. IMPRESSION: 1. Left thoracostomy tube unchanged in position. 2. No evidence of left pneumothorax. 3. Small amount of subcutaneous emphysema on the left, unchanged. 4. Interval development of airspace disease in the right lung base consistent with atelectasis. <Electronically signed by Dennis Jackson > 03/26/21 [id number]
[2021-03-26 12:00] VITALS: BP 115/59
--- NOTE | 2021-03-26 12:26 | DSES ---
DISCHARGE SUMMARY DATE OF ADMISSION: 03/22/2021 DATE OF DISCHARGE: 03/26/2021 DISCHARGE DIAGNOSES: 1. Small-cell carcinoma, left upper lobe. 2. Pneumothorax status post lung biopsy. 3. History of tobacco abuse. 4. Hydradenitis suppurativa. 5. Diabetes. 6. Erythrocytosis. 7. Gastroesophageal reflux disease. HOSPITAL COURSE: Patient is a 46-year-old white female who is an inveterate smoker, where she underwent a CT scan, which showed a newly appearing left upper lobe lesion and a PET scan which showed it to be hypermetabolic. She has a chronic cough with sputum production and also has chronic back pain but not chest pain per se. She underwent a needle biopsy, which resulted in a pneumothorax with increased pain and shortness of breath. She had no prior history of fever, chills, or sweats and no dysphagia, and there was no weight loss. A chest tube was then placed, which stopped leaking on the first hospital day; however, the pathology came back equivocal, and on review of the CT placement it looked as if the needle had been placed tangentially. Therefore, she was taken back to the x-ray suite, where interventional radiology again undertook a biopsy, this time with the chest tube in place on suction to protect her lung. The biopsy showed it to be small-cell carcinoma. Her chest x-ray after taking it off suction showed the lung fully expanded to the chest wall. A chest x-ray will be taken in 6 hours, and if the lung is applied to the chest wall, we will discharge her. She is being discharged today on her home medications, which include atorvastatin 40 mg daily, Jardiance 25 mg daily, Synthroid 137 mg daily, lisinopril 2.5 mg daily, metformin 1000 mg twice a day, oxybutynin 5 mg daily, Percocet 10/325, which she takes at home for her chronic back pain as needed for pain, and rabeprazole 20 mg daily. She has been advised to take Aleve or ibuprofen to supplement her Percocets for her chest pain. At the time of discharge she had minimal pain at the chest tube insertion site. Her discharge white count is 7.5 with a hemoglobin and hematocrit of 13.9 and 43.5, platelet count of 226. Her discharge electrolytes are normal with a BUN and creatinine of 14 and 0.70. She will return to see me in 1 week with a chest x-ray. I have also arranged for her to see pulmonology for staging. She does have some hilar lymphadenopathy, and on my inspection of the chest CT it may be slightly warm and hypermetabolic. If we prove that this is a single solitary lesion, she would be a surgical candidate. She will also need a brain MRI to complete her staging.
[2021-03-26 16:13] VITALS: BP 114/66
--- NOTE | 2021-03-26 17:57 | REP ---
INDICATION: pneumothorax. COMPARISON: PA and lateral chest, 03/26/2021, 7:54 a.m. TECHNIQUE: Upright PA and lateral images of the chest were obtained. FINDINGS: There has been interval removal of the small bore thoracostomy tube on the left. There is no recurrence pneumothorax evident. There is a small amount of residual subcutaneous emphysema, not significantly changed from the previous exam. There is again noted airspace disease in the middle lobe of the right lung consistent with atelectasis or pneumonia. IMPRESSION: 1. Interval removal of the left thoracostomy tube without recurrence of pneumothorax. 2. There is a small amount of residual subcutaneous emphysema on the left, not significantly changed from the prior exam. 3. There is airspace disease in the middle lobe the right lung consistent with atelectasis or pneumonia not significantly changed. <Electronically signed by Dennis Jackson > 03/26/21 [id number]
[2021-03-26] MEDS ORDERED: INFLUENZA QUADRIVALENT PF VACCINE 0.5ML SYRINGE IM ONE (18:00)
== END 2021-03-26 17:46 | disposition home health service (06) | DRG 143 ==
LOC: M IRPRO 10:44 → M PCU 16:03
PROVIDERS: ADMIT Thoracic Surgery (Cardiothoracic Vascular Surgery); ATTEND Thoracic Surgery (Cardiothoracic Vascular Surgery)
PROC: 0BBG3ZX Excision of Left Upper Lung Lobe, Percutaneous Approach, Diagnostic (ICD-10-PCS; 2021-03-22)
PROC: 0B9L3ZX Drainage of Left Lung, Percutaneous Approach, Diagnostic (ICD-10-PCS; principal; 2021-03-22 11:30)
DX: J95.811 Postprocedural pneumothorax (principal); D75.1 Secondary polycythemia; C34.90 Malignant neoplasm of unspecified part of unspecified bronchus or lung; N18.30 Chronic kidney disease, stage 3 unspecified; G72.9 Myopathy, unspecified; K21.9 Gastro-esophageal reflux disease without esophagitis; E11.9 Type 2 diabetes mellitus without complications; L73.2 Hidradenitis suppurativa; F17.210 Nicotine dependence, cigarettes, uncomplicated; M54.5 Low back pain; E78.5 Hyperlipidemia, unspecified; E03.9 Hypothyroidism, unspecified; I12.9 Hypertensive chronic kidney disease with stage 1 through stage 4 chronic kidney disease, or unspecified chronic kidney disease; Z79.899 Other long term (current) drug therapy; E66.9 Obesity, unspecified; F11.90 Opioid use, unspecified, uncomplicated; L40.8 Other psoriasis; F41.9 Anxiety disorder, unspecified; F32.9 Major depressive disorder, single episode, unspecified

== ENCOUNTER 2021-03-29 18:46 | Emergency (ER) | payer BC ==
[~2021-03-29] VITALS: Ht 175.3 cm; Wt 100.2 kg
[2021-03-29 18:46] VITALS: BP 148/80
[~2021-03-29 18:46] MED LIST changes: -LIDOCAINE 1% MDV 20ML VIAL As Ordered ONE; +OXYC10TA3 PO
== END 2021-03-29 20:06 | disposition left against medical advice (07) ==
LOC: M ED 18:46
DX: Z53.21 Procedure and treatment not carried out due to patient leaving prior to being seen by health care provider (principal)

== ENCOUNTER → 2021-03-31 | Outpatient (CLI) | payer BC ==
[~2021-03-31] MED LIST changes: +JARD1TAB PO; +LISI-898 PO; +SYNT137T7 PO
--- NOTE | 2021-03-31 11:23 | REP ---
INDICATION: SWELLING. COMPARISON: None. TECHNIQUE: Multiple ultrasonographic images of the deep venous structures of the bilateral lower extremity were obtained from the inguinal ligament to the ankle. Venous compression techniques, color doppler imaging, and augmentation techniques were also obtained where appropriate. As per the ACR guidelines the anterior tibial vein can not be effectively evaluated. Only compression techniques in the calf on the peroneal and posterior tibial veins was attempted/performed. FINDINGS: There is no abnormal echogenic material seen within any of the visualized deep venous structures that would suggest acute thrombosis. Coaptation is unremarkable throughout. Doppler interrogation shows an expected response to respiratory variability and augmentation in the thigh. Compression techniques in the calf showed no abnormality. The color flow images show what appears to be a normal vascular pattern throughout the thigh. IMPRESSION: There is no ultrasonographic evidence of deep venous thrombosis involving any of the visualized deep venous structures of the bilateral lower extremity as described above. <Electronically signed by Jay Mesa > 03/31/21 [id number]
== END ==
LOC: M RAD 07:31
PROVIDERS: ATTEND Internal Medicine Pulmonary Disease
DX: R60.0 Localized edema (principal)

== ENCOUNTER → 2021-03-31 | Outpatient (CLI) | payer BC ==
[~2021-03-31] MED LIST changes: +PROHANCE 279.3MG/ML 15ML VIAL As Ordered ONE; +PROHANCE 279.3MG/ML 5ML VIAL As Ordered ONE
--- NOTE | 2021-04-01 12:35 | REPVR ---
PROCEDURE INFORMATION: Exam: MR Head Without and With Contrast Exam date and time: 03/31/2021 3:36 PM Age: 46 years old Clinical indication: Pain; Headache not specified; Additional info: Headaches, HX of lung CA PT returning at 2:15 today TECHNIQUE: Imaging protocol: MR of the head without and with intravenous contrast. Contrast material: PROHANCE; Contrast volume: 19 ml; Contrast route: INTRAVENOUS (IV); COMPARISON: PET/CT Skull/mid thigh 02/07/2021 3:36 PM FINDINGS: Brain: No acute infarct identified on the diffusion-weighted imaging. No evidence of brain parenchymal edema or intracranial mass effect. No significant white matter disease. No enhancing intracranial pathology. Cerebral ventricles: Normal. No ventriculomegaly. Bones/joints: Unremarkable. Paranasal sinuses: Unremarkable. Likely retention cysts in the right nasopharynx, for example a cyst to the right of midline measuring 6.7 mm. Mastoid air cells: Normal as visualized. No mastoid effusion. Orbital cavity: Unremarkable. Soft tissues: Unremarkable. IMPRESSION: No evidence of intracranial metastatic disease. Electronically signed by: Felisa Luna On 04/01/2021 12:34:49 PM
== END ==
LOC: M RAD 07:41
PROVIDERS: ATTEND Thoracic Surgery (Cardiothoracic Vascular Surgery)
DX: R51.9 Headache, unspecified (principal); C34.12 Malignant neoplasm of upper lobe, left bronchus or lung
CPT/HCPCS: 70553; A9576

== ENCOUNTER → 2021-04-02 | Outpatient (CLI) | payer BC ==
[~2021-04-02] MED LIST changes: -PROHANCE 279.3MG/ML 15ML VIAL As Ordered ONE; -PROHANCE 279.3MG/ML 5ML VIAL As Ordered ONE
== END ==
LOC: M LABSMTC 09:04
PROVIDERS: ATTEND Anesthesiology
DX: Z01.812 Encounter for preprocedural laboratory examination (principal)

== ENCOUNTER 2021-04-06 06:18 | Day surgery (SDC) | payer BC ==
[~2021-04-06] VITALS: Ht 175.3 cm; Wt 94.3 kg
[~2021-04-06 06:18] MED LIST changes: +LIDOCAINE 1% MDV 20ML VIAL SQ PRN; +LR 1,000 ML IV ONE
[2021-04-06] MEDS ORDERED: LIDOCAINE 2% 100MG/5ML SDV (FOR ANES.) As Ordered ONE (07:12)
[2021-04-06] MEDS ORDERED: ROCURONIUM BROMIDE 50 MG/5 ML VIAL As Ordered ONE (07:12)
[2021-04-06] MEDS ORDERED: propofoL 200 MG/20 ML VIAL As Ordered ONE (07:12)
[2021-04-06] MEDS ORDERED: MIDAZOLAM INJ 2MG/2ML VIAL (J2250 PER 1MG) As Ordered ONE (07:12)
[2021-04-06] MEDS ORDERED: fentaNYL 100 MCG/2 ML INJECTION (J3010) As Ordered ONE (07:12)
[2021-04-06] MEDS ORDERED: CETACAINE SPRAY 5GM As Ordered ONE (07:18)
[2021-04-06] MEDS ORDERED: LIDOCAINE VISCOUS 2% SOLN 15ML UDC As Ordered ONE (07:18)
[2021-04-06] MEDS ORDERED: EPINEPHrine 1MG/10ML SYRINGE 1.5IN As Ordered ONE (07:18)
[2021-04-06] MEDS ORDERED: THROMBIN SOLN 5,000 UNITS VIAL As Ordered ONE (07:18)
[2021-04-06] MEDS ORDERED: LIDOCAINE 1% SDV 30ML VIAL As Ordered ONE (07:18)
[2021-04-06] MEDS ORDERED: LIDOCAINE 4% INJ 5ML AMP INH ONE (07:30)
[2021-04-06] MEDS ORDERED: ALBUTEROL SULFATE 2.5 MG/0.5 ML INH NEB SOLN INH ONE (07:35)
[2021-04-06] MEDS ORDERED: dexameTHASONE 4 MG/ML 1ML VIAL (J1100 PER 1MG) As Ordered ONE (07:58)
[2021-04-06] MEDS ORDERED: ONDANSETRON 4MG/2ML VIAL As Ordered ONE (07:58)
[2021-04-06] MEDS ORDERED: SUGAMMADEX SODIUM 500 MG/5 ML VIAL (BRIDION) As Ordered ONE (08:00)
[2021-04-06] MEDS ORDERED: PHENYLephrine 500MCG 5ML (100MCG/ML) SYRINGE As Ordered ONE ×2 (08:05→08:26)
[2021-04-06] MEDS ORDERED: ePHEDrine SULFATE 25 MG/5 ML(5MG/ML) SYRINGE As Ordered ONE (08:27)
--- NOTE | 2021-04-06 08:59 | ROOR ---
Patient Name: Marilia Childs Procedure Date: 04/06/2021 7:18 AM Date of : 1975 Admit Type: Outpatient Age: 46 Note Status: Finalized Attending MD: Erika Tobias MD Procedure: Bronchoscopy Indications: Left upper lobe mass, Bilateral hilar lymphadenopathy, Mediastinal adenopathy Providers: Erika Tobias MD (Doctor) Referring MD: Cristian Villavicencio MD (Referring MD) Requesting Physician: Medicines: Lidocaine 4% via nebulizer with Albuterol 2.5 mg, Cetacaine topical, General Anesthesia Complications: No immediate complications. Estimated blood loss: Minimal Procedure: Pre-Anesthesia Assessment: - Prior to the procedure, a History and Physical was performed, and patient medications and allergies were reviewed. The patient's tolerance of previous anesthesia was also reviewed. The risks and benefits of the procedure and the sedation options and risks were discussed with the patient. All questions were answered, and informed consent was obtained. Prior Anticoagulants: The patient has taken no previous anticoagulant or antiplatelet agents. ASA Grade Assessment: II - A patient with mild systemic disease. After reviewing the risks and benefits, the patient was deemed in satisfactory condition to undergo the procedure. - Patient identification and proposed procedure were verified prior to the procedure by the physician, the nurse, the anesthesiologist, the director of instructional technology and the commercial kitchen service technician. The procedure was verified in the procedure room. The Bronchoscope was introduced through the mouth, via the endotracheal tube (the patient was intubated for the procedure) and advanced to the tracheobronchial tree of both lungs. The procedure was accomplished without difficulty. The patient tolerated the procedure well. Findings: The endotracheal tube is in good position. The visualized portion of the trachea is of normal caliber. The keshia is sharp. The tracheobronchial tree was examined to at least the first subsegmental level. Bronchial mucosa and anatomy are normal; there are no endobronchial lesions, and scant secretions. An endobronchial ultrasound endoscope was utilized in order to assist with fine needle aspiration in the right paratracheal area, in the subcarinal area, in the right hilum and in the left hilum. Transbronchial needle aspirations of a lymph nodes were performed in the right paratracheal area, in the subcarinal area, in the right hilum and in the left hilum using an Olympus EBUS-TBNA 21 gauge needle and sent for routine cytology. The procedure was guided by ultrasound. Impression: - Left upper lobe mass - Bilateral hilar lymphadenopathy - Mediastinal adenopathy - The airway examination was normal. - Endobronchial ultrasound was performed. - A transbronchial needle aspiration was performed. Recommendation: - Await cytology results. Procedure Code(s): --- Professional --- 62929, Bronchoscopy, rigid or flexible, including fluoroscopic guidance, when performed; with transbronchial needle aspiration biopsy(s), trachea, main stem and/or lobar bronchus(i) 43011, Bronchoscopy, rigid or flexible, including fluoroscopic guidance, when performed; with transendoscopic endobronchial ultrasound (EBUS) during bronchoscopic diagnostic or therapeutic intervention(s) for peripheral lesion(s) (List separately in addition to code for primary procedure[s]) CPT copyright 2019 [employer] [place] [employer]. All rights reserved. The codes documented in this report are preliminary and upon dumbwaiter operator review may be revised to meet current compliance requirements. Attending Participation: I personally performed the entire procedure. Erika Tobias MD 04/06/2021 8:59:10 AM Number of Addenda: 0 Note Initiated On: 04/06/2021 7:18 AM
[2021-04-06] MEDS ORDERED: fentaNYL 100 MCG/2 ML INJECTION (J3010) IV PRN (09:15)
[2021-04-06] MEDS ORDERED: ONDANSETRON 4MG/2ML VIAL IV PRN (09:15)
[2021-04-06] MEDS ORDERED: LR 1,000 ML IV SCH (09:15)
[2021-04-06] MEDS ORDERED: oxyCODONE 5MG TAB PO PRN (09:15)
[2021-04-06] MEDS ORDERED: ETOMIDATE INJ 20MG/10ML VIAL As Ordered ONE (09:23)
[2021-04-06 10:15] VITALS: BP 97/64
== END 2021-04-07 10:15 | disposition home or self-care (01) ==
LOC: M SDC 06:18
PROVIDERS: ATTEND Internal Medicine Pulmonary Disease
DX: R91.8 Other nonspecific abnormal finding of lung field (principal); R59.0 Localized enlarged lymph nodes; E11.9 Type 2 diabetes mellitus without complications; E78.5 Hyperlipidemia, unspecified; E03.9 Hypothyroidism, unspecified; K21.9 Gastro-esophageal reflux disease without esophagitis; F17.218 Nicotine dependence, cigarettes, with other nicotine-induced disorders; Z79.84 Long term (current) use of oral hypoglycemic drugs; Z79.899 Other long term (current) drug therapy; Z88.1 Allergy status to other antibiotic agents
CPT/HCPCS: 31629; 31654; 88173; 88305; 88341; 88342; J1100; J2250; J2370; J2405; J3010

== ENCOUNTER → 2021-04-20 | Outpatient (CLI) | payer BC ==
[~2021-04-20] MED LIST changes: -LIDOCAINE 1% MDV 20ML VIAL SQ PRN; -LR 1,000 ML IV ONE
--- NOTE | 2021-04-20 12:49 | RADONC.CN ---
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 She is seen today for consideration of SBRT. Diagnosis/Treatment History Oncologic History Had a screening CT chest 01/10/21 which showed a MARKOS peripheral nodule PET-CT was completed on 02/07/21 which showed the MARKOS nodule as the sole site of uptake 03/22/21 biopsy was non-diagnostic 03/24/[address] biopsy showing SCLC 03/31/21 MRI brain negative 04/06/21 EBUS mediastinal staging negative 04/13/21 Tumor board discussion SBRT to peripheral nodule and chemotherapy, then consideration of PCI PFTs FVC 3.43 89% FEV1 2.59 84% FEV1/FVC 81% DLCO 85% Interval History Marilia is here with her . She continues to smoke, not interested in quitting at this moment. She has no pain in the chest, she did have a PTX post- biopsy, which resolved. She has chronic back pain. She has preserved energy and appetite. She is eager to start treatment. Past Medical History: Anxiety Hidradenitis suppurative GERD CVD Psoriasis DMII Past Surgical History: Cervical cryosurgery Hysterectomy Lumbar decompression Family History: Mother-lung cancer Social History: 2 ppd current smoker 60+ pack years Never drinker Allergies / Meds Allergies: Coded Allergies: doxycycline (Verified Allergy, Unknown, RASH, 04/05/21) silver sulfadiazine (Verified Allergy, Unknown, SWELLING,RASH, 04/05/21) Uncoded Allergies: BIODERM (Allergy, Intermediate, states sulphur gas, 04/05/21) Home Meds Reported Medications Oxycodone HCl/Acetaminophen (Oxycodone-Acetaminophen 10-325) 1 Each Tablet, 1 TAB PO QIDP, TAB 04/05/21 Atorvastatin Calcium (Atorvastatin Calcium) 40 Mg Tablet, 40 MG PO DAILY, TAB 04/05/21 Lisinopril (Lisinopril) 5 Mg Tablet, 2.5 MG PO DAILY, TAB 04/05/21 Levothyroxine Sodium (Synthroid) 137 Mcg Tablet, 137 MCG PO DAILY, TAB 04/05/21 Oxybutynin Chloride (Oxybutynin Chloride) 5 Mg Tablet, 5 MG PO DAILY, TAB 04/05/21 Rabeprazole Sodium (Rabeprazole Sodium) 20 Mg Tablet.dr, 20 MG PO DAILY 04/05/21 Empagliflozin (Jardiance) 10 Mg Tablet, 25 MG PO DAILY, TAB 04/05/21 Metformin HCl (Metformin HCl) 1,000 Mg Tablet, 1000 MG PO BID, TAB 04/05/21 Discontinued Reported Medications Cephalexin (Cephalexin) 750 Mg Capsule, 1 TAB PO BID 04/15/21 Review of Systems Constitutional: Denies: Night Sweats, Fatigue, Weight Loss Eyes: Denies: Pain HEENT: Denies: Head Aches Skin: Denies: Rash Pulmonary: Denies: Dyspnea, Cough Cardiovascular: Denies: Chest Pain, Edema Gastrointestinal: Denies: Abdominal Pain Hematologic: Denies: Bruising, Bleeding Excessively Endocrine: Denies: Cold Intolerance Musculoskeletal: Reports: Back pain; Denies: Neck pain Neurological: Denies: Weakness, Numbness Psych: Reports: Mood Normal Vital Signs Ht 69" Wt 207 lbs BMI 31 T 97.4 P 68 RR 16 BP 112/75 O2 97% Pain 8 back Fatigue 0 General Exam: Alert, Cooperative, No Acute Distress Eye Exam: PERRLA, EOMI ENT EXAM: Atraumatic Neck Exam: Negative: Lymphadenopathy Chest Exam: Clear to auscultation, Normal air movement Heart Exam: Rate Normal, Regular Rhythm Abdomen Exam: Soft Extremity Exam: Negative: Edema Skin Exam: Nl turgor and temperature Neuro Exam: Normal Gait, Normal Speech, Cranial Nerves 3-12 NL Psych Exam: Mental status NL Diagnostic and Laboratory Diagnostic Review Radiologic images, relevant labs and pathology reports were personally reviewed and discussed with Ms. Childs. Assessment and Plan Impression Ms. Childs is a 46 year old female current smoker with recently diagnosed MARKOS SCLC [id number] stage IA2. She is seen today for consideration of SBRT. Stage MARKOS SCLC [id number] stage IA2 Performance Status ECOG 1 Plan We had an extensive discussion with Ms. Childs regarding the diagnosis at hand and available therapeutic options. We discussed the importance of smoking cessation for 3 minutes, she is not ready at this time but will revisit in the near future. Discussed briefly the quit aids available. She has a good performance status, and this was detected incidentally. I explained that this bodes well prognostically compared to the majority of SCLC patient who present late. She has a solitary MARKOS nodule in the periphery as the only site of disease. I recommend SBRT to this nodule, 60 Gy in 5 fractions with 4DCT/ITV/DCA planning prior to chemotherapy which should start soon afterward. We discussed the logistics of receiving radiation therapy in detail including the need for a 1-time planning session. This can occur next week. We reviewed the side effects fo SBRT including fatigue, fibrosis, and pneumonitis. I also reviewed briefly the role of PCI in LS SCLC including the individualized considerations that go into deciding whether or not to proceed with PCI or surveil with serial MRI. Upon completion of chemotherapy, I will obtain another MRI and we will have a more comprehensive discussion of the PCI option. After discussing the risks, benefits and alternatives to radiation therapy, Ms. Childs was amenable to pursuing radiotherapy. All questions were answered to the patient's satisfaction. We instructed the patient that if there were any questions,concerns or changes in clinical status in the interim to contact us. Recommendations SBRT to the MARKOS nodule prior to chemotherapy 60 Gy in 5 fractions Simulation next week Will obtain MRI head upon completion of chemotherapy to inform PCI decision making Billing Statement Total time of [46] minutes was spent preparing for the visit [4], obtaining HPI [8], examining the patient [3], reviewing diagnostic tests [5], discussing management options [15], coordinating care [2], and writing this note [9]. SHRUTHI LERMA MD Apr 20, 2021 12:49
== END ==
LOC: M ONCR 10:53
PROVIDERS: ATTEND General Practice
DX: C34.12 Malignant neoplasm of upper lobe, left bronchus or lung (principal); E11.9 Type 2 diabetes mellitus without complications; F17.210 Nicotine dependence, cigarettes, uncomplicated; M54.5 Low back pain; G89.29 Other chronic pain; Z79.84 Long term (current) use of oral hypoglycemic drugs; Z79.890 Hormone replacement therapy; Z79.899 Other long term (current) drug therapy; Z80.1 Family history of malignant neoplasm of trachea, bronchus and lung; Z88.1 Allergy status to other antibiotic agents; Z88.8 Allergy status to other drugs, medicaments and biological substances

== ENCOUNTER 2021-05-13 11:30 | Outpatient (RCR) | payer BC ==
[2021-05-17] MEDS ORDERED: ONDA8TAB10 PO (14:10)
[2021-05-17] MEDS ORDERED: PROC10TA4 PO (14:10)
== END 2021-05-22 ==
LOC: M ONCR 11:30
PROVIDERS: ATTEND General Practice
DX: C34.12 Malignant neoplasm of upper lobe, left bronchus or lung (principal)

== ENCOUNTER → 2021-06-10 | Outpatient (REF) | payer BC ==
[~2021-06-10] MED LIST changes: +MAGICMW SSP; +ONDA8TAB10 PO; +PROC10TA4 PO; +WELLTAB38 PO
[2021-06-10 13:40] LABS: BASO # 0.1 10^3/uL (0.0-0.2); BASO % 1.1 % (0.0-1.0); EOS # 0.1 10^3/uL (0.0-0.5); EOS % 0.4 % (0.0-3.0); HEMATOCRIT 54.5 % (36.0-47.0); HEMOGLOBIN 18.2 g/dl (12.0-15.5); MEAN CORPUSCULAR HEMOGLOBIN 32.7 pg (27.0-33.0); MEAN CORPUSCULAR HGB CONC 33.4 g/dl (32.0-36.5); MEAN CORPUSCULAR VOLUME 97.8 fl (80.0-96.0); MONO # 0.9 10^3/uL (0.0-0.8); MONO % 7.8 % (2.0-8.0); NEUTROPHILS # 7.5 10^3/uL (1.5-8.5); NEUTROPHILS % 62.1 % (36.0-66.0); PLATELET COUNT, AUTOMATED 191 10^3/uL (150-450); RED BLOOD COUNT 5.57 10^6/uL (4.00-5.40); WHITE BLOOD COUNT 12.1 10^3/uL (4.0-10.0)
[2021-06-10 14:12] LABS: ALBUMIN 3.4 GM/DL (3.2-5.2); ALT/SGPT 16 U/L (12-78); BILIRUBIN,TOTAL 0.3 MG/DL (0.2-1.0); BLOOD UREA NITROGEN 11 MG/DL (7-18); CALCIUM LEVEL 9.2 MG/DL (8.5-10.1); CARBON DIOXIDE LEVEL 29 MEQ/L (21-32); CHLORIDE LEVEL 104 MEQ/L (98-107); CREATININE FOR GFR 0.79 MG/DL (0.55-1.30); GLOMERULAR FILTRATION RATE > 60.0 (>58); GLUCOSE, FASTING 89 MG/DL (70-100); MAGNESIUM LEVEL 2.3 MG/DL (1.8-2.4); POTASSIUM SERUM 4.6 MEQ/L (3.5-5.1); SODIUM LEVEL 137 MEQ/L (136-145); TOTAL PROTEIN 6.7 GM/DL (6.4-8.2)
== END ==
LOC: M LABDRWAD 13:05
PROVIDERS: ATTEND Internal Medicine Medical Oncology
DX: C34.92 Malignant neoplasm of unspecified part of left bronchus or lung (principal)

== ENCOUNTER → 2021-06-10 | Outpatient (REF) | payer BC ==
[2021-06-10 14:13] LABS: CHOLESTEROL LEVEL 167 MG/DL (<200); CHOLESTEROL RISK RATIO 5.964 (<5); FREE T4 1.17 NG/DL (0.76-1.46); HDL CHOLESTEROL 28 MG/DL (>40); LDL CHOLESTEROL 80 MG/DL (<100); NON-HDL-C 139 MG/DL; TRIGLYCERIDES LEVEL 296 MG/DL (<150)
[2021-06-10 14:21] LABS: HEMOGLOBIN A1c 5.5 %
[2021-06-10 15:27] LABS: TOTAL 25(OH) VITAMIN D 17.4 NG/ML (30.0-100.0)
[2021-06-10 15:28] LABS: FOLATE 5.1 NG/ML; VITAMIN B12 LEVEL > 2000 PG/ML
== END ==
LOC: M SFHCADAM 11:47
PROVIDERS: ATTEND Physician Assistant
DX: E11.29 Type 2 diabetes mellitus with other diabetic kidney complication (principal); F17.218 Nicotine dependence, cigarettes, with other nicotine-induced disorders; E78.2 Mixed hyperlipidemia; E03.9 Hypothyroidism, unspecified

== ENCOUNTER → 2021-07-06 | Outpatient (CLI) | payer BC ==
[~2021-07-06] MED LIST changes: +DICL20GE TP; +PRED20TA PO
--- NOTE | 2021-07-06 12:28 | REP ---
INDICATION: PAIN. COMPARISON: None. TECHNIQUE: Four views each hand. FINDINGS: Left hand: The joint spaces are symmetric and well maintained throughout. There is no fracture, dislocation, or subluxation. There is no marginal osteophytosis and there are no marginal erosions. There is no evidence of periarticular osteopenia. Right hand: There is a possible tiny marginal erosion involving the base of the medial aspect of the 5th metacarpal. There are no other marginal erosions. The joint spaces are symmetric and well maintained throughout. There is no periarticular osteopenia and there is no marginal osteophytosis. IMPRESSION: Potential findings involving the right hand as described above. <Electronically signed by Jay Mesa > 07/06/21 1410
--- NOTE | 2021-07-06 12:30 | REP ---
INDICATION: PAIN. COMPARISON: None. TECHNIQUE: Four views each wrist FINDINGS: Left wrist: There is no fracture or destructive osseous lesion. The articular surfaces are smooth. Right wrist: There is a small potential marginal erosion involving the medial aspect of the base of the 5th metacarpal. There are no other significant findings. IMPRESSION: As above. <Electronically signed by Jay Mesa > 07/06/21 [id number]
== END ==
LOC: M ADAMS 11:35
PROVIDERS: ATTEND Internal Medicine Hematology & Oncology
DX: M79.641 Pain in right hand (principal); M79.642 Pain in left hand; M25.531 Pain in right wrist; M25.532 Pain in left wrist

== ENCOUNTER → 2021-08-16 | Outpatient (REF) | payer BC ==
[~2021-08-16] MED LIST changes: -LISI-898 PO; +LISI5TAB11 PO; +ONDA-84 PO; -ONDA8TAB10 PO; -PROC10TA4 PO; +PROC10TA5 PO
== END ==
LOC: M SFHCADAM 16:09
PROVIDERS: ATTEND Physician Assistant
DX: N30.00 Acute cystitis without hematuria (principal)

== ENCOUNTER → 2021-08-30 | Outpatient (CLI) | payer BC ==
[~2021-08-30] MED LIST changes: +PROHANCE 279.3MG/ML 15ML VIAL As Ordered ONE; +PROHANCE 279.3MG/ML 5ML VIAL As Ordered ONE
== END ==
LOC: M RAD 15:25
PROVIDERS: ATTEND General Practice
DX: C34.12 Malignant neoplasm of upper lobe, left bronchus or lung (principal)
CPT/HCPCS: 70553; A9576

== ENCOUNTER → 2021-09-02 | Outpatient (CLI) | payer BC ==
[~2021-09-02] MED LIST changes: +ERGO500029 PO; -PROHANCE 279.3MG/ML 15ML VIAL As Ordered ONE; -PROHANCE 279.3MG/ML 5ML VIAL As Ordered ONE
== END ==
LOC: M ONCR 11:08
PROVIDERS: ATTEND General Practice
DX: C34.12 Malignant neoplasm of upper lobe, left bronchus or lung (principal); F17.210 Nicotine dependence, cigarettes, uncomplicated; Z79.84 Long term (current) use of oral hypoglycemic drugs; Z79.899 Other long term (current) drug therapy; Z88.1 Allergy status to other antibiotic agents; Z88.8 Allergy status to other drugs, medicaments and biological substances; Z92.21 Personal history of antineoplastic chemotherapy; Z92.3 Personal history of irradiation

== ENCOUNTER → 2021-09-07 | Outpatient (CLI) | payer BC ==
[~2021-09-07] MED LIST changes: +PROHANCE 279.3MG/ML 15ML VIAL As Ordered ONE; +PROHANCE 279.3MG/ML 5ML VIAL As Ordered ONE
== END ==
LOC: M RAD 14:34
PROVIDERS: ATTEND Anesthesiology
DX: M96.1 Postlaminectomy syndrome, not elsewhere classified (principal)
CPT/HCPCS: 72158; A9576

== ENCOUNTER → 2021-09-08 | Outpatient (CLI) | payer BC ==
[~2021-09-08] MED LIST changes: +ISOVUE-370 76% 100ML VIAL As Ordered ONE; -PROHANCE 279.3MG/ML 15ML VIAL As Ordered ONE; -PROHANCE 279.3MG/ML 5ML VIAL As Ordered ONE
== END ==
LOC: M RAD 08:14
PROVIDERS: ATTEND Internal Medicine Medical Oncology
DX: C34.92 Malignant neoplasm of unspecified part of left bronchus or lung (principal)
CPT/HCPCS: 71260; Q9967

== ENCOUNTER → 2021-09-29 | Outpatient (CLI) | payer BC ==
[~2021-09-29] MED LIST changes: -ISOVUE-370 76% 100ML VIAL As Ordered ONE
== END ==
LOC: M PAIN 11:00
PROVIDERS: ATTEND Nurse Practitioner Family
DX: M96.1 Postlaminectomy syndrome, not elsewhere classified (principal); E11.9 Type 2 diabetes mellitus without complications; K21.9 Gastro-esophageal reflux disease without esophagitis; E03.9 Hypothyroidism, unspecified; F17.210 Nicotine dependence, cigarettes, uncomplicated; Z86.59 Personal history of other mental and behavioral disorders; Z88.1 Allergy status to other antibiotic agents; Z88.8 Allergy status to other drugs, medicaments and biological substances; Z79.84 Long term (current) use of oral hypoglycemic drugs; Z79.891 Long term (current) use of opiate analgesic; Z79.899 Other long term (current) drug therapy

== ENCOUNTER → 2021-12-16 | Outpatient (CLI) | payer BC | LOC: M ONCR 11:25 | PROVIDERS: ATTEND General Practice | DX: C34.12 Malignant neoplasm of upper lobe, left bronchus or lung (principal); F17.210 Nicotine dependence, cigarettes, uncomplicated; Z79.84 Long term (current) use of oral hypoglycemic drugs; Z79.899 Other long term (current) drug therapy; Z88.1 Allergy status to other antibiotic agents; Z88.8 Allergy status to other drugs, medicaments and biological substances; Z92.21 Personal history of antineoplastic chemotherapy; Z92.3 Personal history of irradiation ==

== ENCOUNTER → 2022-01-03 | Outpatient (CLI) | payer BC ==
[2022-01-03 12:54] LABS: BASO # 0.1 10^3/uL (0.0-0.2); BASO % 0.8 % (0.0-1.0); EOS # 0.2 10^3/uL (0.0-0.5); EOS % 2.1 % (0.0-3.0); HEMATOCRIT 53.1 % (36.0-47.0); HEMOGLOBIN 17.5 g/dl (12.0-15.5); LYMPH # 3.6 10^3/uL (1.5-5.0); LYMPH % 39.5 % (24.0-44.0); MEAN CORPUSCULAR VOLUME 100.2 fl (80.0-96.0); MONO # 0.7 10^3/uL (0.0-0.8); MONO % 8.1 % (2.0-8.0); NEUTROPHILS # 4.4 10^3/uL (1.5-8.5); NEUTROPHILS % 48.8 % (36.0-66.0); PLATELET COUNT, AUTOMATED 301 10^3/uL (150-450)
[2022-01-03 13:27] LABS: ALBUMIN 3.6 GM/DL (3.2-5.2); ALT/SGPT 17 U/L (12-78); BILIRUBIN,TOTAL 0.3 MG/DL (0.2-1.0); BLOOD UREA NITROGEN 15 MG/DL (7-18); CALCIUM LEVEL 9.7 MG/DL (8.5-10.1); CARBON DIOXIDE LEVEL 30 MEQ/L (21-32); CHLORIDE LEVEL 107 MEQ/L (98-107); CREATININE FOR GFR 0.98 MG/DL (0.55-1.30); GLOMERULAR FILTRATION RATE > 60.0 (>58); GLUCOSE, FASTING 85 MG/DL (70-100); POTASSIUM SERUM 4.7 MEQ/L (3.5-5.1); SODIUM LEVEL 142 MEQ/L (136-145)
== END ==
LOC: M ADAMS 11:40
PROVIDERS: ATTEND Specialist
DX: C34.90 Malignant neoplasm of unspecified part of unspecified bronchus or lung (principal)

== ENCOUNTER → 2022-01-19 | Outpatient (CLI) | payer BC | LOC: M PAIN 11:30 | PROVIDERS: ATTEND Anesthesiology | DX: M96.1 Postlaminectomy syndrome, not elsewhere classified (principal); G89.29 Other chronic pain; E11.9 Type 2 diabetes mellitus without complications; K21.9 Gastro-esophageal reflux disease without esophagitis; F17.210 Nicotine dependence, cigarettes, uncomplicated; Z86.59 Personal history of other mental and behavioral disorders; Z88.1 Allergy status to other antibiotic agents; Z88.8 Allergy status to other drugs, medicaments and biological substances; Z79.84 Long term (current) use of oral hypoglycemic drugs; Z79.899 Other long term (current) drug therapy ==

== ENCOUNTER → 2022-01-24 | Outpatient (REF) | payer BC ==
[2022-01-24 13:23] LABS: HEMOGLOBIN A1c 5.8 %
[2022-01-24 13:32] LABS: ALBUMIN 3.6 GM/DL (3.2-5.2); ALT/SGPT 18 U/L (12-78); BILIRUBIN,TOTAL 0.8 MG/DL (0.2-1.0); BLOOD UREA NITROGEN 12 MG/DL (7-18); CALCIUM LEVEL 9.4 MG/DL (8.5-10.1); CARBON DIOXIDE LEVEL 32 MEQ/L (21-32); CHLORIDE LEVEL 105 MEQ/L (98-107); CREATININE FOR GFR 1.02 MG/DL (0.55-1.30); GLOMERULAR FILTRATION RATE > 60.0 (>58); GLUCOSE, FASTING 95 MG/DL (70-100); POTASSIUM SERUM 4.6 MEQ/L (3.5-5.1); SODIUM LEVEL 140 MEQ/L (136-145); TOTAL PROTEIN 6.9 GM/DL (6.4-8.2)
[2022-01-24 13:49] LABS: TOTAL 25(OH) VITAMIN D 44.8 NG/ML (30.0-100.0)
[2022-01-24 13:50] LABS: VITAMIN B12 LEVEL 260 PG/ML
== END ==
LOC: M SFHCADAM 10:03
PROVIDERS: ATTEND Physician Assistant
DX: E55.9 Vitamin D deficiency, unspecified (principal); E11.65 Type 2 diabetes mellitus with hyperglycemia; M43.07 Spondylolysis, lumbosacral region; M51.06 Intervertebral disc disorders with myelopathy, lumbar region

== ENCOUNTER → 2022-02-07 | Outpatient (CLI) | payer BC ==
[~2022-02-07] MED LIST changes: +ISOVUE-370 76% 100ML VIAL As Ordered ONE
== END ==
LOC: M RAD 15:33
PROVIDERS: ATTEND Specialist
DX: C34.90 Malignant neoplasm of unspecified part of unspecified bronchus or lung (principal); I25.84 Coronary atherosclerosis due to calcified coronary lesion; J43.9 Emphysema, unspecified; K76.0 Fatty (change of) liver, not elsewhere classified; R91.8 Other nonspecific abnormal finding of lung field; E27.9 Disorder of adrenal gland, unspecified
CPT/HCPCS: 71260; Q9967

== ENCOUNTER → 2022-02-07 | Outpatient (CLI) | payer BC ==
[~2022-02-07] MED LIST changes: -ISOVUE-370 76% 100ML VIAL As Ordered ONE
== END ==
LOC: M RAD 15:31
PROVIDERS: ATTEND Physician Assistant
DX: M67.40 Ganglion, unspecified site (principal)

== ENCOUNTER → 2022-02-16 | Outpatient (CLI) | payer BC | LOC: M PAIN 15:15 | PROVIDERS: ATTEND Anesthesiology | DX: M96.1 Postlaminectomy syndrome, not elsewhere classified (principal); G89.29 Other chronic pain; E11.9 Type 2 diabetes mellitus without complications; K21.9 Gastro-esophageal reflux disease without esophagitis; F17.210 Nicotine dependence, cigarettes, uncomplicated; Z88.1 Allergy status to other antibiotic agents; Z88.8 Allergy status to other drugs, medicaments and biological substances; Z79.84 Long term (current) use of oral hypoglycemic drugs; Z79.891 Long term (current) use of opiate analgesic; Z79.899 Other long term (current) drug therapy ==

== ENCOUNTER → 2022-02-20 | Outpatient (REF) | payer BC ==
[2022-02-20 17:28] LABS: FREE T4 1.39 NG/DL (0.76-1.46); THYROID STIMULATING HORMONE 4.6 uIU/ML (0.358-3.740)
[2022-02-20 17:30] LABS: CREATININE, URINE 99.3 MG/DL; MAU/CREAT RATIO 183.2 MCG/MG (0.0-30.0)
== END ==
LOC: M SFHCADAM 11:40
PROVIDERS: ATTEND Physician Assistant
DX: D75.1 Secondary polycythemia (principal); R63.5 Abnormal weight gain; E11.9 Type 2 diabetes mellitus without complications

== ENCOUNTER → 2022-03-06 | Outpatient (CLI) | payer BC ==
[~2022-03-06] MED LIST changes: +PROHANCE 279.3MG/ML 15ML VIAL As Ordered ONE; +PROHANCE 279.3MG/ML 5ML VIAL As Ordered ONE
== END ==
LOC: M RAD 10:45
PROVIDERS: ATTEND General Practice
DX: C34.12 Malignant neoplasm of upper lobe, left bronchus or lung (principal)
CPT/HCPCS: 70553; A9576

== ENCOUNTER → 2022-03-13 | Outpatient (REF) | payer BC ==
[~2022-03-13] MED LIST changes: -PROHANCE 279.3MG/ML 15ML VIAL As Ordered ONE; -PROHANCE 279.3MG/ML 5ML VIAL As Ordered ONE
[2022-03-13 15:05] LABS: BLOOD UREA NITROGEN 16 MG/DL (7-18); CALCIUM LEVEL 9.3 MG/DL (8.5-10.1); CARBON DIOXIDE LEVEL 29 MEQ/L (21-32); CHLORIDE LEVEL 110 MEQ/L (98-107); CREATININE FOR GFR 1.01 MG/DL (0.55-1.30); GLOMERULAR FILTRATION RATE > 60.0 (>58); GLUCOSE, FASTING 99 MG/DL (70-100); POTASSIUM SERUM 4.6 MEQ/L (3.5-5.1); SODIUM LEVEL 142 MEQ/L (136-145)
== END ==
LOC: M SFHCADAM 10:42
PROVIDERS: ATTEND Physician Assistant
DX: E11.65 Type 2 diabetes mellitus with hyperglycemia (principal)

== ENCOUNTER → 2022-03-15 | Outpatient (CLI) | payer BC ==
[~2022-03-15] MED LIST changes: +PROHANCE 279.3MG/ML 15ML VIAL As Ordered ONE; +PROHANCE 279.3MG/ML 5ML VIAL As Ordered ONE
== END ==
LOC: M RAD 14:26
PROVIDERS: ATTEND Physician Assistant
DX: M71.331 Other bursal cyst, right wrist (principal)
CPT/HCPCS: 73223; A9576

== ENCOUNTER → 2022-03-22 | Outpatient (CLI) | payer BC ==
[~2022-03-22] MED LIST changes: -PROHANCE 279.3MG/ML 15ML VIAL As Ordered ONE; -PROHANCE 279.3MG/ML 5ML VIAL As Ordered ONE
== END ==
LOC: M PAIN 10:00
PROVIDERS: ATTEND Anesthesiology
DX: Z79.891 Long term (current) use of opiate analgesic (principal); G89.29 Other chronic pain

== ENCOUNTER → 2022-03-28 | Outpatient (CLI) | payer BC | LOC: M ONCR 15:54 | PROVIDERS: ATTEND General Practice | DX: Z08 Encounter for follow-up examination after completed treatment for malignant neoplasm (principal); Z85.110 Personal history of malignant carcinoid tumor of bronchus and lung ==

== ENCOUNTER → 2022-04-12 | Outpatient (CLI) | payer BC | LOC: M PAIN 15:15 | PROVIDERS: ATTEND Anesthesiology | DX: M96.1 Postlaminectomy syndrome, not elsewhere classified (principal); G89.29 Other chronic pain; E11.9 Type 2 diabetes mellitus without complications; K21.9 Gastro-esophageal reflux disease without esophagitis; F17.210 Nicotine dependence, cigarettes, uncomplicated; Z86.59 Personal history of other mental and behavioral disorders; Z88.1 Allergy status to other antibiotic agents; Z88.8 Allergy status to other drugs, medicaments and biological substances; Z79.84 Long term (current) use of oral hypoglycemic drugs; Z79.899 Other long term (current) drug therapy ==

== ENCOUNTER → 2022-05-03 | Outpatient (REF) | payer BC ==
[2022-05-03 21:25] LABS: APPEARANCE, URINE MANUAL CLEAR (CLEAR); COLOR, URINE MANUAL YELLOW (YELLOW); GLUCOSE, URINE (UA) MANUAL 4+(1000 MG/DL) mg/dL (NEGATIVE); PROTEIN, URINE MANUAL NEGATIVE (NEGATIVE); SPECIFIC GRAVITY,URINE MANUAL 1.015 (1.002-1.035)
[2022-05-03 21:26] LABS: BILIRUBIN, URINE MANUAL NEGATIVE (NEGATIVE); BLOOD URINE MANUAL POSITIVE (NEGATIVE); KETONE, URINE MANUAL NEGATIVE (NEGATIVE); LEUKOCYTE ESTERASE, URINE MAN NEGATIVE (NEGATIVE); NITRITE, URINE MANUAL NEGATIVE (NEGATIVE); UROBILINOGEN, URINE MANUAL NORMAL (NORMAL)
[2022-05-03 21:51] LABS: BACTERIA, URINE NONE SEEN; HYALINE CAST, URINE NONE SEEN /lpf (0-1); RBC, URINE 20-30 /hpf (0-3); SQUAMOUS EPITHELIAL CELL URINE SMALL AMOUNT /hpf (SMALL AMT); WBC, URINE 0-1 /hpf (0-3); YEAST, URINE MOD AMOUNT
== END ==
LOC: M SFHCADAM 16:50
PROVIDERS: ATTEND Physician Assistant
DX: R82.998 Other abnormal findings in urine (principal)

== ENCOUNTER → 2022-05-29 | Outpatient (REF) | payer BC ==
[~2022-05-29] MED LIST changes: +GABA-282 PO; +LISI2.5T9; +OXYB5TAB10
[2022-05-29 14:24] LABS: APPEARANCE, URINE MANUAL CLEAR (CLEAR); COLOR, URINE MANUAL YELLOW (YELLOW)
[2022-05-29 14:26] LABS: BILIRUBIN, URINE MANUAL NEGATIVE (NEGATIVE); GLUCOSE, URINE (UA) MANUAL 4+(1000 MG/DL) mg/dL (NEGATIVE); KETONE, URINE MANUAL NEGATIVE (NEGATIVE); LEUKOCYTE ESTERASE, URINE MAN NEGATIVE (NEGATIVE); NITRITE, URINE MANUAL NEGATIVE (NEGATIVE); PROTEIN, URINE MANUAL NEGATIVE (NEGATIVE); SPECIFIC GRAVITY,URINE MANUAL 1.005 (1.002-1.035); UROBILINOGEN, URINE MANUAL NORMAL (NORMAL)
[2022-05-29 14:27] LABS: BLOOD URINE MANUAL TRACE (NEGATIVE)
[2022-05-29 14:57] LABS: BACTERIA, URINE SMALL AMOUNT; HYALINE CAST, URINE NONE SEEN /lpf (0-1); SQUAMOUS EPITHELIAL CELL URINE MOD AMOUNT /hpf (SMALL AMT); YEAST, URINE MOD AMOUNT
== END ==
LOC: M SMT 13:03
PROVIDERS: ATTEND Urology
DX: R31.0 Gross hematuria (principal)

== ENCOUNTER 2022-05-30 11:19 | Emergency (ER) | payer BC ==
[~2022-05-30] VITALS: Ht 175.3 cm; Wt 100.0 kg
[~2022-05-30 11:19] MED LIST changes: -OXYB5TAB10
[2022-05-30 11:21] VITALS: BP 114/74
[2022-05-30] MEDS ORDERED: OXYB5TAB10 (11:31)
== END 2022-05-30 14:24 | disposition left against medical advice (07) ==
LOC: M ED 11:19
DX: Z53.21 Procedure and treatment not carried out due to patient leaving prior to being seen by health care provider (principal)

== ENCOUNTER → 2022-05-31 | Outpatient (CLI) | payer BC ==
[~2022-05-31] MED LIST changes: +INDO-16 PO; +ISOVUE-370 76% 100ML VIAL As Ordered ONE; +METH-1164 PO; +OXYB5TAB10
== END ==
LOC: M RAD 08:27
PROVIDERS: ATTEND Physician Assistant
DX: C34.90 Malignant neoplasm of unspecified part of unspecified bronchus or lung (principal); R31.0 Gross hematuria

== ENCOUNTER → 2022-06-20 | Outpatient (CLI) | payer BC ==
[~2022-06-20] MED LIST changes: -ISOVUE-370 76% 100ML VIAL As Ordered ONE; +XANA0.5T PO
== END ==
LOC: M PAIN 15:45
PROVIDERS: ATTEND Anesthesiology
DX: M96.1 Postlaminectomy syndrome, not elsewhere classified (principal); G89.29 Other chronic pain; E11.9 Type 2 diabetes mellitus without complications; K21.9 Gastro-esophageal reflux disease without esophagitis; E03.9 Hypothyroidism, unspecified; F17.210 Nicotine dependence, cigarettes, uncomplicated; Z86.59 Personal history of other mental and behavioral disorders; Z88.1 Allergy status to other antibiotic agents; Z88.8 Allergy status to other drugs, medicaments and biological substances; Z79.84 Long term (current) use of oral hypoglycemic drugs; Z79.890 Hormone replacement therapy; Z79.899 Other long term (current) drug therapy

== ENCOUNTER → 2022-06-26 | Outpatient (CLI) | payer BC ==
[~2022-06-26] MED LIST changes: +TIZA2TA
== END ==
LOC: M PLARAD 08:47
PROVIDERS: ATTEND Internal Medicine Hematology & Oncology
DX: C34.12 Malignant neoplasm of upper lobe, left bronchus or lung (principal)
CPT/HCPCS: 78815; A9552

== ENCOUNTER → 2022-07-04 | Outpatient (CLI) | payer BC | LOC: M PAIN 14:00 | PROVIDERS: ATTEND Anesthesiology | DX: R07.89 Other chest pain (principal); M54.50 Low back pain, unspecified; Z85.118 Personal history of other malignant neoplasm of bronchus and lung; Z85.528 Personal history of other malignant neoplasm of kidney; E11.40 Type 2 diabetes mellitus with diabetic neuropathy, unspecified; K21.9 Gastro-esophageal reflux disease without esophagitis; E03.9 Hypothyroidism, unspecified; F17.210 Nicotine dependence, cigarettes, uncomplicated; Z88.1 Allergy status to other antibiotic agents; Z88.8 Allergy status to other drugs, medicaments and biological substances; Z79.84 Long term (current) use of oral hypoglycemic drugs; Z79.890 Hormone replacement therapy; Z79.899 Other long term (current) drug therapy ==

== ENCOUNTER → 2022-07-25 | Outpatient (CLI) | payer BC | LOC: M TMPAIN 10:45 → M PAIN 10:45 | PROVIDERS: ATTEND Anesthesiology | DX: M54.50 Low back pain, unspecified (principal); R07.89 Other chest pain; E11.9 Type 2 diabetes mellitus without complications; K21.9 Gastro-esophageal reflux disease without esophagitis; E03.9 Hypothyroidism, unspecified; F17.210 Nicotine dependence, cigarettes, uncomplicated; Z86.59 Personal history of other mental and behavioral disorders; Z88.1 Allergy status to other antibiotic agents; Z88.8 Allergy status to other drugs, medicaments and biological substances; Z79.84 Long term (current) use of oral hypoglycemic drugs; Z79.890 Hormone replacement therapy; Z79.899 Other long term (current) drug therapy ==

== ENCOUNTER → 2022-08-25 | Outpatient (REF) | payer BC ==
[2022-08-25 13:24] LABS: INR 1.05; PROTHROMBIN TIME 13.9 SECONDS (12.5-14.5)
[2022-08-25 13:25] LABS: MEAN CORPUSCULAR HEMOGLOBIN 34.3 pg (27.0-33.0); MEAN CORPUSCULAR HGB CONC 33.6 g/dl (32.0-36.5); PLATELET COUNT, AUTOMATED 270 10^3/uL (150-450); RED BLOOD COUNT 5.39 10^6/uL (4.00-5.40); WHITE BLOOD COUNT 8.9 10^3/uL (4.0-10.0)
[2022-08-25 13:28] LABS: HEMOGLOBIN 18.5 g/dl (12.0-15.5)
[2022-08-25 13:31] LABS: ALBUMIN 3.8 G/DL (3.2-5.2); ALKALINE PHOSPHATASE 80 U/L (46-116); ALT/SGPT 14 U/L (7.0-40); AST/SGOT 13 U/L (<34); BILIRUBIN,TOTAL 0.3 MG/DL (0.3-1.2); BLOOD UREA NITROGEN 14 MG/DL (9-23); CALCIUM LEVEL 9.4 MG/DL (8.5-10.1); CARBON DIOXIDE LEVEL 28 MMOL/L (20-31); CHLORIDE LEVEL 107 MMOL/L (98-107); CREATININE FOR GFR 0.86 MG/DL (0.55-1.30); GLOMERULAR FILTRATION RATE > 60.0 (>58); GLUCOSE, FASTING 99 MG/DL (60-100); POTASSIUM SERUM 4.5 MMOL/L (3.5-5.1); SODIUM LEVEL 142 MMOL/L (136-145)
== END ==
LOC: M SFHCADAM 11:18
PROVIDERS: ATTEND Urology
DX: N28.89 Other specified disorders of kidney and ureter (principal)

== ENCOUNTER → 2022-08-25 | Outpatient (CLI) | payer BC | LOC: M ADAMS 11:27 | PROVIDERS: ATTEND Urology | DX: N28.89 Other specified disorders of kidney and ureter (principal) ==

== ENCOUNTER → 2022-08-30 | Outpatient (REF) | payer BC | LOC: M SFHCADAM 14:51 | PROVIDERS: ATTEND Physician Assistant | DX: J39.2 Other diseases of pharynx (principal); J31.0 Chronic rhinitis ==

== ENCOUNTER → 2022-09-04 | Outpatient (REF) | payer BC ==
[~2022-09-04] MED LIST changes: +CARI1TAB7; +FLUTISP; -LISI2.5T9; -OXYB5TAB10; +TIZA10TA; +VITA100093 PO
[2022-09-04 13:02] LABS: APPEARANCE, URINE MANUAL CLEAR (CLEAR); BILIRUBIN, URINE MANUAL NEGATIVE (NEGATIVE); BLOOD URINE MANUAL NEGATIVE (NEGATIVE); COLOR, URINE MANUAL YELLOW (YELLOW); GLUCOSE, URINE (UA) MANUAL 4+(1000 MG/DL) mg/dL (NEGATIVE); KETONE, URINE MANUAL NEGATIVE (NEGATIVE); LEUKOCYTE ESTERASE, URINE MAN NEGATIVE (NEGATIVE); NITRITE, URINE MANUAL NEGATIVE (NEGATIVE); PROTEIN, URINE MANUAL NEGATIVE (NEGATIVE); UROBILINOGEN, URINE MANUAL NORMAL (NORMAL)
== END ==
LOC: M SFHCADAM 11:21
PROVIDERS: ATTEND Urology
DX: R31.0 Gross hematuria (principal)

== ENCOUNTER → 2022-09-06 | Outpatient (CLI) | payer BC | LOC: M LABSMTC 09:36 | PROVIDERS: ATTEND Anesthesiology | DX: Z01.812 Encounter for preprocedural laboratory examination (principal); Z20.822 Contact with and (suspected) exposure to COVID-19 ==

== ENCOUNTER 2022-09-11 06:16 | Inpatient (IN) | payer BC ==
[~2022-09-11] VITALS: Ht 175.3 cm; Wt 99.8 kg
[2022-09-11] VITALS (8 sets, daily range): BP systolic 108–128; BP diastolic 64–85
[~2022-09-11 06:16] MED LIST changes: -FLUTISP; +FLUTISP NARES; +LR 1,000 ML IV SCH; +ceFAZolin SOD 2 GM in IV 1 EA IV ONE; +fentaNYL 100 MCG/2 ML INJECTION IV PRN; +oxyCODONE 5MG TAB PO PRN
[2022-09-11] MEDS ORDERED: LR 1,000 ML IV SCH ×2 (06:25→10:00)
[2022-09-11] MEDS ORDERED: LIDOCAINE 1% SDV 5ML VIAL SC PRN (06:25)
[2022-09-11] MEDS ORDERED: BUPIVACAINE HCL 0.25% 30ML VIAL As Ordered ONE (07:22)
[2022-09-11] MEDS ORDERED: LIDOCAINE 1% SDV 30ML VIAL As Ordered ONE (07:22)
[2022-09-11] MEDS ORDERED: HYDROmorphone HCL 2MG/ML 1ML VIAL As Ordered ONE (08:04)
[2022-09-11] MEDS ORDERED: SUGAMMADEX SODIUM 500 MG/5 ML VIAL (BRIDION) As Ordered ONE (08:04)
[2022-09-11] MEDS ORDERED: fentaNYL 100 MCG/2 ML INJECTION As Ordered ONE (08:04)
[2022-09-11] MEDS ORDERED: MIDAZOLAM INJ 2MG/2ML VIAL As Ordered ONE (08:04)
[2022-09-11] MEDS ORDERED: ONDANSETRON 4MG 2ML VIAL As Ordered ONE (08:04)
[2022-09-11] MEDS ORDERED: ROCURONIUM BROMIDE 50MG/5ML VIAL As Ordered ONE ×2 (08:04→08:19)
[2022-09-11] MEDS ORDERED: propofoL 200 MG/20 ML VIAL As Ordered ONE (08:04)
[2022-09-11] MEDS ORDERED: LIDOCAINE 2% 100MG/5ML SDV (FOR ANES.) As Ordered ONE (08:04)
[2022-09-11] MEDS ORDERED: ACETAMINOPHEN 1000MG 100ML IV BAG As Ordered ONE (08:10)
[2022-09-11] MEDS ORDERED: MORPHINE 2 MG/ML 1ML VIAL IV PRN (10:00)
[2022-09-11] MEDS ORDERED: ONDANSETRON 4MG 2ML VIAL IV PRN ×2 (10:00→10:05)
[2022-09-11] MEDS ORDERED: fentaNYL 100 MCG/2 ML INJECTION IV PRN (10:00)
[2022-09-11] MEDS ORDERED: DEXTROSE 50% 50ML SYRINGE IV PRN (10:05)
[2022-09-11] MEDS ORDERED: INSULIN LISPRO (NovoLOG) PER UNIT SC PRN (10:05)
[2022-09-11] MEDS ORDERED: GLUCAGON INJ 1MG VIAL SC PRN (10:05)
[2022-09-11] MEDS ORDERED: GLUCOSE 4GM CHEW TABLET PO PRN (10:05)
[2022-09-11] MEDS ORDERED: ACETAMINOPHEN TAB 650MG DOSE (2X325MG) PO PRN (10:05)
[2022-09-11] MEDS: oxyCODONE 5MG TAB PO PRN ×2 (10:37→10:53)
[2022-09-11] MEDS: INSULIN LISPRO (NovoLOG) PER UNIT SC SCH ×3 (12:00→19:52)
[2022-09-11] MEDS: D5W/0.45% SODIUM CHLORIDE 1,000 ML IV SCH ×2 (13:03→19:52)
[2022-09-11] MEDS: MORPHINE 2 MG/ML 1ML VIAL IV PRN ×4 (13:15→23:07)
[2022-09-11] MEDS ORDERED: CARI1TAB7 PO (14:24)
[2022-09-11] MEDS ORDERED: GABA-282 PO ×2 (14:24)
[2022-09-11] MEDS ORDERED: HOME MED LIST COMPLETE! XX SCH (14:30)
[2022-09-11] MEDS: ceFAZolin SOD 1 GM in D5W MINI-BAG PLUS 50 ML IV SCH ×2 (15:36→23:06)
[2022-09-11] MEDS: NORCO, ANEXSIA 5/325MG TABLET (HYDROcodone/ACETAMINOPHEN) PO PRN ×2 (15:37→20:26)
[2022-09-12] VITALS (7 sets, daily range): BP systolic 106–129; BP diastolic 62–80; O2SAT 92
[2022-09-12] MEDS: NORCO, ANEXSIA 5/325MG TABLET (HYDROcodone/ACETAMINOPHEN) PO PRN ×3 (00:40→10:20)
[2022-09-12] MEDS: D5W/0.45% SODIUM CHLORIDE 1,000 ML IV SCH ×3 (03:19→20:47)
[2022-09-12] MEDS: MORPHINE 2 MG/ML 1ML VIAL IV PRN ×7 (03:20→23:07)
[2022-09-12] MEDS: LEVOTHYROXINE 137MCG TABLET (0.137MG) PO SCH (06:19)
[2022-09-12 06:26] LABS: BASO % 0.3 % (0.0-1.0); EOS % 0.3 % (0.0-3.0); HEMATOCRIT 48.6 % (36.0-47.0); LYMPH # 1.9 10^3/uL (1.5-5.0); LYMPH % 17.5 % (24.0-44.0); MEAN CORPUSCULAR HGB CONC 32.9 g/dl (32.0-36.5); MEAN CORPUSCULAR VOLUME 100.2 fl (80.0-96.0); MONO # 0.9 10^3/uL (0.0-0.8); MONO % 7.9 % (2.0-8.0); NEUTROPHILS # 8.1 10^3/uL (1.5-8.5); NEUTROPHILS % 73.8 % (36.0-66.0); PLATELET COUNT, AUTOMATED 228 10^3/uL (150-450); RED BLOOD COUNT 4.85 10^6/uL (4.00-5.40)
[2022-09-12 06:50] LABS: BILIRUBIN,TOTAL 0.6 MG/DL (0.3-1.2); CALCIUM LEVEL 8.8 MG/DL (8.5-10.1); CREATININE FOR GFR 1.24 MG/DL (0.55-1.30); GLOMERULAR FILTRATION RATE 49.1 (>58); POTASSIUM SERUM 4.2 MMOL/L (3.5-5.1); TOTAL PROTEIN 5.8 G/DL (5.7-8.2)
[2022-09-12] MEDS: INSULIN LISPRO (NovoLOG) PER UNIT SC SCH ×4 (07:30→20:48)
[2022-09-12] MEDS: ceFAZolin SOD 1 GM in D5W MINI-BAG PLUS 50 ML IV SCH (07:59)
[2022-09-12] MEDS: PANTOPRAZOLE 40MG TAB (PROTONIX) PO SCH (07:59)
[2022-09-12] MEDS: ATORVASTATIN 20 MG TAB PO SCH (07:59)
[2022-09-12] MEDS ORDERED: INFLUENZA QUADRIVALENT PF VACCINE 0.5ML SYRINGE IM.IMMUN ONE (09:00)
[2022-09-12] MEDS: DOCUSATE SODIUM 100MG CAPSULE PO SCH ×2 (12:15→20:47)
[2022-09-12] MEDS: ANEXSIA, NORCO 7.5MG/325MG TABLET(HYDROCODONE/APAP) PO PRN ×2 (15:40→21:51)
[2022-09-13] MEDS: MORPHINE 2 MG/ML 1ML VIAL IV PRN ×8 (01:19→22:26)
[2022-09-13 01:26] VITALS: BP 132/76
[2022-09-13] MEDS: ANEXSIA, NORCO 7.5MG/325MG TABLET(HYDROCODONE/APAP) PO PRN ×5 (02:06→20:07)
[2022-09-13 04:49] VITALS: O2SAT 91
[2022-09-13 05:20] VITALS: BP 130/76
[2022-09-13 05:48] LABS: BASO % 0.4 % (0.0-1.0); EOS # 0.1 10^3/uL (0.0-0.5); EOS % 0.7 % (0.0-3.0); HEMATOCRIT 45.6 % (36.0-47.0); HEMOGLOBIN 14.9 g/dl (12.0-15.5); LYMPH # 1.9 10^3/uL (1.5-5.0); LYMPH % 19.1 % (24.0-44.0); MEAN CORPUSCULAR HEMOGLOBIN 33.2 pg (27.0-33.0); MEAN CORPUSCULAR HGB CONC 32.7 g/dl (32.0-36.5); MEAN CORPUSCULAR VOLUME 101.6 fl (80.0-96.0); MONO # 0.8 10^3/uL (0.0-0.8); MONO % 7.8 % (2.0-8.0); NEUTROPHILS # 7.3 10^3/uL (1.5-8.5); NEUTROPHILS % 71.6 % (36.0-66.0); PLATELET COUNT, AUTOMATED 212 10^3/uL (150-450); RED BLOOD COUNT 4.49 10^6/uL (4.00-5.40); WHITE BLOOD COUNT 10.2 10^3/uL (4.0-10.0)
[2022-09-13] MEDS: LEVOTHYROXINE 137MCG TABLET (0.137MG) PO SCH (06:09)
[2022-09-13] MEDS: D5W/0.45% SODIUM CHLORIDE 1,000 ML IV SCH ×2 (06:09→15:44)
[2022-09-13 06:22] LABS: ALBUMIN 3.1 G/DL (3.2-5.2); ALKALINE PHOSPHATASE 55 U/L (46-116); ALT/SGPT < 9 U/L (7.0-40); AST/SGOT 13 U/L (<34); BILIRUBIN,TOTAL 0.9 MG/DL (0.3-1.2); BLOOD UREA NITROGEN 12 MG/DL (9-23); CALCIUM LEVEL 9.1 MG/DL (8.5-10.1); CARBON DIOXIDE LEVEL 24 MMOL/L (20-31); CHLORIDE LEVEL 107 MMOL/L (98-107); GLUCOSE, FASTING 126 MG/DL (60-100); POTASSIUM SERUM 3.7 MMOL/L (3.5-5.1); SODIUM LEVEL 137 MMOL/L (136-145); TOTAL PROTEIN 6.3 G/DL (5.7-8.2)
[2022-09-13] MEDS: DOCUSATE SODIUM 100MG CAPSULE PO SCH ×2 (09:17→20:06)
[2022-09-13] MEDS: PANTOPRAZOLE 40MG TAB (PROTONIX) PO SCH (09:18)
[2022-09-13] MEDS: INSULIN LISPRO (NovoLOG) PER UNIT SC SCH ×4 (09:18→21:00)
[2022-09-13] MEDS: ATORVASTATIN 20 MG TAB PO SCH (09:18)
[2022-09-13 10:00] VITALS: BP 130/75
[2022-09-13] MEDS: HEPARIN SOD (PORCINE) 5000UNITS/ML 1ML VIAL/SYRINGE SQ SCH ×2 (13:27→22:26)
[2022-09-13 14:00] VITALS: BP 109/59
[2022-09-13 20:52] VITALS: BP 102/50
[2022-09-14] MEDS: D5W/0.45% SODIUM CHLORIDE 1,000 ML IV SCH (00:16)
[2022-09-14] MEDS: ANEXSIA, NORCO 7.5MG/325MG TABLET(HYDROCODONE/APAP) PO PRN ×5 (00:51→20:24)
[2022-09-14] MEDS: MORPHINE 2 MG/ML 1ML VIAL IV PRN ×3 (01:39→08:13)
[2022-09-14 02:00] VITALS: BP 120/77
[2022-09-14 02:06] VITALS: O2SAT 91
[2022-09-14] MEDS: LEVOTHYROXINE 137MCG TABLET (0.137MG) PO SCH (05:50)
[2022-09-14] MEDS: HEPARIN SOD (PORCINE) 5000UNITS/ML 1ML VIAL/SYRINGE SQ SCH ×3 (05:50→22:54)
[2022-09-14 06:24] VITALS: BP 118/76
[2022-09-14] MEDS: INSULIN LISPRO (NovoLOG) PER UNIT SC SCH ×4 (07:30→21:00)
[2022-09-14] MEDS: ATORVASTATIN 20 MG TAB PO SCH (08:12)
[2022-09-14] MEDS: DOCUSATE SODIUM 100MG CAPSULE PO SCH ×2 (08:12→20:23)
[2022-09-14] MEDS: BISACODYL 5MG TAB PO SCH (08:12)
[2022-09-14] MEDS: PANTOPRAZOLE 40MG TAB (PROTONIX) PO SCH (08:12)
[2022-09-14] MEDS ORDERED: BISACODYL 5MG TAB PO ONE (10:00)
[2022-09-14 10:16] VITALS: O2SAT 90
[2022-09-14 14:00] VITALS: BP 117/74
[2022-09-14 21:28] VITALS: BP 115/76
[2022-09-15] MEDS: ANEXSIA, NORCO 7.5MG/325MG TABLET(HYDROCODONE/APAP) PO PRN ×3 (01:05→09:28)
[2022-09-15 02:10] VITALS: BP 114/75
[2022-09-15] MEDS: LEVOTHYROXINE 137MCG TABLET (0.137MG) PO SCH (05:18)
[2022-09-15] MEDS: HEPARIN SOD (PORCINE) 5000UNITS/ML 1ML VIAL/SYRINGE SQ SCH (05:18)
[2022-09-15 05:46] VITALS: BP 134/83
[2022-09-15] MEDS: INSULIN LISPRO (NovoLOG) PER UNIT SC SCH (07:30)
[2022-09-15] MEDS ORDERED: COLA100C5 PO (08:47)
[2022-09-15] MEDS ORDERED: HYDR-3713 PO (08:47)
[2022-09-15] MEDS ORDERED: BISACODYL 10MG SUPP PR ONE (09:00)
[2022-09-15] MEDS: DOCUSATE SODIUM 100MG CAPSULE PO SCH (09:27)
[2022-09-15] MEDS: ATORVASTATIN 20 MG TAB PO SCH (09:27)
[2022-09-15] MEDS: PANTOPRAZOLE 40MG TAB (PROTONIX) PO SCH (09:27)
[2022-09-15] MEDS: BISACODYL 5MG TAB PO SCH (09:28)
== END 2022-09-15 10:17 | disposition home or self-care (01) | DRG 442 ==
LOC: M OR 06:16 → M MSPAV 12:58
PROVIDERS: ADMIT Urology; ATTEND Urology
PROC: 0TT14ZZ Resection of Left Kidney, Percutaneous Endoscopic Approach (ICD-10-PCS; principal; 2022-09-11 07:30)
DX: C64.2 Malignant neoplasm of left kidney, except renal pelvis (principal); E66.9 Obesity, unspecified; K76.0 Fatty (change of) liver, not elsewhere classified; Z68.32 Body mass index [BMI] 32.0-32.9, adult; E11.9 Type 2 diabetes mellitus without complications; M79.18 Myalgia, other site

== ENCOUNTER → 2022-10-20 | Outpatient (REF) | payer BC ==
[~2022-10-20] MED LIST changes: +CARI1TAB7 PO; +COLA100C5 PO; +HYDR-3713 PO; -LR 1,000 ML IV SCH; -ceFAZolin SOD 2 GM in IV 1 EA IV ONE; -fentaNYL 100 MCG/2 ML INJECTION IV PRN; -oxyCODONE 5MG TAB PO PRN
[2022-10-20 19:14] LABS: APPEARANCE, URINE HAZY (CLEAR); BACTERIA, URINE AUTO 1+ (NEGATIVE); BILIRUBIN, URINE AUTO NEGATIVE (NEGATIVE); BLOOD, URINE BLOOD 2+ (NEGATIVE); COLOR, URINE YELLOW (YELLOW); GLUCOSE, URINE (UA) AUTO 3+ mg/dL (NEGATIVE); KETONE, URINE AUTO NEGATIVE (NEGATIVE); LEUKOCYTE ESTERASE, URINE AUTO 3+ (NEGATIVE); NITRITE, URINE AUTO NEGATIVE (NEGATIVE); PROTEIN, URINE AUTO 1+ mg/dL (NEGATIVE); RBC, URINE AUTO 6 /HPF (0-3); SPECIFIC GRAVITY URINE AUTO 1.006 (1.002-1.035); SQUAMOUS EPITHELIAL CELL UR AU 1 /HPF (0-6); UROBILINOGEN, URINE AUTO 0.2 mg/dL (0.0-2.0); WBC, URINE AUTO 46 /HPF (0-3)
== END ==
LOC: M SFHCADAM 13:03
PROVIDERS: ATTEND Urology
DX: R30.0 Dysuria (principal)

== ENCOUNTER → 2022-10-20 | Outpatient (REF) | payer BC ==
[2022-10-20 18:58] LABS: ALBUMIN 3.8 G/DL (3.2-5.2); BILIRUBIN,TOTAL 0.4 MG/DL (0.3-1.2); CALCIUM LEVEL 9.4 MG/DL (8.5-10.1); CREATININE FOR GFR 1.35 MG/DL (0.55-1.30); GLOMERULAR FILTRATION RATE 44.6 (>58); POTASSIUM SERUM 4.9 MMOL/L (3.5-5.1); TOTAL PROTEIN 7.1 G/DL (5.7-8.2)
== END ==
LOC: M LABDRWAD 17:22
PROVIDERS: ATTEND General Practice
DX: C34.12 Malignant neoplasm of upper lobe, left bronchus or lung (principal); R30.0 Dysuria

== ENCOUNTER → 2022-10-27 | Outpatient (REF) | payer BC ==
[~2022-10-27] MED LIST changes: +FLUT50SP17 NARES; -FLUTISP NARES
[2022-10-27 14:21] LABS: ALBUMIN 3.9 G/DL (3.2-5.2); BILIRUBIN,TOTAL 0.4 MG/DL (0.3-1.2); CALCIUM LEVEL 9.5 MG/DL (8.5-10.1); CHOLESTEROL RISK RATIO 4.34 (<5); CREATININE FOR GFR 1.45 MG/DL (0.55-1.30); HDL CHOLESTEROL 32.9 MG/DL (>40); LDL CHOLESTEROL 69.7 MG/DL (<100); NON-HDL-C 110.1 MG/DL; POTASSIUM SERUM 4.8 MMOL/L (3.5-5.1)
[2022-10-27 14:25] LABS: HEMATOCRIT 53.6 % (36.0-47.0); HEMOGLOBIN 17.9 g/dl (12.0-15.5); MEAN CORPUSCULAR HEMOGLOBIN 33.3 pg (27.0-33.0); MEAN CORPUSCULAR HGB CONC 33.4 g/dl (32.0-36.5); MEAN CORPUSCULAR VOLUME 99.6 fl (80.0-96.0); PLATELET COUNT, AUTOMATED 308 10^3/uL (150-450); RED BLOOD COUNT 5.38 10^6/uL (4.00-5.40); WHITE BLOOD COUNT 10.4 10^3/uL (4.0-10.0)
[2022-10-27 14:26] LABS: THYROID STIMULATING HORMONE 1.555 uIU/ML (0.55-4.78)
[2022-10-27 14:27] LABS: TOTAL 25(OH) VITAMIN D 35.8 NG/ML (20.0-100.0)
[2022-10-27 14:29] LABS: FREE T4 1.4 NG/DL (0.89-1.76)
[2022-10-27 14:32] LABS: FOLATE 6.1 NG/ML (>5.4)
[2022-10-27 14:36] LABS: MAU/CREAT RATIO 82.4 MCG/MG (0.0-30.0)
[2022-10-27 17:27] LABS: HEMOGLOBIN A1c 5.4 % (4.0-6.0)
== END ==
LOC: M SFHCADAM 10:14
PROVIDERS: ATTEND Physician Assistant
DX: R82.998 Other abnormal findings in urine (principal); E11.21 Type 2 diabetes mellitus with diabetic nephropathy; E53.8 Deficiency of other specified B group vitamins; E55.9 Vitamin D deficiency, unspecified; F17.218 Nicotine dependence, cigarettes, with other nicotine-induced disorders; E78.2 Mixed hyperlipidemia

== ENCOUNTER → 2022-11-02 | Outpatient (REF) | payer BC ==
[2022-11-02 16:20] LABS: APPEARANCE, URINE HAZY (CLEAR); BACTERIA, URINE AUTO NEGATIVE (NEGATIVE); BILIRUBIN, URINE AUTO NEGATIVE (NEGATIVE); BLOOD, URINE BLOOD NEGATIVE (NEGATIVE); COLOR, URINE YELLOW (YELLOW); GLUCOSE, URINE (UA) AUTO 3+ mg/dL (NEGATIVE); KETONE, URINE AUTO NEGATIVE (NEGATIVE); LEUKOCYTE ESTERASE, URINE AUTO NEGATIVE (NEGATIVE); NITRITE, URINE AUTO NEGATIVE (NEGATIVE); PROTEIN, URINE AUTO NEGATIVE (NEGATIVE); RBC, URINE AUTO 1 /HPF (0-3); SPECIFIC GRAVITY URINE AUTO 1.013 (1.002-1.035); SQUAMOUS EPITHELIAL CELL UR AU 4 /HPF (0-6); WBC, URINE AUTO 1 /HPF (0-3)
== END ==
LOC: M SFHCADAM 12:15
PROVIDERS: ATTEND Physician Assistant
DX: R35.0 Frequency of micturition (principal)

== ENCOUNTER → 2022-11-13 | Outpatient (CLI) | payer BC | LOC: M PAIN 14:30 | PROVIDERS: ATTEND Anesthesiology | DX: M47.816 Spondylosis without myelopathy or radiculopathy, lumbar region (principal); G89.29 Other chronic pain; E11.40 Type 2 diabetes mellitus with diabetic neuropathy, unspecified; K21.9 Gastro-esophageal reflux disease without esophagitis; Z86.59 Personal history of other mental and behavioral disorders; E03.9 Hypothyroidism, unspecified; F17.210 Nicotine dependence, cigarettes, uncomplicated; Z88.1 Allergy status to other antibiotic agents; Z88.8 Allergy status to other drugs, medicaments and biological substances; Z79.890 Hormone replacement therapy; Z79.84 Long term (current) use of oral hypoglycemic drugs; Z79.899 Other long term (current) drug therapy | CPT/HCPCS: 76000; G0463 ==

== ENCOUNTER → 2022-11-17 | Outpatient (REF) | payer BC ==
[2022-11-17 13:34] LABS: CALCIUM LEVEL 9.4 MG/DL (8.5-10.1); CREATININE FOR GFR 1.4 MG/DL (0.55-1.30); GLOMERULAR FILTRATION RATE 42.7 (>58); POTASSIUM SERUM 5.1 MMOL/L (3.5-5.1)
[2022-11-17 13:36] LABS: BASO # 0.1 10^3/uL (0.0-0.2); BASO % 0.9 % (0.0-1.0); EOS # 0.2 10^3/uL (0.0-0.5); HEMOGLOBIN 17.9 g/dl (12.0-15.5); LYMPH # 3.1 10^3/uL (1.5-5.0); LYMPH % 37.4 % (24.0-44.0); MEAN CORPUSCULAR HEMOGLOBIN 33.2 pg (27.0-33.0); MEAN CORPUSCULAR HGB CONC 33.8 g/dl (32.0-36.5); MEAN CORPUSCULAR VOLUME 98.3 fl (80.0-96.0); MONO # 0.5 10^3/uL (0.0-0.8); MONO % 5.7 % (2.0-8.0); NEUTROPHILS # 4.4 10^3/uL (1.5-8.5); NEUTROPHILS % 53.6 % (36.0-66.0); PLATELET COUNT, AUTOMATED 278 10^3/uL (150-450); RED BLOOD COUNT 5.39 10^6/uL (4.00-5.40); WHITE BLOOD COUNT 8.2 10^3/uL (4.0-10.0)
== END ==
LOC: M SFHCADAM 10:56
PROVIDERS: ATTEND Physician Assistant
DX: R35.0 Frequency of micturition (principal); Z90.5 Acquired absence of kidney; I95.9 Hypotension, unspecified; N18.32 Chronic kidney disease, stage 3b

== ENCOUNTER → 2022-11-21 | Outpatient (REF) | payer BC ==
[2022-11-21 17:15] LABS: APPEARANCE, URINE HAZY (CLEAR); BACTERIA, URINE AUTO NEGATIVE (NEGATIVE); BILIRUBIN, URINE AUTO NEGATIVE (NEGATIVE); BLOOD, URINE BLOOD NEGATIVE (NEGATIVE); COLOR, URINE YELLOW (YELLOW); GLUCOSE, URINE (UA) AUTO NEGATIVE (NEGATIVE); KETONE, URINE AUTO NEGATIVE (NEGATIVE); LEUKOCYTE ESTERASE, URINE AUTO NEGATIVE (NEGATIVE); NITRITE, URINE AUTO NEGATIVE (NEGATIVE); PROTEIN, URINE AUTO NEGATIVE (NEGATIVE); RBC, URINE AUTO 0 /HPF (0-3); SPECIFIC GRAVITY URINE AUTO 1.008 (1.002-1.035); SQUAMOUS EPITHELIAL CELL UR AU 1 /HPF (0-6); WBC, URINE AUTO 0 /HPF (0-3)
== END ==
LOC: M SFHCADAM 13:32
PROVIDERS: ATTEND Physician Assistant
DX: Z90.5 Acquired absence of kidney (principal); E11.29 Type 2 diabetes mellitus with other diabetic kidney complication; R10.9 Unspecified abdominal pain

== ENCOUNTER → 2022-11-30 | Outpatient (CLI) | payer BC ==
[~2022-11-30] MED LIST changes: +PROHANCE 279.3MG/ML 5ML VIAL As Ordered ONE
== END ==
LOC: M RAD 10:51
PROVIDERS: ATTEND General Practice
DX: C34.12 Malignant neoplasm of upper lobe, left bronchus or lung (principal)
CPT/HCPCS: 70553; A9576

== ENCOUNTER → 2022-12-04 | Outpatient (CLI) | payer BC ==
[~2022-12-04] MED LIST changes: -PROHANCE 279.3MG/ML 5ML VIAL As Ordered ONE
== END ==
LOC: M ONCR 10:46
PROVIDERS: ATTEND General Practice
DX: Z01.89 Encounter for other specified special examinations (principal)

== ENCOUNTER → 2022-12-04 | Outpatient (CLI) | payer BC | LOC: M PAIN 13:15 | PROVIDERS: ATTEND Anesthesiology | DX: Z79.891 Long term (current) use of opiate analgesic (principal) ==

== ENCOUNTER → 2023-01-04 | Outpatient (CLI) | payer BC ==
[~2023-01-04] MED LIST changes: +GASTROGRAFIN SOLUTION 30ML As Ordered ONE; +ISOVUE-370 76% 100ML VIAL As Ordered ONE
[2023-01-04 11:43] LABS: BASO % 0.7 % (0.0-1.0); EOS # 0.1 10^3/uL (0.0-0.5); EOS % 1.7 % (0.0-3.0); HEMATOCRIT 54.4 % (36.0-47.0); LYMPH # 2.3 10^3/uL (1.5-5.0); LYMPH % 39.4 % (24.0-44.0); MEAN CORPUSCULAR HEMOGLOBIN 33.1 pg (27.0-33.0); MEAN CORPUSCULAR HGB CONC 33.1 g/dl (32.0-36.5); MONO # 0.4 10^3/uL (0.0-0.8); MONO % 6.9 % (2.0-8.0); PLATELET COUNT, AUTOMATED 286 10^3/uL (150-450); RED BLOOD COUNT 5.44 10^6/uL (4.00-5.40); WHITE BLOOD COUNT 5.8 10^3/uL (4.0-10.0)
[2023-01-04 11:55] LABS: INR 1.01; PROTHROMBIN TIME 13.5 SECONDS (12.5-14.5)
[2023-01-04 11:56] LABS: PARTIAL THROMBOPLASTIN TIME 31.3 SECONDS (24.8-34.2)
[2023-01-04 12:02] LABS: ALBUMIN 3.8 G/DL (3.2-5.2); ALKALINE PHOSPHATASE 89 U/L (46-116); ALT/SGPT 11 U/L (7.0-40); AST/SGOT < 8 U/L (<34); BILIRUBIN,TOTAL 0.3 MG/DL (0.3-1.2); BLOOD UREA NITROGEN 17 MG/DL (9-23); CALCIUM LEVEL 10.2 MG/DL (8.5-10.1); CARBON DIOXIDE LEVEL 27 MMOL/L (20-31); CHLORIDE LEVEL 106 MMOL/L (98-107); CREATININE FOR GFR 1.36 MG/DL (0.55-1.30); GLOMERULAR FILTRATION RATE 44.2 (>58); GLUCOSE, FASTING 79 MG/DL (60-100); POTASSIUM SERUM 5.1 MMOL/L (3.5-5.1); SODIUM LEVEL 139 MMOL/L (136-145); TOTAL PROTEIN 6.9 G/DL (5.7-8.2)
== END ==
LOC: M RAD 10:11
PROVIDERS: ATTEND Physician Assistant
DX: C34.90 Malignant neoplasm of unspecified part of unspecified bronchus or lung (principal); K92.1 Melena; Z90.5 Acquired absence of kidney; R10.84 Generalized abdominal pain
CPT/HCPCS: 36415; 71260; 74178; 80053; 85025; 85610; 85730; Q9963; Q9967

== ENCOUNTER → 2023-01-05 | Outpatient (CLI) | payer BC ==
[~2023-01-05] MED LIST changes: -GASTROGRAFIN SOLUTION 30ML As Ordered ONE; -ISOVUE-370 76% 100ML VIAL As Ordered ONE
== END ==
LOC: M PAIN 10:00
PROVIDERS: ATTEND Nurse Practitioner Family
DX: M51.16 Intervertebral disc disorders with radiculopathy, lumbar region (principal); G89.29 Other chronic pain; E11.9 Type 2 diabetes mellitus without complications; K21.9 Gastro-esophageal reflux disease without esophagitis; E03.9 Hypothyroidism, unspecified; F17.210 Nicotine dependence, cigarettes, uncomplicated; Z86.59 Personal history of other mental and behavioral disorders; Z88.1 Allergy status to other antibiotic agents; Z88.8 Allergy status to other drugs, medicaments and biological substances; Z79.84 Long term (current) use of oral hypoglycemic drugs; Z79.890 Hormone replacement therapy; Z79.899 Other long term (current) drug therapy

== ENCOUNTER → 2023-02-08 | Outpatient (CLI) | payer BC ==
[~2023-02-08] MED LIST changes: +ALBU8.5H; +CLIN-250
== END ==
LOC: M PAIN 10:45 → M TMPAIN 10:45
PROVIDERS: ATTEND Nurse Practitioner Family
DX: M96.1 Postlaminectomy syndrome, not elsewhere classified (principal); M51.16 Intervertebral disc disorders with radiculopathy, lumbar region; G89.29 Other chronic pain; E11.9 Type 2 diabetes mellitus without complications; K21.9 Gastro-esophageal reflux disease without esophagitis; E03.9 Hypothyroidism, unspecified; F17.210 Nicotine dependence, cigarettes, uncomplicated; Z86.59 Personal history of other mental and behavioral disorders; Z88.1 Allergy status to other antibiotic agents; Z88.8 Allergy status to other drugs, medicaments and biological substances; Z79.84 Long term (current) use of oral hypoglycemic drugs; Z79.890 Hormone replacement therapy; Z79.899 Other long term (current) drug therapy; F32.A Depression, unspecified; E66.9 Obesity, unspecified; E53.8 Deficiency of other specified B group vitamins

== ENCOUNTER → 2023-02-14 | Outpatient (REF) | payer BC ==
[2023-02-14 16:31] LABS: HEMOGLOBIN 16.7 g/dl (12.0-15.5); MEAN CORPUSCULAR HEMOGLOBIN 33.3 pg (27.0-33.0); MEAN CORPUSCULAR HGB CONC 33.4 g/dl (32.0-36.5); MEAN CORPUSCULAR VOLUME 99.6 fl (80.0-96.0); PLATELET COUNT, AUTOMATED 288 10^3/uL (150-450); RED BLOOD COUNT 5.02 10^6/uL (4.00-5.40); WHITE BLOOD COUNT 7.7 10^3/uL (4.0-10.0)
[2023-02-14 17:00] LABS: HEMOGLOBIN A1c 5.4 % (4.0-6.0)
[2023-02-14 17:02] LABS: CALCIUM LEVEL 9.3 MG/DL (8.5-10.1); CREATININE FOR GFR 1.41 MG/DL (0.55-1.30); GLOMERULAR FILTRATION RATE 42.2 (>58); POTASSIUM SERUM 4.8 MMOL/L (3.5-5.1)
== END ==
LOC: M SFHCADAM 14:12
PROVIDERS: ATTEND Physician Assistant
DX: E11.29 Type 2 diabetes mellitus with other diabetic kidney complication (principal); N18.32 Chronic kidney disease, stage 3b; R10.9 Unspecified abdominal pain; E66.9 Obesity, unspecified; Z90.5 Acquired absence of kidney; Z68.34 Body mass index [BMI] 34.0-34.9, adult

== ENCOUNTER → 2023-03-08 | Outpatient (CLI) | payer BC | LOC: M PAIN 15:15 | PROVIDERS: ATTEND Nurse Practitioner Family | DX: M96.1 Postlaminectomy syndrome, not elsewhere classified (principal); G89.29 Other chronic pain; E11.9 Type 2 diabetes mellitus without complications; K21.9 Gastro-esophageal reflux disease without esophagitis; E03.9 Hypothyroidism, unspecified; F17.210 Nicotine dependence, cigarettes, uncomplicated; Z86.59 Personal history of other mental and behavioral disorders; Z88.1 Allergy status to other antibiotic agents; Z88.8 Allergy status to other drugs, medicaments and biological substances; Z79.84 Long term (current) use of oral hypoglycemic drugs; Z79.890 Hormone replacement therapy; Z79.899 Other long term (current) drug therapy ==

== ENCOUNTER → 2023-04-12 | Outpatient (CLI) | payer BC | LOC: M PLAIMG 10:45 | PROVIDERS: ATTEND Nurse Practitioner Family | DX: M96.1 Postlaminectomy syndrome, not elsewhere classified (principal) ==

== ENCOUNTER → 2023-04-23 | Outpatient (CLI) | payer BC | LOC: M PAIN 16:00 | PROVIDERS: ATTEND Nurse Practitioner Family | DX: M96.1 Postlaminectomy syndrome, not elsewhere classified (principal); G89.29 Other chronic pain; E11.9 Type 2 diabetes mellitus without complications; F17.210 Nicotine dependence, cigarettes, uncomplicated; Z85.528 Personal history of other malignant neoplasm of kidney; Z80.0 Family history of malignant neoplasm of digestive organs; Z88.1 Allergy status to other antibiotic agents; Z88.8 Allergy status to other drugs, medicaments and biological substances; Z79.84 Long term (current) use of oral hypoglycemic drugs; Z79.899 Other long term (current) drug therapy ==

== ENCOUNTER → 2023-05-08 | Outpatient (REF) | payer BC ==
[~2023-05-08] MED LIST changes: -OXYB5TAB10 PO; +OXYB5TAB11 PO
[2023-05-08 17:36] LABS: BASO # 0.1 10^3/uL (0.0-0.2); BASO % 1.2 % (0.0-1.0); EOS # 0.2 10^3/uL (0.0-0.5); HEMATOCRIT 52.8 % (36.0-47.0); HEMOGLOBIN 17.7 g/dl (12.0-15.5); LYMPH # 3.6 10^3/uL (1.5-5.0); LYMPH % 41.7 % (24.0-44.0); MEAN CORPUSCULAR HEMOGLOBIN 34.2 pg (27.0-33.0); MEAN CORPUSCULAR HGB CONC 33.5 g/dl (32.0-36.5); MEAN CORPUSCULAR VOLUME 101.9 fl (80.0-96.0); MONO # 0.6 10^3/uL (0.0-0.8); MONO % 6.6 % (2.0-8.0); NEUTROPHILS # 4.1 10^3/uL (1.5-8.5); NEUTROPHILS % 48.2 % (36.0-66.0); PLATELET COUNT, AUTOMATED 295 10^3/uL (150-450); RED BLOOD COUNT 5.18 10^6/uL (4.00-5.40); WHITE BLOOD COUNT 8.6 10^3/uL (4.0-10.0)
[2023-05-08 17:57] LABS: ALBUMIN 3.5 G/DL (3.2-5.2); BILIRUBIN,TOTAL 0.3 MG/DL (0.3-1.2); CALCIUM LEVEL 9.1 MG/DL (8.5-10.1); CREATININE FOR GFR 1.43 MG/DL (0.55-1.30); GLOMERULAR FILTRATION RATE 41.5 (>58); POTASSIUM SERUM 4.9 MMOL/L (3.5-5.1); TOTAL PROTEIN 6.6 G/DL (5.7-8.2)
== END ==
LOC: M LABDRWAD 16:31
PROVIDERS: ATTEND Nurse Practitioner
DX: C34.92 Malignant neoplasm of unspecified part of left bronchus or lung (principal); C79.02 Secondary malignant neoplasm of left kidney and renal pelvis

== ENCOUNTER 2023-05-25 05:53 | Emergency (ER) | payer BC ==
[~2023-05-25] VITALS: Ht 154.9 cm; Wt 90.0 kg
[~2023-05-25 05:53] MED LIST changes: -ALBU8.5H; +ALBU8.5H INH
[2023-05-25] MEDS ORDERED: methylPREDNISolone 125MG 2ML VIAL IV ONE (06:20)
[2023-05-25] MEDS ORDERED: IPRATROPIUM 0.5MG/ALBUTEROL 2.5MG INH SOL UD 3ML (DUONEB) NEB PRN (06:20)
[2023-05-25] MEDS ORDERED: PERCOCET 5MG/325MG TAB PO ONE (06:20)
[2023-05-25 06:45] LABS: VENOUS BASE EXCESS -0.8 (-2.0-2.0); VENOUS HCO3 24.6 MMOL/L (23.0-27.0); VENOUS O2 SATURATION 95.8 % (60.0-80.0); VENOUS PARTIAL PRESSURE CO2 43.2 mmHg (38.0-50.0); VENOUS PARTIAL PRESSURE O2 71.6 mmHg (30.0-50.0); VENOUS PH 7.373 UNITS (7.330-7.430); VENOUS STANDARD HCO3 23.7 MMOL/L; VENOUS TOTAL CO2 25.9 MMOL/L (24.0-28.0)
[2023-05-25 06:57] LABS: BASO # 0.1 10^3/uL (0.0-0.2); BASO % 0.7 % (0.0-1.0); EOS # 0.1 10^3/uL (0.0-0.5); EOS % 1.2 % (0.0-3.0); LYMPH # 3.2 10^3/uL (1.5-5.0); LYMPH % 26.5 % (24.0-44.0); MEAN CORPUSCULAR HEMOGLOBIN 33.3 pg (27.0-33.0); MEAN CORPUSCULAR HGB CONC 33.7 g/dl (32.0-36.5); MONO # 0.9 10^3/uL (0.0-0.8); MONO % 7.7 % (2.0-8.0); NEUTROPHILS # 7.7 10^3/uL (1.5-8.5); NEUTROPHILS % 63.5 % (36.0-66.0); PLATELET COUNT, AUTOMATED 285 10^3/uL (150-450); RED BLOOD COUNT 5.19 10^6/uL (4.00-5.40); WHITE BLOOD COUNT 12.1 10^3/uL (4.0-10.0)
[2023-05-25 06:58] LABS: HEMATOCRIT 51.4 % (36.0-47.0); HEMOGLOBIN 17.3 g/dl (12.0-15.5)
[2023-05-25 07:20] LABS: CPK CREATINE PHOSPHOKINASE 75 U/L (34-145)
[2023-05-25 07:21] LABS: ALBUMIN 3.7 G/DL (3.2-5.2); ALKALINE PHOSPHATASE 78 U/L (46-116); ALT/SGPT 10 U/L (7.0-40); AST/SGOT < 8 U/L (<34); BILIRUBIN,DIRECT 0.2 MG/DL (<0.4); BILIRUBIN,TOTAL 0.5 MG/DL (0.3-1.2); BLOOD UREA NITROGEN 17 MG/DL (9-23); CALCIUM LEVEL 9.4 MG/DL (8.5-10.1); CARBON DIOXIDE LEVEL 27 MMOL/L (20-31); CHLORIDE LEVEL 102 MMOL/L (98-107); CK-MB VALUE MASS < 1.0 NG/ML (<3.6); CREATININE FOR GFR 1.35 MG/DL (0.55-1.30); GLOMERULAR FILTRATION RATE 44.4 (>58); GLUCOSE, FASTING 109 MG/DL (60-100); MB/CK RELATIVE INDEX 1.33 (< OR =4); POTASSIUM SERUM 4.1 MMOL/L (3.5-5.1); SODIUM LEVEL 136 MMOL/L (136-145); TOTAL PROTEIN 7.1 G/DL (5.7-8.2)
[2023-05-25 07:23] LABS: THYROID STIMULATING HORMONE 4.396 uIU/ML (0.55-4.78)
[2023-05-25] MEDS ORDERED: ISOVUE-370 76% 100ML VIAL As Ordered ONE (07:43)
[2023-05-25] MEDS ORDERED: BENZ200C70 PO (09:14)
[2023-05-25] MEDS ORDERED: AZIT-12 PO (09:14)
[2023-05-25] MEDS ORDERED: CYCLOBENZAPRINE 5MG TABLET PO ONE (09:20)
[2023-05-25 09:39] VITALS: BP 115/75; TEMP 98.3; O2SAT 95
== END 2023-05-25 09:48 | disposition home or self-care (01) ==
LOC: EDBD 05:53 → M ED 05:53
DX: J18.9 Pneumonia, unspecified organism (principal); S20.219A Contusion of unspecified front wall of thorax, initial encounter; W01.0XXA Fall on same level from slipping, tripping and stumbling without subsequent striking against object, initial encounter; E11.9 Type 2 diabetes mellitus without complications; J44.9 Chronic obstructive pulmonary disease, unspecified; F17.200 Nicotine dependence, unspecified, uncomplicated; C34.90 Malignant neoplasm of unspecified part of unspecified bronchus or lung; Z85.528 Personal history of other malignant neoplasm of kidney; Z91.048 Other nonmedicinal substance allergy status; Z88.8 Allergy status to other drugs, medicaments and biological substances; Z79.52 Long term (current) use of systemic steroids; Z79.02 Long term (current) use of antithrombotics/antiplatelets; Z79.899 Other long term (current) drug therapy
CPT/HCPCS: 36415; 71045; 71275; 80048; 80076; 82550; 82553; 82803; 83880; 84443; 84484; 85025; 87040; 87486; 87581; 87633; 87798; 93005; 93041; 94010; 94760; 99285; J2930; Q9967

== ENCOUNTER → 2023-05-31 | Outpatient (REF) | payer BC ==
[~2023-05-31] MED LIST changes: +AZIT-12 PO; +BENZ200C70 PO
[2023-05-31 17:54] LABS: APPEARANCE, URINE HAZY (CLEAR); BACTERIA, URINE AUTO 1+ (NEGATIVE); BILIRUBIN, URINE AUTO NEGATIVE (NEGATIVE); BLOOD, URINE BLOOD 1+ (NEGATIVE); COLOR, URINE YELLOW (YELLOW); GLUCOSE, URINE (UA) AUTO 3+ mg/dL (NEGATIVE); KETONE, URINE AUTO NEGATIVE (NEGATIVE); LEUKOCYTE ESTERASE, URINE AUTO 2+ (NEGATIVE); MUCUS, URINE SMALL (NEGATIVE); NITRITE, URINE AUTO POSITIVE (NEGATIVE); PROTEIN, URINE AUTO 1+ mg/dL (NEGATIVE); RBC, URINE AUTO 4 /HPF (0-3); SPECIFIC GRAVITY URINE AUTO 1.016 (1.002-1.035); SQUAMOUS EPITHELIAL CELL UR AU 2 /HPF (0-6); UROBILINOGEN, URINE AUTO 0.2 mg/dL (0.0-2.0); WBC, URINE AUTO 35 /HPF (0-3)
== END ==
LOC: M SFHCADAM 15:01
PROVIDERS: ATTEND Physician Assistant
DX: R82.90 Unspecified abnormal findings in urine (principal)

== ENCOUNTER → 2023-06-04 | Outpatient (CLI) | payer BC | LOC: M ADAMS 15:03 | PROVIDERS: ATTEND Physician Assistant | DX: J18.9 Pneumonia, unspecified organism (principal) ==

== ENCOUNTER → 2023-06-22 | Outpatient (CLI) | payer BC ==
[~2023-06-22] MED LIST changes: -FLUT50SP17 NARES; +FLUTISP NARES
== END ==
LOC: M PAIN 16:45
PROVIDERS: ATTEND Nurse Practitioner Family
DX: M96.1 Postlaminectomy syndrome, not elsewhere classified (principal); G89.29 Other chronic pain; F17.210 Nicotine dependence, cigarettes, uncomplicated; Z86.16 Personal history of COVID-19; Z85.118 Personal history of other malignant neoplasm of bronchus and lung; Z85.528 Personal history of other malignant neoplasm of kidney; Z88.1 Allergy status to other antibiotic agents; Z88.8 Allergy status to other drugs, medicaments and biological substances; Z79.84 Long term (current) use of oral hypoglycemic drugs; Z79.899 Other long term (current) drug therapy

== ENCOUNTER → 2023-07-26 | Outpatient (CLI) | payer BC | LOC: M PAIN 17:30 | PROVIDERS: ATTEND Nurse Practitioner Family | DX: M96.1 Postlaminectomy syndrome, not elsewhere classified (principal); G89.29 Other chronic pain; F17.210 Nicotine dependence, cigarettes, uncomplicated; Z85.118 Personal history of other malignant neoplasm of bronchus and lung; Z85.528 Personal history of other malignant neoplasm of kidney; Z80.8 Family history of malignant neoplasm of other organs or systems; Z88.1 Allergy status to other antibiotic agents; Z88.8 Allergy status to other drugs, medicaments and biological substances; Z79.84 Long term (current) use of oral hypoglycemic drugs; Z79.899 Other long term (current) drug therapy ==

== ENCOUNTER → 2023-08-14 | Outpatient (CLI) | payer BC ==
[~2023-08-14] MED LIST changes: +GASTROGRAFIN SOLUTION 30ML As Ordered ONE; +ISOVUE-370 76% 100ML VIAL As Ordered ONE
== END ==
LOC: M RAD 12:14
PROVIDERS: ATTEND Internal Medicine Hematology & Oncology
DX: C34.90 Malignant neoplasm of unspecified part of unspecified bronchus or lung (principal)
CPT/HCPCS: 71260; 74177; Q9963; Q9967

== ENCOUNTER → 2023-08-16 | Outpatient (CLI) | payer BC ==
[~2023-08-16] MED LIST changes: +GABA-284 PO; -GASTROGRAFIN SOLUTION 30ML As Ordered ONE; -ISOVUE-370 76% 100ML VIAL As Ordered ONE; -OXYB5TAB11 PO; +OXYB5TAB14 PO
== END ==
LOC: M ONCR 11:30
PROVIDERS: ATTEND General Practice
DX: G89.29 Other chronic pain (principal); R07.89 Other chest pain; C34.12 Malignant neoplasm of upper lobe, left bronchus or lung; F17.210 Nicotine dependence, cigarettes, uncomplicated; Z88.1 Allergy status to other antibiotic agents; Z88.8 Allergy status to other drugs, medicaments and biological substances; Z79.84 Long term (current) use of oral hypoglycemic drugs; Z79.51 Long term (current) use of inhaled steroids; Z79.890 Hormone replacement therapy; Z79.899 Other long term (current) drug therapy; Z92.21 Personal history of antineoplastic chemotherapy; Z92.3 Personal history of irradiation

== ENCOUNTER → 2023-08-27 | Outpatient (CLI) | payer BC ==
[~2023-08-27] MED LIST changes: -GABA-284 PO; +OXYB5TAB11 PO; -OXYB5TAB14 PO
== END ==
LOC: M PAIN 10:45
PROVIDERS: ATTEND Nurse Practitioner Family
DX: M96.1 Postlaminectomy syndrome, not elsewhere classified (principal); Z79.891 Long term (current) use of opiate analgesic; G89.29 Other chronic pain; E78.5 Hyperlipidemia, unspecified; K21.9 Gastro-esophageal reflux disease without esophagitis; F32.A Depression, unspecified; E11.9 Type 2 diabetes mellitus without complications; E03.9 Hypothyroidism, unspecified; E04.1 Nontoxic single thyroid nodule; D64.9 Anemia, unspecified; E66.9 Obesity, unspecified; G47.33 Obstructive sleep apnea (adult) (pediatric); F17.210 Nicotine dependence, cigarettes, uncomplicated; Z68.32 Body mass index [BMI] 32.0-32.9, adult; Z88.1 Allergy status to other antibiotic agents; Z88.8 Allergy status to other drugs, medicaments and biological substances; Z79.890 Hormone replacement therapy; Z79.899 Other long term (current) drug therapy

== ENCOUNTER → 2023-08-30 | Outpatient (REF) | payer BC ==
[2023-08-30 17:10] LABS: BASO # 0.1 10^3/uL (0.0-0.2); BASO % 1.1 % (0.0-1.0); EOS # 0.2 10^3/uL (0.0-0.5); EOS % 2.3 % (0.0-3.0); HEMATOCRIT 55.6 % (36.0-47.0); HEMOGLOBIN 18.5 g/dl (12.0-15.5); LYMPH # 3.6 10^3/uL (1.5-5.0); LYMPH % 43.7 % (24.0-44.0); MEAN CORPUSCULAR HEMOGLOBIN 32.7 pg (27.0-33.0); MEAN CORPUSCULAR HGB CONC 33.3 g/dl (32.0-36.5); MEAN CORPUSCULAR VOLUME 98.2 fl (80.0-96.0); MONO # 0.7 10^3/uL (0.0-0.8); MONO % 8.2 % (2.0-8.0); NEUTROPHILS # 3.7 10^3/uL (1.5-8.5); NEUTROPHILS % 44.5 % (36.0-66.0); PLATELET COUNT, AUTOMATED 271 10^3/uL (150-450); RED BLOOD COUNT 5.66 10^6/uL (4.00-5.40); WHITE BLOOD COUNT 8.2 10^3/uL (4.0-10.0)
[2023-08-30 17:34] LABS: ALBUMIN 3.6 G/DL (3.2-5.2); BILIRUBIN,TOTAL 0.4 MG/DL (0.3-1.2); CALCIUM LEVEL 8.7 MG/DL (8.5-10.1); CREATININE FOR GFR 1.47 MG/DL (0.55-1.30); GLOMERULAR FILTRATION RATE 40.2 (>58); POTASSIUM SERUM 4.9 MMOL/L (3.5-5.1); TOTAL PROTEIN 6.8 G/DL (5.7-8.2)
== END ==
LOC: M LABDRWAD 16:28
PROVIDERS: ATTEND Nurse Practitioner
DX: C34.92 Malignant neoplasm of unspecified part of left bronchus or lung (principal); C79.02 Secondary malignant neoplasm of left kidney and renal pelvis

== ENCOUNTER → 2023-08-30 | Outpatient (REF) | payer BC ==
[2023-08-30 18:47] LABS: CREATININE, URINE 27.3 MG/DL; MAU/CREAT RATIO 117.2 MCG/MG (0.0-30.0)
[2023-08-30 18:49] LABS: CHOLESTEROL RISK RATIO 4.03 (<5); FREE T4 1.26 NG/DL (0.89-1.76); HDL CHOLESTEROL 36.9 MG/DL (>40); LDL CHOLESTEROL 76.5 MG/DL (<100); NON-HDL-C 112.1 MG/DL
[2023-08-30 18:52] LABS: THYROID STIMULATING HORMONE 2.424 uIU/ML (0.55-4.78)
[2023-08-30 20:29] LABS: HEMOGLOBIN A1c 5.2 % (4.0-6.0)
== END ==
LOC: M SFHCADAM 15:31
PROVIDERS: ATTEND Physician Assistant
DX: C64.2 Malignant neoplasm of left kidney, except renal pelvis (principal); F17.218 Nicotine dependence, cigarettes, with other nicotine-induced disorders; Z12.39 Encounter for other screening for malignant neoplasm of breast; E66.9 Obesity, unspecified; Z85.118 Personal history of other malignant neoplasm of bronchus and lung; Z90.5 Acquired absence of kidney; E78.2 Mixed hyperlipidemia; E03.9 Hypothyroidism, unspecified; E11.29 Type 2 diabetes mellitus with other diabetic kidney complication

== ENCOUNTER → 2023-09-12 | Outpatient (REF) | payer BC ==
[~2023-09-12] MED LIST changes: -OXYB5TAB11 PO; +OXYB5TAB14 PO
[2023-09-13 08:12] LABS: ERYTHROPOIETIN 10.2 mIU/mL (2.6-18.5)
== END ==
LOC: M LABDRWAD 12:33
PROVIDERS: ATTEND Nurse Practitioner
DX: D45 Polycythemia vera (principal)

== ENCOUNTER → 2023-09-17 | Outpatient (CLI) | payer BC ==
[~2023-09-17] MED LIST changes: +GABA-284 PO
== END ==
LOC: M PAIN 15:00
PROVIDERS: ATTEND Nurse Practitioner Family
DX: M96.1 Postlaminectomy syndrome, not elsewhere classified (principal); Z79.891 Long term (current) use of opiate analgesic; G89.29 Other chronic pain; M54.50 Low back pain, unspecified; E78.5 Hyperlipidemia, unspecified; K21.9 Gastro-esophageal reflux disease without esophagitis; F32.A Depression, unspecified; E11.9 Type 2 diabetes mellitus without complications; M79.18 Myalgia, other site; E03.9 Hypothyroidism, unspecified; D64.9 Anemia, unspecified; E66.9 Obesity, unspecified; F17.210 Nicotine dependence, cigarettes, uncomplicated; Z88.1 Allergy status to other antibiotic agents; Z88.8 Allergy status to other drugs, medicaments and biological substances; Z79.899 Other long term (current) drug therapy; Z79.890 Hormone replacement therapy

== ENCOUNTER → 2023-09-21 | Outpatient (CLI) | payer BC ==
[~2023-09-21] MED LIST changes: +PROHANCE 279.3MG/ML 15ML VIAL ONE; +PROHANCE 279.3MG/ML 5ML VIAL ONE
== END ==
LOC: M PLAIMG 10:33
PROVIDERS: ATTEND Physician Assistant
DX: Z12.31 Encounter for screening mammogram for malignant neoplasm of breast (principal)

== ENCOUNTER → 2023-09-25 | Outpatient (CLI) | payer BC ==
[~2023-09-25] MED LIST changes: -PROHANCE 279.3MG/ML 15ML VIAL ONE; -PROHANCE 279.3MG/ML 5ML VIAL ONE
== END ==
LOC: M PAIN 13:30 → M TMPAIN 13:30
PROVIDERS: ATTEND Nurse Practitioner Family
DX: M96.1 Postlaminectomy syndrome, not elsewhere classified (principal); Z79.891 Long term (current) use of opiate analgesic; G89.29 Other chronic pain; E78.5 Hyperlipidemia, unspecified; F32.A Depression, unspecified; K21.9 Gastro-esophageal reflux disease without esophagitis; E11.9 Type 2 diabetes mellitus without complications; M79.18 Myalgia, other site; E03.9 Hypothyroidism, unspecified; E66.9 Obesity, unspecified; E53.8 Deficiency of other specified B group vitamins; G47.33 Obstructive sleep apnea (adult) (pediatric); F17.210 Nicotine dependence, cigarettes, uncomplicated; Z79.84 Long term (current) use of oral hypoglycemic drugs; Z79.890 Hormone replacement therapy; Z79.899 Other long term (current) drug therapy; Z88.1 Allergy status to other antibiotic agents; Z88.8 Allergy status to other drugs, medicaments and biological substances

== ENCOUNTER → 2023-10-11 | Outpatient (REF) | payer BC ==
[2023-10-11 15:08] LABS: APPEARANCE, URINE HAZY (CLEAR); BACTERIA, URINE AUTO 1+ (NEGATIVE); BILIRUBIN, URINE AUTO NEGATIVE (NEGATIVE); BLOOD, URINE BLOOD NEGATIVE (NEGATIVE); COLOR, URINE YELLOW (YELLOW); GLUCOSE, URINE (UA) AUTO 3+ mg/dL (NEGATIVE); KETONE, URINE AUTO NEGATIVE (NEGATIVE); LEUKOCYTE ESTERASE, URINE AUTO NEGATIVE (NEGATIVE); NITRITE, URINE AUTO NEGATIVE (NEGATIVE); PROTEIN, URINE AUTO 1+ mg/dL (NEGATIVE); RBC, URINE AUTO 2 /HPF (0-3); SPECIFIC GRAVITY URINE AUTO 1.011 (1.002-1.035); SQUAMOUS EPITHELIAL CELL UR AU 1 /HPF (0-6); WBC, URINE AUTO 0 /HPF (0-3)
== END ==
LOC: M SFHCADAM 14:07
PROVIDERS: ATTEND Physician Assistant
DX: N30.00 Acute cystitis without hematuria (principal)

== ENCOUNTER → 2023-10-16 | Outpatient (CLI) | payer BC | LOC: M PAIN 09:45 → M TMPAIN 09:45 | PROVIDERS: ATTEND Nurse Practitioner Family | DX: M96.1 Postlaminectomy syndrome, not elsewhere classified (principal); Z79.891 Long term (current) use of opiate analgesic; E11.9 Type 2 diabetes mellitus without complications; F17.200 Nicotine dependence, unspecified, uncomplicated; Z79.02 Long term (current) use of antithrombotics/antiplatelets; Z79.1 Long term (current) use of non-steroidal anti-inflammatories (NSAID); Z79.51 Long term (current) use of inhaled steroids; Z79.84 Long term (current) use of oral hypoglycemic drugs; Z79.899 Other long term (current) drug therapy ==

== ENCOUNTER → 2023-11-16 | Outpatient (CLI) | payer BC ==
[~2023-11-16] MED LIST changes: -ETOD-173 PO; +ETOD-234 PO
== END ==
LOC: M PAIN 17:00 → M TMPAIN 17:00
PROVIDERS: ATTEND Nurse Practitioner Family
DX: M96.1 Postlaminectomy syndrome, not elsewhere classified (principal); G89.29 Other chronic pain; E78.5 Hyperlipidemia, unspecified; K21.9 Gastro-esophageal reflux disease without esophagitis; F32.A Depression, unspecified; E11.9 Type 2 diabetes mellitus without complications; M79.18 Myalgia, other site; E03.9 Hypothyroidism, unspecified; D64.9 Anemia, unspecified; E66.9 Obesity, unspecified; E53.8 Deficiency of other specified B group vitamins; K76.0 Fatty (change of) liver, not elsewhere classified; F17.210 Nicotine dependence, cigarettes, uncomplicated; Z79.84 Long term (current) use of oral hypoglycemic drugs; Z79.890 Hormone replacement therapy; Z79.899 Other long term (current) drug therapy; Z88.1 Allergy status to other antibiotic agents; Z88.8 Allergy status to other drugs, medicaments and biological substances

== ENCOUNTER → 2023-11-16 | Outpatient (CLI) | payer BC ==
[~2023-11-16] MED LIST changes: +ETOD-173 PO; -ETOD-234 PO; +ISOVUE-370 76% 100ML VIAL As Ordered ONE
== END ==
LOC: M RAD 15:07
PROVIDERS: ATTEND Internal Medicine Hematology & Oncology
DX: C34.90 Malignant neoplasm of unspecified part of unspecified bronchus or lung (principal); J43.9 Emphysema, unspecified; J98.4 Other disorders of lung; R91.8 Other nonspecific abnormal finding of lung field
CPT/HCPCS: 71260; Q9967

== ENCOUNTER → 2023-12-03 | Outpatient (CLI) | payer BC ==
[~2023-12-03] MED LIST changes: -ETOD-173 PO; +ETOD-234 PO; -ISOVUE-370 76% 100ML VIAL As Ordered ONE
== END ==
LOC: M PLARAD 12:56
PROVIDERS: ATTEND Internal Medicine Hematology & Oncology
DX: C34.12 Malignant neoplasm of upper lobe, left bronchus or lung (principal)
CPT/HCPCS: 78815; A9552

== ENCOUNTER → 2023-12-18 | Outpatient (CLI) | payer BC ==
[~2023-12-18] MED LIST changes: +ATIV1TAB7 PO
== END ==
LOC: M PAIN 11:15
PROVIDERS: ATTEND Nurse Practitioner Family
DX: M96.1 Postlaminectomy syndrome, not elsewhere classified (principal); I51.7 Cardiomegaly; E11.29 Type 2 diabetes mellitus with other diabetic kidney complication; E03.9 Hypothyroidism, unspecified; E78.2 Mixed hyperlipidemia; F17.200 Nicotine dependence, unspecified, uncomplicated; Z79.02 Long term (current) use of antithrombotics/antiplatelets; Z79.84 Long term (current) use of oral hypoglycemic drugs; Z79.890 Hormone replacement therapy; Z79.891 Long term (current) use of opiate analgesic; Z88.1 Allergy status to other antibiotic agents; Z88.2 Allergy status to sulfonamides; Z88.8 Allergy status to other drugs, medicaments and biological substances

== ENCOUNTER → 2023-12-26 | Outpatient (REF) | payer BC ==
[2023-12-26 12:49] LABS: BASO # 0.1 10^3/uL (0.0-0.2); BASO % 0.7 % (0.0-1.0); EOS # 0.2 10^3/uL (0.0-0.5); EOS % 2.3 % (0.0-3.0); HEMATOCRIT 55.9 % (36.0-47.0); LYMPH % 31.6 % (24.0-44.0); MEAN CORPUSCULAR HEMOGLOBIN 33.9 pg (27.0-33.0); MEAN CORPUSCULAR HGB CONC 33.8 g/dl (32.0-36.5); MEAN CORPUSCULAR VOLUME 100.4 fl (80.0-96.0); MONO # 0.6 10^3/uL (0.0-0.8); MONO % 6.2 % (2.0-8.0); NEUTROPHILS # 5.5 10^3/uL (1.5-8.5); NEUTROPHILS % 58.8 % (36.0-66.0); PLATELET COUNT, AUTOMATED 254 10^3/uL (150-450); RED BLOOD COUNT 5.57 10^6/uL (4.00-5.40); WHITE BLOOD COUNT 9.4 10^3/uL (4.0-10.0)
[2023-12-26 12:52] LABS: HEMOGLOBIN 18.9 g/dl (12.0-15.5)
[2023-12-26 13:12] LABS: INR 1.02; PARTIAL THROMBOPLASTIN TIME 32.7 SECONDS (24.8-34.2); PROTHROMBIN TIME 13.1 SECONDS (12.5-14.5)
[2023-12-26 13:33] LABS: ALKALINE PHOSPHATASE 96 U/L (46-116); ALT/SGPT 21 U/L (7.0-40); AST/SGOT < 8 U/L (<34); BILIRUBIN,TOTAL 0.3 MG/DL (0.3-1.2); BLOOD UREA NITROGEN 20 MG/DL (9-23); CALCIUM LEVEL 9.8 MG/DL (8.5-10.1); CARBON DIOXIDE LEVEL 28 MMOL/L (20-31); CHLORIDE LEVEL 107 MMOL/L (98-107); CREATININE FOR GFR 1.33 MG/DL (0.55-1.30); GLOMERULAR FILTRATION RATE 45.1 (>58); GLUCOSE, FASTING 159 MG/DL (60-100); POTASSIUM SERUM 4.8 MMOL/L (3.5-5.1); SODIUM LEVEL 139 MMOL/L (136-145); TOTAL PROTEIN 7.1 G/DL (5.7-8.2)
== END ==
LOC: M LABDRWAD 12:26
PROVIDERS: ATTEND Nurse Practitioner
DX: C34.90 Malignant neoplasm of unspecified part of unspecified bronchus or lung (principal)

== ENCOUNTER → 2023-12-31 | Outpatient (CLI) | payer BC ==
[~2023-12-31] MED LIST changes: +LIDOCAINE 1% MDV 20ML VIAL As Ordered ONE
[2023-12-31 14:10] VITALS: TEMP 98.2
[2023-12-31 16:00] VITALS: BP 109/53; O2SAT 92
== END ==
LOC: M IRPRO 14:03
PROVIDERS: ATTEND Internal Medicine Hematology & Oncology
DX: D48.0 Neoplasm of uncertain behavior of bone and articular cartilage (principal); C34.90 Malignant neoplasm of unspecified part of unspecified bronchus or lung

== ENCOUNTER → 2024-01-01 | Outpatient (CLI) | payer BC ==
[~2024-01-01] MED LIST changes: -LIDOCAINE 1% MDV 20ML VIAL As Ordered ONE; +METF10004
== END ==
LOC: M PAIN 16:30 → M TMPAIN 16:30
PROVIDERS: ATTEND Nurse Practitioner Family
DX: M96.1 Postlaminectomy syndrome, not elsewhere classified (principal); F17.200 Nicotine dependence, unspecified, uncomplicated; E11.9 Type 2 diabetes mellitus without complications; E03.9 Hypothyroidism, unspecified; Z79.84 Long term (current) use of oral hypoglycemic drugs; Z79.890 Hormone replacement therapy; Z79.891 Long term (current) use of opiate analgesic; Z88.1 Allergy status to other antibiotic agents; Z88.2 Allergy status to sulfonamides; Z88.8 Allergy status to other drugs, medicaments and biological substances

== ENCOUNTER → 2024-01-03 | Outpatient (CLI) | payer BC ==
[~2024-01-03] MED LIST changes: -METF10004
== END ==
LOC: M ADAMS 13:31
PROVIDERS: ATTEND Physician Assistant Medical
DX: R07.81 Pleurodynia (principal); F17.218 Nicotine dependence, cigarettes, with other nicotine-induced disorders; M62.838 Other muscle spasm

== ENCOUNTER → 2024-01-08 | Outpatient (CLI) | payer BC ==
[~2024-01-08] MED LIST changes: +METF10004
== END ==
LOC: M PAIN 17:00
PROVIDERS: ATTEND Nurse Practitioner Family
DX: M96.1 Postlaminectomy syndrome, not elsewhere classified (principal); Z79.891 Long term (current) use of opiate analgesic; Z79.02 Long term (current) use of antithrombotics/antiplatelets; Z79.52 Long term (current) use of systemic steroids; Z79.84 Long term (current) use of oral hypoglycemic drugs; Z79.890 Hormone replacement therapy; Z79.899 Other long term (current) drug therapy; E78.5 Hyperlipidemia, unspecified; E11.9 Type 2 diabetes mellitus without complications; E03.9 Hypothyroidism, unspecified; F17.200 Nicotine dependence, unspecified, uncomplicated; Z88.0 Allergy status to penicillin; Z88.1 Allergy status to other antibiotic agents; Z88.2 Allergy status to sulfonamides; Z91.048 Other nonmedicinal substance allergy status

== ENCOUNTER → 2024-01-23 | Outpatient (REF) | payer BC ==
[2024-01-23 18:02] LABS: APPEARANCE, URINE HAZY (CLEAR); BACTERIA, URINE AUTO NEGATIVE (NEGATIVE); BILIRUBIN, URINE AUTO NEGATIVE (NEGATIVE); BLOOD, URINE BLOOD 1+ (NEGATIVE); COLOR, URINE YELLOW (YELLOW); GLUCOSE, URINE (UA) AUTO 3+ mg/dL (NEGATIVE); KETONE, URINE AUTO NEGATIVE (NEGATIVE); LEUKOCYTE ESTERASE, URINE AUTO 1+ (NEGATIVE); NITRITE, URINE AUTO NEGATIVE (NEGATIVE); PROTEIN, URINE AUTO NEGATIVE (NEGATIVE); RBC, URINE AUTO 2 /HPF (0-3); SPECIFIC GRAVITY URINE AUTO 1.012 (1.002-1.035); SQUAMOUS EPITHELIAL CELL UR AU 3 /HPF (0-6); UROBILINOGEN, URINE AUTO 0.2 mg/dL (0.0-2.0); WBC, URINE AUTO 26 /HPF (0-3)
== END ==
LOC: M SFHCADAM 12:49
PROVIDERS: ATTEND Physician Assistant
DX: N30.00 Acute cystitis without hematuria (principal)

== ENCOUNTER → 2024-02-04 | Outpatient (CLI) | payer BC | LOC: M PAIN 15:30 → M TMPAIN 15:30 | PROVIDERS: ATTEND Nurse Practitioner Family | DX: M96.1 Postlaminectomy syndrome, not elsewhere classified (principal); E11.9 Type 2 diabetes mellitus without complications; E78.5 Hyperlipidemia, unspecified; F17.200 Nicotine dependence, unspecified, uncomplicated; Z79.02 Long term (current) use of antithrombotics/antiplatelets; Z79.84 Long term (current) use of oral hypoglycemic drugs; Z79.51 Long term (current) use of inhaled steroids; Z79.890 Hormone replacement therapy; Z79.891 Long term (current) use of opiate analgesic; Z79.899 Other long term (current) drug therapy; Z88.2 Allergy status to sulfonamides; Z88.8 Allergy status to other drugs, medicaments and biological substances ==

== ENCOUNTER → 2024-02-11 | Outpatient (CLI) | payer BC ==
[~2024-02-11] MED LIST changes: +PROHANCE 279.3MG/ML 15ML VIAL As Ordered ONE; +PROHANCE 279.3MG/ML 5ML VIAL As Ordered ONE
== END ==
LOC: M RAD 12:44
PROVIDERS: ATTEND Radiology Radiation Oncology
DX: C34.12 Malignant neoplasm of upper lobe, left bronchus or lung (principal)
CPT/HCPCS: 70553; A9576

== ENCOUNTER → 2024-02-19 | Outpatient (CLI) | payer BC ==
[~2024-02-19] MED LIST changes: -PROHANCE 279.3MG/ML 15ML VIAL As Ordered ONE; -PROHANCE 279.3MG/ML 5ML VIAL As Ordered ONE
== END ==
LOC: M PAIN 15:00
PROVIDERS: ATTEND Nurse Practitioner Family
DX: M96.1 Postlaminectomy syndrome, not elsewhere classified (principal); G89.29 Other chronic pain; E78.5 Hyperlipidemia, unspecified; K21.9 Gastro-esophageal reflux disease without esophagitis; F32.A Depression, unspecified; E11.9 Type 2 diabetes mellitus without complications; M79.18 Myalgia, other site; E03.9 Hypothyroidism, unspecified; E66.9 Obesity, unspecified; D64.9 Anemia, unspecified; E53.8 Deficiency of other specified B group vitamins; K76.0 Fatty (change of) liver, not elsewhere classified; G47.33 Obstructive sleep apnea (adult) (pediatric); F17.210 Nicotine dependence, cigarettes, uncomplicated; Z79.890 Hormone replacement therapy; Z79.84 Long term (current) use of oral hypoglycemic drugs; Z79.891 Long term (current) use of opiate analgesic; Z79.899 Other long term (current) drug therapy; Z88.1 Allergy status to other antibiotic agents; Z88.8 Allergy status to other drugs, medicaments and biological substances

== ENCOUNTER → 2024-04-14 | Outpatient (CLI) | payer BC ==
[~2024-04-14] MED LIST changes: -ACIP1TAB PO; +GABA-1172 PO; -GABA-282 PO; +RABE20TA88 PO
== END ==
LOC: M PAIN 16:30
PROVIDERS: ATTEND Nurse Practitioner Family
DX: M96.1 Postlaminectomy syndrome, not elsewhere classified (principal); G89.29 Other chronic pain; E78.5 Hyperlipidemia, unspecified; K21.9 Gastro-esophageal reflux disease without esophagitis; F32.A Depression, unspecified; E11.40 Type 2 diabetes mellitus with diabetic neuropathy, unspecified; M79.18 Myalgia, other site; E03.9 Hypothyroidism, unspecified; D64.9 Anemia, unspecified; E66.9 Obesity, unspecified; E53.8 Deficiency of other specified B group vitamins; G47.33 Obstructive sleep apnea (adult) (pediatric); F17.210 Nicotine dependence, cigarettes, uncomplicated; Z79.890 Hormone replacement therapy; Z79.84 Long term (current) use of oral hypoglycemic drugs; Z79.891 Long term (current) use of opiate analgesic; Z79.899 Other long term (current) drug therapy; Z88.1 Allergy status to other antibiotic agents; Z88.8 Allergy status to other drugs, medicaments and biological substances; Z68.33 Body mass index [BMI] 33.0-33.9, adult

== ENCOUNTER → 2024-05-13 | Outpatient (CLI) | payer BC ==
[~2024-05-13] MED LIST changes: +ONDA-83 PO
== END ==
LOC: M RAD 15:38
PROVIDERS: ATTEND Nurse Practitioner Family
DX: M96.1 Postlaminectomy syndrome, not elsewhere classified (principal); M51.26 Other intervertebral disc displacement, lumbar region; M51.27 Other intervertebral disc displacement, lumbosacral region; Z90.5 Acquired absence of kidney

== ENCOUNTER → 2024-05-28 | Outpatient (CLI) | payer BC | LOC: M RAD 08:16 | PROVIDERS: ATTEND Specialist | DX: C34.90 Malignant neoplasm of unspecified part of unspecified bronchus or lung (principal); M54.9 Dorsalgia, unspecified ==

== ENCOUNTER → 2024-06-02 | Outpatient (CLI) | payer BC ==
[~2024-06-02] MED LIST changes: +PREG50CA3
== END ==
LOC: M PAIN 15:30
PROVIDERS: ATTEND Nurse Practitioner Family
DX: M96.1 Postlaminectomy syndrome, not elsewhere classified (principal); G89.29 Other chronic pain; M54.50 Low back pain, unspecified; E78.5 Hyperlipidemia, unspecified; K21.9 Gastro-esophageal reflux disease without esophagitis; F32.A Depression, unspecified; E11.9 Type 2 diabetes mellitus without complications; M79.18 Myalgia, other site; E03.9 Hypothyroidism, unspecified; D64.9 Anemia, unspecified; E53.8 Deficiency of other specified B group vitamins; G47.33 Obstructive sleep apnea (adult) (pediatric); F17.210 Nicotine dependence, cigarettes, uncomplicated; Z79.890 Hormone replacement therapy; Z79.891 Long term (current) use of opiate analgesic; Z79.899 Other long term (current) drug therapy; Z88.1 Allergy status to other antibiotic agents; Z88.8 Allergy status to other drugs, medicaments and biological substances

== ENCOUNTER → 2024-07-03 | Outpatient (CLI) | payer BC ==
[~2024-07-03] MED LIST changes: +LEVO1TAB39 PO
== END ==
LOC: M PAIN 14:15 → M TMPAIN 14:15
PROVIDERS: ATTEND Nurse Practitioner Family
DX: M96.1 Postlaminectomy syndrome, not elsewhere classified (principal); G89.29 Other chronic pain; E78.5 Hyperlipidemia, unspecified; F32.A Depression, unspecified; K21.9 Gastro-esophageal reflux disease without esophagitis; M79.18 Myalgia, other site; E03.9 Hypothyroidism, unspecified; D64.9 Anemia, unspecified; E66.9 Obesity, unspecified; G47.33 Obstructive sleep apnea (adult) (pediatric); F17.210 Nicotine dependence, cigarettes, uncomplicated; Z79.891 Long term (current) use of opiate analgesic; Z79.84 Long term (current) use of oral hypoglycemic drugs; Z79.899 Other long term (current) drug therapy; Z79.890 Hormone replacement therapy; Z88.1 Allergy status to other antibiotic agents; Z88.8 Allergy status to other drugs, medicaments and biological substances

== ENCOUNTER → 2024-07-21 | Outpatient (CLI) | payer BC | LOC: M PLARAD 09:49 | PROVIDERS: ATTEND Internal Medicine Hematology & Oncology | DX: C34.12 Malignant neoplasm of upper lobe, left bronchus or lung (principal) | CPT/HCPCS: 78815; A9552 ==

== ENCOUNTER → 2024-07-24 | Outpatient (CLI) | payer BC | LOC: M PAIN 16:15 | PROVIDERS: ATTEND Nurse Practitioner Family | DX: M96.1 Postlaminectomy syndrome, not elsewhere classified (principal); Z79.891 Long term (current) use of opiate analgesic; G89.29 Other chronic pain; M54.50 Low back pain, unspecified; E78.5 Hyperlipidemia, unspecified; K21.9 Gastro-esophageal reflux disease without esophagitis; F32.A Depression, unspecified; E11.9 Type 2 diabetes mellitus without complications; M79.18 Myalgia, other site; E03.9 Hypothyroidism, unspecified; E66.9 Obesity, unspecified; E53.8 Deficiency of other specified B group vitamins; F17.210 Nicotine dependence, cigarettes, uncomplicated; Z79.84 Long term (current) use of oral hypoglycemic drugs; Z79.899 Other long term (current) drug therapy; Z79.890 Hormone replacement therapy; Z88.1 Allergy status to other antibiotic agents; Z88.8 Allergy status to other drugs, medicaments and biological substances; Z68.32 Body mass index [BMI] 32.0-32.9, adult ==

== ENCOUNTER → 2024-07-29 | Outpatient (CLI) | payer BC | LOC: M ONCR 12:49 | PROVIDERS: ATTEND General Practice | DX: C34.12 Malignant neoplasm of upper lobe, left bronchus or lung (principal); F17.210 Nicotine dependence, cigarettes, uncomplicated; Z92.3 Personal history of irradiation; Z92.21 Personal history of antineoplastic chemotherapy; Z88.1 Allergy status to other antibiotic agents; Z88.8 Allergy status to other drugs, medicaments and biological substances; Z88.2 Allergy status to sulfonamides; Z79.84 Long term (current) use of oral hypoglycemic drugs; Z79.51 Long term (current) use of inhaled steroids; Z79.890 Hormone replacement therapy; Z79.899 Other long term (current) drug therapy ==

== ENCOUNTER → 2024-08-25 | Outpatient (CLI) | payer BC ==
[~2024-08-25] MED LIST changes: +CARI-555; +CARI-555 PO; -CARI1TAB7; -CARI1TAB7 PO
== END ==
LOC: M PAIN 16:00 → M TMPAIN 16:00
PROVIDERS: ATTEND Nurse Practitioner Family
DX: M96.1 Postlaminectomy syndrome, not elsewhere classified (principal); G89.29 Other chronic pain; M54.50 Low back pain, unspecified; M25.551 Pain in right hip; M25.552 Pain in left hip; E78.5 Hyperlipidemia, unspecified; K21.9 Gastro-esophageal reflux disease without esophagitis; E11.9 Type 2 diabetes mellitus without complications; F17.210 Nicotine dependence, cigarettes, uncomplicated; Z79.890 Hormone replacement therapy; Z79.891 Long term (current) use of opiate analgesic; Z79.899 Other long term (current) drug therapy; Z88.8 Allergy status to other drugs, medicaments and biological substances

== ENCOUNTER → 2024-09-01 | Outpatient (REF) | payer BC ==
[~2024-09-01] MED LIST changes: -CARI-555; -CARI-555 PO; +CARI1TAB7; +CARI1TAB7 PO
[2024-09-01 19:02] LABS: HEMOGLOBIN A1c 5.2 % (4.0-6.0)
== END ==
LOC: M SFHCADAM 11:03
PROVIDERS: ATTEND Physician Assistant
DX: I51.7 Cardiomegaly (principal); E11.29 Type 2 diabetes mellitus with other diabetic kidney complication; F17.218 Nicotine dependence, cigarettes, with other nicotine-induced disorders; N18.32 Chronic kidney disease, stage 3b; F32.1 Major depressive disorder, single episode, moderate; Z90.5 Acquired absence of kidney; G62.9 Polyneuropathy, unspecified

== ENCOUNTER → 2024-11-21 | Outpatient (REF) | payer BC ==
[~2024-11-21] MED LIST changes: +CARI-555; +CARI-555 PO; -CARI1TAB7; -CARI1TAB7 PO; -PREG50CA PO; +PREG50CA87 PO; -RABE1TAB4 PO; +RABE1TAB5 PO
[2024-11-21 17:29] LABS: BASO # 0.1 10^3/uL (0.0-0.2); BASO % 0.7 % (0.0-1.0); EOS # 0.2 10^3/uL (0.0-0.5); HEMATOCRIT 54.6 % (36.0-47.0); LYMPH # 3.5 10^3/uL (1.5-5.0); LYMPH % 32.4 % (24.0-44.0); MEAN CORPUSCULAR HGB CONC 33.3 g/dl (32.0-36.5); MEAN CORPUSCULAR VOLUME 102.1 fl (80.0-96.0); MONO # 0.8 10^3/uL (0.0-0.8); MONO % 7.5 % (2.0-8.0); NEUTROPHILS # 6.1 10^3/uL (1.5-8.5); NEUTROPHILS % 56.9 % (36.0-66.0); PLATELET COUNT, AUTOMATED 227 10^3/uL (150-450); RED BLOOD COUNT 5.35 10^6/uL (4.00-5.40); WHITE BLOOD COUNT 10.8 10^3/uL (4.0-10.0)
[2024-11-21 17:33] LABS: HEMOGLOBIN 18.2 g/dl (12.0-15.5)
[2024-11-21 18:04] LABS: ALBUMIN 3.8 G/DL (3.2-5.2); BILIRUBIN,TOTAL 0.4 MG/DL (0.3-1.2); CALCIUM LEVEL 9.6 MG/DL (8.5-10.1); CHOLESTEROL RISK RATIO 3.98 (<5); CREATININE FOR GFR 1.34 MG/DL (0.55-1.30); GLOMERULAR FILTRATION RATE 48.3 (>51); HDL CHOLESTEROL 35.9 MG/DL (>40); LDL CHOLESTEROL 66.3 MG/DL (<100); NON-HDL-C 107.1 MG/DL; POTASSIUM SERUM 4.4 MMOL/L (3.5-5.1); TOTAL PROTEIN 7.1 G/DL (5.7-8.2)
[2024-11-21 18:07] LABS: FREE T4 1.38 NG/DL (0.89-1.76); THYROID STIMULATING HORMONE 4.449 uIU/ML (0.55-4.78)
== END ==
LOC: M SFHCADAM 14:48
PROVIDERS: ATTEND Physician Assistant
DX: E11.29 Type 2 diabetes mellitus with other diabetic kidney complication (principal); F17.218 Nicotine dependence, cigarettes, with other nicotine-induced disorders; N18.32 Chronic kidney disease, stage 3b; E66.01 Morbid (severe) obesity due to excess calories; E03.9 Hypothyroidism, unspecified; Z68.33 Body mass index [BMI] 33.0-33.9, adult; R13.13 Dysphagia, pharyngeal phase; Z12.11 Encounter for screening for malignant neoplasm of colon; R09.81 Nasal congestion

== ENCOUNTER → 2024-12-02 | Outpatient (REF) | payer BC ==
[2024-12-02 13:47] LABS: BASO # 0.1 10^3/uL (0.0-0.2); EOS # 0.2 10^3/uL (0.0-0.5); EOS % 1.8 % (0.0-3.0); LYMPH # 3.5 10^3/uL (1.5-5.0); LYMPH % 33.9 % (24.0-44.0); MEAN CORPUSCULAR HEMOGLOBIN 33.9 pg (27.0-33.0); MEAN CORPUSCULAR HGB CONC 33.2 g/dl (32.0-36.5); MONO # 0.7 10^3/uL (0.0-0.8); MONO % 6.8 % (2.0-8.0); NEUTROPHILS # 5.8 10^3/uL (1.5-8.5); PLATELET COUNT, AUTOMATED 244 10^3/uL (150-450); RED BLOOD COUNT 5.49 10^6/uL (4.00-5.40); WHITE BLOOD COUNT 10.4 10^3/uL (4.0-10.0)
[2024-12-02 14:03] LABS: HEMOGLOBIN 18.6 g/dl (12.0-15.5)
[2024-12-02 14:19] LABS: ALBUMIN 3.9 G/DL (3.2-5.2); BILIRUBIN,TOTAL 0.3 MG/DL (0.3-1.2); CALCIUM LEVEL 9.4 MG/DL (8.5-10.1); CREATININE FOR GFR 1.36 MG/DL (0.55-1.30); GLOMERULAR FILTRATION RATE 47.5 (>51); POTASSIUM SERUM 4.5 MMOL/L (3.5-5.1); TOTAL PROTEIN 7.2 G/DL (5.7-8.2)
== END ==
LOC: M LABDRWAD 13:15
PROVIDERS: ATTEND Nurse Practitioner
DX: C34.90 Malignant neoplasm of unspecified part of unspecified bronchus or lung (principal)

== ENCOUNTER → 2025-03-02 | Outpatient (REF) | payer BC ==
[2025-03-02 19:05] LABS: BASO # 0.1 10^3/uL (0.0-0.2); BASO % 0.9 % (0.0-1.0); EOS # 0.2 10^3/uL (0.0-0.5); EOS % 2.2 % (0.0-3.0); LYMPH # 3.7 10^3/uL (1.5-5.0); LYMPH % 35.8 % (24.0-44.0); MONO # 0.7 10^3/uL (0.0-0.8); MONO % 7.0 % (2.0-8.0); NEUTROPHILS # 5.5 10^3/uL (1.5-8.5); NEUTROPHILS % 53.7 % (36.0-66.0); PLATELET COUNT, AUTOMATED 230 10^3/uL (150-450)
[2025-03-02 19:08] LABS: ALT/SGPT 16.0 U/L (7.0-40); AST/SGOT 14.0 U/L (<34); CALCIUM LEVEL 9.4 MG/DL (8.5-10.1); CARBON DIOXIDE LEVEL 30.0 MMOL/L (20-31); CHLORIDE LEVEL 108.0 MMOL/L (98-107); CREATININE FOR GFR 1.38 MG/DL (0.55-1.30); GLOMERULAR FILTRATION RATE 46.3 (>51); POTASSIUM SERUM 5.2 MMOL/L (3.5-5.1); SODIUM LEVEL 145.0 MMOL/L (136-145)
== END ==
LOC: M LABWUC 18:09
PROVIDERS: ATTEND Nurse Practitioner
DX: C34.90 Malignant neoplasm of unspecified part of unspecified bronchus or lung (principal)

== ENCOUNTER → 2025-03-26 | Outpatient (CLI) | payer BC ==
[~2025-03-26] MED LIST changes: +ISOVUE-370 76% 100 ML VIAL As Ordered ONE
== END ==
LOC: M RAD 10:52
PROVIDERS: ATTEND Nurse Practitioner
DX: C34.90 Malignant neoplasm of unspecified part of unspecified bronchus or lung (principal)

== ENCOUNTER → 2025-04-29 | Outpatient (CLI) | payer BC ==
[~2025-04-29] MED LIST changes: -ISOVUE-370 76% 100 ML VIAL As Ordered ONE; +PROHANCE 279.3MG/ML 15ML VIAL ONE; +PROHANCE 279.3MG/ML 5ML VIAL ONE
== END ==
LOC: M PLAIMG 11:35
PROVIDERS: ATTEND Student in an Organized Health Care Education/Training Program
DX: C34.90 Malignant neoplasm of unspecified part of unspecified bronchus or lung (principal); J34.2 Deviated nasal septum
CPT/HCPCS: 70553; A9576